=== PATIENT | male | born 1940 | race Caucasian/White ===

== ENCOUNTER 2016-11-08 11:42 | Emergency (ER) | payer BC ==
[~2016-11-08] VITALS: Ht 157.5 cm; Wt 64.5 kg
[~2016-11-08 11:42] MED LIST: CLOP1TAB15 PO; MRLP17X PEG; ONDA4TAB46 SL; PANT40TA PO; SIMV40TA2 PO
[2016-11-08 11:47] VITALS: TEMP 36.3; Ht 157.5 cm; Wt 64.5 kg
[2016-11-08] MEDS ORDERED: CRD200 PEG (12:10)
[2016-11-08] MEDS ORDERED: METO25TA56 PEG (12:10)
[2016-11-08] MEDS ORDERED: WARF2TAB8 PEG (12:10)
[2016-11-08] MEDS ORDERED: WARF1TAB6 PEG (12:10)
[2016-11-08] MEDS ORDERED: FRS/40 PEG (12:10)
[2016-11-08] MEDS ORDERED: ATOR-26 PEG (12:10)
[2016-11-08] MEDS ORDERED: LNX125 PEG (12:10)
--- NOTE | 2016-11-08 12:21 | EMERGENCY ROOM VISIT NOTE ---
ED Visit Note First contact with patient: 11:57 CHIEF COMPLAINT: Neck pain/spasms HISTORY OF PRESENT ILLNESS: This 75-year-old male patient presents to the emergency department, with his , complaining of pain in the neck bilaterally. The patient states the pain began on Monday morning, when he awoke. The patient sates he believes he slept in an awkward position, and began experiencing muscle spasms and pain in his neck. The patient did not fall and denies injury. The patient has a feeding tube, which was placed last year, and because of this, he has to sleep at 30 to 45 angle. The patient frequently experiences neck pain, however it has not been to this extent. Today , the patient states the pain worsened to the point where he felt that he needed to come to the emergency department for treatment. The patient has not taken any OTC medication, because his was uncertain what she could get him through the feeding tube. The patient rates the pain as sharp and 6/10. The patient's only significant history of neck problems as osteoarthritis noted on x -ray last year due to a fall. The patient does not have pain of the arms and shoulders. The patient denies numbness and tingling. The patient denies chest pain or shortness of breath. There was no head injury and no loss of consciousness. The patient denies headache, blurred vision, abdominal pain, nausea, or vomiting. The patient denies change in personality. REVIEW OF SYSTEMS: A 6 system review of systems was completed with positives and pertinent negatives listed in the HPI. ALLERGIES: Penicillins, Mack needles MEDICATIONS: Atorvastatin, amiodarone, digoxin, metoprolol, MiraLAX, warfarin PMH: Stroke, [place], hyperlipidemia, heart failure SOCIAL HISTORY: The patient lives locally with family. He denies drug, alcohol , tobacco use. PHYSICAL EXAM: VITALS: Vitals are noted on the nurse's note and reviewed by myself. Vital signs stable. GENERAL: This is a 75-year-old male, in no acute distress, nondiaphoretic, well-developed well-nourished. SKIN: Capillary reflex less than 2 seconds. HEENT: Normocephalic. PERRLA. EOMI. Nares patent. Mucous membranes moist. Neck is supple without nuchal rigidity. Cervical spine is not tender to palpation. The patient does have spasms and tenderness of the paraspinal muscles bilaterally in the neck. There is no lymphadenopathy. MUSCULOSKELETAL: The patient has full range of motion of the bilateral arms. Strength 5/5 of the bilateral upper extremities. The patient has tenderness with all movement of the neck. NEURO: Patient was alert and oriented to person place and time. Normal sensation to light and sharp touch. No focal neurologic deficits. EMERGENCY DEPARTMENT COURSE: I examined the patient. The patient was given 5mg Valium IM and did note improvement in his symptoms. I discussed the case with Dr. Layne and Peyman, biomedical technician, who recommended Valium at home through the feeding tube. The patient was seen and evaluated by Dr. Layne, who agrees with the assessment and plan. I discussed discharge instructions with the patient and his at bedside, who were in agreement with the plan of care at this time. The patient was discharged home in good condition. I did consult with PDMP and did not note any suspicious findings. DIFFERENTIAL DIAGNOSIS: Muscle spasms, fracture, strained muscle, contusion, malignancy, and others. DIAGNOSIS: Muscle spasms of the neck DISCHARGE INSTRUCTIONS & TREATMENT: You have been treated in the Emergency Department for Neck Pain. You have received pain medicine in the emergency department which impairs your ability to operate a vehicle. It is illegal for you to drive after receiving these medicines. You have been prescribed Valium 1-2 tab orally, every 4-6 hours. Do NOT exceed 30 mg (6 tabs) per day. You did receive a dose of this medication in the ED, so do not take your next dose until 3:00 at the earliest if needed. Start with 1 tablet, and increase to 2 if needed. Take your first dose at bedtime as it can make you drowsy. Always take all medications as prescribed. Crush the Valium tablets and mix with water, then you may insert them through the feeding tube. For pain control, you can use OTC medications as recommended to you by your PCP. Use a heating pad can be used over the area for continued soothing relief. You should schedule a follow-up appointment in 2-3 days with your Primary Care Provider for further evaluation and treatment of your neck pain. Return to the Emergency Department if your current symptoms worsen despite treatment course outlined above, or if you develop any of the following symptoms : intractable pain despite aforementioned treatment course, facial droop, slurred speech, unilateral weakness, or worsening of her current symptoms. 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 Current/Historical Medications Scheduled Amiodarone HCl (Amiodarone HCl), 200 MG PO DAILY Atorvastatin (Lipitor), 80 MG PO DAILY Digoxin (Digoxin), 0.125 MG PO 3XWK Furosemide (Lasix), 40 MG PO DAILY Metoprolol Tartrate (Lopressor) (Lopressor), 12.5 MG PO BID Warfarin Sod (Jantoven), 2 MG PO 5XWK Warfarin Sod (Jantoven), 1 MG PO 2XWK Scheduled PRN Diazepam (Valium), 1-2 TAB GT QID PRN for Muscle Spasms Polyethylene (Miralax), 1 EA PO DAILY PRN for Constipation Allergies Coded Allergies: [place] (Unverified Allergy, Unknown, hives, 11/08/16) Penicillins (Verified Allergy, Unknown, 11/08/16) Uncoded Allergies: MACK NEEDLES (Allergy, Intermediate, swelling, 01/06/15) Vital Signs Date Time Temp Pulse Resp B/P (MAP) Pulse Ox O2 Delivery O2 Flow Rate FiO2 11/08/16 13:41 64 18 135/66 97 Room Air 11/08/16 11:47 36.3 66 18 135/75 98 Room Air Medications Administered Medications (Trade) Dose Ordered Sig/Kelle Route Start Time Stop Time Status Last Admin Dose Admin Diazepam (Valium Inj) 5 mg NOW STAT IM 11/08/16 12:23 11/08/16 12:27 DC 11/08/16 12:40 5 MG Departure Information Impression Primary Impression: Muscle spasms of neck Dispostion Home / Self-Care Condition GOOD Prescriptions Diazepam (Valium) 5 Mg Tab 1-2 TAB GT QID Y for Muscle Spasms, #15 TAB Prov: Zoraida Yang, KADEEM 11/08/16 Referrals Gorge Brown D.O. (PCP) Patient Instructions ED Spasm Muscle, My [facility] Additional Instructions You have been treated in the Emergency Department for Neck Pain. You have received pain medicine in the emergency department which impairs your ability to operate a vehicle. It is illegal for you to drive after receiving these medicines. You have been prescribed Valium 1-2 tab orally, every 4-6 hours. Do NOT exceed 30 mg (6 tabs) per day. You did receive a dose of this medication in the ED, so do not take your next dose until 3:00 at the earliest if needed. Start with 1 tablet, and increase to 2 if needed. Take your first dose at bedtime as it can make you drowsy. Always take all medications as prescribed. Crush the Valium tablets and mix with water, then you may insert them through the feeding tube. For pain control, you can use OTC medications as recommended to you by your PCP. Use a heating pad can be used over the area for continued soothing relief. You should schedule a follow-up appointment in 2-3 days with your Primary Care Provider for further evaluation and treatment of your neck pain. Return to the Emergency Department if your current symptoms worsen despite treatment course outlined above, or if you develop any of the following symptoms : intractable pain despite aforementioned treatment course, facial droop, slurred speech, unilateral weakness, or worsening of her current symptoms.
[2016-11-08] MEDS ORDERED: DIAZEPAM INJ 5 MG/ML 2 ML CARP IM STA (12:23)
[2016-11-08] MEDS ORDERED: DIAZ-165 GT (13:16)
--- NOTE | 2016-11-08 13:25 | EMERGENCY ROOM VISIT NOTE ---
ED Visit Note First contact with patient: 11:57 This Patient was discussed with the physician assistant merchandiser, Zoraida Yang PA-C. The pertinent historical and physical exam findings were confirmed. I agree with the studies ordered and with the interpretations of these studies. I agree with the disposition and care plan.
[2016-11-08 13:41] VITALS: BP 135/66; PULSE 64; O2SAT 97
[2016-12-13] MEDS ORDERED: MRLP17X PEG (11:29)
[2016-12-26] MEDS ORDERED: LCTX PO (20:03)
[2016-12-26] MEDS ORDERED: NYSS5 MT (20:03)
[2016-12-26] MEDS ORDERED: LSXS PEG (20:03)
[2016-12-26] MEDS ORDERED: ASPCH81 PEG (20:03)
[2016-12-26] MEDS ORDERED: LEVO-459 PEG (20:05)
== END 2016-11-08 13:46 | disposition home or self-care (01) ==
LOC: C.EDB 11:43 → C.EDC 13:46
DX: M62.838 Other muscle spasm (principal); Z86.73 Personal history of transient ischemic attack (TIA), and cerebral infarction without residual deficits; I25.2 Old myocardial infarction; E78.5 Hyperlipidemia, unspecified; I11.0 Hypertensive heart disease with heart failure; I25.10 Atherosclerotic heart disease of native coronary artery without angina pectoris; Z93.1 Gastrostomy status; Z79.01 Long term (current) use of anticoagulants; Z79.899 Other long term (current) drug therapy

== ENCOUNTER 2016-11-30 11:53 | Inpatient (IN) | payer BC, OTHER ==
[~2016-11-30] VITALS: Ht 157.5 cm; Wt 65.3 kg
[~2016-11-30 11:53] MED LIST changes: +ATOR-26 PEG; -CLOP1TAB15 PO; +CRD200 PEG; +DIAZ-165 GT; +FRS/40 PEG; +LNX125 PEG; +METO25TA56 PEG; -ONDA4TAB46 SL; -PANT40TA PO; -SIMV40TA2 PO; +WARF1TAB6 PEG; +WARF2TAB8 PEG
[2016-11-30] MEDS ORDERED: SODIUM CHLORIDE 0.9% 1000ML 1,000 ML IV STA (12:14)
[2016-11-30] MEDS ORDERED: OPTIRAY 320 IV PRN (12:45)
[2016-11-30 12:47] LABS: ISTAT CREATININE 1.1 mg/dl (0.6-1.3); ISTAT HEMOGLOBIN 14.3 g/dl (14.0-18.0); ISTAT IONIZED CALCIUM 1.15 mmol/l (1.12-1.32)
--- NOTE | 2016-11-30 12:50 | DIAGNOSTIC IMAGING REPORT ---
CHEST ONE VIEW PORTABLE HISTORY: 76 years-old Male EVALUATE RESPIRATORY DISTRESS.DYSPNEA acute respiratory distress with dyspnea. COMPARISON: Chest radiograph 12/04/2015 TECHNIQUE: Portable upright AP view of the chest FINDINGS: Cardiac silhouette is within normal limits. There is atherosclerosis of the aorta. There is no pneumothorax. There are small bilateral pleural effusions with multifocal alveolar opacities throughout the lung bases and perihilar regions, left greater than right. Prior median sternotomy. The bones are grossly intact. IMPRESSION: Multifocal alveolar opacities throughout the lung bases and perihilar regions, left greater than right with small pleural effusions is suspicious for multifocal pneumonia. Asymmetric pulmonary edema could have a similar appearance. Correlate with CTA of the chest scheduled for later today. The above report was generated using voice recognition software. It may contain grammatical, syntax or spelling errors. Electronically signed by: Bishop Horvath M.D. 11/30/2016 12:49 PM Dictated Date/Time: 11/30/2016 12:47 PM
[2016-11-30] MEDS ORDERED: CEFEPIME IV 1,000 MG in DEXTROSE 5% 100ML 100 ML IV STA (12:56)
[2016-11-30] MEDS ORDERED: LEVAQUIN 750MG / 150ML D5W IV STA (12:56)
[2016-11-30 12:57] LABS: BASO % 0.1 %; BASO ABS # 0.02 K/uL (0-0.2); COMPLETE YES; EOS % 0.1 %; HEMATOCRIT 38.9 % (42-52); IG% 0.3 %; LYMPH % 4.1 %; LYMPH ABS # 0.74 K/uL (1.2-3.4); MEAN CORPUSCULAR HEMOGLOBIN 30.1 pg (25-34); MEAN CORPUSCULAR HGB CONC 33.4 g/dl (32-36); MONO % 2.5 %; NEUT % 92.9 %; PLATELET COUNT 271 K/uL (130-400); RED BLOOD COUNT 4.32 M/uL (4.7-6.1); WHITE BLOOD COUNT 17.88 K/uL (4.8-10.8)
[2016-11-30 13:12] LABS: ALT/SGPT 50 U/L (12-78); BLOOD UREA NITROGEN 22 mg/dl (7-18); BUN/CREATININE RATIO 19.9 (10-20); CALCIUM 9.1 mg/dl (8.5-10.1); CARBON DIOXIDE 29 mmol/L (21-32); CHLORIDE 100 mmol/L (98-107); GLUCOSE 137 mg/dl (70-99); SODIUM 136 mmol/L (136-145)
[2016-11-30 13:20] LABS: ALB/GLOB RATIO 0.6 (0.9-2); ALKALINE PHOSPHATASE 157 U/L (45-117)
[2016-11-30] MEDS ORDERED: ACETAMINOPHEN 650 MG SUPP PR PRN (13:30)
[2016-11-30 13:32] LABS: VEN BLD GAS O2 SATURATION 79.1 %; VEN BLOOD GAS BASE EXCESS 3.2 mEq/L
[2016-11-30 13:43] LABS: POTASSIUM 3.5 mmol/L (3.5-5.1)
[2016-11-30 13:44] LABS: INR 2.8 (0.9-1.1); PARTIAL THROMBOPLASTIN RATIO 1.4; PROTHROMBIN TIME (PATIENT) 31.6 SECONDS (9.0-12.0)
[2016-11-30 13:48] LABS: ALLEN TEST POS (POS); ARTERIAL BLD GAS O2 SATURATION 96.6 % (90-95); ARTERIAL BLOOD GAS BASE EXCESS 2.2 mEq/L (-9-1.8); ARTERIAL BLOOD GAS HCO3 26 mmol/L (19-24); ARTERIAL BLOOD GAS PO2 87 mm/Hg (80-95); ARTERIAL BLOOD GAS pH 7.46 (7.35-7.45); O2 ADMINISTRATION 15L
[2016-11-30] MEDS ORDERED: CONSULT PHARMACY STA ×2 (13:52→13:54)
[2016-11-30] MEDS ORDERED: PATIENT'S HEIGHT AND/OR WEIGHT NEEDED SCH (14:30)
[2016-11-30] MEDS ORDERED: LEVOFLOXACIN CONSULT ACTIVE PRN (14:30)
[2016-11-30] MEDS: SODIUM CHLORIDE 0.9% 1000ML 1,000 ML IV SCH ×4 (14:30→23:39)
[2016-11-30] MEDS ORDERED: CEFEPIME CONSULT ACTIVE PRN ×2 (14:30)
[2016-11-30 14:40] LABS: URINE APPEARANCE CLEAR (CLEAR); URINE BILIRUBIN NEG (NEG); URINE COLOR DK YELLOW; URINE EPITHELIAL CELL AUTO >30 /lpf (0-5); URINE NITRITE NEG (NEG); URINE PH 5.5 (4.5-7.5); URINE SPECIFIC GRAVITY 1.025 (1.000-1.030); UROBILINOGEN NEG (NEG)
[2016-11-30 14:43] LABS: MANUAL MICROSCOPIC REQUIRED? NO; REVIEW REQ? NO
[2016-11-30 14:45] VITALS: BP 111/62; PULSE 94; TEMP 37.1; O2SAT 97; Ht 157.5 cm; Wt 65.3 kg
[2016-11-30] MEDS ORDERED: ASPIRIN 81 MG ECTAB PO STA (15:18)
[2016-11-30] MEDS ORDERED: FERR300S PEG (15:21)
--- NOTE | 2016-11-30 15:29 | History and Physical ---
History & Physical Date & Time of Service: Nov 30, 2016 ~ 13:15 Chief Complaint: Cough Primary Care Physician: Gorge Brown D.O. History of Present Illness 76 year old male who presents to the ER with a cough. Patient is non verbal at baseline, is at the bedside who provides the history. She reports that last week the patient developed a cough and rhinorrhea. Cough has been productive for clear sputum. This morning patient got acutely worse with worsening cough and rigors. Temperature was not taken. Patient also has had diarrhea for the past few days. reports stools are chronically dark. No BRBPR. No reports of abdominal pain, nausea, or vomiting. Patient is to be strict NPO however reports the patient has approval from speech therapy to sip on coca-cola throughout the day. No reports of chest pain. Patient did not appear to be short of breath. No urinary symptoms. In the ED, patient has a low grade temp at 37.8, WBC 17K, tachycardia, and was hypoxic at 88% on 4L, currently requiring 15L NRB. CXR is showing multifocal pneumonia. Patient was treated with IV Cefepime, IV Levaquin, and IVF. Past Medical/Surgical History Medical Problems: (1) Coronary artery disease Permanent Comment: [place] - 2011 STEMI 11/2015 s/p CABG x 4 Status: Chronic (2) Dyslipidemia Status: Chronic (3) Hypertension Status: Chronic (4) Ischemic cardiomyopathy Permanent Comment: hx of EF 20% echo 07/2016 - EF 47%, grade I diastolic dysfunction, mitral regurgitation Status: Chronic (5) Myocardial infarct Status: Resolved (6) Stroke Permanent Comment: ischemic stroke left lentiform nucleus + post internal capsule 11/07/15 Status: Chronic (7) Uses feeding tube Status: Chronic Surgical Problems: (1) H/O hernia repair Status: Resolved (2) History of partial gastrectomy Status: Chronic (3) Stomach cancer Permanent Comment: s/p surgery Status: Resolved Family History Cancer Diabetes mellitus Heart disease Kidney disease Social History Smoking Status: Former Smoker Alcohol Use: none Marital Status: Housing status: lives with family Immunizations History of Influenza Vaccine: Yes Influenza Vaccine Date: Dec 21, 2015 Multi-Drug Resistant Organisms History of MDRO: No Allergies Coded Allergies: [place] (Unverified Allergy, Unknown, hives, 11/30/16) Penicillins (Verified Allergy, Unknown, 11/30/16) Uncoded Allergies: [place] NEEDLES (Allergy, Intermediate, swelling, 01/06/15) Home Medications Scheduled Amiodarone HCl (Amiodarone HCl), 200 MG PEG HS Atorvastatin (Lipitor), 80 MG PEG HS Digoxin (Digoxin), 0.125 MG PEG 3XWK Ferrous Sulfate (Ferrous Sulfate), 5 ML PEG DAILY Furosemide (Lasix), 40 MG PEG QAM Metoprolol Tartrate (Lopressor) (Lopressor), 12.5 MG PEG BID Polyethylene (Miralax), 1 EA PEG HS Warfarin Sod (Jantoven), 2 MG PEG 5XWK Warfarin Sod (Jantoven), 1 MG PEG 2XWK Review of Systems ROS per HPI, all other systems reviewed and negative Physical Exam Vital Signs Date Time Temp Pulse Resp B/P (MAP) Pulse Ox O2 Delivery O2 Flow Rate FiO2 11/30/16 14:06 100 32 91/55 97 Non-Rebreather 11/30/16 13:59 99 28 88/48 96 Non-Rebreather 11/30/16 12:14 117 11/30/16 12:10 Non-Rebreather 15.0 11/30/16 12:02 88 Nasal Cannula 4.0 11/30/16 12:02 37.8 119 36 118/64 92 Oxymask 15.0 General Appearance: no apparent distress Head: normocephalic, atraumatic Eyes: normal inspection, sclerae normal ENT: hearing grossly normal Neck: supple, no JVD Respiratory/Chest: no respiratory distress, + decreased breath sounds ( posterior lung cueto), + rhonchi (anterior upper lung cueto ), + pertinent finding (on 15L NRB) Cardiovascular: normal peripheral pulses, + tachycardia (rhythm regular), + pertinent finding (trace edema BLLE) Abdomen/GI: normal bowel sounds, non tender, soft, + pertinent finding (PEG tube in place) Extremities/Musculoskelatal: normal inspection, no calf tenderness Neurologic/Psych: alert (non verbal from prior CVA - no acute focal deficits noted ), + pertinent finding Skin: normal color, warm/dry Diagnostics Laboratory Results Results Past 24 Hours Test 11/30/16 12:27 11/30/16 12:34 11/30/16 12:35 11/30/16 13:18 Range/Units White Blood Count 17.88 4.8-10.8 K/uL Red Blood Count 4.32 4.7-6.1 M/uL Hemoglobin 13.0 14.0-18.0 g/dL Hematocrit 38.9 42-52 % Mean Corpuscular Volume 90.0 80-100 fL Mean Corpuscular Hemoglobin 30.1 25-34 pg Mean Corpuscular Hemoglobin Concent 33.4 32-36 g/dl Platelet Count 271 130-400 K/uL Mean Platelet Volume 11.0 7.4-10.4 fL Neutrophils (%) (Auto) 92.9 % Lymphocytes (%) (Auto) 4.1 % Monocytes (%) (Auto) 2.5 % Eosinophils (%) (Auto) 0.1 % Basophils (%) (Auto) 0.1 % Neutrophils # (Auto) 16.61 1.4-6.5 K/uL Lymphocytes # (Auto) 0.74 1.2-3.4 K/uL Monocytes # (Auto) 0.45 0.11-0.59 K/uL Eosinophils # (Auto) 0.01 0-0.5 K/uL Basophils # (Auto) 0.02 0-0.2 K/uL RDW Standard Deviation 54.9 36.4-46.3 fL RDW Coefficient of Variation 16.6 11.5-14.5 % Immature Granulocyte % (Auto) 0.3 % Immature Granulocyte # (Auto) 0.05 0.00-0.02 K/uL Sodium Level 136 136-145 mmol/L Potassium Level 3.5 3.5-5.1 mmol/L Chloride Level 100 98-107 mmol/L Carbon Dioxide Level 29 21-32 mmol/L Anion Gap 7.0 13.0 16-25 mmol/L Blood Urea Nitrogen 22 7-18 mg/dl Creatinine 1.10 0.60-1.40 mg/dl Estimated GFR () 74.7 Estimated GFR (Non- 64.4 BUN/Creatinine Ratio 19.9 10-20 Random Glucose 137 70-99 mg/dl Calcium Level 9.1 8.5-10.1 mg/dl Total Bilirubin 0.6 0.2-1 mg/dl Aspartate Amino Transf (AST/SGOT) 37 15-37 U/L Alanine Aminotransferase (ALT/SGPT) 50 12-78 U/L Alkaline Phosphatase 157 45-117 U/L Troponin I 0.253 0-0.045 ng/ml Pro-B-Type Natriuretic Peptide 522 0-1800 pg/ml Total Protein 7.5 6.4-8.2 gm/dl Albumin 2.8 3.4-5.0 gm/dl Globulin 4.7 2.5-4.0 gm/dl Albumin/Globulin Ratio 0.6 0.9-2 Bedside Hemoglobin 14.3 14.0-18.0 g/dl Bedside Hematocrit 42 42-52 % Bedside Sodium 136 135-144 mEq/L Bedside Potassium 4.0 3.3-5.0 mEq/L Bedside Chloride 98 101-112 mEq/L Bedside Total CO2 30 24-31 mEq/l Bedside Blood Urea Nitrogen 26 7-18 mg/dl Bedside Creatinine 1.1 0.6-1.3 mg/dl Bedside Glucose (other) 147 70-99 mg/dl Bedside Ionized Calcium (Kartik) 1.15 1.12-1.32 mmol/l Bedside Lactic Acid Venous 2.21 0.90-1.70 mmol/L Prothrombin Time 31.6 9.0-12.0 SECONDS Prothromb Time International Ratio 2.8 0.9-1.1 Activated Partial Thromboplast Time 36.2 21.0-31.0 SECONDS Partial Thromboplastin Ratio 1.4 Venous Blood pH 7.41 7.36-7.41 Venous Blood Partial Pressure CO2 46 38.0-50.0 mmHg Venous Blood Partial Pressure O2 46 mmHg Venous Blood HCO3 29 mmol/L Venous Blood Oxygen Saturation 79.1 % Venous Blood Base Excess 3.2 mEq/L Test 11/30/16 13:35 Range/Units Arterial Blood pH 7.46 7.35-7.45 Arterial Blood Partial Pressure CO2 37 35-46 mmHg Arterial Blood Partial Pressure O2 87 80-95 mm/Hg Arterial Blood HCO3 26 19-24 mmol/L Arterial Blood Oxygen Saturation 96.6 90-95 % Arterial Blood Base Excess 2.2 -9-1.8 mEq/L Arterial Blood Gas Delivery 15L Silverio Test POS POS Lactic Acid Level 1.8 0.4-2.0 mmol/L Microbiology Results 11/30/16 Blood Culture, Received Pending 11/30/16 Blood Culture, Received Pending Diagnostic Radiology CXR IMPRESSION: Multifocal alveolar opacities throughout the lung bases and perihilar regions, left greater than right with small pleural effusions is suspicious for multifocal pneumonia. Asymmetric pulmonary edema could have a similar appearance. Impression Assessment and Plan SEPSIS DUE TO PNEUMONIA ACUTE HYPOXIC RESPIRATORY FAILURE - admit to tele - patient presenting with cough and rigors; CXR in the ED showing multifocal pneumonia - on presentation: low grade fever, WBC 17K, tachycardic, POC lactic acid 2.2; serum 1.8, BP on arrival 118/64 -> 91/55 - s/p 1L IVF bolus, will give an additional 1L to total 30ml/kg due to borderline BP - per discussion by Dr. Damon with patient and his - he does not want vasopressor support; ok for IVF and antibiotics - s/p Levaquin and Cefepime in the ED - will continue with and add on Vanco if MRSA nasal swab positive - continue oxygen to maintain O2 sats > 92% - patient does not want invasive ventilator support - blood and sputum cultures DIARRHEA - check stool studies HX CAD, TROPONIN ELEVATION - no reports of chest pain, EKG without acute ST changes - holding beta beatrice due to borderline hypotension - continue statin - noted patient does not take ASA - will start 81mg daily PAROXYSMAL ATRIAL FIBRILLATION - rhythm controlled on amiodarone - rate controlled on digoxin and metoprolol - holding metoprolol due to borderline hypotension - anticoagulated on Coumadin, INR 2.8 ISCHEMIC CARDIOMYOPATHY - EF 47% - holding furosemide while giving IVF for sepsis HX CVA - patient non verbal with feeding tube - continue statin - starting ASA as above DVT PROPHYLAXIS - on Coumadin with therapeutic INR CODE STATUS - Patient is a DNR as per discussion with Dr. Damon and the patient and his . DISPO - In my clinical judgment this beneficiary meets acute admission criteria, established by [facility], that includes being hospitalized through two midnights. Attending addendum: Agree with the above H&P, please refer to above for more details. Patient is a 76 yo male who was brought to the hospital from home for complaints of coughing, SOB, and decline in mental status that occurred all of a sudden this AM. The information was obtained from the patient's as the patient is non-verbal at baseline. The patient nods yes to feeling SOB. He also nods to coughing. The patient is normally NPO and gets meds and feeds via PEG tube, however he does sip a coke beverage throughout the day per the patients . Patient has also been weaker and more tired than usual. Cardiac: tachycardic, S1 and S2 auscultated Lungs: significantly diminished breath sounds in bases bilaterally, no wheezes GI: soft, NT, ND, + BS, + PEG tube SEPSIS: -secondary to Pneumonia, CAP -check MRSA swab -start cefepime + levaquin -check lactic acid -aggressive fluid resuscitation, has received 1 L thus far, will continue with IV fluids as BP is responding, patient does not want pressors as discussed with the patient and his -obtain blood, urine, and sputum cultures -NPO, but can start tube feeds VTE Prophylaxis VTE Risk Assessment Done? Y/N: Yes Risk Level: Moderate Given or contraindicated: Warfarin (Coumadin)
[2016-11-30] MEDS ORDERED: NURSING VERBAL MED ORDER ONE (15:30)
[2016-11-30 15:33] VITALS: BP 97/58; PULSE 90; TEMP 36.3; O2SAT 100
[2016-11-30 16:00] VITALS: O2SAT 100
--- NOTE | 2016-11-30 17:25 | EMERGENCY ROOM VISIT NOTE ---
History Report prepared by Dong: Vivian Whitt Under the Supervision of: Dr. Nicko Young D.O. First contact with patient: 12:06 Chief Complaint: RESPIRATORY PROBLEMS Stated Complaint: RESPIRATORY Nursing Triage Summary: pt to the ED with c/o episode of coughing and sudden SOB per petrol tanker driver this am and concern for possible aspiration and was 72% on RA. 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 The patient has a history of quadruple bypass, an PR, and a CVA with left-sided deficits. He is non-verbal. His petrol tanker driver was there this morning and the patient had a sudden onset of coughing and shortness of breath. The patient was 72% on room air. Security Nurse became concerned for a possible aspiration. The patient was brought to the ED for further evaluation. He received several neb treatments en route which seemed to have helped. The HPI is limited due to the patient's non-verbal status. The patient is on Coumadin. Source of History: patient History Limited By: other (non-verbal) Onset: earlier today Position: chest (respiratory) Modifying Factors (Relieving): other (neb treatments) Associated Symptoms: + cough, + SOB Review of Systems The ROS is limited secondary to the patient's non-verbal status. Past Medical & Surgical Medical Problems: (1) Coronary artery disease (2) Dyslipidemia (3) Hypertension (4) Ischemic cardiomyopathy (5) Myocardial infarct (6) Stroke (7) Uses feeding tube Surgical Problems: (1) H/O hernia repair (2) History of partial gastrectomy (3) Stomach cancer Family History Cancer Diabetes mellitus Heart disease Kidney disease Social History Smoking Status: Former Smoker Alcohol Use: none Marital Status: Housing Status: lives with significant other Occupation Status: retired Current/Historical Medications Scheduled Amiodarone HCl (Amiodarone HCl), 200 MG PEG HS Atorvastatin (Lipitor), 80 MG PEG HS Digoxin (Digoxin), 0.125 MG PEG 3XWK Ferrous Sulfate (Ferrous Sulfate), 5 ML PEG DAILY Furosemide (Lasix), 40 MG PEG QAM Metoprolol Tartrate (Lopressor) (Lopressor), 12.5 MG PEG BID Polyethylene (Miralax), 1 EA PEG HS Warfarin Sod (Jantoven), 2 MG PEG 5XWK Warfarin Sod (Jantoven), 1 MG PEG 2XWK Allergies Coded Allergies: [place] (Unverified Allergy, Unknown, hives, 11/30/16) Penicillins (Verified Allergy, Unknown, 11/30/16) Uncoded Allergies: ALBAN NEEDLES (Allergy, Intermediate, swelling, 01/06/15) Physical Exam Vital Signs Date Time Temp Pulse Resp B/P (MAP) Pulse Ox O2 Delivery O2 Flow Rate FiO2 11/30/16 12:14 117 11/30/16 12:10 Non-Rebreather 15.0 11/30/16 12:02 88 Nasal Cannula 4.0 11/30/16 12:02 37.8 119 36 118/64 92 Oxymask 15.0 Physical Exam GENERAL: alert, sitting up in bed, ill appearing, moderate distress, on non- rebreather EYE EXAM: normal conjunctiva OROPHARYNX: no exudate, no erythema, lips, buccal mucosa, and tongue normal and mucous membranes are moist NECK: supple, no nuchal rigidity, no adenopathy, non-tender LUNGS: Hypoxic. Clear to auscultation. Normal chest wall mechanics HEART: Tachycardic, no murmurs, S1 normal and S2 normal CHEST: Old midline sternal incision. ABDOMEN: abdomen soft, G-tube in place, non-tender, normo-active bowel sounds, no masses, no rebound or guarding. BACK: Back is symmetrical on inspection and there is no deformity, no midline tenderness, no CVA tenderness. SKIN: no rashes and no bruising UPPER EXTREMITIES: upper extremities are grossly normal. LOWER EXTREMITIES: Right calf larger than left. NEURO EXAM: Intermittently tracking, non-verbal, not answering questions. Medical Decision & Procedures ER Provider Diagnostic Interpretation: Radiology results as stated below per my review and the radiologist's interpretation: CHEST ONE VIEW PORTABLE HISTORY: 76 years-old Male EVALUATE RESPIRATORY DISTRESS.DYSPNEA acute respiratory distress with dyspnea. COMPARISON: Chest radiograph 12/04/2015 TECHNIQUE: Portable upright AP view of the chest FINDINGS: Cardiac silhouette is within normal limits. There is atherosclerosis of the aorta. There is no pneumothorax. There are small bilateral pleural effusions with multifocal alveolar opacities throughout the lung bases and perihilar regions, left greater than right. Prior median sternotomy. The bones are grossly intact. IMPRESSION: Multifocal alveolar opacities throughout the lung bases and perihilar regions, left greater than right with small pleural effusions is suspicious for multifocal pneumonia. Asymmetric pulmonary edema could have a similar appearance. Correlate with CTA of the chest scheduled for later today. The above report was generated using voice recognition software. It may contain grammatical, syntax or spelling errors. Electronically signed by: Bishop Horvath M.D. 11/30/2016 12:49 PM Dictated Date/Time: 11/30/2016 12:47 PM Laboratory Results 11/30/16 12:27 Red Blood Count 4.32, Mean Corpuscular Volume 90.0, Mean Corpuscular Hemoglobin 30.1, Mean Corpuscular Hemoglobin Concent 33.4, Mean Platelet Volume 11.0, Neutrophils (%) (Auto) 92.9, Lymphocytes (%) (Auto) 4.1, Monocytes (%) (Auto) 2.5, Eosinophils (%) (Auto) 0.1, Basophils (%) (Auto) 0.1, Neutrophils # (Auto) 16.61, Lymphocytes # (Auto) 0.74, Monocytes # (Auto) 0.45, Eosinophils # (Auto) 0.01, Basophils # (Auto) 0.02 11/30/16 12:27 11/30/16 13:18 Test 11/30/16 12:27 11/30/16 12:34 11/30/16 12:35 11/30/16 13:18 White Blood Count 17.88 K/uL (4.8-10.8) Red Blood Count 4.32 M/uL (4.7-6.1) Hemoglobin 13.0 g/dL (14.0-18.0) Hematocrit 38.9 % (42-52) Mean Corpuscular Volume 90.0 fL (80-100) Mean Corpuscular Hemoglobin 30.1 pg (25-34) Mean Corpuscular Hemoglobin Concent 33.4 g/dl (32-36) Platelet Count 271 K/uL (130-400) Mean Platelet Volume 11.0 fL (7.4-10.4) Neutrophils (%) (Auto) 92.9 % Lymphocytes (%) (Auto) 4.1 % Monocytes (%) (Auto) 2.5 % Eosinophils (%) (Auto) 0.1 % Basophils (%) (Auto) 0.1 % Neutrophils # (Auto) 16.61 K/uL (1.4-6.5) Lymphocytes # (Auto) 0.74 K/uL (1.2-3.4) Monocytes # (Auto) 0.45 K/uL (0.11-0.59) Eosinophils # (Auto) 0.01 K/uL (0-0.5) Basophils # (Auto) 0.02 K/uL (0-0.2) RDW Standard Deviation 54.9 fL (36.4-46.3) RDW Coefficient of Variation 16.6 % (11.5-14.5) Immature Granulocyte % (Auto) 0.3 % Immature Granulocyte # (Auto) 0.05 K/uL (0.00-0.02) Estimated GFR () 74.7 Estimated GFR (Non- 64.4 BUN/Creatinine Ratio 19.9 (10-20) Calcium Level 9.1 mg/dl (8.5-10.1) Total Bilirubin 0.6 mg/dl (0.2-1) Alanine Aminotransferase (ALT/SGPT) 50 U/L (12-78) Alkaline Phosphatase 157 U/L (45-117) Troponin I 0.253 ng/ml (0-0.045) Pro-B-Type Natriuretic Peptide 522 pg/ml (0-1800) Total Protein 7.5 gm/dl (6.4-8.2) Albumin 2.8 gm/dl (3.4-5.0) Globulin 4.7 gm/dl (2.5-4.0) Albumin/Globulin Ratio 0.6 (0.9-2) Bedside Hemoglobin 14.3 g/dl (14.0-18.0) Bedside Hematocrit 42 % (42-52) Bedside Sodium 136 mEq/L (135-144) Bedside Potassium 4.0 mEq/L (3.3-5.0) Bedside Chloride 98 mEq/L (101-112) Bedside Total CO2 30 mEq/l (24-31) Anion Gap 13.0 mmol/L (16-25) Bedside Blood Urea Nitrogen 26 mg/dl (7-18) Bedside Creatinine 1.1 mg/dl (0.6-1.3) Bedside Glucose (other) 147 mg/dl (70-99) Bedside Ionized Calcium (Kartik) 1.15 mmol/l (1.12-1.32) Bedside Lactic Acid Venous 2.21 mmol/L (0.90-1.70) Prothrombin Time 31.6 SECONDS (9.0-12.0) Prothromb Time International Ratio 2.8 (0.9-1.1) Activated Partial Thromboplast Time 36.2 SECONDS (21.0-31.0) Partial Thromboplastin Ratio 1.4 Venous Blood pH 7.41 (7.36-7.41) Venous Blood Partial Pressure CO2 46 mmHg (38.0-50.0) Venous Blood Partial Pressure O2 46 mmHg Venous Blood HCO3 29 mmol/L Venous Blood Oxygen Saturation 79.1 % Venous Blood Base Excess 3.2 mEq/L Aspartate Amino Transf (AST/SGOT) 37 U/L (15-37) Laboratory results per my review. Medications Administered Medications (Trade) Dose Ordered Sig/Kelle Route Start Time Stop Time Status Last Admin Dose Admin Sodium Chloride 1,000 ml @ 999 mls/hr Q1H1M STAT IV 11/30/16 12:14 11/30/16 13:14 DC 11/30/16 12:46 999 MLS/HR Cefepime HCl 1000 mg/Dextrose 111.3 ml @ 200 mls/hr NOW STAT IV 11/30/16 12:56 11/30/16 13:29 DC 11/30/16 12:56 200 MLS/HR Levofloxacin (Levaquin / D5W) 750 mg NOW STAT IV 11/30/16 12:56 11/30/16 12:57 DC 11/30/16 13:52 750 MG Sodium Chloride 1,000 ml @ 100 mls/hr Q10H IV 11/30/16 13:30 12/30/16 13:29 11/30/16 15:43 100 MLS/HR ECG Indication: SOB/dyspnea Rate (beats per minute): 120 Rhythm: sinus tachycardia Findings: Q waves (Inferior), other (poor baseline) ED Course ED COURSE: Vital signs were reviewed and showed hypoxic and tachycardic. The patients medical record was reviewed The above diagnostic studies were performed and reviewed. ED treatments and interventions as stated above. 1207: The patient was evaluated in room C4. A complete history and physical examination was performed. 1214: NSS 1000 ml @ 999 mls/hr IV 1256: Levofloxacin 750 mg IV, Cefepime HCl 1000 mg/Dextrose 111.3 ml @ 200 mls/ hr IV 1259: Upon reevaluation, the patient is resting comfortably. I discussed my findings with the patient's and she understands and agrees with the treatment plan. Based on the patients age, coexisting illnesses, exam and lab findings the decision to treat as an inpatient was made. The patient remained stable while under my care. The patient will be evaluated for further management. 1304: I spoke with Dr. Damon. We discussed the patient's case. [facility] Medical Decision Differential diagnoses includes but is not limited to pneumonia, bronchitis, COPD/Asthma exacerbation, pneumothorax, pulmonary embolism, congestive heart failure, acute coronary syndrome. Patient is a 76-year-old male that presents the ER for shortness of breath. He is hypoxic on exam. Chest x-ray shows bilateral pneumonia. He was continued on a nonrebreather while in the ER. Pulse ox was low 90s on nonrebreather. Patient was given broad-spectrum antibiotics. Lactate slightly elevated. White count 17,000. INR was therapeutic at 2.[address] PE Was Not Performed. Troponin Was Elevated As Expected with Sepsis. Patient Was Admitted to Internal Medicine with Sepsis Secondary to Pneumonia. Medication Reconcilliation Current Medication List: was personally reviewed by me Blood Pressure Screening Patient's blood pressure: Normal blood pressure Consults Time Called: 1301 Consulting Physician: Dr. Damon Returned Call: [address] Damon. We discussed the patient's case. [facility] Impression Primary Impression: Sepsis Additional Impressions: Leukocytosis Hypoxia Bilateral pneumonia Scribe Attestation The scribe's documentation has been prepared under my direction and personally reviewed by me in its entirety. I confirm that the note above accurately reflects all work, treatment, procedures, and medical decision making performed by me. Departure Information Dispostion Being Evaluated By Hospitalist Referrals Gorge Brown D.O. (PCP) Patient Instructions My [facility] Problem Qualifiers Primary Impression: Sepsis Sepsis type: sepsis due to unspecified organism Qualified Codes: A41.9 - Sepsis, unspecified organism Additional Impressions: Leukocytosis Leukocytosis type: unspecified Qualified Codes: D72.829 - Elevated white blood cell count, unspecified Bilateral pneumonia Pneumonia type: due to unspecified organism Lung location: unspecified part of lung Qualified Codes: J18.9 - Pneumonia, unspecified organism
[2016-11-30] MEDS: DIGOXIN 0.125 MG TAB PEG SCH (17:31)
[2016-11-30] MEDS: WARFARIN SOD 1 MG TAB PEG SCH (17:58)
[2016-11-30] MEDS: PEPTAMEN 1.5 CAL 1000ML BAG PEG SCH (18:17)
[2016-11-30 20:07] VITALS: BP 96/51; PULSE 81; TEMP 36.8; O2SAT 95
[2016-11-30] MEDS: AMIODARONE 200 MG TAB PEG SCH (21:00)
[2016-11-30] MEDS ORDERED: METOPROLOL TARTRATE 25 MG TAB PEG SCH (21:00)
[2016-11-30] MEDS: ATORVASTATIN 40 MG TAB PEG SCH (21:04)
[2016-11-30 23:48] VITALS: BP 105/56; PULSE 79; TEMP 37; O2SAT 91
[2016-12-01] VITALS (13 sets, daily range): BP systolic 108–129; BP diastolic 54–66; PULSE 72–89; TEMP 36.4–36.8; O2SAT 89–100
[2016-12-01 06:25] LABS: INR 3.1 (0.9-1.1); PROTHROMBIN TIME (PATIENT) 34.7 SECONDS (9.0-12.0)
[2016-12-01 06:30] LABS: HEMATOCRIT 30.4 % (42-52); MEAN CELL VOLUME 91.3 fL (80-100); MEAN CORPUSCULAR HEMOGLOBIN 29.7 pg (25-34); MEAN CORPUSCULAR HGB CONC 32.6 g/dl (32-36); PLATELET COUNT 228 K/uL (130-400); RED BLOOD COUNT 3.33 M/uL (4.7-6.1); WHITE BLOOD COUNT 19.44 K/uL (4.8-10.8)
[2016-12-01 06:43] LABS: BUN/CREATININE RATIO 22.6 (10-20); CALCIUM 8.2 mg/dl (8.5-10.1); CREATININE 0.92 mg/dl (0.60-1.40); POTASSIUM 3.9 mmol/L (3.5-5.1)
[2016-12-01] MEDS: FERROUS SULFATE ELIX 220MG/5ML PEG SCH (07:38)
[2016-12-01] MEDS ORDERED: ASPIRIN 81 MG ECTAB PO SCH (09:00)
[2016-12-01] MEDS: SODIUM CHLORIDE 0.9% 1000ML 1,000 ML IV SCH (09:32)
--- NOTE | 2016-12-01 09:40 | Clinical Documentation Query ---
CLINICAL DOCUMENTATION QUERY 76 year old male with hx of CVA who presents to the Emergency Room with complaints of sob, ?aspiration, and hypoxia. Query #1/2 In your clinical opinion is this patient being managed for: ( x ) Possible aspiration pneumonia in setting of dysphagia, non-adherence to NPO status and tube feedings treated with aspiration precautions and IV antibiotics. ( ) Not Agree ( ) Other explanation of clinical findings (Please Explain) ( ) Unable to determine (Please Define) ( ) Need to Discuss The medical record reflects the following clinical findings, treatment, and risk factors. Clinical Indicators: acute hypoxic respiratory failure, acute on set of sob, hypoxia 78%, non-adherence to npo status, & multifocal alveolar opacities throughout the lung bases and perihilar regions by CXR Treatment: Aspiration precautions, IV Levofloxacin, IV Cefepime, NPO Risk Factors: Age, CVA, dysphagia, drinking sips of Coke PRN, Query #2/2 In your clinical opinion is this patient being managed for: (x ) Demand ischemia evidenced by +Troponin's in setting of acute hypoxic respiratory failure treated with respiratory support ( ) Not Agree ( ) Other explanation of clinical findings (Please Explain) ( ) Unable to determine (Please Define) ( ) Need to Discuss The medical record reflects the following clinical findings, treatment, and risk factors. Clinical Indicators: hypoxia of 78%, tachycardia 119, fever 37.9, Troponin's 0.253, 0.281, 0.162. Treatment: O2, telemetry Risk Factors: Age, CAD, hypoxia, tachycardia, cardiomyopathy Please clarify and document your clinical opinion in the progress notes and discharge summary. Terms such as "probable", "suspected", "likely", "questionable", "possible", or "still to be ruled out" are acceptable. IF IN AGREEMENT, YOU MUST DOCUMENT ABOVE DIAGNOSTIC STATEMENT IN DAILY PROGRESS NOTES AND DISCHARGE SUMMARY. This document is not part of the patient's record. Thank You, Castillo Rojas, PABLO [phone]
--- NOTE | 2016-12-01 11:13 | Progress Note ---
Medicine Progress Note Date & Time of Visit: Dec 01, 2016 at 10:53. Subjective tolerating PEG tube feeding at 40 cc/hr currently IVF running overnight, stopping those now. reports feeling clinically improved overall but is still short of breath no chest pain, no fevers, chills, abdominal pain, nausea, vomiting or diarrhea. at bedside and provided history. Objective Last 8 Hrs Date Time Temp Pulse Resp B/P (MAP) Pulse Ox O2 Delivery O2 Flow Rate FiO2 12/01/16 08:00 100 Nasal Cannula 5.0 12/01/16 07:45 36.7 72 18 113/63 (80) 94 Nasal Cannula 5.0 12/01/16 07:04 36.8 72 20 110/61 (77) 93 Nasal Cannula 5.0 12/01/16 04:00 96 Nasal Cannula 5.0 12/01/16 03:02 36.8 72 20 108/54 (72) 93 Nasal Cannula 5.0 Physical Exam: GEN: WNWD, in no acute distress, alert and appropriate, NC in place, not working to breathe, audible upper airway sounds HEENT: NC/AT, normal sclerae, MMM NECK: trachea midline. CARDIO: reg rate, S1/2 heard without m/g/r LUNGS: coarse rhonchi throughout ABD: soft, non-tender, non-distended, no rebound or guarding, +BS, PEG tube in place, insertion site is clean and not erythematous-no drainage present EXTREMITY: RP and DP palpable 2+ bilat, no LE swelling or edema, extremities are warm and well-perfused NEURO: nonverbal, follows instructions, mentating appropriately MUSC: 5/5 strength throughout, no gross focal deficits SKIN: warm and dry Laboratory Results: 12/01/16 05:27 12/01/16 05:27 Test 11/30/16 12:27 11/30/16 12:34 11/30/16 12:35 11/30/16 13:18 Immature Granulocyte % (Auto) 0.3 % White Blood Count 17.88 K/uL (4.8-10.8) Red Blood Count 4.32 M/uL (4.7-6.1) Hemoglobin 13.0 g/dL (14.0-18.0) Hematocrit 38.9 % (42-52) Mean Corpuscular Volume 90.0 fL (80-100) Mean Corpuscular Hemoglobin 30.1 pg (25-34) Mean Corpuscular Hemoglobin Concent 33.4 g/dl (32-36) Platelet Count 271 K/uL (130-400) Mean Platelet Volume 11.0 fL (7.4-10.4) Neutrophils (%) (Auto) 92.9 % Lymphocytes (%) (Auto) 4.1 % Monocytes (%) (Auto) 2.5 % Eosinophils (%) (Auto) 0.1 % Basophils (%) (Auto) 0.1 % Neutrophils # (Auto) 16.61 K/uL (1.4-6.5) Lymphocytes # (Auto) 0.74 K/uL (1.2-3.4) Monocytes # (Auto) 0.45 K/uL (0.11-0.59) Eosinophils # (Auto) 0.01 K/uL (0-0.5) Basophils # (Auto) 0.02 K/uL (0-0.2) Immature Granulocyte # (Auto) 0.05 K/uL (0.00-0.02) Total Bilirubin 0.6 mg/dl (0.2-1) Alanine Aminotransferase (ALT/SGPT) 50 U/L (12-78) Alkaline Phosphatase 157 U/L (45-117) Pro-B-Type Natriuretic Peptide 522 pg/ml (0-1800) Total Protein 7.5 gm/dl (6.4-8.2) Albumin 2.8 gm/dl (3.4-5.0) Globulin 4.7 gm/dl (2.5-4.0) Albumin/Globulin Ratio 0.6 (0.9-2) Bedside Hemoglobin 14.3 g/dl (14.0-18.0) Bedside Hematocrit 42 % (42-52) Bedside Sodium 136 mEq/L (135-144) Bedside Potassium 4.0 mEq/L (3.3-5.0) Bedside Chloride 98 mEq/L (101-112) Bedside Total CO2 30 mEq/l (24-31) Bedside Blood Urea Nitrogen 26 mg/dl (7-18) Bedside Creatinine 1.1 mg/dl (0.6-1.3) Bedside Glucose (other) 147 mg/dl (70-99) Bedside Ionized Calcium (Kartik) 1.15 mmol/l (1.12-1.32) Bedside Lactic Acid Venous 2.21 mmol/L (0.90-1.70) Activated Partial Thromboplast Time 36.2 SECONDS (21.0-31.0) Partial Thromboplastin Ratio 1.4 Venous Blood pH 7.41 (7.36-7.41) Venous Blood Partial Pressure CO2 46 mmHg (38.0-50.0) Venous Blood Partial Pressure O2 46 mmHg Venous Blood HCO3 29 mmol/L Venous Blood Oxygen Saturation 79.1 % Venous Blood Base Excess 3.2 mEq/L Aspartate Amino Transf (AST/SGOT) 37 U/L (15-37) Test 11/30/16 13:35 11/30/16 14:25 12/01/16 00:00 12/01/16 00:15 Arterial Blood pH 7.46 (7.35-7.45) Arterial Blood Partial Pressure CO2 37 mmHg (35-46) Arterial Blood Partial Pressure O2 87 mm/Hg (80-95) Arterial Blood HCO3 26 mmol/L (19-24) Arterial Blood Oxygen Saturation 96.6 % (90-95) Arterial Blood Base Excess 2.2 mEq/L (-9-1.8) Arterial Blood Gas Delivery 15L Silverio Test POS (POS) Lactic Acid Level 1.8 mmol/L (0.4-2.0) Urine Color DK YELLOW Urine Appearance CLEAR (CLEAR) Urine pH 5.5 (4.5-7.5) Urine Specific [place] 1.025 (1.000-1.030) Urine Protein 1+ (NEG) Urine Glucose (UA) NEG (NEG) Urine Ketones TRACE (NEG) Urine Occult Blood NEG (NEG) Urine Nitrite NEG (NEG) Urine Bilirubin NEG (NEG) Urine Urobilinogen NEG (NEG) Urine Leukocyte Esterase TRACE (NEG) Urine WBC (Auto) 1-5 /hpf (0-5) Urine RBC (Auto) 5-10 /hpf (0-4) Urine Hyaline Casts (Auto) 5-10 /lpf (0-5) Urine Epithelial Cells (Auto) >30 /lpf (0-5) Urine Bacteria (Auto) NEG (NEG) Creatine Kinase MB Ratio (0-3.0) Creatine Kinase MB 1.1 ng/ml (0.5-3.6) Troponin I 0.162 ng/ml (0-0.045) Test 12/01/16 05:27 12/01/16 06:34 Red Blood Count 3.33 M/uL (4.7-6.1) Mean Corpuscular Volume 91.3 fL (80-100) Mean Corpuscular Hemoglobin 29.7 pg (25-34) Mean Corpuscular Hemoglobin Concent 32.6 g/dl (32-36) RDW Standard Deviation 56.2 fL (36.4-46.3) RDW Coefficient of Variation 16.8 % (11.5-14.5) Mean Platelet Volume 11.0 fL (7.4-10.4) Prothrombin Time 34.7 SECONDS (9.0-12.0) Prothromb Time International Ratio 3.1 (0.9-1.1) Anion Gap 4.0 mmol/L (3-11) Est Creatinine Clear Calc Drug Dose 51.9 ml/min Estimated GFR () 92.7 Estimated GFR (Non- 79.9 BUN/Creatinine Ratio 22.6 (10-20) Calcium Level 8.2 mg/dl (8.5-10.1) Bedside Glucose 132 mg/dl (70-99) Date/Time Source Procedure Growth Status 11/30/16 13:18 Blood Blood Culture Pending Received 11/30/16 15:30 Nasal MRSA DNA Surveillance Screen - Final Specimen Negative for MRSA by DNA Probe Complete 12/01/16 07:30 Sputum Expectorated Sputum Gram Stain - Final Resulted 12/01/16 07:30 Sputum Expectorated Sputum Sputum Culture Pending Resulted Last 24 Hours Test 11/30/16 12:27 11/30/16 12:34 11/30/16 12:35 11/30/16 13:18 White Blood Count 17.88 K/uL Red Blood Count 4.32 M/uL Hemoglobin 13.0 g/dL Hematocrit 38.9 % Mean Corpuscular Volume 90.0 fL Mean Corpuscular Hemoglobin 30.1 pg Mean Corpuscular Hemoglobin Concent 33.4 g/dl Platelet Count 271 K/uL Mean Platelet Volume 11.0 fL Neutrophils (%) (Auto) 92.9 % Lymphocytes (%) (Auto) 4.1 % Monocytes (%) (Auto) 2.5 % Eosinophils (%) (Auto) 0.1 % Basophils (%) (Auto) 0.1 % Neutrophils # (Auto) 16.61 K/uL Lymphocytes # (Auto) 0.74 K/uL Monocytes # (Auto) 0.45 K/uL Eosinophils # (Auto) 0.01 K/uL Basophils # (Auto) 0.02 K/uL RDW Standard Deviation 54.9 fL RDW Coefficient of Variation 16.6 % Immature Granulocyte % (Auto) 0.3 % Immature Granulocyte # (Auto) 0.05 K/uL Sodium Level 136 mmol/L Potassium Level mmol/L 3.5 mmol/L Chloride Level 100 mmol/L Carbon Dioxide Level 29 mmol/L Anion Gap 7.0 mmol/L 13.0 mmol/L Blood Urea Nitrogen 22 mg/dl Creatinine 1.10 mg/dl Estimated GFR () 74.7 Estimated GFR (Non- 64.4 BUN/Creatinine Ratio 19.9 Random Glucose 137 mg/dl Calcium Level 9.1 mg/dl Total Bilirubin 0.6 mg/dl Aspartate Amino Transf (AST/SGOT) U/L 37 U/L Alanine Aminotransferase (ALT/SGPT) 50 U/L Alkaline Phosphatase 157 U/L Troponin I 0.253 ng/ml Pro-B-Type Natriuretic Peptide 522 pg/ml Total Protein 7.5 gm/dl Albumin 2.8 gm/dl Globulin 4.7 gm/dl Albumin/Globulin Ratio 0.6 Bedside Hemoglobin 14.3 g/dl Bedside Hematocrit 42 % Bedside Sodium 136 mEq/L Bedside Potassium 4.0 mEq/L Bedside Chloride 98 mEq/L Bedside Total CO2 30 mEq/l Bedside Blood Urea Nitrogen 26 mg/dl Bedside Creatinine 1.1 mg/dl Bedside Glucose (other) 147 mg/dl Bedside Ionized Calcium (Kartik) 1.15 mmol/l Bedside Lactic Acid Venous 2.21 mmol/L Prothrombin Time 31.6 SECONDS Prothromb Time International Ratio 2.8 Activated Partial Thromboplast Time 36.2 SECONDS Partial Thromboplastin Ratio 1.4 Venous Blood pH 7.41 Venous Blood Partial Pressure CO2 46 mmHg Venous Blood Partial Pressure O2 46 mmHg Venous Blood HCO3 29 mmol/L Venous Blood Oxygen Saturation 79.1 % Venous Blood Base Excess 3.2 mEq/L Test 11/30/16 13:35 11/30/16 14:25 11/30/16 18:00 11/30/16 18:13 Arterial Blood pH 7.46 Arterial Blood Partial Pressure CO2 37 mmHg Arterial Blood Partial Pressure O2 87 mm/Hg Arterial Blood HCO3 26 mmol/L Arterial Blood Oxygen Saturation 96.6 % Arterial Blood Base Excess 2.2 mEq/L Arterial Blood Gas Delivery 15L Silverio Test POS Lactic Acid Level 1.8 mmol/L Urine Color DK YELLOW Urine Appearance CLEAR Urine pH 5.5 Urine Specific [place] 1.025 Urine Protein 1+ Urine Glucose (UA) NEG Urine Ketones TRACE Urine Occult Blood NEG Urine Nitrite NEG Urine Bilirubin NEG Urine Urobilinogen NEG Urine Leukocyte Esterase TRACE Urine WBC (Auto) 1-5 /hpf Urine RBC (Auto) 5-10 /hpf Urine Hyaline Casts (Auto) 5-10 /lpf Urine Epithelial Cells (Auto) >30 /lpf Urine Bacteria (Auto) NEG Creatine Kinase MB Ratio Creatine Kinase MB 1.1 ng/ml Troponin I 0.281 ng/ml Test 12/01/16 00:00 12/01/16 00:09 12/01/16 00:15 12/01/16 05:27 Creatine Kinase MB Ratio Bedside Glucose 124 mg/dl Creatine Kinase MB 1.1 ng/ml Troponin I 0.162 ng/ml White Blood Count 19.44 K/uL Red Blood Count 3.33 M/uL Hemoglobin 9.9 g/dL Hematocrit 30.4 % Mean Corpuscular Volume 91.3 fL Mean Corpuscular Hemoglobin 29.7 pg Mean Corpuscular Hemoglobin Concent 32.6 g/dl RDW Standard Deviation 56.2 fL RDW Coefficient of Variation 16.8 % Platelet Count 228 K/uL Mean Platelet Volume 11.0 fL Prothrombin Time 34.7 SECONDS Prothromb Time International Ratio 3.1 Sodium Level 140 mmol/L Potassium Level 3.9 mmol/L Chloride Level 108 mmol/L Carbon Dioxide Level 28 mmol/L Anion Gap 4.0 mmol/L Blood Urea Nitrogen 21 mg/dl Creatinine 0.92 mg/dl Est Creatinine Clear Calc Drug Dose 51.9 ml/min Estimated GFR () 92.7 Estimated GFR (Non- 79.9 BUN/Creatinine Ratio 22.6 Random Glucose 122 mg/dl Calcium Level 8.2 mg/dl Test 12/01/16 06:34 Bedside Glucose 132 mg/dl Date/Time Source Procedure Growth Status 11/30/16 13:18 Blood Blood Culture Pending Received 11/30/16 12:27 Blood Blood Culture Pending Received 11/30/16 15:30 Nasal MRSA DNA Surveillance Screen - Final Specimen Negative for MRSA by DNA Probe Complete 12/01/16 07:30 Sputum Expectorated Sputum Gram Stain - Final Resulted 12/01/16 07:30 Sputum Expectorated Sputum Sputum Culture Pending Resulted Assessment & Plan 76 yo M who is nonverbal with speech and swallowing issues since a stroke last October presents with acute fevers, rigors, increased productive cough and hypoxia found to have multilobar pneumonia. 1. Sepsis 2/2 CAP with acute hypoxic respiratory failure. Possible aspiration pneumonia in setting of dysphagia, non-adherence to NPO status and tube feedings treated with aspiration precautions and IV antibiotics. Still requiring oxygen this morning but states that he is feeling much better today. Cont current antibiotics (Cefepime and Levaquin) until further clinical improvement. Will consider deescalation in 24-48 hours. Coarse rhonchi throughout all lungs. Poss contribution from volume overload--stopping IVF and cont holding Lasix to be started in am unless breathing gets any worse today. Starting Duoneb treatments and flutter valve now. states that he doesn't handle decongestants well so will not give. 2. Diarrhea-chronic 2/2 chronic tube feedings but has noticed and increased frequency of stools. Stool studies ordered, however, infection is less likely in setting of no recent travel and no recent abx or hospitalization. 3. CAD s/p CABG-elevated troponin on arrival, likely related to demand ischemia in setting of sepsis. Pt denies any chest pain and EKG does not reveal evidence of acute ischemia. Cont medical management with ASA, Lipitor. Holding Lopressor with borderline hypotension. Will obtain echocardiogram to ensure no acute wall motion abnormalities. Note, ASA started as a new medication this admission. 4. PAF-rate/rhythm controlled with dig, Lopressor and amio. Cont warfarin for anticoagulation 5. ICM-EF 47%. Resuscitated from a sepsis standpoint and will restart Lasix in am. Does not appear to have acute heart failure at this time. Hypoxia appears to be related to infection mainly. 6. h/o CVA-nonverbal, has PEG tube. Cont statin and started ASA as above. Feedings are supposed to be 50ml/hr x 24 hours. DVT Proph: Coumadin DNR Dispo-cont med tele for now. Lizzeth Vela DO [facility] Hospitalist Current Inpatient Medications: Current Inpatient Medications Medications (Trade) Dose Ordered Sig/Kelle Route Start Time Stop Time Status Last Admin Dose Admin Ondansetron HCl (Zofran Inj) 4 mg Q6H PRN IV 11/30/16 13:30 12/30/16 13:29 Acetaminophen (Tylenol Supp) 650 mg Q4H PRN DC 11/30/16 13:30 12/30/16 13:29 Amiodarone HCl (Cordarone Tab) 200 mg HS PEG 11/30/16 21:00 12/30/16 20:59 Atorvastatin Calcium (Lipitor Tab) 80 mg HS PEG 11/30/16 21:00 12/30/16 20:59 11/30/16 21:04 80 MG Digoxin (Lanoxin Tab) 0.125 mg MoWeFr@1600 PEG 11/30/16 16:00 12/30/16 15:59 11/30/16 17:31 0.125 MG Warfarin Sodium (Coumadin Tab) 1 mg WeSa@1600 PEG 11/30/16 16:00 12/30/16 15:59 11/30/16 17:58 1 MG Warfarin Sodium (Coumadin Tab) 2 mg SuMoTuThFr@1600 PEG 12/01/16 16:00 12/31/16 15:59 Cefepime HCl (Consult) 1 ea UD PRN N/A 11/30/16 14:30 12/30/16 14:29 Levofloxacin (Consult) 1 ea UD PRN N/A 11/30/16 14:30 12/30/16 14:29 Aspirin (Ecotrin Tab) 81 mg QAM PO 12/01/16 09:00 12/31/16 08:59 12/01/16 07:38 81 MG Ferrous Sulfate (Feosol Elix) 220 mg DAILY PEG 12/01/16 09:00 12/31/16 08:59 12/01/16 07:38 220 MG Cefepime HCl 2000 mg/Dextrose 112.5 ml @ 225 mls/hr Q24H IV 12/01/16 13:00 12/08/16 12:59 Enteral Nutritional Formula (Peptamen 1.5) 1,000 ml GOAL RATE 50ML/HR PEG 11/30/16 18:00 12/30/16 17:59 11/30/16 18:17 1,000 ML Levofloxacin 750 mg/Prmx 150 ml @ 100 mls/hr Q24H IV 12/01/16 14:00 12/08/16 13:59
[2016-12-01] MEDS: CEFEPIME IV 2000 MG in DEXTROSE 5% 100ML IV SCH (13:05)
[2016-12-01] MEDS: LEVOFLOXACIN 750MG / D5W IV SCH (13:50)
[2016-12-01] MEDS ORDERED: LEVOFLOXACIN 750MG / D5W IV SCH (14:00)
[2016-12-01] MEDS: ALBUT/IPRATROP 3MG/0.5MG NEB 3 ML VIAL INH SCH ×2 (15:11→20:20)
[2016-12-01] MEDS: WARFARIN SOD 2 MG TAB PEG SCH (15:27)
[2016-12-01] MEDS: AMIODARONE 200 MG TAB PEG SCH (20:41)
[2016-12-01] MEDS: ATORVASTATIN 40 MG TAB PEG SCH (20:41)
[2016-12-02] VITALS (18 sets, daily range): BP systolic 104–136; BP diastolic 56–68; PULSE 63–97; TEMP 36.8–37.7; O2SAT 93–100
[2016-12-02] MEDS: PEPTAMEN 1.5 CAL 1000ML BAG PEG SCH (01:47)
[2016-12-02] MEDS: ONDANSETRON INJ 2 MG/ML 2 ML VIAL IV PRN ×2 (03:30→17:43)
[2016-12-02] MEDS ORDERED: LEVALBUTEROL/IPRATROPIUM NEB INH SCH (03:45)
[2016-12-02] MEDS ORDERED: LEVALBUTEROL/IPRATROPIUM NEB INH ONE (03:45)
[2016-12-02] MEDS ORDERED: IPRATROPIUM BROMIDE NEB SOLN 0.02% 2.5 ML VIAL INH STA (04:05)
[2016-12-02] MEDS ORDERED: LEVALBUTEROL 1.25MG/0.5ML NEB INH STA (04:05)
[2016-12-02] MEDS ORDERED: IPRATROPIUM BROMIDE NEB SOLN 0.02% 2.5 ML VIAL INH PRN (04:15)
[2016-12-02] MEDS ORDERED: LEVALBUTEROL 1.25MG/0.5ML NEB INH PRN (04:15)
--- NOTE | 2016-12-02 07:43 | DIAGNOSTIC IMAGING REPORT ---
CHEST ONE VIEW PORTABLE CLINICAL HISTORY: Possible aspiration. COMPARISON STUDY: Chest radiograph November 30, 2016. FINDINGS: Note is made of median sternotomy wires. There are small bilateral pleural effusions. No pneumothorax is identified. There is dense left lung consolidation. This has progressed since exam of November 30, 2016. Moderate right lung airspace opacity is also present. IMPRESSION: 1. Progression of extensive bilateral airspace opacities, greater within the left lung. The findings favor multifocal pneumonia. Asymmetric pulmonary edema could appear similar. Radiographic follow-up to ensure resolution is recommended. 2. Small bilateral pleural effusions. Electronically signed by: Paco Crook M.D. 12/02/2016 7:42 AM Dictated Date/Time: 12/02/2016 7:40 AM
[2016-12-02] MEDS ORDERED: NURSING VERBAL MED ORDER ONE (08:45)
[2016-12-02 08:47] LABS: BASO % 0.1 %; BASO ABS # 0.01 K/uL (0-0.2); EOS % 0.1 %; HEMATOCRIT 31.3 % (42-52); IG% 0.4 %; LYMPH % 2.9 %; LYMPH ABS # 0.48 K/uL (1.2-3.4); MEAN CORPUSCULAR HEMOGLOBIN 29.7 pg (25-34); MEAN PLATELET VOLUME 10.8 fL (7.4-10.4); MONO % 6.4 %; NEUT % 90.1 %; PLATELET COUNT 217 K/uL (130-400); RED BLOOD COUNT 3.44 M/uL (4.7-6.1); WHITE BLOOD COUNT 16.62 K/uL (4.8-10.8)
[2016-12-02 08:54] LABS: COMPLETE YES; MEAN CORPUSCULAR HGB CONC 32.6 g/dl (32-36)
[2016-12-02] MEDS ORDERED: FUROSEMIDE ORAL SOLN 40 MG/5 ML UDP PEG SCH (09:00)
[2016-12-02 09:11] LABS: BUN/CREATININE RATIO 19.8 (10-20); CREATININE 0.88 mg/dl (0.60-1.40); POTASSIUM 4.3 mmol/L (3.5-5.1)
[2016-12-02] MEDS: FERROUS SULFATE ELIX 220MG/5ML PEG SCH (09:40)
[2016-12-02] MEDS: METRONIDAZOLE / NSS 500 MG in PREMIXED NSS 100 ML IV SCH ×2 (09:40→17:09)
[2016-12-02] MEDS: ASPIRIN 81 MG CHEW PEG SCH (09:40)
[2016-12-02] MEDS ORDERED: SODIUM CHLORIDE 0.9% 1000ML 1,000 ML IV SCH (10:30)
[2016-12-02] MEDS: IPRATROPIUM BROMIDE NEB SOLN 0.02% 2.5 ML VIAL INH SCH ×4 (11:09→23:10)
[2016-12-02] MEDS: LEVALBUTEROL 1.25MG/0.5ML NEB INH SCH ×4 (11:09→23:10)
--- NOTE | 2016-12-02 12:01 | PULMONARY CONSULTATION ---
DATE OF CONSULTATION: 12/02/2016 TIME: 11:05 a.m. REPORT OF CONSULTATION: The patient was seen in room 222. He is a 76-year-old male who came to the Emergency Room on November 30 after having had an acute episode of shortness of breath and hypoxia. Reportedly, the patient had had prior to this episode several days of some runny nose. The cough he had at that time was mild. He was not having any shortness of breath. According to his , who was present when I was with the patient, he awakened in the morning and then went back to sleep for about 3 hours. He awakened about 09:30 or 10:00 a.m. with severe shortness of breath. He was found to have oxygen saturations in the 70s on room air. He had a temperature initially at 37.8 and his white count was elevated. There was no definite history of vomiting at that time, although aspiration was suspected early on. The patient has a history of CVA in October of 2015. This resulted in severe dysphagia. He did have a feeding tube inserted by surgical incision according to his . It probably is in the small intestine area. He previously had a gastrectomy for peptic ulcer disease many years ago. Apparently, he has episodes of nausea a lot. He gets feedings at home. She typically gives him about 50 mL of feeds on a continual basis, but the patient does not like to be hooked up continuously. She estimates that he gets it about 16 hours per day. The patient himself has expressive aphasia and thus is not able to give me much history, although he was able to answer questions appropriately by nodding his head yes or no to questions. Yesterday, he was somewhat improved. Last night, he definitively vomited. This resulted in becoming much more short of breath. It appears that nursing found him covered in tube feed vomitus at 03:41 a.m. today. The patient himself indicates that he is not short of breath, but he appears short of breath and is breathing rapidly. Chest x-ray done today showed significant worsening of the bilateral infiltrates, greater on the left than the right. The feedings are totally on hold at present. PAST SURGICAL HISTORY: 1. Hernia repair. 2. Gastrectomy. 3. Feeding tube insertion. 4. Coronary artery bypass grafting in November 2015. PAST MEDICAL HISTORY: 1. MT many years ago when the patient was done. 2. CVA as noted. 3. Dysphagia. 4. Hyperlipidemia. 5. Hypertension. 6. Ischemic cardiomyopathy. FAMILY HISTORY: Positive for cancer, diabetes, heart disease and kidney problems. ALLERGIES: PENICILLIN AND ALBAN NEEDLES. SOCIAL HISTORY: Tobacco: The patient smoked in the past, but quit in 1980. REVIEW OF SYSTEMS: Essentially unobtainable except for the above-mentioned complaints. The patient is nonverbal. PHYSICAL EXAMINATION: GENERAL: Mr. Vaughn is a 76-year-old male who appears chronically ill. He awakened readily. He is oriented. He was very cooperative. He has expressive aphasia. VITAL SIGNS: Maximal temperature since admission is 37.8. HEENT: Pupils were reactive. He has an OxyMask in place and thus, I was not able to well examine the nasal passage. I did lift the mask for a minute to check the oropharynx and indeed, he had a large glob of dried mucus on the palate. I brought this to the attention of nursing staff , who will clear that out. NECK: No lymphadenopathy was palpable. HEART: Heart rate was 78 per minute. Blood pressure is 118/64. LUNGS: Auscultation of the lung cueto revealed diffuse rhonchi bilaterally, but greater on the left than the right. His respiratory rate was 30 breaths per minute. His oxygen saturation was 93% on 5 liter OxyMask. He is not using accessory muscles at present. CHEST: Inspection of the abdomen reveals multiple scars from prior surgeries. ABDOMEN: There is a feeding tube in place through the abdominal wall. Bowel sounds were present. He did not seem to be distended. There was no definite tenderness to palpation or masses. EXTREMITIES: Showed no cyanosis, clubbing or edema. He had very good pulses peripherally. The patient has movement of all 4 extremities. There did not seem to be a significant difference between the right and the left in terms of strength and his states that his stroke resulted in right-sided weakness, but it has improved significantly. Chest x-ray done on admission showed bilateral alveolar opacities throughout the lung bases and perihilar regions, greater on the left than the right. Cannot exclude small effusions. He was supposed to have a CAT scan of the chest, but that apparently was canceled. A chest x-ray done earlier this morning showed marked progression of the extensive bilateral airspace opacities, greater on the left. I believe this is compatible with aspiration pneumonia. CBC on admission showed a white count of 17.88. Hemoglobin was 13. Platelets were 271,000. Today, the white count was 16.62 with hemoglobin of 10.2. Platelets were 217,000. The patient's INR today is 3.1. Urinalysis on admission showed +1 protein with 5-10 RBCs per high power field. Urine bacteria was negative. Blood gas done on the date of admission showed a pH of 7.46 with a pCO2 of 37 and a pO2 of 87 done on 15 liters of oxygen. I am assuming that was with a nonrebreather. Electrolytes today show sodium 138, potassium 4.3, chloride 107, and bicarbonate 27. The BUN was 17 with a creatinine of 0.88. Calcium was 9. Troponin was elevated at 0.162. Electrocardiogram done yesterday showed an underlying sinus rhythm with nonspecific ST and T-wave changes. IMPRESSIONS: 1. Acute respiratory failure with hypoxia. 2. Aspiration pneumonia with aspiration of GI contents. 3. Status post cerebrovascular accident. COMMENTS AND RECOMMENDATIONS: The patient is currently on Flagyl, levofloxacin, and cefepime. HE IS ALLERGIC TO PENICILLIN. He is getting nebulizer treatments with levalbuterol and ipratropium every 4 hours. Otherwise, he is on his maintenance drugs. I believe the feedings have to be held for now. It is not exactly clear to me why the patient is having vomiting. His said that he is very sensitive to the feeds and if he gets it too much at one time or too fast, it does upset his GI tract and make him nauseated. He does have Zofran ordered on a p.r.n. basis. I have asked the nurses to suction the patient carefully. I directed their attention to some mucus in the oropharynx area as noted. The patient is a DNR. If he persisted with progressive vomiting and if his saturations were not terrible, consideration could be given to bronchoscopy. This would need to be done with caution, if it was done, considering his hypoxia and his multiple medical problems. Thank you for asking me to assist in his care. NAVEED
[2016-12-02] MEDS: CEFEPIME IV 2000 MG in DEXTROSE 5% 100ML IV SCH (12:49)
[2016-12-02] MEDS ORDERED: LEVOFLOXACIN 750MG / D5W IV SCH (14:00)
--- NOTE | 2016-12-02 14:50 | ECHOCARDIOGRAM REPORT ---
*NOTICE TO RECEIVING REPUBLICAN AGENCY This information is strictly Confidential and protected under [place] law. [place] law prohibits you from making any further disclosure of this information unless further disclosure is expressly permitted by the written consent of the person to whom it pertains or is authorized by law. A general authorization for the release of medical or other information is not sufficient for this purpose. Hospital accepts no responsibility if the information is made available to any other person, INCLUDING THE PATIENT. Interpretation Summary * Name: MAXIMILIANO PRADO Study Date: 12/02/2016 06:46 AM BP: 109/60 mmHg * Patient Location: C.2T\S\E222\S\1 HR: 85 * : 1940 (M/d/yyyy) Gender: Male Height: 62 in * Age: 76 yrs Ethnicity: [place] Weight: 131 lb * Ordering Physician: Lizzeth Vela * Referring Physician: Self, Referred * Performed By: Osvaldo Nguyen RCS * * Reason For Study: Elevated Trop, Sepsis, R/O WMA * BSA: 1.6 m2 * -- Conclusions -- * No significant change compared to previous study of 16. * Normal LV chamber size with mild concentric LVH. * Low normal LV systolic function, EF 50-55%. * Moderate to severe hypokinesis of the inferior/posterior dumas, associated wall thinning to suggest chronicity, otherwise, hyperdynamic wall motion. * Grade I diastolic dysfunction. * Aortic valve sclerosis moderate, without significant aortic valvular stenosis. Procedure Details * The study was technically difficult. * A contrast injection of Definity was performed to improve assessment of LV function. * Contrast was injected into an intravenous site in the right arm. * One vial of Definity ultrasound contrast was diluted in normal saline to a total volume of 10 ml. A total of '4' ml of solution was administered during imaging. * Lot # [id number] of Definity utilized for procedure. * Expiration date . * The attending nurse who injected the contrast agent was PABLO ROMERO. Left Ventricle * The left ventricle is normal in size. * There is mild concentric left ventricular hypertrophy. * Ejection Fraction = 50-55%. * Left ventricular systolic function is low normal. * Moderate to severe hypokinesis of the inferior/posterior dumas, associated wall thinning to suggest chronicity. Right Ventricle * The right ventricular cavity size is normal (basal dimension <4.2 cm in right ventricular apical 4-chamber view). * The right ventricular systolic function is normal as assessed by tricuspid annular plane systolic excursion (TAPSE) (normal >1.5 cm). Atria * The left atrial size is normal. * Right atrial size is normal. * No ASD detected; PFO is not assessed. Mitral Valve * The mitral valve is normal in structure and function. Tricuspid Valve * The tricuspid valve is normal in structure and function. Aortic Valve * The aortic valve is trileaflet. * Aortic valve sclerosis moderate, without significant aortic valvular stenosis. * There is no significant aortic regurgitation. Pulmonic Valve * The pulmonary valve is not well seen, but the Doppler examination is normal without significant regurgitation or stenosis. Great Vessels * The aortic root is normal size. Pericardium/Pleural * There is no pericardial effusion. Left Ventricular Diastolic Function * Grade I diastolic dysfunction, (abnormal relaxation pattern). MMode 2D Measurements and Calculations IVSd 0.99 cm LVIDd 4.4 cm LVIDs 2.5 cm LVPWd 1.1 cm IVS/LVPW 0.93 FS 43.4 % EDV(Teich) 87.2 ml ESV(Teich) 22.0 ml EF(Teich) 74.8 % EDV(cubed) 84.5 ml ESV(cubed) 15.3 ml EF(cubed) 81.8 % LV mass(C)d 154.2 grams LV mass(C)dI 96.5 grams/m\S\2 SV(Teich) 65.2 ml SI(Teich) 40.8 ml/m\S\2 SV(cubed) 69.2 ml SI(cubed) 43.3 ml/m\S\2 Ao root diam 3.4 cm Ao root area 9.3 cm\S\2 LVOT diam 2.0 cm LVOT area 3.1 cm\S\2 Doppler Measurements and Calculations MV E max vivek 59.2 cm/sec MV dec time 0.19 sec Ao V2 max 149.3 cm/sec Ao max PG 8.9 mmHg Ao max PG (full) 5.3 mmHg CAIN(V,A) 2.0 cm\S\2 CAIN(V,D) 2.0 cm\S\2 LV V1 max PG 3.7 mmHg LV V1 max 95.6 cm/sec
[2016-12-02] MEDS: LEVOFLOXACIN 750MG / D5W IV SCH (15:05)
--- NOTE | 2016-12-02 16:18 | DIAGNOSTIC IMAGING REPORT ---
CHEST ONE VIEW PORTABLE CLINICAL HISTORY: increased tachypnea from this morning. Dyspnea COMPARISON STUDY: 12/02/2016 4:02 AM FINDINGS: Unchanging bilateral parenchymal infiltrates versus pulmonary edema. Possible trace pleural fluid and lateral calcific angles. Prior median sternotomy. IMPRESSION: Stable to slightly progressive diffuse bilateral parenchymal infiltrates versus pulmonary edema. The above report was generated using voice recognition software. It may contain grammatical, syntax or spelling errors. Electronically signed by: Surya Pham M.D. 12/02/2016 4:17 PM Dictated Date/Time: 12/02/2016 4:16 PM
[2016-12-02 16:52] LABS: VEN BLD GAS O2 SATURATION < 60.0 %; VEN BLOOD GAS BASE EXCESS 2.3 mEq/L; VENOUS BLOOD GAS PCO2 52 mmHg (38.0-50.0); VENOUS BLOOD GAS PO2 23 mmHg
[2016-12-02] MEDS: WARFARIN SOD 2 MG TAB PEG SCH (17:09)
[2016-12-02] MEDS: DIGOXIN 0.125 MG TAB PEG SCH (17:37)
[2016-12-02 17:46] LABS: ARTERIAL BLOOD GAS BASE EXCESS 1.8 mEq/L (-9-1.8); ARTERIAL BLOOD GAS HCO3 26 mmol/L (19-24); ARTERIAL BLOOD GAS PO2 95 mm/Hg (80-95); ARTERIAL BLOOD GAS pH 7.42 (7.35-7.45)
[2016-12-02 17:48] LABS: ALLEN TEST POS (POS); O2 ADMINISTRATION 5L
--- NOTE | 2016-12-02 21:31 | Progress Note ---
Medicine Progress Note Date & Time of Visit: Dec 02, 2016 at 10:30. Subjective aspiration from vomit overnight pt nonverbal and didn't call for help; can't recall if he was nautious; limited communication afebrile tachypnea present strict NPO reinforced today he is still following commands and appropriately nodding his head yes and no, so confusion is not apparent. Objective Last 8 Hrs Date Time Temp Pulse Resp B/P (MAP) Pulse Ox O2 Delivery O2 Flow Rate FiO2 12/02/16 08:00 37.0 78 24 118/64 (82) 98 Oxymask 7.0 12/02/16 05:48 83 93 Oxymask 7.0 12/02/16 05:09 96 Oxymask 7.0 12/02/16 04:05 85 24 97 Mask 7.0 12/02/16 04:00 Oxymask 7.0 12/02/16 04:00 37.1 88 24 136/67 (90) 97 Oxymask 7.0 Physical Exam: GEN: WNWD, in no acute distress, alert and appropriate, oxymask in place, tachypnea present HEENT: NC/AT, normal sclerae, MMM NECK: trachea midline. CARDIO: reg rate, S1/2 heard without m/g/r LUNGS: coarse rhonchi throughout ABD: soft, non-tender, non-distended, no rebound or guarding, +BS, PEG tube in place, insertion site is clean and not erythematous-no drainage present EXTREMITY: RP and DP palpable 2+ bilat, no LE swelling or edema, extremities are warm and well-perfused NEURO: nonverbal, follows instructions MUSC: 5/5 strength throughout, no gross focal deficits SKIN: warm and dry Laboratory Results: 12/02/16 08:29 Red Blood Count 3.44, Mean Corpuscular Volume 91.0, Mean Corpuscular Hemoglobin 29.7, Mean Corpuscular Hemoglobin Concent 32.6, Mean Platelet Volume 10.8, Neutrophils (%) (Auto) 90.1, Lymphocytes (%) (Auto) 2.9, Monocytes (%) (Auto) 6.4, Eosinophils (%) (Auto) 0.1, Basophils (%) (Auto) 0.1, Neutrophils # (Auto) 14.99, Lymphocytes # (Auto) 0.48, Monocytes # (Auto) 1.07, Eosinophils # (Auto) 0.01, Basophils # (Auto) 0.01 12/02/16 08:29 Test 11/30/16 12:27 11/30/16 12:34 11/30/16 12:35 11/30/16 13:18 Total Bilirubin 0.6 mg/dl (0.2-1) Alanine Aminotransferase (ALT/SGPT) 50 U/L (12-78) Alkaline Phosphatase 157 U/L (45-117) Total Protein 7.5 gm/dl (6.4-8.2) Albumin 2.8 gm/dl (3.4-5.0) Globulin 4.7 gm/dl (2.5-4.0) Albumin/Globulin Ratio 0.6 (0.9-2) Bedside Hemoglobin 14.3 g/dl (14.0-18.0) Bedside Hematocrit 42 % (42-52) Bedside Sodium 136 mEq/L (135-144) Bedside Potassium 4.0 mEq/L (3.3-5.0) Bedside Chloride 98 mEq/L (101-112) Bedside Total CO2 30 mEq/l (24-31) Bedside Blood Urea Nitrogen 26 mg/dl (7-18) Bedside Creatinine 1.1 mg/dl (0.6-1.3) Bedside Glucose (other) 147 mg/dl (70-99) Bedside Ionized Calcium (Kartik) 1.15 mmol/l (1.12-1.32) Bedside Lactic Acid Venous 2.21 mmol/L (0.90-1.70) Activated Partial Thromboplast Time 36.2 SECONDS (21.0-31.0) Partial Thromboplastin Ratio 1.4 Aspartate Amino Transf (AST/SGOT) 37 U/L (15-37) Test 11/30/16 13:35 11/30/16 14:25 12/01/16 00:00 12/01/16 00:15 Lactic Acid Level 1.8 mmol/L (0.4-2.0) Urine Color DK YELLOW Urine Appearance CLEAR (CLEAR) Urine pH 5.5 (4.5-7.5) Urine Specific [place] 1.025 (1.000-1.030) Urine Protein 1+ (NEG) Urine Glucose (UA) NEG (NEG) Urine Ketones TRACE (NEG) Urine Occult Blood NEG (NEG) Urine Nitrite NEG (NEG) Urine Bilirubin NEG (NEG) Urine Urobilinogen NEG (NEG) Urine Leukocyte Esterase TRACE (NEG) Urine WBC (Auto) 1-5 /hpf (0-5) Urine RBC (Auto) 5-10 /hpf (0-4) Urine Hyaline Casts (Auto) 5-10 /lpf (0-5) Urine Epithelial Cells (Auto) >30 /lpf (0-5) Urine Bacteria (Auto) NEG (NEG) Creatine Kinase MB Ratio (0-3.0) Creatine Kinase MB 1.1 ng/ml (0.5-3.6) Troponin I 0.162 ng/ml (0-0.045) Test 12/01/16 05:27 12/01/16 06:34 12/02/16 08:29 12/02/16 16:17 Prothrombin Time 34.7 SECONDS (9.0-12.0) Prothromb Time International Ratio 3.1 (0.9-1.1) Bedside Glucose 132 mg/dl (70-99) White Blood Count 16.62 K/uL (4.8-10.8) Red Blood Count 3.44 M/uL (4.7-6.1) Hemoglobin 10.2 g/dL (14.0-18.0) Hematocrit 31.3 % (42-52) Mean Corpuscular Volume 91.0 fL (80-100) Mean Corpuscular Hemoglobin 29.7 pg (25-34) Mean Corpuscular Hemoglobin Concent 32.6 g/dl (32-36) Platelet Count 217 K/uL (130-400) Mean Platelet Volume 10.8 fL (7.4-10.4) Neutrophils (%) (Auto) 90.1 % Lymphocytes (%) (Auto) 2.9 % Monocytes (%) (Auto) 6.4 % Eosinophils (%) (Auto) 0.1 % Basophils (%) (Auto) 0.1 % Neutrophils # (Auto) 14.99 K/uL (1.4-6.5) Lymphocytes # (Auto) 0.48 K/uL (1.2-3.4) Monocytes # (Auto) 1.07 K/uL (0.11-0.59) Eosinophils # (Auto) 0.01 K/uL (0-0.5) Basophils # (Auto) 0.01 K/uL (0-0.2) RDW Standard Deviation 56.6 fL (36.4-46.3) RDW Coefficient of Variation 16.9 % (11.5-14.5) Immature Granulocyte % (Auto) 0.4 % Immature Granulocyte # (Auto) 0.06 K/uL (0.00-0.02) Anion Gap 4.0 mmol/L (3-11) Est Creatinine Clear Calc Drug Dose 54.3 ml/min Estimated GFR () 96.0 Estimated GFR (Non- 82.9 BUN/Creatinine Ratio 19.8 (10-20) Calcium Level 9.0 mg/dl (8.5-10.1) Pro-B-Type Natriuretic Peptide 3249 pg/ml (0-1800) Venous Blood pH 7.36 (7.36-7.41) Venous Blood Partial Pressure CO2 52 mmHg (38.0-50.0) Venous Blood Partial Pressure O2 23 mmHg Venous Blood HCO3 29 mmol/L Venous Blood Oxygen Saturation < 60.0 % Venous Blood Base Excess 2.3 mEq/L Test 12/02/16 17:32 Arterial Blood pH 7.42 (7.35-7.45) Arterial Blood Partial Pressure CO2 41 mmHg (35-46) Arterial Blood Partial Pressure O2 95 mm/Hg (80-95) Arterial Blood HCO3 26 mmol/L (19-24) Arterial Blood Oxygen Saturation 97.0 % (90-95) Arterial Blood Base Excess 1.8 mEq/L (-9-1.8) Arterial Blood Gas Delivery 5L Silverio Test POS (POS) Date/Time Source Procedure Growth Status 11/30/16 13:18 Blood Blood Culture - Preliminary NO GROWTH TO DATE. Resulted 11/30/16 15:30 Nasal MRSA DNA Surveillance Screen - Final Specimen Negative for MRSA by DNA Probe Complete 12/01/16 07:30 Sputum Expectorated Sputum Gram Stain - Final Resulted 12/01/16 07:30 Sputum Expectorated Sputum Sputum Culture - Preliminary SCANT NORMAL THERESA Present, Final Rep... Resulted Last 24 Hours Test 12/02/16 08:29 White Blood Count 16.62 K/uL Red Blood Count 3.44 M/uL Hemoglobin 10.2 g/dL Hematocrit 31.3 % Mean Corpuscular Volume 91.0 fL Mean Corpuscular Hemoglobin 29.7 pg Mean Corpuscular Hemoglobin Concent 32.6 g/dl Platelet Count 217 K/uL Mean Platelet Volume 10.8 fL Neutrophils (%) (Auto) 90.1 % Lymphocytes (%) (Auto) 2.9 % Monocytes (%) (Auto) 6.4 % Eosinophils (%) (Auto) 0.1 % Basophils (%) (Auto) 0.1 % Neutrophils # (Auto) 14.99 K/uL Lymphocytes # (Auto) 0.48 K/uL Monocytes # (Auto) 1.07 K/uL Eosinophils # (Auto) 0.01 K/uL Basophils # (Auto) 0.01 K/uL RDW Standard Deviation 56.6 fL RDW Coefficient of Variation 16.9 % Immature Granulocyte % (Auto) 0.4 % Immature Granulocyte # (Auto) 0.06 K/uL Sodium Level 138 mmol/L Potassium Level 4.3 mmol/L Chloride Level 107 mmol/L Carbon Dioxide Level 27 mmol/L Anion Gap 4.0 mmol/L Blood Urea Nitrogen 17 mg/dl Creatinine 0.88 mg/dl Est Creatinine Clear Calc Drug Dose 54.3 ml/min Estimated GFR () 96.0 Estimated GFR (Non- 82.9 BUN/Creatinine Ratio 19.8 Random Glucose 132 mg/dl Calcium Level 9.0 mg/dl Other Studies: TTE: No significant change compared to previous study of 11/07.16. * Normal LV chamber size with mild concentric LVH. * Low normal LV systolic function, EF 50-55%. * Moderate to severe hypokinesis of the inferior/posterior dumas, associated wall thinning to suggest chronicity, otherwise, hyperdynamic wall motion. * Grade I diastolic dysfunction. * Aortic valve sclerosis moderate, without significant aortic valvular stenosis. Assessment & Plan 76 yo M who is nonverbal with speech and swallowing issues since a stroke last October presents with acute fevers, rigors, increased productive cough and hypoxia found to have multilobar pneumonia. He was found with vomit overnight and likely aspirated with a worsening of hypoxia and dyspnea along with worsening xray findings. 1. Sepsis 2/2 CAP with acute hypoxic respiratory failure-now with aspiration pneumonia superimposed. Coarse rhonchi throughout all lungs. Cont current antibiotics (Cefepime and Levaquin) and added Flagyl for better anaerobe coverage. Cont Duoneb treatments and flutter valve now. states that he doesn't handle decongestants well so will not give. UPDATE: This afternoon I reassessed him and found he was breathing 35-40 breaths/min, although was oxygenating well with some improvement on CXR. I discussed the case with the ICU attending and he and I examined the patient together. He suggested deep suction, which was performed at bedside, and also some BIPAP for support. Notably the patient also had a normal ABG. He was also moved to a bed closer to the nurses station and BMP was ordered to assess for any contribution from volume overload. 2. Diarrhea-chronic 2/2 chronic tube feedings but has noticed and increased frequency of stools. Stool studies ordered, however, infection is less likely in setting of no recent travel and no recent abx or hospitalization. 3. CAD s/p CABG-elevated troponin on arrival, likely related to demand ischemia in setting of sepsis. Pt denies any chest pain and EKG does not reveal evidence of acute ischemia. Cont medical management with ASA, Lipitor. Holding Lopressor with borderline hypotension. TTE reveals no significant change compared to previous study of 11/07.16 as above. Note, ASA started as a new medication this admission. 4. PAF-rate/rhythm controlled with dig, Lopressor and amio. Cont warfarin for anticoagulation 5. ICM-EF 47%. Resuscitated from a sepsis standpoint and his home Lasix was started this am. Does not appear to have acute heart failure at this time. Hypoxia appears to be related to infection mainly. However, with CXR findings consistent with possible pulmonary edema, a repeat BNP was ordered and extra Lasix will be considered overnight if needed. 6. h/o CVA-nonverbal, has PEG tube. Cont statin and started ASA as above. Tube feeds were held last night and thoughout the day today. Initially IVF were given for maintenance, but with worsening tachypnea and CXR findings, these were held. 7. Leukocytosis 2/2 infection 8. Anemia-likely 2/2 chronic disease. DVT Proph: Coumadin DNR Dispo-cont med tele for now. Lizzeth Vela DO [facility] Hospitalist Current Inpatient Medications: Current Inpatient Medications Medications (Trade) Dose Ordered Sig/Kelle Route Start Time Stop Time Status Last Admin Dose Admin Ondansetron HCl (Zofran Inj) 4 mg Q6H PRN IV 11/30/16 13:30 12/30/16 13:29 12/02/16 03:30 4 MG Acetaminophen (Tylenol Supp) 650 mg Q4H PRN ME 11/30/16 13:30 12/30/16 13:29 Amiodarone HCl (Cordarone Tab) 200 mg HS PEG 11/30/16 21:00 12/30/16 20:59 12/01/16 20:41 200 MG Atorvastatin Calcium (Lipitor Tab) 80 mg HS PEG 11/30/16 21:00 12/30/16 20:59 12/01/16 20:41 80 MG Digoxin (Lanoxin Tab) 0.125 mg MoWeFr@1600 PEG 11/30/16 16:00 12/30/16 15:59 11/30/16 17:31 0.125 MG Warfarin Sodium (Coumadin Tab) 1 mg WeSa@1600 PEG 11/30/16 16:00 12/30/16 15:59 11/30/16 17:58 1 MG Warfarin Sodium (Coumadin Tab) 2 mg SuMoTuThFr@1600 PEG 12/01/16 16:00 12/31/16 15:59 12/01/16 15:27 2 MG Cefepime HCl (Consult) 1 ea UD PRN N/A 11/30/16 14:30 12/30/16 14:29 Levofloxacin (Consult) 1 ea UD PRN N/A 11/30/16 14:30 12/30/16 14:29 Ferrous Sulfate (Feosol Elix) 220 mg DAILY PEG 12/01/16 09:00 12/31/16 08:59 12/02/16 09:40 220 MG Cefepime HCl 2000 mg/Dextrose 112.5 ml @ 225 mls/hr Q24H IV 12/01/16 13:00 12/08/16 12:59 12/01/16 13:05 225 MLS/HR Enteral Nutritional Formula (Peptamen 1.5) 1,000 ml GOAL RATE 50ML/HR PEG 11/30/16 18:00 12/30/16 17:59 12/02/16 01:47 1,000 ML Levofloxacin 750 mg/Prmx 150 ml @ 100 mls/hr Q24H IV 12/01/16 14:00 12/08/16 13:59 12/01/16 13:50 100 MLS/HR Furosemide (Lasix Oral Soln) 40 mg QAM PEG 12/02/16 09:00 01/01/17 08:59 12/02/16 09:39 40 MG Ipratropium [place] (Atrovent 0.02% 0.5MG/2.5ML Neb) 0.5 mg Q4R INH 12/02/16 08:00 01/01/17 07:59 Levalbuterol (Xopenex 1.25MG/ 0.5ML Neb) 1.25 mg Q4R INH 12/02/16 08:00 01/01/17 07:59 Metronidazole 500 mg/Prmx 100 ml @ 100 mls/hr Q8H IV 12/02/16 10:00 12/09/16 08:29 12/02/16 09:40 100 MLS/HR Aspirin (Aspirin Chew) 81 mg QAM PEG 12/02/16 09:00 01/01/17 08:59 12/02/16 09:40 81 MG
[2016-12-02] MEDS ORDERED: FUROSEMIDE INJ 20 MG in SYRINGE 0 ML IV STA (22:05)
[2016-12-02] MEDS: AMIODARONE 200 MG TAB PEG SCH (22:37)
[2016-12-02] MEDS: ONDANSETRON INJ 2 MG/ML 2 ML VIAL IV SCH (22:37)
[2016-12-02] MEDS: ATORVASTATIN 40 MG TAB PEG SCH (22:37)
[2016-12-03] VITALS (12 sets, daily range): BP systolic 95–110; BP diastolic 44–64; PULSE 82–133; TEMP 36.7–37.4; O2SAT 95–100
[2016-12-03] MEDS: METRONIDAZOLE / NSS 500 MG in PREMIXED NSS 100 ML IV SCH ×3 (02:24→18:19)
[2016-12-03] MEDS: IPRATROPIUM BROMIDE NEB SOLN 0.02% 2.5 ML VIAL INH SCH ×6 (03:22→23:04)
[2016-12-03] MEDS: LEVALBUTEROL 1.25MG/0.5ML NEB INH SCH ×6 (03:22→23:04)
[2016-12-03] MEDS: ONDANSETRON INJ 2 MG/ML 2 ML VIAL IV SCH ×3 (05:45→21:00)
[2016-12-03 06:21] LABS: BASO % 0.2 %; BASO ABS # 0.02 K/uL (0-0.2); COMPLETE YES; EOS % 0.4 %; HEMATOCRIT 33.6 % (42-52); IG% 0.3 %; LYMPH % 3.8 %; LYMPH ABS # 0.45 K/uL (1.2-3.4); MEAN CELL VOLUME 91.8 fL (80-100); MEAN CORPUSCULAR HEMOGLOBIN 30.3 pg (25-34); MEAN PLATELET VOLUME 10.9 fL (7.4-10.4); MONO % 8.4 %; NEUT % 86.9 %; PLATELET COUNT 235 K/uL (130-400); RED BLOOD COUNT 3.66 M/uL (4.7-6.1); WHITE BLOOD COUNT 11.99 K/uL (4.8-10.8)
[2016-12-03] MEDS ORDERED: FUROSEMIDE INJ 40 MG in SYRINGE 0 ML IV ONE (06:30)
[2016-12-03 06:53] LABS: BUN/CREATININE RATIO 14.4 (10-20); CALCIUM 8.7 mg/dl (8.5-10.1); POTASSIUM 4.1 mmol/L (3.5-5.1)
[2016-12-03 06:59] LABS: PROTHROMBIN TIME (PATIENT) 54.4 SECONDS (9.0-12.0)
[2016-12-03 07:02] LABS: INR 4.8 (0.9-1.1)
[2016-12-03] MEDS: ASPIRIN 81 MG CHEW PEG SCH (07:48)
[2016-12-03] MEDS: FERROUS SULFATE ELIX 220MG/5ML PEG SCH (07:49)
[2016-12-03] MEDS: CEFEPIME IV 2000 MG in DEXTROSE 5% 100ML IV SCH (12:53)
[2016-12-03] MEDS: LEVOFLOXACIN 750MG / D5W IV SCH (13:39)
--- NOTE | 2016-12-03 17:41 | Progress Note ---
Medicine Progress Note Date & Time of Visit: Dec 03, 2016 at 17:07. Subjective nonverbal patient who is able to follow instruction and answer yes/no denies pain reports improvement in breathing denies feeling hungry agrees that he feels less congested today spoke with by phone and explained the plan that we are continuing to hold tube feeds at this time she verbalized understanding. Objective Last 8 Hrs Date Time Temp Pulse Resp B/P (MAP) Pulse Ox O2 Delivery O2 Flow Rate FiO2 12/03/16 16:45 36.7 97 20 99/64 (76) 100 Nasal Cannula 3.0 12/03/16 15:13 105 20 99 Mask 3.0 12/03/16 12:00 Oxymask 3.0 12/03/16 11:39 36.9 95 18 95/59 (71) 95 Oxymask 3.0 12/03/16 11:16 101 20 96 Mask 3.0 Physical Exam: GEN: WNWD, in no acute distress, alert and appropriate, oxymask in place HEENT: NC/AT, normal sclerae, MMM NECK: trachea midline. CARDIO: reg rate, S1/2 heard without m/g/r LUNGS: coarse rhonchi throughout ABD: soft, non-tender, non-distended, no rebound or guarding, +BS, PEG tube in place, insertion site is clean and not erythematous-no drainage present EXTREMITY: RP and DP palpable 2+ bilat, no LE swelling or edema, extremities are warm and well-perfused NEURO: nonverbal, follows instructions MUSC: 5/5 strength throughout, no gross focal deficits SKIN: warm and dry Laboratory Results: 12/03/16 05:28 Red Blood Count 3.66, Mean Corpuscular Volume 91.8, Mean Corpuscular Hemoglobin 30.3, Mean Corpuscular Hemoglobin Concent 33.0, Mean Platelet Volume 10.9, Neutrophils (%) (Auto) 86.9, Lymphocytes (%) (Auto) 3.8, Monocytes (%) (Auto) 8.4, Eosinophils (%) (Auto) 0.4, Basophils (%) (Auto) 0.2, Neutrophils # (Auto) 10.42, Lymphocytes # (Auto) 0.45, Monocytes # (Auto) 1.01, Eosinophils # (Auto) 0.05, Basophils # (Auto) 0.02 12/03/16 05:28 Test 11/30/16 12:27 11/30/16 12:34 11/30/16 12:35 11/30/16 13:18 Total Bilirubin 0.6 mg/dl (0.2-1) Alanine Aminotransferase (ALT/SGPT) 50 U/L (12-78) Alkaline Phosphatase 157 U/L (45-117) Total Protein 7.5 gm/dl (6.4-8.2) Albumin 2.8 gm/dl (3.4-5.0) Globulin 4.7 gm/dl (2.5-4.0) Albumin/Globulin Ratio 0.6 (0.9-2) Bedside Hemoglobin 14.3 g/dl (14.0-18.0) Bedside Hematocrit 42 % (42-52) Bedside Sodium 136 mEq/L (135-144) Bedside Potassium 4.0 mEq/L (3.3-5.0) Bedside Chloride 98 mEq/L (101-112) Bedside Total CO2 30 mEq/l (24-31) Bedside Blood Urea Nitrogen 26 mg/dl (7-18) Bedside Creatinine 1.1 mg/dl (0.6-1.3) Bedside Glucose (other) 147 mg/dl (70-99) Bedside Ionized Calcium (Kartik) 1.15 mmol/l (1.12-1.32) Bedside Lactic Acid Venous 2.21 mmol/L (0.90-1.70) Activated Partial Thromboplast Time 36.2 SECONDS (21.0-31.0) Partial Thromboplastin Ratio 1.4 Aspartate Amino Transf (AST/SGOT) 37 U/L (15-37) Test 11/30/16 13:35 11/30/16 14:25 12/01/16 00:00 12/01/16 00:15 Lactic Acid Level 1.8 mmol/L (0.4-2.0) Urine Color DK YELLOW Urine Appearance CLEAR (CLEAR) Urine pH 5.5 (4.5-7.5) Urine Specific [place] 1.025 (1.000-1.030) Urine Protein 1+ (NEG) Urine Glucose (UA) NEG (NEG) Urine Ketones TRACE (NEG) Urine Occult Blood NEG (NEG) Urine Nitrite NEG (NEG) Urine Bilirubin NEG (NEG) Urine Urobilinogen NEG (NEG) Urine Leukocyte Esterase TRACE (NEG) Urine WBC (Auto) 1-5 /hpf (0-5) Urine RBC (Auto) 5-10 /hpf (0-4) Urine Hyaline Casts (Auto) 5-10 /lpf (0-5) Urine Epithelial Cells (Auto) >30 /lpf (0-5) Urine Bacteria (Auto) NEG (NEG) Creatine Kinase MB Ratio (0-3.0) Creatine Kinase MB 1.1 ng/ml (0.5-3.6) Troponin I 0.162 ng/ml (0-0.045) Test 12/02/16 08:29 12/02/16 16:17 12/02/16 17:32 12/03/16 05:28 Pro-B-Type Natriuretic Peptide 3249 pg/ml (0-1800) Venous Blood pH 7.36 (7.36-7.41) Venous Blood Partial Pressure CO2 52 mmHg (38.0-50.0) Venous Blood Partial Pressure O2 23 mmHg Venous Blood HCO3 29 mmol/L Venous Blood Oxygen Saturation < 60.0 % Venous Blood Base Excess 2.3 mEq/L Arterial Blood pH 7.42 (7.35-7.45) Arterial Blood Partial Pressure CO2 41 mmHg (35-46) Arterial Blood Partial Pressure O2 95 mm/Hg (80-95) Arterial Blood HCO3 26 mmol/L (19-24) Arterial Blood Oxygen Saturation 97.0 % (90-95) Arterial Blood Base Excess 1.8 mEq/L (-9-1.8) Arterial Blood Gas Delivery 5L Silverio Test POS (POS) White Blood Count 11.99 K/uL (4.8-10.8) Red Blood Count 3.66 M/uL (4.7-6.1) Hemoglobin 11.1 g/dL (14.0-18.0) Hematocrit 33.6 % (42-52) Mean Corpuscular Volume 91.8 fL (80-100) Mean Corpuscular Hemoglobin 30.3 pg (25-34) Mean Corpuscular Hemoglobin Concent 33.0 g/dl (32-36) Platelet Count 235 K/uL (130-400) Mean Platelet Volume 10.9 fL (7.4-10.4) Neutrophils (%) (Auto) 86.9 % Lymphocytes (%) (Auto) 3.8 % Monocytes (%) (Auto) 8.4 % Eosinophils (%) (Auto) 0.4 % Basophils (%) (Auto) 0.2 % Neutrophils # (Auto) 10.42 K/uL (1.4-6.5) Lymphocytes # (Auto) 0.45 K/uL (1.2-3.4) Monocytes # (Auto) 1.01 K/uL (0.11-0.59) Eosinophils # (Auto) 0.05 K/uL (0-0.5) Basophils # (Auto) 0.02 K/uL (0-0.2) RDW Standard Deviation 56.6 fL (36.4-46.3) RDW Coefficient of Variation 16.9 % (11.5-14.5) Immature Granulocyte % (Auto) 0.3 % Immature Granulocyte # (Auto) 0.04 K/uL (0.00-0.02) Prothrombin Time 54.4 SECONDS (9.0-12.0) Prothromb Time International Ratio 4.8 (0.9-1.1) Anion Gap 7.0 mmol/L (3-11) Est Creatinine Clear Calc Drug Dose 47.8 ml/min Estimated GFR () 83.8 Estimated GFR (Non- 72.3 BUN/Creatinine Ratio 14.4 (10-20) Calcium Level 8.7 mg/dl (8.5-10.1) Test 12/03/16 16:29 Bedside Glucose 105 mg/dl (70-99) Date/Time Source Procedure Growth Status 11/30/16 13:18 Blood Blood Culture - Preliminary NO GROWTH TO DATE. Resulted 11/30/16 15:30 Nasal MRSA DNA Surveillance Screen - Final Specimen Negative for MRSA by DNA Probe Complete 12/01/16 07:30 Sputum Expectorated Sputum Gram Stain - Final Complete 12/01/16 07:30 Sputum Expectorated Sputum Sputum Culture - Final SCANT NORMAL THERESA. Complete Last 24 Hours Test 12/02/16 17:32 12/03/16 05:28 12/03/16 11:25 12/03/16 16:29 Arterial Blood pH 7.42 Arterial Blood Partial Pressure CO2 41 mmHg Arterial Blood Partial Pressure O2 95 mm/Hg Arterial Blood HCO3 26 mmol/L Arterial Blood Oxygen Saturation 97.0 % Arterial Blood Base Excess 1.8 mEq/L Arterial Blood Gas Delivery 5L Silverio Test POS White Blood Count 11.99 K/uL Red Blood Count 3.66 M/uL Hemoglobin 11.1 g/dL Hematocrit 33.6 % Mean Corpuscular Volume 91.8 fL Mean Corpuscular Hemoglobin 30.3 pg Mean Corpuscular Hemoglobin Concent 33.0 g/dl Platelet Count 235 K/uL Mean Platelet Volume 10.9 fL Neutrophils (%) (Auto) 86.9 % Lymphocytes (%) (Auto) 3.8 % Monocytes (%) (Auto) 8.4 % Eosinophils (%) (Auto) 0.4 % Basophils (%) (Auto) 0.2 % Neutrophils # (Auto) 10.42 K/uL Lymphocytes # (Auto) 0.45 K/uL Monocytes # (Auto) 1.01 K/uL Eosinophils # (Auto) 0.05 K/uL Basophils # (Auto) 0.02 K/uL RDW Standard Deviation 56.6 fL RDW Coefficient of Variation 16.9 % Immature Granulocyte % (Auto) 0.3 % Immature Granulocyte # (Auto) 0.04 K/uL Prothrombin Time 54.4 SECONDS Prothromb Time International Ratio 4.8 Sodium Level 137 mmol/L Potassium Level 4.1 mmol/L Chloride Level 102 mmol/L Carbon Dioxide Level 28 mmol/L Anion Gap 7.0 mmol/L Blood Urea Nitrogen 14 mg/dl Creatinine 1.00 mg/dl Est Creatinine Clear Calc Drug Dose 47.8 ml/min Estimated GFR () 83.8 Estimated GFR (Non- 72.3 BUN/Creatinine Ratio 14.4 Random Glucose 103 mg/dl Calcium Level 8.7 mg/dl Bedside Glucose 108 mg/dl 105 mg/dl Assessment & Plan 76 yo M who is nonverbal with speech and swallowing issues since a stroke last October presents with acute fevers, rigors, increased productive cough and hypoxia found to have multilobar pneumonia. He was found with vomit overnight and likely aspirated with a worsening of hypoxia and dyspnea along with worsening xray findings. He was subsequently demonstrating tachypnea the next day with a RR in the high 30s. ICU doc examined patient, performed deep suction at bedside and put him on BIPAP with improvement overnight. Lasix IV was also started with some improvement. 1. Acute on chronic diastolic heart failure-cont IV Lasix daily. Improved after BIPAP and IV Lasix overnight. 2. Sepsis 2/2 CAP with acute hypoxic respiratory failure-now with aspiration pneumonia superimposed. Coarse rhonchi throughout all lungs. Improvement in oxygen needs overnight. Cont cefepime, levaquin and flagyl. Cont Duoneb treatments and flutter valve now. states that he doesn't handle decongestants well so will not give. 3. PAF-rate/rhythm controlled with dig, Lopressor and amio. Cont warfarin for anticoagulation. Went into afib overnight likely 2/2 pulmonary compromise. 4. h/o CVA-nonverbal, has PEG tube. Cont statin and started ASA as above. Tube feeds held since respiratory status is still not optimal, although improving. Will start some free water flushes in the PEG to avoid dehydration. 5. Diarrhea-resolved. Pt has had no BMs documented this admission barring two today. No diarrhea appears present. Stool studies have not been done to date, but without acute worsening of this will cancel any stool studies. Tube feeds are being held at this time. 6. CAD s/p CABG-elevated troponin on arrival, likely related to demand ischemia in setting of sepsis. Pt denies any chest pain and EKG does not reveal evidence of acute ischemia. Cont medical management with ASA, Lipitor. Holding Lopressor with borderline hypotension. TTE reveals no significant change compared to previous study of 11/07.16 as above. Note, ASA started as a new medication this admission, however, per records he has a h/o PUD s/p partial gastrectomy. Also Cardiology did not have him on ASA and is following him closely as outpatient. Therefore, will only cont with warfarin at this time. 7. Leukocytosis 2/2 infection 8. Anemia-likely 2/2 chronic disease. DVT Proph: Coumadin DNR Dispo-cont med tele for now. DO [facility] Current Inpatient Medications: Current Inpatient Medications Medications (Trade) Dose Ordered Sig/Kelle Route Start Time Stop Time Status Last Admin Dose Admin Ondansetron HCl (Zofran Inj) 4 mg Q6H PRN IV 11/30/16 13:30 12/30/16 13:29 12/02/16 17:43 4 MG Acetaminophen (Tylenol Supp) 650 mg Q4H PRN [place] 11/30/16 13:30 12/30/16 13:29 Amiodarone HCl (Cordarone Tab) 200 mg HS PEG 11/30/16 21:00 12/30/16 20:59 12/02/16 22:37 200 MG Atorvastatin Calcium (Lipitor Tab) 80 mg HS PEG 11/30/16 21:00 12/30/16 20:59 12/02/16 22:37 80 MG Digoxin (Lanoxin Tab) 0.125 mg MoWeFr@1600 PEG 11/30/16 16:00 12/30/16 15:59 12/02/16 17:37 0.125 MG Warfarin Sodium (Coumadin Tab) 1 mg WeSa@1600 PEG 11/30/16 16:00 12/30/16 15:59 Future Hold 11/30/16 17:58 1 MG Warfarin Sodium (Coumadin Tab) 2 mg SuMoTuThFr@1600 PEG 12/01/16 16:00 12/31/16 15:59 Future Hold 12/02/16 17:09 2 MG Cefepime HCl (Consult) 1 ea UD PRN N/A 11/30/16 14:30 12/30/16 14:29 Levofloxacin (Consult) 1 ea UD PRN N/A 11/30/16 14:30 12/30/16 14:29 Ferrous Sulfate (Feosol Elix) 220 mg DAILY PEG 12/01/16 09:00 12/31/16 08:59 12/03/16 07:49 220 MG Cefepime HCl 2000 mg/Dextrose 112.5 ml @ 225 mls/hr Q24H IV 12/01/16 13:00 12/08/16 12:59 12/03/16 12:53 225 MLS/HR Enteral Nutritional Formula (Peptamen 1.5) 1,000 ml GOAL RATE 50ML/HR PEG 11/30/16 18:00 12/30/16 17:59 12/02/16 01:47 1,000 ML Levofloxacin 750 mg/Prmx 150 ml @ 100 mls/hr Q24H IV 12/01/16 14:00 12/08/16 13:59 12/03/16 13:39 100 MLS/HR Ipratropium [place] (Atrovent 0.02% 0.5MG/2.5ML Neb) 0.5 mg Q4R INH 12/02/16 08:00 01/01/17 07:59 12/03/16 15:12 0.5 MG Levalbuterol (Xopenex 1.25MG/ 0.5ML Neb) 1.25 mg Q4R INH 12/02/16 08:00 01/01/17 07:59 12/03/16 15:12 1.25 MG Metronidazole 500 mg/Prmx 100 ml @ 100 mls/hr Q8H IV 12/02/16 10:00 12/09/16 08:29 12/03/16 09:40 100 MLS/HR Aspirin (Aspirin Chew) 81 mg QAM PEG 12/02/16 09:00 01/01/17 08:59 12/03/16 07:48 81 MG Ondansetron HCl (Zofran Inj) 4 mg Q8 IV 12/02/16 22:00 12/04/16 21:59 12/03/16 13:39 4 MG Furosemide 40 mg/ Syringe 4 ml @ 4 mls/min DAILY IV 12/04/16 09:00 01/03/17 08:59
--- NOTE | 2016-12-03 19:40 | Pulmonology Progress Note ---
Pulmonary Progress Note Date of Service Dec 03, 2016. Attending Dr. Nichole Subjective Patient currently denies any respiratory insufficiency as well as chest pain Objective Patient is on a full face mask at this time saturating well does answer yes or no and during our conversation did not show signs of tachypnea or accessory muscle use VS: I/O: +923cc RR: 18-24 SaO2: 95-100% FiO2: 3-5 L RESP: Clear to auscultation at the apices but decreased breath sounds at the bases right greater than left CARD: S1-S2 regular rate and rhythm ABD: Positive bowel sounds with PEG tube in place no signs of tissue breakdown EXT: No clubbing cyanosis or edema noted Labs: WBC: [id number]--28U INR: 4.8 Radiology: CXR 12/02/2016 compared to 11/30/2016: Increased Hilar fullness with peribronchial cuffing and diffuse bilateral infiltrates appears greatest in the left upper lobe Medications: 1. Metronidazole 500 mg q.8 hours started 12/02/2016 2. Xopenex/Atrovent nebulizer q.4 3. Levofloxacin 750 mg IV Q 24 started 12/01/2016 3. Cefepime 2 g IV Q 24 started 12/01/2016 Echocardiogram 12/02/2016 LV: EF= 50-55%, mild LVH RV: TAPSE: >1.5cm Atria: Left and right atria within normal limits Valves: Normal in structure and function Grade 1 diastolic dysfunction Assessment & Plan 76-year-old gentleman admitted with cough with most likely an aspiration event on the evening of 12/01/2016 with increasing oxygen demands/hypoxia: 1. Hypoxia: The patient is currently doing well on full facemask at this time oxygen support ranging from 3-5 L over the last 24 hours. He does appear to be defervescing via his white blood cell count responding to current treatment. 2. Aspiration: Patient does have a history of aspiration per video swallow noting aspiration to thin liquids and nectar is. He will continue have to be on aspiration precautions. There are diffuse infiltrates in the patient' s chest x-ray but no signs of complete lobar collapse and as he is slowly responding to current treatment will continue to monitor. If this patient does take a tearing for the worse bronchoscopic intervention might be warranted. 3. Pneumonia: Current antibiotic course with Levaquin, cefepime and metronidazole covering for hospital associated pneumonia/aspiration along with atypical coverage. Sign off: At this time I do not believe the Pulmonary Services can add any benefit to this patient's care. Please contact us if any acute changes are noted or signs of lobar collapse suggest bronchoscopic intervention is necessary. Data Medications: Current Inpatient Medications Medications (Trade) Dose Ordered Sig/Kelle Route Start Time Stop Time Status Last Admin Dose Admin Ondansetron HCl (Zofran Inj) 4 mg Q6H PRN IV 11/30/16 13:30 12/30/16 13:29 12/02/16 17:43 4 MG Acetaminophen (Tylenol Supp) 650 mg Q4H PRN [place] 11/30/16 13:30 12/30/16 13:29 Amiodarone HCl (Cordarone Tab) 200 mg HS PEG 11/30/16 21:00 12/30/16 20:59 12/02/16 22:37 200 MG Atorvastatin Calcium (Lipitor Tab) 80 mg HS PEG 11/30/16 21:00 12/30/16 20:59 12/02/16 22:37 80 MG Digoxin (Lanoxin Tab) 0.125 mg MoWeFr@1600 PEG 11/30/16 16:00 12/30/16 15:59 12/02/16 17:37 0.125 MG Warfarin Sodium (Coumadin Tab) 1 mg WeSa@1600 PEG 11/30/16 16:00 12/30/16 15:59 Future Hold 11/30/16 17:58 1 MG Warfarin Sodium (Coumadin Tab) 2 mg SuMoTuThFr@1600 PEG 12/01/16 16:00 12/31/16 15:59 Future Hold 12/02/16 17:09 2 MG Cefepime HCl (Consult) 1 ea UD PRN N/A 11/30/16 14:30 12/30/16 14:29 Levofloxacin (Consult) 1 ea UD PRN N/A 11/30/16 14:30 12/30/16 14:29 Ferrous Sulfate (Feosol Elix) 220 mg DAILY PEG 12/01/16 09:00 12/31/16 08:59 12/03/16 07:49 220 MG Cefepime HCl 2000 mg/Dextrose 112.5 ml @ 225 mls/hr Q24H IV 12/01/16 13:00 12/08/16 12:59 12/03/16 12:53 225 MLS/HR Enteral Nutritional Formula (Peptamen 1.5) 1,000 ml GOAL RATE 50ML/HR PEG 11/30/16 18:00 12/30/16 17:59 12/02/16 01:47 1,000 ML Levofloxacin 750 mg/Prmx 150 ml @ 100 mls/hr Q24H IV 12/01/16 14:00 12/08/16 13:59 12/03/16 13:39 100 MLS/HR Ipratropium [place] (Atrovent 0.02% 0.5MG/2.5ML Neb) 0.5 mg Q4R INH 12/02/16 08:00 01/01/17 07:59 12/03/16 19:24 0.5 MG Levalbuterol (Xopenex 1.25MG/ 0.5ML Neb) 1.25 mg Q4R INH 12/02/16 08:00 01/01/17 07:59 12/03/16 19:24 1.25 MG Metronidazole 500 mg/Prmx 100 ml @ 100 mls/hr Q8H IV 12/02/16 10:00 12/09/16 08:29 12/03/16 18:19 100 MLS/HR Ondansetron HCl (Zofran Inj) 4 mg Q8 IV 12/02/16 22:00 12/04/16 21:59 12/03/16 13:39 4 MG Furosemide 40 mg/ Syringe 4 ml @ 4 mls/min DAILY IV 12/04/16 09:00 01/03/17 08:59 I & O: 24-Hour Column 12/04/16 07:59 Intake Total 369 ml Output Total 1000 ml Balance -631 ml Vital Signs: Date Time Temp Pulse Resp B/P (MAP) Pulse Ox O2 Delivery O2 Flow Rate FiO2 12/03/16 19:24 82 20 98 Mask 3.0 12/03/16 16:45 36.7 97 20 99/64 (76) 100 Nasal Cannula 3.0 12/03/16 16:00 Oxymask 3.0 12/03/16 15:13 105 20 99 Mask 3.0 12/03/16 12:00 Oxymask 3.0 12/03/16 11:39 36.9 95 18 95/59 (71) 95 Oxymask 3.0 12/03/16 11:16 101 20 96 Mask 3.0 12/03/16 08:00 Oxymask 3.0 12/03/16 07:44 37.1 105 20 109/57 (74) 97 3.0 12/03/16 07:14 93 20 97 Mask 3.0 12/03/16 04:00 Oxymask 5.0 12/03/16 03:38 37.4 100 24 110/44 (66) 97 Oxymask 3.0 12/03/16 03:22 87 20 96 Mask 3.0 12/03/16 00:00 Mask 5.0 12/02/16 23:24 37.7 97 32 118/56 (76) 97 Oxymask 3.0 12/02/16 23:10 87 20 96 Mask 3.0 12/02/16 20:30 84 95 5.0 12/02/16 20:00 97 Mask 5.0 12/02/16 19:59 77 20 100 Mask 5.0 12/02/16 19:45 37.0 78 20 113/58 (76) 97 Mask 5.0 Laboratory Results: Last 24 Hours Test 12/03/16 05:28 12/03/16 11:25 12/03/16 16:29 White Blood Count 11.99 K/uL Red Blood Count 3.66 M/uL Hemoglobin 11.1 g/dL Hematocrit 33.6 % Mean Corpuscular Volume 91.8 fL Mean Corpuscular Hemoglobin 30.3 pg Mean Corpuscular Hemoglobin Concent 33.0 g/dl Platelet Count 235 K/uL Mean Platelet Volume 10.9 fL Neutrophils (%) (Auto) 86.9 % Lymphocytes (%) (Auto) 3.8 % Monocytes (%) (Auto) 8.4 % Eosinophils (%) (Auto) 0.4 % Basophils (%) (Auto) 0.2 % Neutrophils # (Auto) 10.42 K/uL Lymphocytes # (Auto) 0.45 K/uL Monocytes # (Auto) 1.01 K/uL Eosinophils # (Auto) 0.05 K/uL Basophils # (Auto) 0.02 K/uL RDW Standard Deviation 56.6 fL RDW Coefficient of Variation 16.9 % Immature Granulocyte % (Auto) 0.3 % Immature Granulocyte # (Auto) 0.04 K/uL Prothrombin Time 54.4 SECONDS Prothromb Time International Ratio 4.8 Sodium Level 137 mmol/L Potassium Level 4.1 mmol/L Chloride Level 102 mmol/L Carbon Dioxide Level 28 mmol/L Anion Gap 7.0 mmol/L Blood Urea Nitrogen 14 mg/dl Creatinine 1.00 mg/dl Est Creatinine Clear Calc Drug Dose 47.8 ml/min Estimated GFR () 83.8 Estimated GFR (Non- 72.3 BUN/Creatinine Ratio 14.4 Random Glucose 103 mg/dl Calcium Level 8.7 mg/dl Bedside Glucose 108 mg/dl 105 mg/dl
[2016-12-03] MEDS: AMIODARONE 200 MG TAB PEG SCH (20:59)
[2016-12-03] MEDS: ATORVASTATIN 40 MG TAB PEG SCH (21:00)
[2016-12-04] VITALS (14 sets, daily range): BP systolic 95–118; BP diastolic 59–67; PULSE 58–92; TEMP 36.5–36.9; O2SAT 90–99
[2016-12-04] MEDS ORDERED: METOPROLOL TARTRATE 25 MG TAB PEG STA (00:24)
[2016-12-04] MEDS: METRONIDAZOLE / NSS 500 MG in PREMIXED NSS 100 ML IV SCH ×3 (02:23→18:02)
[2016-12-04] MEDS: LEVALBUTEROL 1.25MG/0.5ML NEB INH SCH ×6 (03:21→22:50)
[2016-12-04] MEDS: IPRATROPIUM BROMIDE NEB SOLN 0.02% 2.5 ML VIAL INH SCH ×6 (03:21→22:50)
[2016-12-04] MEDS: ONDANSETRON INJ 2 MG/ML 2 ML VIAL IV SCH ×2 (05:48→13:00)
[2016-12-04 06:08] LABS: BASO % 0.1 %; BASO ABS # 0.01 K/uL (0-0.2); COMPLETE YES; EOS % 0.1 %; HEMATOCRIT 35.7 % (42-52); IG% 0.4 %; LYMPH % 3.3 %; LYMPH ABS # 0.46 K/uL (1.2-3.4); MEAN CELL VOLUME 91.3 fL (80-100); MEAN CORPUSCULAR HEMOGLOBIN 29.9 pg (25-34); MEAN CORPUSCULAR HGB CONC 32.8 g/dl (32-36); MEAN PLATELET VOLUME 10.5 fL (7.4-10.4); MONO % 7.9 %; NEUT % 88.2 %; PLATELET COUNT 261 K/uL (130-400); RED BLOOD COUNT 3.91 M/uL (4.7-6.1); WHITE BLOOD COUNT 13.83 K/uL (4.8-10.8)
[2016-12-04 06:28] LABS: PROTHROMBIN TIME (PATIENT) 96.8 SECONDS (9.0-12.0)
[2016-12-04 06:30] LABS: INR > 8.0 (0.9-1.1)
[2016-12-04 06:41] LABS: BUN/CREATININE RATIO 22.3 (10-20); CREATININE 0.95 mg/dl (0.60-1.40); POTASSIUM 4.1 mmol/L (3.5-5.1)
[2016-12-04] MEDS ORDERED: PHYTONADIONE 5 MG TAB PO STA (08:14)
[2016-12-04] MEDS: FERROUS SULFATE ELIX 220MG/5ML PEG SCH (08:27)
[2016-12-04] MEDS: FUROSEMIDE INJ 40 MG in SYRINGE 0 ML IV SCH (08:27)
[2016-12-04] MEDS: METOPROLOL TARTRATE 25 MG TAB PO SCH ×2 (08:28→20:52)
[2016-12-04] MEDS: ACETAMINOPHEN IV 650 MG in EMPTY BAG 0 ML IV PRN (11:09)
[2016-12-04] MEDS: CEFEPIME IV 2000 MG in DEXTROSE 5% 100ML IV SCH (11:53)
[2016-12-04] MEDS: LEVOFLOXACIN 750MG / D5W IV SCH (12:37)
[2016-12-04] MEDS: POLYETHYLENE (MIRALAX) 17 GM PACK PEG SCH (13:00)
[2016-12-04 15:50] LABS: PROTHROMBIN TIME (PATIENT) 81.6 SECONDS (9.0-12.0)
[2016-12-04] MEDS ORDERED: PHYTONADIONE 5 MG TAB PO ONE (19:00)
[2016-12-04] MEDS: ATORVASTATIN 40 MG TAB PEG SCH (20:52)
[2016-12-04] MEDS: AMIODARONE 200 MG TAB PEG SCH (20:52)
[2016-12-05] VITALS (11 sets, daily range): BP systolic 96–114; BP diastolic 57–70; PULSE 78–96; TEMP 36.5–37.1; O2SAT 91–97
--- NOTE | 2016-12-05 00:09 | Progress Note ---
Medicine Progress Note Date & Time of Visit: Dec 04, 2016 at 10:15. Subjective Following ocmmands this morning Denies pain Denies coughing, chest pain.Afebrile Objective Last 8 Hrs Date Time Temp Pulse Resp B/P (MAP) Pulse Ox O2 Delivery O2 Flow Rate FiO2 12/04/16 08:00 Oxymask 3.0 12/04/16 07:44 36.8 83 20 112/66 (81) 90 CPAP 12/04/16 07:29 83 20 96 Mask 3.0 12/04/16 04:00 BiPAP 3.0 12/04/16 03:29 36.7 90 24 97/59 (72) 95 BiPAP 3.0 12/04/16 03:26 92 28 92 BiPAP/CPAP 3.0 12/04/16 03:21 92 92 3.0 Physical Exam: GEN: WNWD, in no acute distress, alert and appropriate, oxymask in place HEENT: NC/AT, normal sclerae, MMM NECK: trachea midline. CARDIO: reg rate, S1/2 heard without m/g/r LUNGS: coarse rhonchi throughout ABD: soft, non-tender, non-distended, no rebound or guarding, +BS, PEG tube in place, insertion site is clean and not erythematous-no drainage present EXTREMITY: RP and DP palpable 2+ bilat, no LE swelling or edema, extremities are warm and well-perfused NEURO: nonverbal, follows instructions MUSC: 5/5 strength throughout, no gross focal deficits SKIN: warm and dry Laboratory Results: 12/04/16 05:44 Red Blood Count 3.91, Mean Corpuscular Volume 91.3, Mean Corpuscular Hemoglobin 29.9, Mean Corpuscular Hemoglobin Concent 32.8, Mean Platelet Volume 10.5, Neutrophils (%) (Auto) 88.2, Lymphocytes (%) (Auto) 3.3, Monocytes (%) (Auto) 7.9, Eosinophils (%) (Auto) 0.1, Basophils (%) (Auto) 0.1, Neutrophils # (Auto) 12.21, Lymphocytes # (Auto) 0.46, Monocytes # (Auto) 1.09, Eosinophils # (Auto) 0.01, Basophils # (Auto) 0.01 12/04/16 05:44 Test 11/30/16 12:27 11/30/16 12:34 11/30/16 12:35 11/30/16 13:18 Total Bilirubin 0.6 mg/dl (0.2-1) Alanine Aminotransferase (ALT/SGPT) 50 U/L (12-78) Alkaline Phosphatase 157 U/L (45-117) Total Protein 7.5 gm/dl (6.4-8.2) Albumin 2.8 gm/dl (3.4-5.0) Globulin 4.7 gm/dl (2.5-4.0) Albumin/Globulin Ratio 0.6 (0.9-2) Bedside Hemoglobin 14.3 g/dl (14.0-18.0) Bedside Hematocrit 42 % (42-52) Bedside Sodium 136 mEq/L (135-144) Bedside Potassium 4.0 mEq/L (3.3-5.0) Bedside Chloride 98 mEq/L (101-112) Bedside Total CO2 30 mEq/l (24-31) Bedside Blood Urea Nitrogen 26 mg/dl (7-18) Bedside Creatinine 1.1 mg/dl (0.6-1.3) Bedside Glucose (other) 147 mg/dl (70-99) Bedside Ionized Calcium (Kartik) 1.15 mmol/l (1.12-1.32) Bedside Lactic Acid Venous 2.21 mmol/L (0.90-1.70) Activated Partial Thromboplast Time 36.2 SECONDS (21.0-31.0) Partial Thromboplastin Ratio 1.4 Aspartate Amino Transf (AST/SGOT) 37 U/L (15-37) Test 11/30/16 13:35 11/30/16 14:25 12/01/16 00:00 12/01/16 00:15 Lactic Acid Level 1.8 mmol/L (0.4-2.0) Urine Color DK YELLOW Urine Appearance CLEAR (CLEAR) Urine pH 5.5 (4.5-7.5) Urine Specific Addison 1.025 (1.000-1.030) Urine Protein 1+ (NEG) Urine Glucose (UA) NEG (NEG) Urine Ketones TRACE (NEG) Urine Occult Blood NEG (NEG) Urine Nitrite NEG (NEG) Urine Bilirubin NEG (NEG) Urine Urobilinogen NEG (NEG) Urine Leukocyte Esterase TRACE (NEG) Urine WBC (Auto) 1-5 /hpf (0-5) Urine RBC (Auto) 5-10 /hpf (0-4) Urine Hyaline Casts (Auto) 5-10 /lpf (0-5) Urine Epithelial Cells (Auto) >30 /lpf (0-5) Urine Bacteria (Auto) NEG (NEG) Creatine Kinase MB Ratio (0-3.0) Creatine Kinase MB 1.1 ng/ml (0.5-3.6) Troponin I 0.162 ng/ml (0-0.045) Test 12/02/16 08:29 12/02/16 16:17 12/02/16 17:32 12/04/16 05:44 Pro-B-Type Natriuretic Peptide 3249 pg/ml (0-1800) Venous Blood pH 7.36 (7.36-7.41) Venous Blood Partial Pressure CO2 52 mmHg (38.0-50.0) Venous Blood Partial Pressure O2 23 mmHg Venous Blood HCO3 29 mmol/L Venous Blood Oxygen Saturation < 60.0 % Venous Blood Base Excess 2.3 mEq/L Arterial Blood pH 7.42 (7.35-7.45) Arterial Blood Partial Pressure CO2 41 mmHg (35-46) Arterial Blood Partial Pressure O2 95 mm/Hg (80-95) Arterial Blood HCO3 26 mmol/L (19-24) Arterial Blood Oxygen Saturation 97.0 % (90-95) Arterial Blood Base Excess 1.8 mEq/L (-9-1.8) Arterial Blood Gas Delivery 5L Silverio Test POS (POS) White Blood Count 13.83 K/uL (4.8-10.8) Red Blood Count 3.91 M/uL (4.7-6.1) Hemoglobin 11.7 g/dL (14.0-18.0) Hematocrit 35.7 % (42-52) Mean Corpuscular Volume 91.3 fL (80-100) Mean Corpuscular Hemoglobin 29.9 pg (25-34) Mean Corpuscular Hemoglobin Concent 32.8 g/dl (32-36) Platelet Count 261 K/uL (130-400) Mean Platelet Volume 10.5 fL (7.4-10.4) Neutrophils (%) (Auto) 88.2 % Lymphocytes (%) (Auto) 3.3 % Monocytes (%) (Auto) 7.9 % Eosinophils (%) (Auto) 0.1 % Basophils (%) (Auto) 0.1 % Neutrophils # (Auto) 12.21 K/uL (1.4-6.5) Lymphocytes # (Auto) 0.46 K/uL (1.2-3.4) Monocytes # (Auto) 1.09 K/uL (0.11-0.59) Eosinophils # (Auto) 0.01 K/uL (0-0.5) Basophils # (Auto) 0.01 K/uL (0-0.2) RDW Standard Deviation 55.3 fL (36.4-46.3) RDW Coefficient of Variation 16.6 % (11.5-14.5) Immature Granulocyte % (Auto) 0.4 % Immature Granulocyte # (Auto) 0.05 K/uL (0.00-0.02) Anion Gap 8.0 mmol/L (3-11) Est Creatinine Clear Calc Drug Dose 50.3 ml/min Estimated GFR () 89.1 Estimated GFR (Non- 76.9 BUN/Creatinine Ratio 22.3 (10-20) Calcium Level 9.0 mg/dl (8.5-10.1) Test 12/04/16 11:13 12/04/16 15:13 Bedside Glucose 93 mg/dl (70-99) Prothrombin Time 81.6 SECONDS (9.0-12.0) Prothromb Time International Ratio 7.0 (0.9-1.1) Date/Time Source Procedure Growth Status 11/30/16 13:18 Blood Blood Culture - Preliminary NO GROWTH TO DATE. Resulted 11/30/16 15:30 Nasal MRSA DNA Surveillance Screen - Final Specimen Negative for MRSA by DNA Probe Complete 12/01/16 07:30 Sputum Expectorated Sputum Gram Stain - Final Complete 12/01/16 07:30 Sputum Expectorated Sputum Sputum Culture - Final SCANT NORMAL THERESA. Complete Last 24 Hours Test 12/03/16 11:25 12/03/16 16:29 12/03/16 19:49 12/04/16 05:44 Bedside Glucose 108 mg/dl 105 mg/dl 83 mg/dl White Blood Count 13.83 K/uL Red Blood Count 3.91 M/uL Hemoglobin 11.7 g/dL Hematocrit 35.7 % Mean Corpuscular Volume 91.3 fL Mean Corpuscular Hemoglobin 29.9 pg Mean Corpuscular Hemoglobin Concent 32.8 g/dl Platelet Count 261 K/uL Mean Platelet Volume 10.5 fL Neutrophils (%) (Auto) 88.2 % Lymphocytes (%) (Auto) 3.3 % Monocytes (%) (Auto) 7.9 % Eosinophils (%) (Auto) 0.1 % Basophils (%) (Auto) 0.1 % Neutrophils # (Auto) 12.21 K/uL Lymphocytes # (Auto) 0.46 K/uL Monocytes # (Auto) 1.09 K/uL Eosinophils # (Auto) 0.01 K/uL Basophils # (Auto) 0.01 K/uL RDW Standard Deviation 55.3 fL RDW Coefficient of Variation 16.6 % Immature Granulocyte % (Auto) 0.4 % Immature Granulocyte # (Auto) 0.05 K/uL Prothrombin Time 96.8 SECONDS Prothromb Time International Ratio > 8.0 Sodium Level 137 mmol/L Potassium Level 4.1 mmol/L Chloride Level 101 mmol/L Carbon Dioxide Level 28 mmol/L Anion Gap 8.0 mmol/L Blood Urea Nitrogen 21 mg/dl Creatinine 0.95 mg/dl Est Creatinine Clear Calc Drug Dose 50.3 ml/min Estimated GFR () 89.1 Estimated GFR (Non- 76.9 BUN/Creatinine Ratio 22.3 Random Glucose 100 mg/dl Calcium Level 9.0 mg/dl Assessment & Plan 76 yo M who is nonverbal with speech and swallowing issues since a stroke last October presents with acute fevers, rigors, increased productive cough and hypoxia found to have multilobar pneumonia. He was found with vomit overnight and likely aspirated with a worsening of hypoxia and dyspnea along with worsening xray findings. He was subsequently demonstrating tachypnea the next day with a RR in the high 30s. ICU doc examined patient, performed deep suction at bedside and put him on BIPAP with improvement overnight. Lasix IV was also started with some improvement. 1. Acute on chronic diastolic heart failure-cont IV Lasix daily. Improved after BIPAP and IV Lasix overnight. 2. Sepsis 2/2 CAP with acute hypoxic respiratory failure-now with aspiration pneumonia superimposed. Coarse rhonchi throughout all lungs. Improvement in oxygen needs overnight. Cont cefepime, levaquin and flagyl. Cont Duoneb treatments and flutter valve now. states that he doesn't handle decongestants well so will not give. 3. PAF-rate/rhythm controlled with dig, Lopressor and amio. Cont warfarin for anticoagulation. Went into afib overnight likely 2/2 pulmonary compromise. 4. h/o CVA-nonverbal, has PEG tube. Cont statin and started ASA as above. Tube feeds held since respiratory status is still not optimal, although improving. Will start some free water flushes in the PEG to avoid dehydration. 5. Diarrhea-resolved. Pt has had no BMs documented this admission barring two today. No diarrhea appears present. Stool studies have not been done to date, but without acute worsening of this will cancel any stool studies. Tube feeds are being held at this time. 6. CAD s/p CABG-elevated troponin on arrival, likely related to demand ischemia in setting of sepsis. Pt denies any chest pain and EKG does not reveal evidence of acute ischemia. Cont medical management with ASA, Lipitor. Holding Lopressor with borderline hypotension. TTE reveals no significant change compared to previous study of 11/07.16 as above. Note, ASA started as a new medication this admission, however, per records he has a h/o PUD s/p partial gastrectomy. Also Cardiology did not have him on ASA and is following him closely as outpatient. Therefore, will only cont with warfarin at this time. 7. Leukocytosis 2/2 infection 8. Anemia-likely 2/2 chronic disease. DVT Proph: Coumadin DNR Dispo-cont med tele for now. Lizzeth Vela DO [facility] Hospitalist Current Inpatient Medications: Current Inpatient Medications Medications (Trade) Dose Ordered Sig/Kelle Route Start Time Stop Time Status Last Admin Dose Admin Ondansetron HCl (Zofran Inj) 4 mg Q6H PRN IV 11/30/16 13:30 12/30/16 13:29 12/02/16 17:43 4 MG Acetaminophen (Tylenol Supp) 650 mg Q4H PRN CO 11/30/16 13:30 12/30/16 13:29 Amiodarone HCl (Cordarone Tab) 200 mg HS PEG 11/30/16 21:00 12/30/16 20:59 12/03/16 20:59 200 MG Atorvastatin Calcium (Lipitor Tab) 80 mg HS PEG 11/30/16 21:00 12/30/16 20:59 12/03/16 21:00 80 MG Digoxin (Lanoxin Tab) 0.125 mg MoWeFr@1600 PEG 11/30/16 16:00 12/30/16 15:59 12/02/16 17:37 0.125 MG Warfarin Sodium (Coumadin Tab) 1 mg WeSa@1600 PEG 11/30/16 16:00 12/30/16 15:59 Future Hold 11/30/16 17:58 1 MG Warfarin Sodium (Coumadin Tab) 2 mg SuMoTuThFr@1600 PEG 12/01/16 16:00 12/31/16 15:59 Future Hold 12/02/16 17:09 2 MG Cefepime HCl (Consult) 1 ea UD PRN N/A 11/30/16 14:30 12/30/16 14:29 Levofloxacin (Consult) 1 ea UD PRN N/A 11/30/16 14:30 12/30/16 14:29 Ferrous Sulfate (Feosol Elix) 220 mg DAILY PEG 12/01/16 09:00 12/31/16 08:59 12/04/16 08:27 220 MG Cefepime HCl 2000 mg/Dextrose 112.5 ml @ 225 mls/hr Q24H IV 12/01/16 13:00 12/08/16 12:59 12/03/16 12:53 225 MLS/HR Enteral Nutritional Formula (Peptamen 1.5) 1,000 ml GOAL RATE 50ML/HR PEG 11/30/16 18:00 12/30/16 17:59 Future Hold 12/02/16 01:47 1,000 ML Levofloxacin 750 mg/Prmx 150 ml @ 100 mls/hr Q24H IV 12/01/16 14:00 12/08/16 13:59 12/03/16 13:39 100 MLS/HR Ipratropium Accord (Atrovent 0.02% 0.5MG/2.5ML Neb) 0.5 mg Q4R INH 12/02/16 08:00 01/01/17 07:59 12/04/16 07:29 0.5 MG Levalbuterol (Xopenex 1.25MG/ 0.5ML Neb) 1.25 mg Q4R INH 12/02/16 08:00 01/01/17 07:59 12/04/16 07:29 1.25 MG Metronidazole 500 mg/Prmx 100 ml @ 100 mls/hr Q8H IV 12/02/16 10:00 12/09/16 08:29 12/04/16 08:40 100 MLS/HR Ondansetron HCl (Zofran Inj) 4 mg Q8 IV 12/02/16 22:00 12/04/16 21:59 12/04/16 05:48 4 MG Furosemide 40 mg/ Syringe 4 ml @ 4 mls/min DAILY IV 12/04/16 09:00 01/03/17 08:59 12/04/16 08:27 4 MLS/MIN Metoprolol Tartrate (Lopressor Tab) 12.5 mg BID PO 12/04/16 09:00 01/03/17 08:59 12/04/16 08:28 12.5 MG
[2016-12-05] MEDS: METRONIDAZOLE / NSS 500 MG in PREMIXED NSS 100 ML IV SCH ×2 (02:20→10:08)
[2016-12-05] MEDS: LEVALBUTEROL 1.25MG/0.5ML NEB INH SCH ×3 (03:17→11:10)
[2016-12-05] MEDS: IPRATROPIUM BROMIDE NEB SOLN 0.02% 2.5 ML VIAL INH SCH ×3 (03:17→11:10)
[2016-12-05 06:24] LABS: BASO % 0.1 %; BASO ABS # 0.01 K/uL (0-0.2); COMPLETE YES; EOS % 0.2 %; HEMATOCRIT 36.6 % (42-52); IG% 0.2 %; LYMPH % 3.5 %; MEAN CORPUSCULAR HEMOGLOBIN 29.4 pg (25-34); MEAN PLATELET VOLUME 10.4 fL (7.4-10.4); MONO % 8.5 %; NEUT % 87.5 %; PLATELET COUNT 286 K/uL (130-400); RED BLOOD COUNT 3.98 M/uL (4.7-6.1); WHITE BLOOD COUNT 14.39 K/uL (4.8-10.8)
[2016-12-05 06:31] LABS: INR 2.8 (0.9-1.1); PROTHROMBIN TIME (PATIENT) 31.1 SECONDS (9.0-12.0)
[2016-12-05 06:57] LABS: BUN/CREATININE RATIO 26.1 (10-20); CALCIUM 9.1 mg/dl (8.5-10.1); CREATININE 1.1 mg/dl (0.60-1.40); POTASSIUM 4.2 mmol/L (3.5-5.1)
[2016-12-05] MEDS: POLYETHYLENE (MIRALAX) 17 GM PACK PEG SCH (08:49)
[2016-12-05] MEDS: METOPROLOL TARTRATE 25 MG TAB PO SCH ×2 (08:49→20:57)
[2016-12-05] MEDS: FERROUS SULFATE ELIX 220MG/5ML PEG SCH (08:49)
[2016-12-05] MEDS: FUROSEMIDE INJ 40 MG in SYRINGE 0 ML IV SCH (08:50)
[2016-12-05] MEDS: ACETAMINOPHEN IV 650 MG in EMPTY BAG 0 ML IV PRN (09:51)
--- NOTE | 2016-12-05 11:17 | DIAGNOSTIC IMAGING REPORT ---
KUB CLINICAL HISTORY: Persistent abdominal pain for 2 days, constipated, PEG-held TF. COMPARISON STUDY: None. FINDINGS: A gastrostomy tube projects of the stomach. Surgical staple lines are noted. The bowel gas pattern is normal. Interval note is made of bibasilar opacities, left greater than right and suspected small bilateral pleural effusions. IMPRESSION: 1. No evidence for a bowel obstruction. 2. Gastrostomy tube projects over the stomach although positioning within the stomach cannot be confirmed without contrast. Electronically signed by: Paco Crook M.D. 12/05/2016 11:16 AM Dictated Date/Time: 12/05/2016 11:14 AM
[2016-12-05] MEDS: CEFEPIME IV 2000 MG in DEXTROSE 5% 100ML IV SCH (12:58)
[2016-12-05] MEDS: LEVOFLOXACIN 750MG / D5W IV SCH (13:37)
[2016-12-05] MEDS ORDERED: BISACODYL 10 MG SUPP PR PRN (14:30)
[2016-12-05] MEDS ORDERED: MILK AND MOLASSES ENEMA PR PRN (14:30)
[2016-12-05] MEDS ORDERED: ACETAMINOPHEN 325 MG TAB PO PRN (14:30)
[2016-12-05] MEDS ORDERED: LEVALBUTEROL/IPRATROPIUM NEB INH PRN (14:30)
--- NOTE | 2016-12-05 14:39 | Progress Note ---
Medicine Progress Note Date & Time of Visit: Dec 05, 2016 at 14:04. Subjective PEG feedings being held nonverbal patient but complains of abdominal pain no BM for several days denies nausea states that breathing is about the same is at bedside. Objective Last 8 Hrs Date Time Temp Pulse Resp B/P (MAP) Pulse Ox O2 Delivery O2 Flow Rate FiO2 12/05/16 12:00 Oxymask 4.0 12/05/16 11:10 78 18 97 Mask 4.0 12/05/16 11:01 36.6 79 20 96/58 (71) 94 Nasal Cannula 4.0 12/05/16 08:00 Oxymask 4.0 12/05/16 07:04 85 18 93 Mask 3.0 12/05/16 07:01 36.8 82 20 107/65 (79) 94 Oxymask 3.0 Physical Exam: GEN: WNWD, in no acute distress, alert and appropriate, oxymask in place HEENT: NC/AT, normal sclerae, MMM NECK: trachea midline. CARDIO: reg rate, S1/2 heard without m/g/r LUNGS: clear to auscultation throughout all lung cueto. ABD: soft, non-tender, non-distended, no rebound or guarding, +BS, PEG tube in place, insertion site is clean and not erythematous-no drainage present EXTREMITY: RP and DP palpable 2+ bilat, no LE swelling or edema, extremities are warm and well-perfused NEURO: nonverbal, follows instructions MUSC: 5/5 strength throughout, no gross focal deficits SKIN: warm and dry Laboratory Results: 12/05/16 05:57 Red Blood Count 3.98, Mean Corpuscular Volume 92.0, Mean Corpuscular Hemoglobin 29.4, Mean Corpuscular Hemoglobin Concent 32.0, Mean Platelet Volume 10.4, Neutrophils (%) (Auto) 87.5, Lymphocytes (%) (Auto) 3.5, Monocytes (%) (Auto) 8.5, Eosinophils (%) (Auto) 0.2, Basophils (%) (Auto) 0.1, Neutrophils # (Auto) 12.59, Lymphocytes # (Auto) 0.50, Monocytes # (Auto) 1.23, Eosinophils # (Auto) 0.03, Basophils # (Auto) 0.01 12/05/16 05:57 Test 11/30/16 12:27 11/30/16 12:34 11/30/16 12:35 11/30/16 13:18 Total Bilirubin 0.6 mg/dl (0.2-1) Alanine Aminotransferase (ALT/SGPT) 50 U/L (12-78) Alkaline Phosphatase 157 U/L (45-117) Total Protein 7.5 gm/dl (6.4-8.2) Albumin 2.8 gm/dl (3.4-5.0) Globulin 4.7 gm/dl (2.5-4.0) Albumin/Globulin Ratio 0.6 (0.9-2) Bedside Hemoglobin 14.3 g/dl (14.0-18.0) Bedside Hematocrit 42 % (42-52) Bedside Sodium 136 mEq/L (135-144) Bedside Potassium 4.0 mEq/L (3.3-5.0) Bedside Chloride 98 mEq/L (101-112) Bedside Total CO2 30 mEq/l (24-31) Bedside Blood Urea Nitrogen 26 mg/dl (7-18) Bedside Creatinine 1.1 mg/dl (0.6-1.3) Bedside Glucose (other) 147 mg/dl (70-99) Bedside Ionized Calcium (Kartik) 1.15 mmol/l (1.12-1.32) Bedside Lactic Acid Venous 2.21 mmol/L (0.90-1.70) Activated Partial Thromboplast Time 36.2 SECONDS (21.0-31.0) Partial Thromboplastin Ratio 1.4 Aspartate Amino Transf (AST/SGOT) 37 U/L (15-37) Test 11/30/16 13:35 11/30/16 14:25 12/01/16 00:00 12/01/16 00:15 Lactic Acid Level 1.8 mmol/L (0.4-2.0) Urine Color DK YELLOW Urine Appearance CLEAR (CLEAR) Urine pH 5.5 (4.5-7.5) Urine Specific [place] 1.025 (1.000-1.030) Urine Protein 1+ (NEG) Urine Glucose (UA) NEG (NEG) Urine Ketones TRACE (NEG) Urine Occult Blood NEG (NEG) Urine Nitrite NEG (NEG) Urine Bilirubin NEG (NEG) Urine Urobilinogen NEG (NEG) Urine Leukocyte Esterase TRACE (NEG) Urine WBC (Auto) 1-5 /hpf (0-5) Urine RBC (Auto) 5-10 /hpf (0-4) Urine Hyaline Casts (Auto) 5-10 /lpf (0-5) Urine Epithelial Cells (Auto) >30 /lpf (0-5) Urine Bacteria (Auto) NEG (NEG) Creatine Kinase MB Ratio (0-3.0) Creatine Kinase MB 1.1 ng/ml (0.5-3.6) Troponin I 0.162 ng/ml (0-0.045) Test 12/02/16 08:29 12/02/16 16:17 12/02/16 17:32 12/05/16 05:57 Pro-B-Type Natriuretic Peptide 3249 pg/ml (0-1800) Venous Blood pH 7.36 (7.36-7.41) Venous Blood Partial Pressure CO2 52 mmHg (38.0-50.0) Venous Blood Partial Pressure O2 23 mmHg Venous Blood HCO3 29 mmol/L Venous Blood Oxygen Saturation < 60.0 % Venous Blood Base Excess 2.3 mEq/L Arterial Blood pH 7.42 (7.35-7.45) Arterial Blood Partial Pressure CO2 41 mmHg (35-46) Arterial Blood Partial Pressure O2 95 mm/Hg (80-95) Arterial Blood HCO3 26 mmol/L (19-24) Arterial Blood Oxygen Saturation 97.0 % (90-95) Arterial Blood Base Excess 1.8 mEq/L (-9-1.8) Arterial Blood Gas Delivery 5L Silverio Test POS (POS) White Blood Count 14.39 K/uL (4.8-10.8) Red Blood Count 3.98 M/uL (4.7-6.1) Hemoglobin 11.7 g/dL (14.0-18.0) Hematocrit 36.6 % (42-52) Mean Corpuscular Volume 92.0 fL (80-100) Mean Corpuscular Hemoglobin 29.4 pg (25-34) Mean Corpuscular Hemoglobin Concent 32.0 g/dl (32-36) Platelet Count 286 K/uL (130-400) Mean Platelet Volume 10.4 fL (7.4-10.4) Neutrophils (%) (Auto) 87.5 % Lymphocytes (%) (Auto) 3.5 % Monocytes (%) (Auto) 8.5 % Eosinophils (%) (Auto) 0.2 % Basophils (%) (Auto) 0.1 % Neutrophils # (Auto) 12.59 K/uL (1.4-6.5) Lymphocytes # (Auto) 0.50 K/uL (1.2-3.4) Monocytes # (Auto) 1.23 K/uL (0.11-0.59) Eosinophils # (Auto) 0.03 K/uL (0-0.5) Basophils # (Auto) 0.01 K/uL (0-0.2) RDW Standard Deviation 56.1 fL (36.4-46.3) RDW Coefficient of Variation 16.6 % (11.5-14.5) Immature Granulocyte % (Auto) 0.2 % Immature Granulocyte # (Auto) 0.03 K/uL (0.00-0.02) Prothrombin Time 31.1 SECONDS (9.0-12.0) Prothromb Time International Ratio 2.8 (0.9-1.1) Anion Gap 7.0 mmol/L (3-11) Est Creatinine Clear Calc Drug Dose 43.4 ml/min Estimated GFR () 74.7 Estimated GFR (Non- 64.4 BUN/Creatinine Ratio 26.1 (10-20) Calcium Level 9.1 mg/dl (8.5-10.1) Test 12/05/16 06:04 Bedside Glucose 96 mg/dl (70-99) Date/Time Source Procedure Growth Status 11/30/16 13:18 Blood Blood Culture - Preliminary NO GROWTH TO DATE. Resulted 11/30/16 15:30 Nasal MRSA DNA Surveillance Screen - Final Specimen Negative for MRSA by DNA Probe Complete 12/01/16 07:30 Sputum Expectorated Sputum Gram Stain - Final Complete 12/01/16 07:30 Sputum Expectorated Sputum Sputum Culture - Final SCANT NORMAL THERESA. Complete Last 24 Hours Test 12/04/16 15:13 12/05/16 05:57 12/05/16 06:04 Prothrombin Time 81.6 SECONDS 31.1 SECONDS Prothromb Time International Ratio 7.0 2.8 White Blood Count 14.39 K/uL Red Blood Count 3.98 M/uL Hemoglobin 11.7 g/dL Hematocrit 36.6 % Mean Corpuscular Volume 92.0 fL Mean Corpuscular Hemoglobin 29.4 pg Mean Corpuscular Hemoglobin Concent 32.0 g/dl Platelet Count 286 K/uL Mean Platelet Volume 10.4 fL Neutrophils (%) (Auto) 87.5 % Lymphocytes (%) (Auto) 3.5 % Monocytes (%) (Auto) 8.5 % Eosinophils (%) (Auto) 0.2 % Basophils (%) (Auto) 0.1 % Neutrophils # (Auto) 12.59 K/uL Lymphocytes # (Auto) 0.50 K/uL Monocytes # (Auto) 1.23 K/uL Eosinophils # (Auto) 0.03 K/uL Basophils # (Auto) 0.01 K/uL RDW Standard Deviation 56.1 fL RDW Coefficient of Variation 16.6 % Immature Granulocyte % (Auto) 0.2 % Immature Granulocyte # (Auto) 0.03 K/uL Sodium Level 139 mmol/L Potassium Level 4.2 mmol/L Chloride Level 102 mmol/L Carbon Dioxide Level 30 mmol/L Anion Gap 7.0 mmol/L Blood Urea Nitrogen 29 mg/dl Creatinine 1.10 mg/dl Est Creatinine Clear Calc Drug Dose 43.4 ml/min Estimated GFR () 74.7 Estimated GFR (Non- 64.4 BUN/Creatinine Ratio 26.1 Random Glucose 102 mg/dl Calcium Level 9.1 mg/dl Bedside Glucose 96 mg/dl Assessment & Plan 76 yo M who is nonverbal with speech and swallowing issues since a stroke last October presents with acute fevers, rigors, increased productive cough and hypoxia found to have multilobar pneumonia. He was found with vomit overnight and likely aspirated with a worsening of hypoxia and dyspnea along with worsening xray findings. He was subsequently demonstrating tachypnea the next day with a RR in the high 30s. ICU doc examined patient, performed deep suction at bedside and put him on BIPAP with improvement overnight. Lasix IV was also started with some improvement. Has been doing well on Lasix 40 IV daily since then with persistent clinical improvement. 1. Acute on chronic diastolic heart failure-cont IV Lasix daily. Improved after BIPAP and IV Lasix overnight. Continues on Lasix daily with breath sounds and breathing improved. Will switch to PEG Lasix. 2. Abdominal pain-vague but present for two days now. Pt cannot qualify because he is nonverbal and he cannot write. KUB this morning reveals no evidence of obstruction. My suspicion is that he just hasn't had a BM in a few days. Miralax has been given through his PEG. PRN enema and suppositories are also ordered. Cont to monitor. Will hold off on restarting TFs again today while having the pain and also with respiratory status nt quite back to baseline. Holding iron to lessen the contribution to constipation. 3. Sepsis 2/2 CAP with acute hypoxic respiratory failure-now with aspiration pneumonia superimposed. Lungs have cleared up today with stable to improved oxygen needs. Will deescalate antibiotics today. With PCN-allergy will start ceftriaxone PEG (Omnicef) and flagyl PEG. Clindamycin was considered and is an option, however, there is a concern for c-diff, poss resistance, and the patient has already been responding to a cephalosporin plus flagyl. Duonebs changed to PRN. Cont flutter valve. states that he doesn't handle decongestants well so will not give. 4. PAF-rate/rhythm controlled with dig, Lopressor and amio. Warfarin was held for supratherapeutic INR likely 2/2 abx. Vit K was given 7.5mg PO total on . INR to 2.8 this morning. Will restart the warfarin today as expect the INR to continue to decline with vit K. INR daily. 5. h/o CVA-nonverbal, has PEG tube. Cont statin and warfarin. Tube feeds held as above. Cont free water flushes in the PEG to avoid dehydration. 6. CAD s/p CABG-elevated troponin on arrival, likely related to demand ischemia in setting of sepsis. Pt denies any chest pain and EKG does not reveal evidence of acute ischemia. Cont medical management with ASA, Lipitor. TTE this admission reveals no significant change compared to previous study of .16 as above. Note, ASA started as a new medication this admission, however , per records he has a h/o PUD s/p partial gastrectomy. Also Cardiology did not have him on ASA and is following him closely as outpatient. Therefore, will only cont with warfarin at this time. 7. Leukocytosis 2/2 infection 8. Anemia-likely 2/2 chronic disease. DVT Proph: Coumadin DNR Dispo-cont med tele for now. Lizzeth Vela DO [facility] Hospitalist Current Inpatient Medications: Current Inpatient Medications Medications (Trade) Dose Ordered Sig/Kelle Route Start Time Stop Time Status Last Admin Dose Admin Ondansetron HCl (Zofran Inj) 4 mg Q6H PRN IV 11/30/16 13:30 12/30/16 13:29 12/02/16 17:43 4 MG Amiodarone HCl (Cordarone Tab) 200 mg HS PEG 11/30/16 21:00 12/30/16 20:59 12/04/16 20:52 200 MG Atorvastatin Calcium (Lipitor Tab) 80 mg HS PEG 11/30/16 21:00 12/30/16 20:59 12/04/16 20:52 80 MG Digoxin (Lanoxin Tab) 0.125 mg MoWeFr@1600 PEG 11/30/16 16:00 12/30/16 15:59 12/02/16 17:37 0.125 MG Warfarin Sodium (Coumadin Tab) 1 mg WeSa@1600 PEG 11/30/16 16:00 12/30/16 15:59 Future Hold 11/30/16 17:58 1 MG Warfarin Sodium (Coumadin Tab) 2 mg SuMoTuThFr@1600 PEG 12/01/16 16:00 12/31/16 15:59 Future Hold 12/02/16 17:09 2 MG Cefepime HCl (Consult) 1 ea UD PRN N/A 11/30/16 14:30 12/30/16 14:29 Levofloxacin (Consult) 1 ea UD PRN N/A 11/30/16 14:30 12/30/16 14:29 Ferrous Sulfate (Feosol Elix) 220 mg DAILY PEG 12/01/16 09:00 12/31/16 08:59 12/05/16 08:49 220 MG Cefepime HCl 2000 mg/Dextrose 112.5 ml @ 225 mls/hr Q24H IV 12/01/16 13:00 12/08/16 12:59 12/05/16 12:58 225 MLS/HR Enteral Nutritional Formula (Peptamen 1.5) 1,000 ml GOAL RATE 50ML/HR PEG 11/30/16 18:00 12/30/16 17:59 Future Hold 12/02/16 01:47 1,000 ML Levofloxacin 750 mg/Prmx 150 ml @ 100 mls/hr Q24H IV 12/01/16 14:00 12/08/16 13:59 12/05/16 13:37 100 MLS/HR Ipratropium [place] (Atrovent 0.02% 0.5MG/2.5ML Neb) 0.5 mg Q4R INH 12/02/16 08:00 01/01/17 07:59 12/05/16 11:10 0.5 MG Levalbuterol (Xopenex 1.25MG/ 0.5ML Neb) 1.25 mg Q4R INH 12/02/16 08:00 01/01/17 07:59 12/05/16 11:10 1.25 MG Metronidazole 500 mg/Prmx 100 ml @ 100 mls/hr Q8H IV 12/02/16 10:00 12/09/16 08:29 12/05/16 10:08 100 MLS/HR Furosemide 40 mg/ Syringe 4 ml @ 4 mls/min DAILY IV 12/04/16 09:00 01/03/17 08:59 12/05/16 08:50 4 MLS/MIN Metoprolol Tartrate (Lopressor Tab) 12.5 mg BID PO 12/04/16 09:00 01/03/17 08:59 12/05/16 08:49 12.5 MG Polyethylene (Miralax Powder Packet) 17 gm DAILY PEG 12/04/16 11:30 01/03/17 11:29 12/05/16 08:49 17 GM Acetaminophen 650 mg/Empty Bag 65 ml @ 260 mls/hr Q6H PRN IV 12/04/16 10:30 01/03/17 10:29 12/05/16 09:51 260 MLS/HR
[2016-12-05] MEDS: DIGOXIN 0.125 MG TAB PEG SCH (15:56)
[2016-12-05] MEDS ORDERED: LEVALBUTEROL 1.25MG/0.5ML NEB INH PRN (16:00)
[2016-12-05] MEDS ORDERED: IPRATROPIUM BROMIDE NEB SOLN 0.02% 2.5 ML VIAL INH PRN (16:00)
[2016-12-05] MEDS: METRONIDAZOLE 500 MG TAB PEG SCH ×2 (16:43→23:42)
[2016-12-05] MEDS: CEFDINIR 125 MG/5 ML 60 ML BTL PO SCH (16:43)
[2016-12-05] MEDS: WARFARIN SOD 2 MG TAB PEG SCH (17:37)
[2016-12-05] MEDS: ATORVASTATIN 40 MG TAB PEG SCH (20:56)
[2016-12-05] MEDS: AMIODARONE 200 MG TAB PEG SCH (20:57)
[2016-12-05] MEDS: ONDANSETRON INJ 2 MG/ML 2 ML VIAL IV PRN (21:30)
[2016-12-06] VITALS (8 sets, daily range): BP systolic 100–132; BP diastolic 58–71; PULSE 71–92; TEMP 36.3–37.3; O2SAT 20–97
[2016-12-06] MEDS: CEFDINIR 125 MG/5 ML 60 ML BTL PO SCH ×2 (05:59→17:33)
[2016-12-06 06:56] LABS: BASO % 0.1 %; BASO ABS # 0.01 K/uL (0-0.2); COMPLETE YES; HEMATOCRIT 36.2 % (42-52); IG% 0.5 %; LYMPH ABS # 0.49 K/uL (1.2-3.4); MEAN CELL VOLUME 91.4 fL (80-100); MEAN CORPUSCULAR HGB CONC 31.8 g/dl (32-36); MEAN PLATELET VOLUME 10.1 fL (7.4-10.4); MONO % 7.6 %; NEUT % 88.8 %; PLATELET COUNT 309 K/uL (130-400); RED BLOOD COUNT 3.96 M/uL (4.7-6.1); WHITE BLOOD COUNT 16.23 K/uL (4.8-10.8)
[2016-12-06 07:02] LABS: INR 1.9 (0.9-1.1); PROTHROMBIN TIME (PATIENT) 21.2 SECONDS (9.0-12.0)
[2016-12-06 07:29] LABS: BUN/CREATININE RATIO 30.5 (10-20); CALCIUM 8.9 mg/dl (8.5-10.1); POTASSIUM 3.8 mmol/L (3.5-5.1)
[2016-12-06] MEDS: METOPROLOL TARTRATE 25 MG TAB PO SCH ×2 (08:00→20:57)
[2016-12-06] MEDS: METRONIDAZOLE 500 MG TAB PEG SCH ×3 (08:00→20:56)
[2016-12-06] MEDS: FUROSEMIDE 40 MG TAB NG SCH (08:00)
[2016-12-06] MEDS: POLYETHYLENE (MIRALAX) 17 GM PACK PEG SCH (08:01)
[2016-12-06] MEDS ORDERED: DIGOXIN IV 125 MCG in SYRINGE 9.5 ML IV ONE (09:18)
[2016-12-06] MEDS ORDERED: DIGOXIN IV 125 MCG in SYRINGE 9.5 ML IV SCH (09:45)
[2016-12-06] MEDS: CEFEPIME IV 2000 MG in DEXTROSE 5% 100ML IV SCH (12:52)
--- NOTE | 2016-12-06 16:52 | Progress Note ---
Internal Med Progress Note Date of Service: Dec 06, 2016. Provider Documentation: SUBJECTIVE: The patient was seen and examined Non verbal Not in any distress Denies any symptoms OBJECTIVE: Vital Signs-as noted below Exam: General-No distress at rest Eyes-normal ENT-normal Neck-supple Lungs-clear to auscultate bilaterally Heart-Regular Abdomen-[place],No masses Extremities-No edema Neuro-AA Nonverbal Has flexor deformities in lower extremities Lab data as noted below. ASSESSMENT & PLAN: 76 yo M who is nonverbal with speech and swallowing issues since a stroke last October presents with acute fevers, rigors, increased productive cough and hypoxia found to have multilobar pneumonia. He was found with vomit overnight and likely aspirated with a worsening of hypoxia and dyspnea along with worsening Chest X-ray findings. He was subsequently demonstrating tachypnea the next day with a RR in the high 30s.Clinical Rehabilitation Aide examined patient, performed deep suction at bedside and put him on BIPAP with improvement overnight. Lasix IV was also started with some improvement. Has been doing well on Lasix 40 IV daily since then with persistent clinical improvement. SEPSIS DUE TO PNEUMONIA ACUTE HYPOXIC RESPIRATORY FAILURE Patient presenting with cough and rigors; CXR in the ED showing multifocal pneumonia On presentation: low grade fever, WBC 17K, tachycardic, POC lactic acid 2.2; serum 1.8, BP on arrival 118/64 -> 91/55 s/p 1L IVF bolus, will give an additional 1L to total 30ml/kg due to borderline BP Started on Omnicef and Flagyl through PEG. Duonebs changed to PRN. Cont flutter valve. Appreciate Pulmonary input ,no additional recommendation.Signed off Acute on chronic diastolic heart failure-cont IV Lasix daily. Improved after BIPAP and IV Lasix overnight. Continues on Lasix daily with breath sounds and breathing improved. Will switch to PEG Lasix. Abdominal pain-vague but present for two days now. KUB this morning reveals no evidence of obstruction. Miralax has been given through his PEG. PRN enema and suppositories are also ordered. PAF-rate/rhythm controlled with dig, Lopressor and amiodarone. Warfarin was held for supratherapeutic INR likely 2/2 abx. Vit K was given 7.5mg PO total on 12/04. INR 1.9 on 12/06/16 Rate was very high this morning Additional Dose of Digoxin given H/o CVA-nonverbal, has PEG tube. Cont statin and warfarin. Tube feeds held as above. Cont free water flushes in the PEG to avoid dehydration. CAD s/p CABG-elevated troponin on arrival, likely related to demand ischemia in setting of sepsis. Pt denies any chest pain and EKG does not reveal evidence of acute ischemia. Cont medical management with ASA, Lipitor. Anemia-likely 2/2 chronic disease. DVT Proph: Coumadin DNR Dispo-cont med tele for now. Vital Signs: Date Time Temp Pulse Resp B/P (MAP) Pulse Ox O2 Delivery O2 Flow Rate FiO2 12/06/16 16:02 37.3 71 16 100/61 (74) 97 Nasal Cannula 3.0 12/06/16 16:00 Oxymask 3.0 12/06/16 12:11 74 22 108/58 (75) 20 Oxymask 3.0 12/06/16 12:00 93 Oxymask 3.0 12/06/16 10:03 93 12/06/16 08:15 37.0 92 20 132/71 (91) 87 Room Air 3.0 Humidified Air BiPAP 12/06/16 08:00 93 Oxymask 3.0 12/06/16 04:00 93 Oxymask 3.0 BiPAP Mask 12/06/16 03:42 36.8 86 18 102/62 (75) 90 Oxymask 3.0 12/05/16 23:59 93 Oxymask 3.0 BiPAP Mask 12/05/16 23:45 36.5 79 22 114/70 (85) 92 Oxymask 3.0 12/05/16 20:00 93 Mask 3.0 12/05/16 19:10 37.1 96 18 113/66 (82) 93 Mask 3.0 Lab Results: Results Past 24 Hours Test 12/06/16 06:07 Range/Units White Blood Count 16.23 4.8-10.8 K/uL Red Blood Count 3.96 4.7-6.1 M/uL Hemoglobin 11.5 14.0-18.0 g/dL Hematocrit 36.2 42-52 % Mean Corpuscular Volume 91.4 80-100 fL Mean Corpuscular Hemoglobin 29.0 25-34 pg Mean Corpuscular Hemoglobin Concent 31.8 32-36 g/dl Platelet Count 309 130-400 K/uL Mean Platelet Volume 10.1 7.4-10.4 fL Neutrophils (%) (Auto) 88.8 % Lymphocytes (%) (Auto) 3.0 % Monocytes (%) (Auto) 7.6 % Eosinophils (%) (Auto) 0.0 % Basophils (%) (Auto) 0.1 % Neutrophils # (Auto) 14.42 1.4-6.5 K/uL Lymphocytes # (Auto) 0.49 1.2-3.4 K/uL Monocytes # (Auto) 1.23 0.11-0.59 K/uL Eosinophils # (Auto) 0.00 0-0.5 K/uL Basophils # (Auto) 0.01 0-0.2 K/uL RDW Standard Deviation 55.9 36.4-46.3 fL RDW Coefficient of Variation 16.7 11.5-14.5 % Immature Granulocyte % (Auto) 0.5 % Immature Granulocyte # (Auto) 0.08 0.00-0.02 K/uL Prothrombin Time 21.2 9.0-12.0 SECONDS Prothromb Time International Ratio 1.9 0.9-1.1 Sodium Level 138 136-145 mmol/L Potassium Level 3.8 3.5-5.1 mmol/L Chloride Level 101 98-107 mmol/L Carbon Dioxide Level 29 21-32 mmol/L Anion Gap 8.0 3-11 mmol/L Blood Urea Nitrogen 30 7-18 mg/dl Creatinine 1.00 0.60-1.40 mg/dl Est Creatinine Clear Calc Drug Dose 47.8 ml/min Estimated GFR () 83.8 Estimated GFR (Non- 72.3 BUN/Creatinine Ratio 30.5 10-20 Random Glucose 116 70-99 mg/dl Calcium Level 8.9 8.5-10.1 mg/dl
[2016-12-06] MEDS: WARFARIN SOD 2 MG TAB PEG SCH (17:32)
[2016-12-06] MEDS: ATORVASTATIN 40 MG TAB PEG SCH (20:57)
[2016-12-06] MEDS: AMIODARONE 200 MG TAB PEG SCH (20:57)
[2016-12-07] VITALS (12 sets, daily range): BP systolic 102–125; BP diastolic 61–71; PULSE 74–83; TEMP 36.6–37.2; O2SAT 91–98
[2016-12-07] MEDS: CEFDINIR 125 MG/5 ML 60 ML BTL PO SCH ×2 (06:00→17:28)
[2016-12-07 07:25] LABS: PROTHROMBIN TIME (PATIENT) 33.5 SECONDS (9.0-12.0)
[2016-12-07] MEDS: METRONIDAZOLE 500 MG TAB PEG SCH ×3 (08:12→20:30)
[2016-12-07] MEDS: POLYETHYLENE (MIRALAX) 17 GM PACK PEG SCH (08:13)
[2016-12-07] MEDS: FUROSEMIDE 40 MG TAB NG SCH (08:13)
[2016-12-07] MEDS: METOPROLOL TARTRATE 25 MG TAB PO SCH ×2 (08:14→20:30)
--- NOTE | 2016-12-07 14:23 | DIAGNOSTIC IMAGING REPORT ---
CHEST ONE VIEW PORTABLE CLINICAL HISTORY: pneumonia COMPARISON STUDY: 12/02/2016 FINDINGS: The heart is borderline enlarged. There are postsurgical changes of a midline sternotomy. There is slight improvement in the bilateral pulmonary airspace opacities. Small bilateral pleural effusions are suspected.[ IMPRESSION: Slight improvement in the bilateral pulmonary airspace opacities. Small bilateral pleural effusions. Electronically signed by: Shadi Wetzel M.D. 12/07/2016 2:22 PM Dictated Date/Time: 12/07/2016 2:21 PM
[2016-12-07] MEDS: DIGOXIN 0.125 MG TAB PEG SCH (15:39)
[2016-12-07] MEDS: WARFARIN SOD 1 MG TAB PEG SCH (15:39)
--- NOTE | 2016-12-07 16:34 | Progress Note ---
Internal Med Progress Note Date of Service: Dec 07, 2016. Provider Documentation: SUBJECTIVE: The patient was seen and examined Non verbal Much brighter today OBJECTIVE: Vital Signs-as noted below Exam: General-No distress at rest Eyes-normal ENT-normal Neck-supple Lungs-clear to auscultate bilaterally Heart-Regular Abdomen-[place],No masses Extremities-No edema Neuro-AA Nonverbal Has flexor deformities in lower extremities Lab data as noted below. ASSESSMENT & PLAN: 76 yo M who is nonverbal with speech and swallowing issues since a stroke last October presents with acute fevers, rigors, increased productive cough and hypoxia found to have multilobar pneumonia. He was found with vomit overnight and likely aspirated with a worsening of hypoxia and dyspnea along with worsening Chest X-ray findings. He was subsequently demonstrating tachypnea the next day with a RR in the high 30s.Resin Mixer examined patient, performed deep suction at bedside and put him on BIPAP with improvement overnight. Lasix IV was also started with some improvement. Has been doing well on Lasix 40 IV daily since then with persistent clinical improvement. SEPSIS DUE TO PNEUMONIA ACUTE HYPOXIC RESPIRATORY FAILURE Patient presenting with cough and rigors; CXR in the ED showing multifocal pneumonia On presentation: low grade fever, WBC 17K, tachycardic, POC lactic acid 2.2; serum 1.8, BP on arrival 118/64 -> 91/55 s/p 1L IVF bolus, will give an additional 1L to total 30ml/kg due to borderline BP Started on Omnicef and Flagyl through PEG. Duonebs changed to PRN. Cont flutter valve. Appreciate Pulmonary input ,no additional recommendation.Signed off Repeat CXR-slight Improvement of Bilateral infiltration Acute on chronic diastolic heart failure-cont IV Lasix daily. Improved after BIPAP and IV Lasix overnight. Continues on Lasix daily with breath sounds and breathing improved. Will switch to PEG Lasix. Clinically stable Abdominal pain-vague but present for two days now. KUB this morning reveals no evidence of obstruction. Miralax has been given through his PEG. PRN enema and suppositories are also ordered. PAF-rate/rhythm controlled with dig, Lopressor and amiodarone. Warfarin was held for supratherapeutic INR likely 2/2 abx. Vit K was given 7.5mg PO total on 12/04. INR 1.9 on 12/06/16 Rate was very high this morning Additional Dose of Digoxin given Rate in controlled and INR is 3.0 on 12/07/16 H/o CVA-nonverbal, has PEG tube. Cont statin and warfarin. Tube feeds held as above. Cont free water flushes in the PEG to avoid dehydration. CAD s/p CABG-elevated troponin on arrival, likely related to demand ischemia in setting of sepsis. Pt denies any chest pain and EKG does not reveal evidence of acute ischemia. Cont medical management with ASA, Lipitor. Anemia-likely 2/2 chronic disease. DVT Proph: Coumadin DNR Dispo-cont med tele for now. Discussed with the in detailed Vital Signs: Date Time Temp Pulse Resp B/P (MAP) Pulse Ox O2 Delivery O2 Flow Rate FiO2 12/07/16 16:23 93 Oxymask 3.0 12/07/16 15:39 77 12/07/16 15:23 36.9 77 20 102/62 (75) 95 Mask 3.0 12/07/16 12:00 93 Oxymask 3.0 12/07/16 11:37 36.7 74 18 111/68 (82) 95 Oxymask 3.0 12/07/16 08:00 93 Oxymask 3.0 12/07/16 07:45 37.2 74 18 113/61 (78) 98 Oxymask 3.0 12/07/16 04:05 37.2 83 20 105/61 (76) 97 Nasal Cannula 3.0 12/07/16 04:00 Oxymask 3.0 12/07/16 00:12 37.1 77 20 123/68 (86) 91 Oxymask 3.0 12/07/16 00:10 Oxymask 3.0 12/06/16 20:00 Oxymask 3.0 12/06/16 19:49 36.3 83 16 111/63 (79) 97 Oxymask 2.0 Lab Results: Results Past 24 Hours Test 12/07/16 05:50 Range/Units Prothrombin Time 33.5 9.0-12.0 SECONDS Prothromb Time International Ratio 3.0 0.9-1.1
[2016-12-07] MEDS: ATORVASTATIN 40 MG TAB PEG SCH (20:31)
[2016-12-07] MEDS: AMIODARONE 200 MG TAB PEG SCH (20:51)
[2016-12-07] MEDS: ACETAMINOPHEN SOLN 325 MG/10.15 ML UDC PEG PRN (20:51)
[2016-12-08] MEDS: CEFDINIR 125 MG/5 ML 60 ML BTL PO SCH ×2 (05:21→17:44)
[2016-12-08 06:26] LABS: PROTHROMBIN TIME (PATIENT) 72.6 SECONDS (9.0-12.0)
[2016-12-08 07:01] LABS: INR 6.3 (0.9-1.1)
[2016-12-08 07:29] VITALS: BP 126/73; PULSE 76; TEMP 36.4; O2SAT 94
[2016-12-08] MEDS: WARFARIN SOD 2 MG TAB PEG SCH (08:28)
[2016-12-08] MEDS: POLYETHYLENE (MIRALAX) 17 GM PACK PEG SCH (08:30)
[2016-12-08] MEDS: METOPROLOL TARTRATE 25 MG TAB PO SCH ×2 (08:30→21:01)
[2016-12-08] MEDS: FUROSEMIDE 40 MG TAB NG SCH (08:30)
[2016-12-08] MEDS: METRONIDAZOLE 500 MG TAB PEG SCH ×3 (08:30→21:01)
[2016-12-08 10:07] LABS: HEMATOCRIT 39.9 % (42-52); MEAN CELL VOLUME 91.5 fL (80-100); MEAN CORPUSCULAR HEMOGLOBIN 30.5 pg (25-34); MEAN CORPUSCULAR HGB CONC 33.3 g/dl (32-36); MEAN PLATELET VOLUME 10.4 fL (7.4-10.4); PLATELET COUNT 341 K/uL (130-400); RED BLOOD COUNT 4.36 M/uL (4.7-6.1); WHITE BLOOD COUNT 12.81 K/uL (4.8-10.8)
[2016-12-08 10:25] LABS: BUN/CREATININE RATIO 34.7 (10-20); CALCIUM 9.9 mg/dl (8.5-10.1); CREATININE 0.92 mg/dl (0.60-1.40); MAGNESIUM 2.6 mg/dl (1.8-2.4); PHOSPHORUS 1.9 mg/dl (2.5-4.9); POTASSIUM 3.9 mmol/L (3.5-5.1)
[2016-12-08] MEDS ORDERED: SODIUM PHOSPHATE 3 MMOL/1 ML INFUSION IV STA (11:39)
[2016-12-08] MEDS: PEPTAMEN 1.5 CAL 1000ML BAG PEG SCH (11:55)
[2016-12-08] MEDS ORDERED: SODIUM PHOSPHATE INJ 21 MMOL in SODIUM CHLORIDE 0.9% 500ML 500 ML IV SCH (12:30)
[2016-12-08 15:16] VITALS: BP 109/66; PULSE 57; TEMP 37; O2SAT 97
[2016-12-08 16:00] VITALS: O2SAT 97
--- NOTE | 2016-12-08 17:44 | Progress Note ---
Internal Med Progress Note Date of Service: Dec 08, 2016. Provider Documentation: SUBJECTIVE: The patient was seen and examined Non verbal Much brighter today Started on PEG feeding Remains stable OBJECTIVE: Vital Signs-as noted below Exam: General-No distress at rest Eyes-normal ENT-normal Neck-supple Lungs-clear to auscultate bilaterally Heart-Regular Abdomen-[place],No masses Extremities-No edema Neuro-AA Nonverbal Has flexor deformities in lower extremities Lab data as noted below. ASSESSMENT & PLAN: 76 yo M who is nonverbal with speech and swallowing issues since a stroke last October presents with acute fevers, rigors, increased productive cough and hypoxia found to have multilobar pneumonia. He was found with vomit overnight and likely aspirated with a worsening of hypoxia and dyspnea along with worsening Chest X-ray findings. He was subsequently demonstrating tachypnea the next day with a RR in the high 30s.Sales Order Clerk examined patient, performed deep suction at bedside and put him on BIPAP with improvement overnight. Lasix IV was also started with some improvement. Has been doing well on Lasix 40 IV daily since then with persistent clinical improvement. SEPSIS DUE TO PNEUMONIA ACUTE HYPOXIC RESPIRATORY FAILURE Patient presenting with cough and rigors; CXR in the ED showing multifocal pneumonia On presentation: low grade fever, WBC 17K, tachycardic, POC lactic acid 2.2; serum 1.8, BP on arrival 118/64 -> 91/55 s/p 1L IVF bolus, will give an additional 1L to total 30ml/kg due to borderline BP Started on Omnicef and Flagyl through PEG. Duonebs changed to PRN. Cont flutter valve. Appreciate Pulmonary input ,no additional recommendation.Signed off Repeat CXR-slight Improvement of Bilateral infiltration Continue current medications Acute on chronic diastolic heart failure-cont IV Lasix daily. Improved after BIPAP and IV Lasix overnight. Continues on Lasix daily with breath sounds and breathing improved. Will switch to Lasix through the PEG Clinically stable Abdominal pain-vague but present for two days now. KUB this morning reveals no evidence of obstruction. Miralax has been given through his PEG. PRN enema and suppositories are also ordered. PAF-rate/rhythm controlled with dig, Lopressor and amiodarone. Warfarin was held for supratherapeutic INR likely 2/2 abx. Vit K was given 7.5mg PO total on 12/04. INR 1.9 on 12/06/16 Rate was very high this morning Additional Dose of Digoxin given Rate in controlled and INR is 3.0 on 12/07/16 H/o CVA-nonverbal, has PEG tube. Cont statin and warfarin. Tube feeds held as above. Cont free water flushes in the PEG to avoid dehydration. CAD s/p CABG-elevated troponin on arrival, likely related to demand ischemia in setting of sepsis. Pt denies any chest pain and EKG does not reveal evidence of acute ischemia. Cont medical management with ASA, Lipitor. Anemia-likely 2/2 chronic disease. DVT Proph: Coumadin DNR Dispo-cont med tele for now. Discussed with the in detailed Vital Signs: Date Time Temp Pulse Resp B/P (MAP) Pulse Ox O2 Delivery O2 Flow Rate FiO2 12/08/16 15:16 37.0 57 18 109/66 (80) 97 Oxymask 2.0 12/08/16 10:05 Mask 3.0 12/08/16 07:29 36.4 76 20 126/73 (90) 94 12/08/16 00:05 Oxymask 3.0 12/07/16 23:23 36.6 76 18 102/62 (75) 92 Oxymask 2.5 12/07/16 20:28 78 109/64 (79) 12/07/16 20:05 Oxymask 3.0 12/07/16 18:28 36.6 78 18 125/71 (89) 92 Room Air 12/07/16 17:43 36.9 77 20 93 3.0 Lab Results: Results Past 24 Hours Test 12/08/16 05:31 12/08/16 07:44 12/08/16 11:31 Range/Units White Blood Count 12.81 4.8-10.8 K/uL Red Blood Count 4.36 4.7-6.1 M/uL Hemoglobin 13.3 14.0-18.0 g/dL Hematocrit 39.9 42-52 % Mean Corpuscular Volume 91.5 80-100 fL Mean Corpuscular Hemoglobin 30.5 25-34 pg Mean Corpuscular Hemoglobin Concent 33.3 32-36 g/dl RDW Standard Deviation 57.0 36.4-46.3 fL RDW Coefficient of Variation 17.0 11.5-14.5 % Platelet Count 341 130-400 K/uL Mean Platelet Volume 10.4 7.4-10.4 fL Prothrombin Time 72.6 9.0-12.0 SECONDS Prothromb Time International Ratio 6.3 0.9-1.1 Sodium Level 141 136-145 mmol/L Potassium Level 3.9 3.5-5.1 mmol/L Chloride Level 103 98-107 mmol/L Carbon Dioxide Level 32 21-32 mmol/L Anion Gap 6.0 3-11 mmol/L Blood Urea Nitrogen 32 7-18 mg/dl Creatinine 0.92 0.60-1.40 mg/dl Est Creatinine Clear Calc Drug Dose 51.9 ml/min Estimated GFR () 92.7 Estimated GFR (Non- 79.9 BUN/Creatinine Ratio 34.7 10-20 Random Glucose 127 70-99 mg/dl Calcium Level 9.9 8.5-10.1 mg/dl Phosphorus Level 1.9 2.5-4.9 mg/dl Magnesium Level 2.6 1.8-2.4 mg/dl Bedside Glucose 120 120 70-99 mg/dl
[2016-12-08] MEDS: AMIODARONE 200 MG TAB PEG SCH (20:58)
[2016-12-08] MEDS: ATORVASTATIN 40 MG TAB PEG SCH (20:58)
[2016-12-08 21:02] VITALS: BP 125/70; PULSE 73; O2SAT 93
[2016-12-08 23:36] VITALS: BP 121/73; PULSE 70; TEMP 36.4; O2SAT 93
[2016-12-09] MEDS: CEFDINIR 125 MG/5 ML 60 ML BTL PO SCH ×2 (05:33→17:33)
[2016-12-09 08:00] VITALS: O2SAT 97
[2016-12-09 08:15] VITALS: O2SAT 91
[2016-12-09] MEDS: METRONIDAZOLE 500 MG TAB PEG SCH ×3 (08:30→21:12)
[2016-12-09] MEDS: POLYETHYLENE (MIRALAX) 17 GM PACK PEG SCH (08:30)
[2016-12-09] MEDS: WARFARIN SOD 2 MG TAB PEG SCH (08:31)
[2016-12-09] MEDS: ACETAMINOPHEN SOLN 325 MG/10.15 ML UDC PEG PRN (08:34)
[2016-12-09] MEDS: FUROSEMIDE 40 MG TAB NG SCH (08:55)
[2016-12-09] MEDS: METOPROLOL TARTRATE 25 MG TAB PO SCH ×2 (09:00→21:13)
[2016-12-09 09:59] VITALS: BP_SYST 136; BP_SYST 138; BP_SYST 142; BP_DIAS 58; BP_DIAS 60; BP_DIAS 64; PULSE 74; PULSE 77; TEMP 36.3; O2SAT 91
[2016-12-09] MEDS ORDERED: PHYTONADIONE 1MG/5ML SUSP PO SCH (10:30)
[2016-12-09] MEDS ORDERED: PHYTONADIONE PED INJ 1 MG, ORA-SWEET SYRUP 2.25 ML, ORA-PLUS SUSP. VEHICLE 2.25 ML, BAR... PO ONE ×3 (11:15)
[2016-12-09] MEDS: ONDANSETRON INJ 2 MG/ML 2 ML VIAL IV PRN ×2 (13:23→21:32)
[2016-12-09 15:33] VITALS: BP 97/57; PULSE 71; TEMP 37; O2SAT 94
[2016-12-09 16:33] VITALS: BP 99/61
[2016-12-09] MEDS: DIGOXIN 0.125 MG TAB PEG SCH (17:30)
--- NOTE | 2016-12-09 18:48 | Progress Note ---
Internal Med Progress Note Date of Service: Dec 09, 2016. Provider Documentation: SUBJECTIVE: The patient was seen and examined Non verbal Much brighter today Started on PEG feeding Not been participating in PT/OT Ordered again OBJECTIVE: Vital Signs-as noted below Exam: General-No distress at rest Eyes-normal ENT-normal Neck-supple Lungs-clear to auscultate bilaterally Heart-Regular Abdomen-[place],No masses Extremities-No edema Neuro-AA Nonverbal Has flexor deformities in lower extremities Lab data as noted below. ASSESSMENT & PLAN: 76 yo M who is nonverbal with speech and swallowing issues since a stroke last October presents with acute fevers, rigors, increased productive cough and hypoxia found to have multilobar pneumonia. He was found with vomit overnight and likely aspirated with a worsening of hypoxia and dyspnea along with worsening Chest X-ray findings. He was subsequently demonstrating tachypnea the next day with a RR in the high 30s.Hoop Flaring Machine Operator Helper examined patient, performed deep suction at bedside and put him on BIPAP with improvement overnight. Lasix IV was also started with some improvement. Has been doing well on Lasix 40 IV daily since then with persistent clinical improvement. SEPSIS DUE TO PNEUMONIA ACUTE HYPOXIC RESPIRATORY FAILURE Patient presenting with cough and rigors; CXR in the ED showing multifocal pneumonia On presentation: low grade fever, WBC 17K, tachycardic, POC lactic acid 2.2; serum 1.8, BP on arrival 118/64 -> 91/55 s/p 1L IVF bolus, will give an additional 1L to total 30ml/kg due to borderline BP Started on Omnicef and Flagyl through PEG. Duonebs changed to PRN. Cont flutter valve. Appreciate Pulmonary input ,no additional recommendation.Signed off Repeat CXR-slight Improvement of Bilateral infiltration Continue current medications Clinically better -but a little drowsy today Acute on chronic diastolic heart failure-cont IV Lasix daily. Improved after BIPAP and IV Lasix overnight. Continues on Lasix daily with breath sounds and breathing improved. Will switch to Lasix through the PEG No signs of Fluid overload Abdominal pain-vague but present for two days now. KUB this morning reveals no evidence of obstruction. Miralax has been given through his PEG. PRN enema and suppositories are also ordered. PAF-rate/rhythm controlled with dig, Lopressor and amiodarone. Warfarin was held for supratherapeutic INR likely 2/2 abx. Vit K was given 7.5mg PO total on 12/04. INR 1.9 on 12/06/16 Rate was very high this morning Additional Dose of Digoxin given Rate in controlled and INR is 3.0 on 12/07/16 INR >7 without any evidence of bleeding Will give 1 mg Vit K orally H/o CVA-nonverbal, has PEG tube. Cont statin and warfarin. Tube feeds held as above. Cont free water flushes in the PEG to avoid dehydration. CAD s/p CABG-elevated troponin on arrival, likely related to demand ischemia in setting of sepsis. Pt denies any chest pain and EKG does not reveal evidence of acute ischemia. Cont medical management with ASA, Lipitor. Anemia-likely 2/2 chronic disease. DVT Proph: Coumadin DNR Dispo-cont med tele for now. Discussed with the in detailed Discussed with the again today Vital Signs: Date Time Temp Pulse Resp B/P (MAP) Pulse Ox O2 Delivery O2 Flow Rate FiO2 12/09/16 17:30 68 12/09/16 16:33 99/61 (74) 12/09/16 16:00 Oxymask 3.0 12/09/16 15:33 37.0 71 16 97/57 (70) 94 3.0 12/09/16 09:59 36.3 74 20 138/58 (84) 91 Mask 3.0 77 12/09/16 08:15 91 Oxymask 3.0 12/09/16 08:00 97 Oxymask 3.0 12/09/16 00:00 Oxymask 3.0 12/08/16 23:36 36.4 70 18 121/73 (89) 93 Oxyhood 3.0 12/08/16 21:02 73 20 125/70 (88) 93 Oxymask 3.0 Lab Results: Results Past 24 Hours Test 12/09/16 00:02 12/09/16 06:37 12/09/16 07:15 12/09/16 11:53 Range/Units Bedside Glucose 152 151 144 70-99 mg/dl Prothrombin Time 81.0 9.0-12.0 SECONDS Prothromb Time International Ratio 7.0 0.9-1.1 Test 12/09/16 18:22 Range/Units Bedside Glucose 217 70-99 mg/dl
[2016-12-09] MEDS: AMIODARONE 200 MG TAB PEG SCH (21:12)
[2016-12-09] MEDS: ATORVASTATIN 40 MG TAB PEG SCH (21:13)
[2016-12-09 21:15] VITALS: BP 102/61; PULSE 81; O2SAT 96
[2016-12-10] VITALS (7 sets, daily range): BP systolic 96–138; BP diastolic 52–78; PULSE 62–82; TEMP 36.4–36.6; O2SAT 91–97
[2016-12-10] MEDS: CEFDINIR 125 MG/5 ML 60 ML BTL PO SCH ×2 (05:48→17:24)
[2016-12-10 07:30] LABS: HEMATOCRIT 37.7 % (42-52); MEAN CELL VOLUME 91.3 fL (80-100); MEAN CORPUSCULAR HEMOGLOBIN 30.8 pg (25-34); MEAN CORPUSCULAR HGB CONC 33.7 g/dl (32-36); PLATELET COUNT 375 K/uL (130-400); RED BLOOD COUNT 4.13 M/uL (4.7-6.1); WHITE BLOOD COUNT 10.85 K/uL (4.8-10.8)
[2016-12-10 08:01] LABS: BUN/CREATININE RATIO 27.3 (10-20); CALCIUM 8.9 mg/dl (8.5-10.1); CREATININE 0.93 mg/dl (0.60-1.40); MAGNESIUM 2.3 mg/dl (1.8-2.4); POTASSIUM 3.2 mmol/L (3.5-5.1)
[2016-12-10 08:32] LABS: PHOSPHORUS 1.3 mg/dl (2.5-4.9)
[2016-12-10] MEDS ORDERED: POTASSIUM PHOS 3 MMOL/1 ML INFUSION IV ONE (08:45)
[2016-12-10] MEDS: POLYETHYLENE (MIRALAX) 17 GM PACK PEG SCH (09:00)
[2016-12-10] MEDS ORDERED: POTASSIUM PHOSPHATE INJ 24 MMOL in SODIUM CHLORIDE 0.9% 500ML 500 ML IV ONE (09:00)
[2016-12-10] MEDS: PEPTAMEN 1.5 CAL 1000ML BAG PEG SCH (09:07)
[2016-12-10] MEDS: METOPROLOL TARTRATE 25 MG TAB PO SCH ×2 (09:08→21:19)
[2016-12-10] MEDS: FUROSEMIDE 40 MG TAB NG SCH (09:10)
[2016-12-10] MEDS: METRONIDAZOLE 500 MG TAB PEG SCH ×3 (09:10→21:15)
[2016-12-10 09:32] LABS: INR 2.8 (0.9-1.1); PROTHROMBIN TIME (PATIENT) 30.7 SECONDS (9.0-12.0)
--- NOTE | 2016-12-10 17:48 | Progress Note ---
Medicine Progress Note Date & Time of Visit: Dec 10, 2016 at 17:33. Subjective Pt was seen and examined sitting in bed with no distress pt is nonverbal looks very comfortable in bed watching TV Objective Last 8 Hrs Date Time Temp Pulse Resp B/P (MAP) Pulse Ox O2 Delivery O2 Flow Rate FiO2 12/10/16 14:17 80 16 110/68 (82) 91 Oxymask 3.0 Physical Exam: General- no acute distress Head- atraumatic Eyes- PERRL, EOMI ENT- oropharynx clear Neck- supple, no JVD Lungs- Decrease breath sound Heart- regular rhythm Abdomen- normal bowel sounds, soft Extremities- no calf tenderness Neuro- alert, oriented x 3; PERRL, EOMI Skin- warm & dry Laboratory Results: Last 24 Hours Test 12/09/16 18:22 12/10/16 02:36 12/10/16 06:36 12/10/16 06:58 Bedside Glucose 217 mg/dl 156 mg/dl 159 mg/dl White Blood Count 10.85 K/uL Red Blood Count 4.13 M/uL Hemoglobin 12.7 g/dL Hematocrit 37.7 % Mean Corpuscular Volume 91.3 fL Mean Corpuscular Hemoglobin 30.8 pg Mean Corpuscular Hemoglobin Concent 33.7 g/dl RDW Standard Deviation 57.2 fL RDW Coefficient of Variation 17.0 % Platelet Count 375 K/uL Mean Platelet Volume 10.0 fL Sodium Level 142 mmol/L Potassium Level 3.2 mmol/L Chloride Level 103 mmol/L Carbon Dioxide Level 35 mmol/L Anion Gap 4.0 mmol/L Blood Urea Nitrogen 25 mg/dl Creatinine 0.93 mg/dl Est Creatinine Clear Calc Drug Dose 51.4 ml/min Estimated GFR () 91.5 Estimated GFR (Non- 78.9 BUN/Creatinine Ratio 27.3 Random Glucose 173 mg/dl Calcium Level 8.9 mg/dl Phosphorus Level 1.3 mg/dl Magnesium Level 2.3 mg/dl Test 12/10/16 09:03 12/10/16 12:25 Prothrombin Time 30.7 SECONDS Prothromb Time International Ratio 2.8 Bedside Glucose 119 mg/dl Assessment & Plan SEPSIS DUE TO PNEUMONIA ACUTE HYPOXIC RESPIRATORY FAILURE Presenting with cough and rigors, low grade fever, WBC 17K, tachycardic, POC lactic acid 2.2 CXR on admission showed multifocal pneumonia Received INF Started on Omnicef and Flagyl through PEG. Duonebs changed to PRN. Cont flutter valve. Pulmonary on board ,no additional recommendation. Repeat CXR on 12/07 showed slight Improvement of Bilateral infiltration Continue current medications Clinically improved Acute on chronic diastolic heart failure Improved after BIPAP and IV Lasix overnight. Continue Lasix through the PEG No signs of Fluid overload Stable Abdominal pain Vague symptoms KUB showed no evidence of obstruction. Continue Miralax through his PEG. Stable P. AFIB Rate controlled on NSR Continue digoxin, Lopressor and amiodarone. INR was 7 and received vit K INR 2.8 today Will resume coumadin Continue monitor INR H/o CVA nonverbal, has PEG tube. Cont free water flushes in the PEG to avoid dehydration. CAD s/p CABG Elevated troponin on admission likely related to demand ischemia in setting of sepsis. Denies any chest pain EKG does not reveal evidence of acute ischemia. Cont medical management with ASA and statin. Anemia Due chronic disease. Stable DVT Proph: Coumadin on hold INR 2.8 today CODE STATUS DNR Disposition Waiting for placement Consultants: Pulmonary Current Inpatient Medications: Current Inpatient Medications Medications (Trade) Dose Ordered Sig/Kelle Route Start Time Stop Time Status Last Admin Dose Admin Ondansetron HCl (Zofran Inj) 4 mg Q6H PRN IV 11/30/16 13:30 12/30/16 13:29 12/09/16 21:32 4 MG Amiodarone HCl (Cordarone Tab) 200 mg HS PEG 11/30/16 21:00 12/30/16 20:59 12/09/16 21:12 200 MG Atorvastatin Calcium (Lipitor Tab) 80 mg HS PEG 11/30/16 21:00 12/30/16 20:59 12/09/16 21:13 80 MG Digoxin (Lanoxin Tab) 0.125 mg MoWeFr@1600 PEG 11/30/16 16:00 12/30/16 15:59 12/09/16 17:30 0.125 MG Warfarin Sodium (Coumadin Tab) 1 mg WeSa@1600 PEG 11/30/16 16:00 12/30/16 15:59 Future Hold 12/07/16 15:39 1 MG Warfarin Sodium (Coumadin Tab) 2 mg SuMoTuThFr@1600 PEG 12/01/16 16:00 12/31/16 15:59 Future Hold 12/06/16 17:32 2 MG Metoprolol Tartrate (Lopressor Tab) 12.5 mg BID PO 12/04/16 09:00 01/03/17 08:59 12/10/16 09:08 12.5 MG Polyethylene (Miralax Powder Packet) 17 gm DAILY PEG 12/04/16 11:30 01/03/17 11:29 12/08/16 08:30 17 GM Furosemide (Lasix Tab) 40 mg QAM NG 12/06/16 09:00 01/05/17 08:59 12/10/16 09:10 40 MG Miscellaneous Medication (Milk And Molasses Enema) 1 ea DAILY PRN [place] 12/05/16 14:30 01/04/17 14:29 Bisacodyl (Dulcolax Supp) 10 mg DAILY PRN [place] 12/05/16 14:30 01/04/17 14:29 12/05/16 15:55 10 MG Cefdinir (Omnicef Susp) 300 mg Q12@0600,1800 PO 12/05/16 18:00 12/12/16 17:59 12/10/16 17:24 300 MG Metronidazole (Flagyl Tab) 500 mg TID PEG 12/05/16 18:00 12/12/16 17:59 12/10/16 14:[address] (Atrovent 0.02% 0.5MG/2.5ML Neb) 0.5 mg Q6R PRN INH 12/05/16 16:00 01/04/17 15:59 Levalbuterol (Xopenex 1.25MG/ 0.5ML Neb) 1.25 mg Q6R PRN INH 12/05/16 16:00 01/04/17 15:59 Acetaminophen (Tylenol Soln) 650 mg Q6H PRN PEG 12/05/16 16:15 01/04/17 16:14 12/09/16 08:34 650 MG Enteral Nutritional Formula (Peptamen 1.5) 1,000 ml GOAL RATE 25mL/hr PEG 12/08/16 12:00 01/07/17 11:59 12/10/16 09:07 1,000 ML
[2016-12-10] MEDS ORDERED: WARFARIN SOD 1 MG TAB PEG ONE (18:00)
[2016-12-10] MEDS: ATORVASTATIN 40 MG TAB PEG SCH (21:15)
[2016-12-10] MEDS: AMIODARONE 200 MG TAB PEG SCH (21:15)
[2016-12-11] VITALS: BP 106/57; PULSE 64; TEMP 36.5; O2SAT 96
[2016-12-11] MEDS ORDERED: NURSING DECISION MEDICATION ORDER SCH (03:00)
[2016-12-11] MEDS ORDERED: MICONAZOLE NITRATE POWDER 43 GM EXT PRN (04:30)
[2016-12-11] MEDS: CEFDINIR 125 MG/5 ML 60 ML BTL PO SCH ×2 (06:34→18:29)
[2016-12-11 08:19] VITALS: BP 113/68; PULSE 77; TEMP 36.5; O2SAT 93
[2016-12-11 08:25] LABS: INR 2.3 (0.9-1.1); PROTHROMBIN TIME (PATIENT) 25.4 SECONDS (9.0-12.0)
[2016-12-11 08:51] LABS: BUN/CREATININE RATIO 29.4 (10-20); CREATININE 0.81 mg/dl (0.60-1.40); PHOSPHORUS 1.8 mg/dl (2.5-4.9); POTASSIUM 3.3 mmol/L (3.5-5.1)
[2016-12-11] MEDS: POLYETHYLENE (MIRALAX) 17 GM PACK PEG SCH (09:00)
[2016-12-11] MEDS ORDERED: POTASSIUM PHOS 3 MMOL/1 ML INFUSION IV ONE (09:00)
[2016-12-11] MEDS: METRONIDAZOLE 500 MG TAB PEG SCH ×3 (09:04→21:24)
[2016-12-11] MEDS: METOPROLOL TARTRATE 25 MG TAB PO SCH ×2 (09:06→21:25)
[2016-12-11] MEDS: FUROSEMIDE 40 MG TAB NG SCH (09:06)
[2016-12-11] MEDS ORDERED: POTASSIUM PHOSPHATE INJ 21 MMOL in SODIUM CHLORIDE 0.9% 500ML 500 ML IV ONE (10:15)
--- NOTE | 2016-12-11 14:01 | Progress Note ---
Medicine Progress Note Date & Time of Visit: Dec 11, 2016 at 13:55. Subjective Pt was seen and examined Lying in bed with at bedside with no distress Pt said that he feels ok denies any chest pain, palpitation, dizziness Objective Last 8 Hrs Date Time Temp Pulse Resp B/P (MAP) Pulse Ox O2 Delivery O2 Flow Rate FiO2 12/11/16 08:19 36.5 77 20 113/68 (83) 93 Oxymask 3.0 12/11/16 08:00 Oxymask 3.0 Physical Exam: General- no acute distress Head- atraumatic Eyes- PERRL, EOMI ENT- oropharynx clear Neck- supple, no JVD Lungs- mild coarse breath sound Heart- regular rhythm Abdomen- normal bowel sounds, soft Extremities- no calf tenderness Neuro- alert, oriented x 3; PERRL, EOMI Skin- warm & dry Laboratory Results: Last 24 Hours Test 12/10/16 18:28 12/11/16 01:59 12/11/16 06:35 12/11/16 07:19 Bedside Glucose 157 mg/dl 136 mg/dl 133 mg/dl Prothrombin Time 25.4 SECONDS Prothromb Time International Ratio 2.3 Sodium Level 141 mmol/L Potassium Level 3.3 mmol/L Chloride Level 102 mmol/L Carbon Dioxide Level 34 mmol/L Anion Gap 5.0 mmol/L Blood Urea Nitrogen 24 mg/dl Creatinine 0.81 mg/dl Est Creatinine Clear Calc Drug Dose 59.0 ml/min Estimated GFR () 99.4 Estimated GFR (Non- 85.7 BUN/Creatinine Ratio 29.4 Random Glucose 172 mg/dl Calcium Level 9.0 mg/dl Phosphorus Level 1.8 mg/dl Test 12/11/16 07:59 12/11/16 12:00 Bedside Glucose 165 mg/dl 136 mg/dl Assessment & Plan SEPSIS DUE TO PNEUMONIA ACUTE HYPOXIC RESPIRATORY FAILURE Presenting with cough and rigors, low grade fever, WBC 17K, tachycardic, POC lactic acid 2.2 CXR on admission showed multifocal pneumonia Received INF Started on Omnicef and Flagyl through PEG. Duonebs changed to PRN. Cont flutter valve. Pulmonary on board ,no additional recommendation. Repeat CXR on 12/07 showed slight Improvement of Bilateral infiltration Continue current medications will complete course of abx tomorrow Clinically improved Acute on chronic diastolic heart failure Improved after BIPAP and IV Lasix overnight. Continue Lasix through the PEG No signs of Fluid overload Stable Abdominal pain Vague symptoms KUB showed no evidence of obstruction. Continue Miralax through his PEG. Stable P. AFIB Rate controlled on NSR Continue digoxin, Lopressor and amiodarone. INR was 7 and received vit K INR 2.3 today Continue coumadin Continue monitor INR Electrolytes imbalance Phosphorus and K replaced Monitor electrolytes H/o CVA nonverbal, has PEG tube. Cont free water flushes in the PEG to avoid dehydration. CAD s/p CABG Elevated troponin on admission likely related to demand ischemia in setting of sepsis. Denies any chest pain EKG does not reveal evidence of acute ischemia. Cont medical management with ASA and statin. Anemia Due chronic disease. Stable DVT Proph: Coumadin resume INR 2.3 today CODE STATUS DNR Disposition Waiting for placement Consultants: Pulmonary Current Inpatient Medications: Current Inpatient Medications Medications (Trade) Dose Ordered Sig/Kelle Route Start Time Stop Time Status Last Admin Dose Admin Ondansetron HCl (Zofran Inj) 4 mg Q6H PRN IV 11/30/16 13:30 12/30/16 13:29 12/09/16 21:32 4 MG Amiodarone HCl (Cordarone Tab) 200 mg HS PEG 11/30/16 21:00 12/30/16 20:59 12/10/16 21:15 200 MG Atorvastatin Calcium (Lipitor Tab) 80 mg HS PEG 11/30/16 21:00 12/30/16 20:59 12/10/16 21:15 80 MG Digoxin (Lanoxin Tab) 0.125 mg MoWeFr@1600 PEG 11/30/16 16:00 12/30/16 15:59 12/09/16 17:30 0.125 MG Warfarin Sodium (Coumadin Tab) 1 mg WeSa@1600 PEG 11/30/16 16:00 12/30/16 15:59 Future Hold 12/07/16 15:39 1 MG Warfarin Sodium (Coumadin Tab) 2 mg SuMoTuThFr@1600 PEG 12/01/16 16:00 12/31/16 15:59 Future Hold 12/06/16 17:32 2 MG Metoprolol Tartrate (Lopressor Tab) 12.5 mg BID PO 12/04/16 09:00 01/03/17 08:59 12/11/16 09:06 12.5 MG Polyethylene (Miralax Powder Packet) 17 gm DAILY PEG 12/04/16 11:30 01/03/17 11:29 12/08/16 08:30 17 GM Furosemide (Lasix Tab) 40 mg QAM NG 12/06/16 09:00 01/05/17 08:59 12/11/16 09:06 40 MG Miscellaneous Medication (Milk And Molasses Enema) 1 ea DAILY PRN [place] 12/05/16 14:30 01/04/17 14:29 Bisacodyl (Dulcolax Supp) 10 mg DAILY PRN [place] 12/05/16 14:30 01/04/17 14:29 12/05/16 15:55 10 MG Cefdinir (Omnicef Susp) 300 mg Q12@0600,1800 PO 12/05/16 18:00 12/12/16 17:59 12/11/16 06:34 300 MG Metronidazole (Flagyl Tab) 500 mg TID PEG 12/05/16 18:00 12/12/16 17:59 12/11/16 13:30 500 MG Ipratropium [place] (Atrovent 0.02% 0.5MG/2.5ML Neb) 0.5 mg Q6R PRN INH 12/05/16 16:00 01/04/17 15:59 Levalbuterol (Xopenex 1.25MG/ 0.5ML Neb) 1.25 mg Q6R PRN INH 12/05/16 16:00 01/04/17 15:59 Acetaminophen (Tylenol Soln) 650 mg Q6H PRN PEG 12/05/16 16:15 01/04/17 16:14 12/09/16 08:34 650 MG Enteral Nutritional Formula (Peptamen 1.5) 1,000 ml GOAL RATE 25mL/hr PEG 12/08/16 12:00 01/07/17 11:59 12/10/16 09:07 1,000 ML Miconazole Nitrate (Desenex Powder) 1 appln PRN PRN EXT 12/11/16 04:30 01/10/17 04:29 Potassium Phosphate 21 mmol/ Sodium Chloride 507 ml @ 125 mls/hr TODAY@1015 ONCE IV 12/11/16 10:15 12/11/16 14:18 12/11/16 10:09 125 MLS/HR
[2016-12-11 15:20] VITALS: BP 137/75; PULSE 70; TEMP 36.5; O2SAT 93
[2016-12-11 16:00] VITALS: O2SAT 93
[2016-12-11] MEDS: ATORVASTATIN 40 MG TAB PEG SCH (21:24)
[2016-12-11] MEDS: AMIODARONE 200 MG TAB PEG SCH (21:24)
[2016-12-12] VITALS: BP_SYST 107; BP_SYST 138; BP_DIAS 64; BP_DIAS 84; PULSE 71; PULSE 93; TEMP 36.4; TEMP 37.1; O2SAT 100; O2SAT 97
[2016-12-12] MEDS: PEPTAMEN 1.5 CAL 1000ML BAG PEG SCH (05:19)
[2016-12-12] MEDS: CEFDINIR 125 MG/5 ML 60 ML BTL PO SCH (05:38)
[2016-12-12 07:05] VITALS: BP 119/67; PULSE 64; TEMP 36.4; O2SAT 97
[2016-12-12 08:03] LABS: INR 2.2 (0.9-1.1); PROTHROMBIN TIME (PATIENT) 23.8 SECONDS (9.0-12.0)
[2016-12-12] MEDS: ACETAMINOPHEN SOLN 325 MG/10.15 ML UDC PEG PRN (08:37)
[2016-12-12] MEDS: POLYETHYLENE (MIRALAX) 17 GM PACK PEG SCH (08:37)
[2016-12-12 08:38] LABS: BLOOD UREA NITROGEN 20 mg/dl (7-18); BUN/CREATININE RATIO 27.8 (10-20); CALCIUM 9.1 mg/dl (8.5-10.1); CARBON DIOXIDE 35 mmol/L (21-32); CHLORIDE 99 mmol/L (98-107); CREATININE 0.72 mg/dl (0.60-1.40); GLUCOSE 146 mg/dl (70-99); SODIUM 137 mmol/L (136-145)
[2016-12-12] MEDS: FUROSEMIDE 40 MG TAB NG SCH (08:38)
[2016-12-12] MEDS: METRONIDAZOLE 500 MG TAB PEG SCH ×2 (08:41→13:51)
[2016-12-12] MEDS: METOPROLOL TARTRATE 25 MG TAB PO SCH ×2 (08:41→22:31)
[2016-12-12 09:50] LABS: MAGNESIUM 2.4 mg/dl (1.8-2.4)
[2016-12-12 09:56] LABS: POTASSIUM 4.2 mmol/L (3.5-5.1)
[2016-12-12] MEDS ORDERED: SODIUM PHOSPHATE 3 MMOL/1 ML INFUSION IV ONE (11:45)
[2016-12-12] MEDS ORDERED: SODIUM PHOSPHATE INJ 15 MMOL in SODIUM CHLORIDE 0.9% 250ML 250 ML IV SCH (12:15)
[2016-12-12] MEDS ORDERED: NURSING VERBAL MED ORDER ONE (12:15)
[2016-12-12] MEDS ORDERED: ACETAMINOPHEN SOLN 500 MG/15.62 ML UDP PEG PRN (12:30)
[2016-12-12 15:36] VITALS: BP 99/61; PULSE 62; TEMP 36.4; O2SAT 99
[2016-12-12] MEDS: DIGOXIN 0.125 MG TAB PEG SCH (15:58)
[2016-12-12] MEDS ORDERED: TRAMADOL HCL 50 MG TAB PEG PRN (16:15)
--- NOTE | 2016-12-12 16:16 | Progress Note ---
Medicine Progress Note Date & Time of Visit: Dec 12, 2016 at 16:12. Subjective Pt was seen and examined Lying in bed with no distress Denies any chest pain, palpitation, dizziness and SOB Objective Last 8 Hrs Date Time Temp Pulse Resp B/P (MAP) Pulse Ox O2 Delivery O2 Flow Rate FiO2 12/12/16 15:58 60 12/12/16 15:36 36.4 62 19 99/61 (74) 99 Diffusion Mask 3.0 Physical Exam: General- no acute distress Head- atraumatic Eyes- PERRL, EOMI ENT- oropharynx clear Neck- supple, no JVD Lungs- mild coarse breath sound Heart- regular rhythm Abdomen- normal bowel sounds, soft, +peg tube Extremities- no calf tenderness Neuro- alert, oriented x 3; PERRL, EOMI Skin- warm & dry Laboratory Results: Last 24 Hours Test 12/11/16 18:48 12/12/16 00:13 12/12/16 06:23 12/12/16 07:43 Bedside Glucose 132 mg/dl 120 mg/dl 140 mg/dl Prothrombin Time 23.8 SECONDS Prothromb Time International Ratio 2.2 Sodium Level 137 mmol/L Potassium Level mmol/L Chloride Level 99 mmol/L Carbon Dioxide Level 35 mmol/L Anion Gap 3.0 mmol/L Blood Urea Nitrogen 20 mg/dl Creatinine 0.72 mg/dl Est Creatinine Clear Calc Drug Dose 66.4 ml/min Estimated GFR () 104.3 Estimated GFR (Non- 90.0 BUN/Creatinine Ratio 27.8 Random Glucose 146 mg/dl Calcium Level 9.1 mg/dl Phosphorus Level 2.0 mg/dl Magnesium Level mg/dl Test 12/12/16 09:12 12/12/16 11:21 Potassium Level 4.2 mmol/L Magnesium Level 2.4 mg/dl Bedside Glucose 125 mg/dl Assessment & Plan SEPSIS DUE TO PNEUMONIA ACUTE HYPOXIC RESPIRATORY FAILURE Presenting with cough and rigors, low grade fever, WBC 17K, tachycardic, POC lactic acid 2.2 CXR on admission showed multifocal pneumonia Received INF Started on Omnicef and Flagyl through PEG. Duonebs changed to PRN. Cont flutter valve. Pulmonary on board ,no additional recommendation. Repeat CXR on 12/07 showed slight Improvement of Bilateral infiltration Continue current medications Completed course of abx Clinically improved Acute on chronic diastolic heart failure Improved after BIPAP and IV Lasix overnight. Continue Lasix through the PEG No signs of Fluid overload Stable Abdominal pain Vague symptoms KUB showed no evidence of obstruction. Continue Miralax through his PEG. Stable P. AFIB Rate controlled on NSR Continue digoxin, Lopressor and amiodarone. INR was 7 and received vit K INR 2.2 today Continue coumadin Continue monitor INR Electrolytes imbalance Phosphorus replaced Monitor electrolytes H/o CVA nonverbal, has PEG tube. Cont free water flushes in the PEG to avoid dehydration. CAD s/p CABG Elevated troponin on admission likely related to demand ischemia in setting of sepsis. Denies any chest pain EKG does not reveal evidence of acute ischemia. Cont medical management with ASA and statin. Anemia Due chronic disease. Stable DVT Proph On Coumadin INR 2.2 today CODE STATUS DNR Disposition Waiting for placement Consultants: Pulmonary Current Inpatient Medications: Current Inpatient Medications Medications (Trade) Dose Ordered Sig/Kelle Route Start Time Stop Time Status Last Admin Dose Admin Ondansetron HCl (Zofran Inj) 4 mg Q6H PRN IV 11/30/16 13:30 12/30/16 13:29 12/09/16 21:32 4 MG Amiodarone HCl (Cordarone Tab) 200 mg HS PEG 11/30/16 21:00 12/30/16 20:59 12/11/16 21:24 200 MG Atorvastatin Calcium (Lipitor Tab) 80 mg HS PEG 11/30/16 21:00 12/30/16 20:59 12/11/16 21:24 80 MG Digoxin (Lanoxin Tab) 0.125 mg MoWeFr@1600 PEG 11/30/16 16:00 12/30/16 15:59 12/12/16 15:58 0.125 MG Metoprolol Tartrate (Lopressor Tab) 12.5 mg BID PO 12/04/16 09:00 01/03/17 08:59 12/12/16 08:41 12.5 MG Polyethylene (Miralax Powder Packet) 17 gm DAILY PEG 12/04/16 11:30 01/03/17 11:29 12/12/16 08:37 17 GM Furosemide (Lasix Tab) 40 mg QAM NG 12/06/16 09:00 01/05/17 08:59 12/12/16 08:38 40 MG Miscellaneous Medication (Milk And Molasses Enema) 1 ea DAILY PRN [place] 12/05/16 14:30 01/04/17 14:29 Bisacodyl (Dulcolax Supp) 10 mg DAILY PRN PA 12/05/16 14:30 01/04/17 14:29 12/05/16 15:55 10 MG Cefdinir (Omnicef Susp) 300 mg Q12@0600,1800 PO 12/05/16 18:00 12/12/16 17:59 12/12/16 05:38 300 MG Metronidazole (Flagyl Tab) 500 mg TID PEG 12/05/16 18:00 12/12/16 17:59 12/12/16 13:51 500 MG Ipratropium [place] (Atrovent 0.02% 0.5MG/2.5ML Neb) 0.5 mg Q6R PRN INH 12/05/16 16:00 01/04/17 15:59 Levalbuterol (Xopenex 1.25MG/ 0.5ML Neb) 1.25 mg Q6R PRN INH 12/05/16 16:00 01/04/17 15:59 Enteral Nutritional Formula (Peptamen 1.5) 1,000 ml GOAL RATE 25mL/hr PEG 12/08/16 12:00 01/07/17 11:59 12/12/16 05:19 1,000 ML Miconazole Nitrate (Desenex Powder) 1 appln PRN PRN EXT 12/11/16 04:30 01/10/17 04:29 Warfarin Sodium (Coumadin Tab) 1 mg SuMoTuThFr@1600 PEG 12/12/16 16:45 01/11/17 16:44 Acetaminophen (Tylenol Soln) 650 mg Q6H PRN PEG 12/12/16 18:30 01/11/17 12:29 UNV Tramadol HCl (Ultram Tab) peg tube Q12 PRN PO 12/12/16 16:15 01/11/17 16:14 UNV
[2016-12-12] MEDS ORDERED: WARFARIN SOD 1 MG TAB PEG SCH (16:45)
[2016-12-12] MEDS ORDERED: ACETAMINOPHEN SOLN 325 MG/10.15 ML UDC PEG PRN (18:30)
[2016-12-12] MEDS: ATORVASTATIN 40 MG TAB PEG SCH (22:27)
[2016-12-12] MEDS: AMIODARONE 200 MG TAB PEG SCH (22:28)
[2016-12-13 00:33] VITALS: BP 113/66; PULSE 57; TEMP 36.1; O2SAT 99
[2016-12-13 07:20] VITALS: BP 104/63; PULSE 66; TEMP 36.4; O2SAT 97
[2016-12-13 07:28] LABS: HEMATOCRIT 36.7 % (42-52); MEAN CELL VOLUME 91.1 fL (80-100); MEAN CORPUSCULAR HEMOGLOBIN 29.5 pg (25-34); MEAN CORPUSCULAR HGB CONC 32.4 g/dl (32-36); MEAN PLATELET VOLUME 10.2 fL (7.4-10.4); PLATELET COUNT 388 K/uL (130-400); RED BLOOD COUNT 4.03 M/uL (4.7-6.1); WHITE BLOOD COUNT 11.22 K/uL (4.8-10.8)
[2016-12-13 08:01] LABS: BUN/CREATININE RATIO 30.3 (10-20); CALCIUM 8.9 mg/dl (8.5-10.1); CREATININE 0.58 mg/dl (0.60-1.40); MAGNESIUM 2.2 mg/dl (1.8-2.4); PHOSPHORUS 1.9 mg/dl (2.5-4.9); POTASSIUM 3.7 mmol/L (3.5-5.1)
[2016-12-13] MEDS: POLYETHYLENE (MIRALAX) 17 GM PACK PEG SCH (08:30)
[2016-12-13] MEDS: FUROSEMIDE 40 MG TAB NG SCH (08:30)
[2016-12-13] MEDS: METOPROLOL TARTRATE 25 MG TAB PO SCH (08:31)
[2016-12-13 08:46] LABS: INR 2.2 (0.9-1.1); PROTHROMBIN TIME (PATIENT) 24.2 SECONDS (9.0-12.0)
[2016-12-13] MEDS ORDERED: SODIUM PHOSPHATE 3 MMOL/1 ML INFUSION IV STA (11:03)
--- NOTE | 2016-12-13 11:19 | Progress Note ---
Medicine Progress Note Date & Time of Visit: Dec 13, 2016 at 11:16. Subjective Pt was seen and examined Lying in bed with no distress Denies any new complaint Objective Last 8 Hrs Date Time Temp Pulse Resp B/P (MAP) Pulse Ox O2 Delivery O2 Flow Rate FiO2 12/13/16 08:30 Oxymask 3.0 12/13/16 07:20 36.4 66 20 104/63 (77) 97 Oxymask 3.0 Physical Exam: General- no acute distress Head- atraumatic Eyes- PERRL, EOMI ENT- oropharynx clear Neck- supple, no JVD Lungs- No wheezing Heart- regular rhythm Abdomen- normal bowel sounds, soft, +peg tube Extremities- no calf tenderness Neuro- alert, oriented x 3; PERRL, EOMI Skin- warm & dry Laboratory Results: Last 24 Hours Test 12/12/16 11:21 12/12/16 18:35 12/13/16 06:40 12/13/16 07:13 Bedside Glucose 125 mg/dl 92 mg/dl 135 mg/dl White Blood Count 11.22 K/uL Red Blood Count 4.03 M/uL Hemoglobin 11.9 g/dL Hematocrit 36.7 % Mean Corpuscular Volume 91.1 fL Mean Corpuscular Hemoglobin 29.5 pg Mean Corpuscular Hemoglobin Concent 32.4 g/dl RDW Standard Deviation 55.3 fL RDW Coefficient of Variation 16.5 % Platelet Count 388 K/uL Mean Platelet Volume 10.2 fL Sodium Level 137 mmol/L Potassium Level 3.7 mmol/L Chloride Level 99 mmol/L Carbon Dioxide Level 35 mmol/L Anion Gap 3.0 mmol/L Blood Urea Nitrogen 18 mg/dl Creatinine 0.58 mg/dl Est Creatinine Clear Calc Drug Dose 82.4 ml/min Estimated GFR () 114.0 Estimated GFR (Non- 98.3 BUN/Creatinine Ratio 30.3 Random Glucose 133 mg/dl Calcium Level 8.9 mg/dl Phosphorus Level 1.9 mg/dl Magnesium Level 2.2 mg/dl Test 12/13/16 08:13 Prothrombin Time 24.2 SECONDS Prothromb Time International Ratio 2.2 Assessment & Plan SEPSIS DUE TO PNEUMONIA ACUTE HYPOXIC RESPIRATORY FAILURE Presenting with cough and rigors, low grade fever, WBC 17K, tachycardic, POC lactic acid 2.2 CXR on admission showed multifocal pneumonia Received INF Started on Omnicef and Flagyl through PEG. Duonebs changed to PRN. Cont flutter valve. Pulmonary on board ,no additional recommendation. Repeat CXR on 12/07 showed slight Improvement of Bilateral infiltration Continue current medications Completed course of abx Clinically improved Acute on chronic diastolic heart failure Improved after BIPAP and IV Lasix overnight. Continue Lasix through the PEG No signs of Fluid overload Stable Abdominal pain Vague symptoms KUB showed no evidence of obstruction. Continue Miralax through his PEG. Stable P. AFIB Rate controlled on NSR Continue digoxin, Lopressor and amiodarone. INR was 7 and received vit K INR 2.2 today Continue coumadin Continue monitor INR Electrolytes imbalance Phosphorus replaced Continue Monitor electrolytes H/o CVA nonverbal, has PEG tube. Cont free water flushes in the PEG to avoid dehydration. CAD s/p CABG Elevated troponin on admission likely related to demand ischemia in setting of sepsis. Denies any chest pain EKG does not reveal evidence of acute ischemia. Cont medical management with ASA and statin. Anemia Due chronic disease. Stable DVT Proph On Coumadin INR 2.2 today CODE STATUS DNR Disposition Will transfer to rehab today Consultants: Pulmonary Current Inpatient Medications: Current Inpatient Medications Medications (Trade) Dose Ordered Sig/Kelle Route Start Time Stop Time Status Last Admin Dose Admin Ondansetron HCl (Zofran Inj) 4 mg Q6H PRN IV 11/30/16 13:30 12/30/16 13:29 12/09/16 21:32 4 MG Amiodarone HCl (Cordarone Tab) 200 mg HS PEG 11/30/16 21:00 12/30/16 20:59 12/12/16 22:28 200 MG Atorvastatin Calcium (Lipitor Tab) 80 mg HS PEG 11/30/16 21:00 12/30/16 20:59 12/12/16 22:27 80 MG Digoxin (Lanoxin Tab) 0.125 mg MoWeFr@1600 PEG 11/30/16 16:00 12/30/16 15:59 12/12/16 15:58 0.125 MG Metoprolol Tartrate (Lopressor Tab) 12.5 mg BID PO 12/04/16 09:00 01/03/17 08:59 12/13/16 08:31 12.5 MG Polyethylene (Miralax Powder Packet) 17 gm DAILY PEG 12/04/16 11:30 01/03/17 11:29 12/13/16 08:30 17 GM Furosemide (Lasix Tab) 40 mg QAM NG 12/06/16 09:00 01/05/17 08:59 12/13/16 08:30 40 MG Miscellaneous Medication (Milk And Molasses Enema) 1 ea DAILY PRN SD 12/05/16 14:30 01/04/17 14:29 Bisacodyl (Dulcolax Supp) 10 mg DAILY PRN SD 12/05/16 14:30 01/04/17 14:29 12/05/16 15:55 10 MG Ipratropium [place] (Atrovent 0.02% 0.5MG/2.5ML Neb) 0.5 mg Q6R PRN INH 12/05/16 16:00 01/04/17 15:59 Levalbuterol (Xopenex 1.25MG/ 0.5ML Neb) 1.25 mg Q6R PRN INH 12/05/16 16:00 01/04/17 15:59 Enteral Nutritional Formula (Peptamen 1.5) 1,000 ml GOAL RATE 25mL/hr PEG 12/08/16 12:00 01/07/17 11:59 12/12/16 05:19 1,000 ML Miconazole Nitrate (Desenex Powder) 1 appln PRN PRN EXT 12/11/16 04:30 01/10/17 04:29 Warfarin Sodium (Coumadin Tab) 1 mg SuMoTuThFr@1600 PEG 12/12/16 16:45 01/11/17 16:44 12/12/16 17:43 1 MG Acetaminophen (Tylenol Soln) 650 mg Q6H PRN PEG 12/12/16 18:30 01/11/17 12:29 Tramadol HCl (Ultram Tab) `0.5- 1 tab for pain ... Q12H PRN PEG 12/12/16 16:15 01/11/17 16:14 12/12/16 17:42 50 MG Sodium Phosphate 21 mmol/Sodium Chloride 507 ml @ 88 mls/hr TODAY@1130 IV 12/13/16 11:30 12/13/16 17:16
[2016-12-13] MEDS ORDERED: MRLP17X PEG (11:29)
[2016-12-13] MEDS ORDERED: SODIUM PHOSPHATE INJ 21 MMOL in SODIUM CHLORIDE 0.9% 500ML 500 ML IV SCH (11:30)
--- NOTE | 2016-12-13 11:41 | Discharge Instructions ---
Discharge Instructions Date of Service Dec 13, 2016. Admission Reason for Admission: Sepsis Discharge Discharge Diagnosis / Problem: SEPSIS DUE TO PNEUMONIA,ACUTE HYPOXIC RESPIRATORY FAILURE, Electrolytes imb Discharge Goals Goal(s): Decrease discomfort, Improve function, Improve disease control Activity Recommendations Activity Limitations: resume your previous activity (as tolerated) . Instructions / Follow-Up Instructions / Follow-Up Discharge to [facility] today Follow up with your primary care provider once discharge from rehab Continue Peg tube feeding with Peptamen 1.5 infusing at 25ml/hr Continue oxygen supplement and titrate to keep oxygen sat at 93% Fall precaution PT/OT Continue monitor electrolytes such as Magnesium and phosphorus and BMP Continue Coumadin INR 2.2 today Current Hospital Diet Patient's current hospital diet: Discharge Diet Recommended Diet: N/A (Peg tube feeding ) Pending Studies Studies pending at discharge: no Medical Emergencies . Who to Call and When: Medical Emergencies: If at any time you feel your situation is an emergency, please call 911 immediately. . Non-Emergent Contact Non-Emergency issues call your: Primary Care Provider Call Non-Emergent contact if: you have any medication questions . . "Provider Documentation" section prepared by Aron Burgess. . VTE Core Measure Inpt VTE Proph given/why not?: Warfarin (Coumadin)
[2016-12-13] MEDS ORDERED: POT PHOSPHATE MONOBASIC W/ SOD TAB PO ONE (12:45)
[2016-12-13 12:46] VITALS: BP 104/63; PULSE 66; TEMP 36.4; O2SAT 97
--- NOTE | 2016-12-16 00:16 | Discharge Summary ---
Discharge Summary Date of Service Dec 15, 2016. Discharge Summary Admission Date: Nov 30, 2016 at 13:32 Discharge Date: Dec 13, 2016 Discharge Disposition: Rehab Principal Diagnosis: SEPSIS Secondary Diagnoses/Problems: PNEUMONIA ACUTE HYPOXIC RESPIRATORY FAILURE Electrolytes imbalance Acute on chronic diastolic heart failure P. AFIB Abdominal pain Anemia Procedures: CHEST ONE VIEW PORTABLE CLINICAL HISTORY: pneumonia COMPARISON STUDY: 12/02/2016 FINDINGS: The heart is borderline enlarged. There are postsurgical changes of a midline sternotomy. There is slight improvement in the bilateral pulmonary airspace opacities. Small bilateral pleural effusions are suspected.[ IMPRESSION: Slight improvement in the bilateral pulmonary airspace opacities. Small bilateral pleural effusions. Electronically signed by: Shadi Wetzel M.D. 12/07/2016 2:22 PM Dictated Date/Time: 12/07/2016 2:21 PM Consultations: Pulmonary Medication Reconciliation Changed Medications: Polyethylene (Miralax) 17 Gm Pow 1 EA PEG HS PRN for Constipation for 30 Days (Medication details modified) Continued Medications: Amiodarone HCl (Amiodarone HCl) 200 Mg Tab 200 MG PEG HS liquid suspension Atorvastatin (Lipitor) 80 Mg Tab 80 MG PEG HS Digoxin (Digoxin) 0.125 Mg Tab 0.125 MG PEG 3XWK monday and monday Ferrous Sulfate (Ferrous Sulfate) 300 Mg/5 Ml Syp 5 ML PEG DAILY Furosemide (Lasix) 40 Mg Tab 40 MG PEG QAM Metoprolol Tartrate (Lopressor) (Lopressor) 25 Mg Tab 12.5 MG PEG BID Warfarin Sod (Jantoven) 1 Mg Tab 1 MG PEG DAILY, TAB and monday Discontinued Medications: Warfarin Sod (Jantoven) 2 Mg Tab 2 MG PEG 5XWK, TAB monday, monday, , monday, and monday Admission Information HPI (per Admitting provider): 76 year old male who presents to the ER with a cough. Patient is non verbal at baseline, is at the bedside who provides the history. She reports that last week the patient developed a cough and rhinorrhea. Cough has been productive for clear sputum. This morning patient got acutely worse with worsening cough and rigors. Temperature was not taken. Patient also has had diarrhea for the past few days. reports stools are chronically dark. No BRBPR. No reports of abdominal pain, nausea, or vomiting. Patient is to be strict NPO however reports the patient has approval from speech therapy to sip on coca-cola throughout the day. No reports of chest pain. Patient did not appear to be short of breath. No urinary symptoms. In the ED, patient has a low grade temp at 37.8, WBC 17K, tachycardia, and was hypoxic at 88% on 4L, currently requiring 15L NRB. CXR is showing multifocal pneumonia. Patient was treated with IV Cefepime, IV Levaquin, and IVF. Physical Exam (per Admitting): General Appearance: no apparent distress Head: normocephalic, atraumatic Eyes: normal inspection, sclerae normal ENT: hearing grossly normal Neck: supple, no JVD Respiratory/Chest: no respiratory distress, + decreased breath sounds ( posterior lung cueto), + rhonchi (anterior upper lung cueto ), + pertinent finding (on 15L NRB) Cardiovascular: normal peripheral pulses, + tachycardia (rhythm regular), + pertinent finding (trace edema BLLE) Abdomen/GI: normal bowel sounds, non tender, soft, + pertinent finding (PEG tube in place) Extremities/Musculoskelatal: normal inspection, no calf tenderness Neurologic/Psych: alert (non verbal from prior CVA - no acute focal deficits noted ), + pertinent finding Skin: normal color, warm/dry Hospital Course SEPSIS DUE TO PNEUMONIA ACUTE HYPOXIC RESPIRATORY FAILURE Presenting with cough and rigors, low grade fever, WBC 17K, tachycardic, POC lactic acid 2.2 CXR on admission showed multifocal pneumonia Received INF Started on Omnicef and Flagyl through PEG. Duonebs changed to PRN. Cont flutter valve. Pulmonary on board ,no additional recommendation. Repeat CXR on 12/07 showed slight Improvement of Bilateral infiltration Continue current medications Completed course of abx Clinically improved Acute on chronic diastolic heart failure Improved after BIPAP and IV Lasix overnight. Continue Lasix through the PEG No signs of Fluid overload Stable Abdominal pain Vague symptoms KUB showed no evidence of obstruction. Continue Miralax through his PEG. Stable P. AFIB Rate controlled on NSR Continue digoxin, Lopressor and amiodarone. INR was 7 and received vit K INR 2.2 today Continue coumadin Continue monitor INR Electrolytes imbalance Phosphorus replaced Continue Monitor electrolytes H/o CVA nonverbal, has PEG tube. Cont free water flushes in the PEG to avoid dehydration. CAD s/p CABG Elevated troponin on admission likely related to demand ischemia in setting of sepsis. Denies any chest pain EKG does not reveal evidence of acute ischemia. Cont medical management with ASA and statin. Anemia Due chronic disease. Stable DVT Proph On Coumadin INR 2.2 today CODE STATUS DNR Disposition Will transfer to rehab today Total time spent on discharge = 35 minutes This includes examination of the patient, discharge planning, medication reconciliation, and communication with other providers. Discharge Instructions Discharge Instructions Date of Service Dec 13, 2016. Admission Reason for Admission: Sepsis Discharge Discharge Diagnosis / Problem: SEPSIS DUE TO PNEUMONIA,ACUTE HYPOXIC RESPIRATORY FAILURE, Electrolytes imb Discharge Goals Goal(s): Decrease discomfort, Improve function, Improve disease control Activity Recommendations Activity Limitations: resume your previous activity (as tolerated) . Instructions / Follow-Up Instructions / Follow-Up Discharge to [facility] Follow up with your primary care provider once discharge from rehab Continue Peg tube feeding with Peptamen 1.5 infusing at 25ml/hr Continue oxygen supplement and titrate to keep oxygen sat at 93% Fall precaution PT/OT Continue monitor electrolytes such as Magnesium and phosphorus and BMP Continue Coumadin INR 2.2 today Current Hospital Diet Patient's current hospital diet: Discharge Diet Recommended Diet: N/A (Peg tube feeding ) Pending Studies Studies pending at discharge: no Medical Emergencies . Who to Call and When: Medical Emergencies: If at any time you feel your situation is an emergency, please call 911 immediately. . Non-Emergent Contact Non-Emergency issues call your: Primary Care Provider Call Non-Emergent contact if: you have any medication questions . . "Provider Documentation" section prepared by Aron Burgess. . VTE Core Measure Inpt VTE Proph given/why not?: Warfarin (Coumadin) Additional Copies To [facility]
[2016-12-26] MEDS ORDERED: NYSS5 MT (20:03)
[2016-12-26] MEDS ORDERED: LSXS PEG (20:03)
[2016-12-26] MEDS ORDERED: ASPCH81 PEG (20:03)
[2016-12-26] MEDS ORDERED: LCTX PO (20:03)
[2016-12-26] MEDS ORDERED: LEVO-459 PEG (20:05)
== END 2016-12-13 13:47 | DRG 871 ==
LOC: EDBD 11:53 → C.EDC 11:54 → C.2T 13:32 → ENRESERV 13:55 → C.2T 12-02 19:06 → ENRESERV 12-07 16:48 → C.MS2W 12-07 17:54
PROVIDERS: ADMIT Internal Medicine; ATTEND Internal Medicine
DX: A41.9 Sepsis, unspecified organism (principal); J18.9 Pneumonia, unspecified organism; J69.0 Pneumonitis due to inhalation of food and vomit; J96.01 Acute respiratory failure with hypoxia; I50.33 Acute on chronic diastolic (congestive) heart failure; I24.8 Other forms of acute ischemic heart disease; I69.354 Hemiplegia and hemiparesis following cerebral infarction affecting left non-dominant side; R79.1 Abnormal coagulation profile; R10.9 Unspecified abdominal pain; K59.00 Constipation, unspecified; R19.7 Diarrhea, unspecified; E83.39 Other disorders of phosphorus metabolism; E87.8 Other disorders of electrolyte and fluid balance, not elsewhere classified; D63.8 Anemia in other chronic diseases classified elsewhere; I48.0 Paroxysmal atrial fibrillation; I25.5 Ischemic cardiomyopathy; I25.10 Atherosclerotic heart disease of native coronary artery without angina pectoris; I69.391 Dysphagia following cerebral infarction; R13.10 Dysphagia, unspecified; I69.320 Aphasia following cerebral infarction; I25.2 Old myocardial infarction; Z95.1 Presence of aortocoronary bypass graft; Z66 Do not resuscitate; Z87.891 Personal history of nicotine dependence; Z93.1 Gastrostomy status; Z79.01 Long term (current) use of anticoagulants; Z79.899 Other long term (current) drug therapy; Z88.0 Allergy status to penicillin

== ENCOUNTER 2016-12-20 14:27 | Inpatient (IN) | payer BC, OTHER ==
[~2016-12-20] VITALS: Ht 157.5 cm; Wt 58.9 kg
[~2016-12-20 14:27] MED LIST changes: -DIAZ-165 GT; +FERR300S PEG; -WARF2TAB8 PEG
[2016-12-20] MEDS ORDERED: WARF2TAB8 NG (14:47)
[2016-12-20] MEDS ORDERED: NYST1POW7 TOP (14:48)
--- NOTE | 2016-12-20 14:49 | EMERGENCY ROOM VISIT NOTE ---
History Report prepared by Dong: Melvin Ace Under the Supervision of: Dr. Christopher Lennon M.D. First contact with patient: 14:41 Chief Complaint: CHEST PAIN Stated Complaint: CHEST PAIN History of Present Illness The patient is a 76 year old male who presents to the Emergency Room with complaints of episodes of chest pain that started 2 days ago. The patient is nonverbal due to a stroke. The patient's says that the patient was hospitalized for pneumonia recently and was discharged to [facility] 6 days ago. He has been noted to be really disabled ever since the bout of pneumonia, and physical therapy at [facility] started to get the patient up on his feet 2 days ago. The patient's says that the patient started complaining of chest pain after getting up the first time 2 days ago, and as soon as he rested the chest pain resolved. This has happened every day, including today, but the patient while here in the room is continuing to complain of chest pain that he rates as a 7 out of 10 in severity. The patient is noted to not have a stomach. He had a quadruple bypass a year ago. The patient only started wearing oxygen when he was here in the hospital for pneumonia. Source of History: spouse/significant other Onset: 2 days ago Position: chest Symptom Intensity: currently a 7/10 Timing: other (episodes) Modifying Factors (Worsening): other (getting up) Modifying Factors (Relieving): rest Note: No other associated symptoms noted. Review of Systems See HPI for pertinent positives and negatives. A total of ten systems were reviewed and were otherwise negative. Past Medical & Surgical Medical Problems: (1) Coronary artery disease (2) Dyslipidemia (3) Hypertension (4) Ischemic cardiomyopathy (5) Myocardial infarct (6) Stroke (7) Uses feeding tube Surgical Problems: (1) H/O hernia repair (2) History of partial gastrectomy (3) Stomach cancer Family History Cancer Diabetes mellitus Heart disease Kidney disease Social History Smoking Status: Former Smoker Alcohol Use: none Marital Status: Housing Status: lives with significant other Occupation Status: retired Current/Historical Medications Scheduled Acetaminophen (Acetaminophen), 1 TAB PEG Q4H Amiodarone HCl (Amiodarone HCl), 200 MG PEG HS Atorvastatin (Lipitor), 80 MG PEG HS Digoxin (Digoxin), 0.125 MG PEG 3XWK Ferrous Sulfate (Ferrous Sulfate), 300 MG PEG DAILY Furosemide (Lasix), 40 MG PEG QAM Guaifenesin La (Guaifenesin Er), 600 MG PEG Q12H Metoprolol Tartrate (Lopressor) (Lopressor), 12.5 MG PEG BID Nutritional Supplements (Vital 1.5 Duncan), 40 ML PEG hourly Nystatin (Topical) (Nystatin), 1 APPL TOP BID Warfarin Sod (Coumadin), 1 MG PEG DAILY Scheduled PRN Ipratropium-Albuterol (Duoneb), 1 TREATMENT INH Q4H PRN for SOB/Wheezing Senna (Senokot), 1 TAB PEG DAILY PRN for Constipation Allergies Coded Allergies: [place] (Verified Allergy, Intermediate, hives, 12/20/16) Unclassified Drugs (Verified Allergy, Intermediate, Mack needles- immediate swelling, 12/20/16) Penicillins (Verified Allergy, Unknown, hives, 12/20/16) Physical Exam Vital Signs Date Time Temp Pulse Resp B/P (MAP) Pulse Ox O2 Delivery O2 Flow Rate FiO2 12/20/16 18:31 112/59 12/20/16 18:27 66 15 98 12/20/16 18:01 109/55 12/20/16 17:31 109/56 12/20/16 17:27 68 17 92 12/20/16 17:01 104/59 12/20/16 16:38 69 18 101/58 96 12/20/16 16:37 101/58 12/20/16 16:27 70 23 95 12/20/16 15:27 75 21 94 12/20/16 15:14 95 Nasal Cannula 12/20/16 15:06 76 12/20/16 14:43 94 Nasal Cannula 3.0 12/20/16 14:37 36.7 76 14 94/54 95 Nasal Cannula 3.0 12/20/16 14:36 94/54 Physical Exam GENERAL: Awake, alert, chronically ill-appearing, in no distress HENT: Normocephalic, atraumatic. Dry mucous membranes. EYES: Normal conjunctiva. Sclera non-icteric. NECK: Supple. No nuchal rigidity. FROM. No JVD. RESPIRATORY: Diminished at bases bilaterally. CARDIAC: Regular rate, normal rhythm. Extremities warm and well perfused. Pulses equal. ABDOMEN: Soft, non-distended. Suprapubic tenderness to palpation, no peritoneal signs. G-tube in mid left abdomen with surrounding area clean, dry and intact. No rebound or guarding. No masses. RECTAL: Deferred. MUSCULOSKELETAL: Chest examination reveals no tenderness. The back is symmetrical on inspection without obvious abnormality. There is no CVA tenderness to palpation. No joint edema. LOWER EXTREMITIES: Calves are equal size bilaterally and non-tender. Scant lower extremity edema. No discoloration. NEURO: Normal sensorium. No sensory or motor deficits noted. SKIN: No rash or jaundice noted. Medical Decision & Procedures ER Provider Diagnostic Interpretation: X-ray: Per my interpretation, radiologist review. CHEST ONE VIEW PORTABLE CLINICAL HISTORY: Atypical chest pain COMPARISON STUDY: 12/07/2016 FINDINGS: There are postsurgical changes of a midline sternotomy. The heart is the upper limits of normal in size. There is continued slight improvement in the bilateral pulmonary airspace opacities. There is no definite pleural fluid.[ IMPRESSION: Slight improvement in the bilateral pulmonary airspace opacities. Electronically signed by: Shadi Wetzel M.D. 12/20/2016 4:11 PM Dictated Date/Time: 12/20/2016 4:09 PM Laboratory Results Test 12/20/16 15:23 12/20/16 16:37 RDW Standard Deviation 54.5 fL (36.4-46.3) RDW Coefficient of Variation 16.7 % (11.5-14.5) White Blood Count 16.49 K/uL (4.8-10.8) Red Blood Count 4.03 M/uL (4.7-6.1) Hemoglobin 12.2 g/dL (14.0-18.0) Hematocrit 37.0 % (42-52) Mean Corpuscular Volume 91.8 fL (80-100) Mean Corpuscular Hemoglobin 30.3 pg (25-34) Mean Corpuscular Hemoglobin Concent 33.0 g/dl (32-36) Platelet Count 385 K/uL (130-400) Mean Platelet Volume 10.4 fL (7.4-10.4) Neutrophils (%) (Auto) 87.9 % Lymphocytes (%) (Auto) 4.3 % Monocytes (%) (Auto) 7.2 % Eosinophils (%) (Auto) 0.1 % Basophils (%) (Auto) 0.1 % Neutrophils # (Auto) 14.51 K/uL (1.4-6.5) Lymphocytes # (Auto) 0.71 K/uL (1.2-3.4) Monocytes # (Auto) 1.18 K/uL (0.11-0.59) Eosinophils # (Auto) 0.01 K/uL (0-0.5) Basophils # (Auto) 0.02 K/uL (0-0.2) Immature Granulocyte % (Auto) 0.4 % Immature Granulocyte # (Auto) 0.06 K/uL (0.00-0.02) Est Creatinine Clear Calc Drug Dose 58.3 ml/min Total Bilirubin 0.4 mg/dl (0.2-1) Direct Bilirubin 0.2 mg/dl (0-0.2) Aspartate Amino Transf (AST/SGOT) 44 U/L (15-37) Alanine Aminotransferase (ALT/SGPT) 42 U/L (12-78) Alkaline Phosphatase 124 U/L (45-117) Pro-B-Type Natriuretic Peptide 357 pg/ml (0-1800) Total Protein 7.2 gm/dl (6.4-8.2) Albumin 2.3 gm/dl (3.4-5.0) Lipase 149 U/L (73-393) Digoxin Level 0.7 ng/ml (0.8-2.0) Urine Color DK YELLOW Urine Appearance CLEAR (CLEAR) Urine pH 7.0 (4.5-7.5) Urine Specific [place] 1.019 (1.000-1.030) Urine Protein TRACE (NEG) Urine Glucose (UA) NEG (NEG) Urine Ketones NEG (NEG) Urine Occult Blood NEG (NEG) Urine Nitrite NEG (NEG) Urine Bilirubin NEG (NEG) Urine Urobilinogen NEG (NEG) Urine Leukocyte Esterase NEG (NEG) Urine WBC (Auto) 1-5 /hpf (0-5) Urine RBC (Auto) 0-4 /hpf (0-4) Urine Hyaline Casts (Auto) 1-5 /lpf (0-5) Urine Epithelial Cells (Auto) 10-20 /lpf (0-5) Urine Bacteria (Auto) NEG (NEG) Laboratory results reviewed by me Medications Administered Medications (Trade) Dose Ordered Sig/Kelle Route Start Time Stop Time Status Last Admin Dose Admin Aspirin (Aspirin Chew) 324 mg NOW STAT GT 12/20/16 15:10 12/20/16 15:51 DC 12/20/16 15:10 324 MG Famotidine (Pepcid 20mg/100 ml) 20 mg ONE STAT IV 12/20/16 15:10 12/20/16 15:51 DC 12/20/16 15:10 20 MG ECG Indication: chest pain Rate (beats per minute): 73 Rhythm: normal sinus Findings: no acute ischemic change, other (normal intervals) Comparison ECG Date: compared to 12/03/16, normal sinus has replaced afib ED Course 1441: The patient was evaluated in room A12A. A complete history and physical exam was performed. 1510: Ordered Pepcid 20 mg/100ml 20 mg IV, Aspirin Chew 324 mg GT. 173: Upon reexamination, the patient was resting. I discussed the test results and treatment plan with him. He expressed understanding and agreement with the treatment plan. The patient will be evaluated for further management. 1741: I discussed the patient with KADEEM Cabello gambling box person - she will evaluate the patient for further treatment. Medical Decision I reviewed the patient's past medical history, medications, and the nursing notes as described above. Differential diagnosis includes but is not limited to: ACS, CHF, pneumonia, bronchitis, PE, dissection, aneurysm, UTI. Patient is a 76 y/o man with pmhx of CAD s/p quadruple bypass, CVA, afib on coumadin, recent admission for PNA d/c'd to rehab presents to ED with persistent exertional CP when undergoing his physical therapy per HPI. Arrives to ED in NAD c/o of CP, AF VSS. BP soft on arrival with SBP 90s. Thus not candidate for NTG but given asa and pepcid with good effect. EKG unremarkable. Troponin negative. BNP wnl. WBC slightly elevated from previous but CXR unchanged to improved. Given the patient's signfiicant cardiac hx and new exertional CP patient admitted for ACS r/o. Considering patient's persistent O2 requirement since his prior admission despite improved CXR and now subtherapeutic INR CT-PE ordered and pending. Case d/w [facility] who will admit the patient for further management. Medication Reconcilliation Current Medication List: was personally reviewed by me Blood Pressure Screening Patient's blood pressure: Normal blood pressure Consults Time Called: 1734 Consulting Physician: Mariza Cohen gambling box person Returned Call: [phone] I discussed the patient with KADEEM Cabello gambling box person - she will evaluate the patient for further treatment. Impression Primary Impression: Substernal chest pain Scribe Attestation The scribe's documentation has been prepared under my direction and personally reviewed by me in its entirety. I confirm that the note above accurately reflects all work, treatment, procedures, and medical decision making performed by me. Departure Information Dispostion Being Evaluated By Hospitalist Referrals Gorge Brown D.O. (PCP) Patient Instructions My [facility]
[2016-12-20] MEDS ORDERED: FAMOTIDINE 20MG/102 ML D5W IV STA (15:10)
[2016-12-20] MEDS ORDERED: ASPIRIN 81 MG CHEW GT STA (15:10)
[2016-12-20 16:08] LABS: BASO % 0.1 %; BASO ABS # 0.02 K/uL (0-0.2); COMPLETE YES; EOS % 0.1 %; IG% 0.4 %; LYMPH % 4.3 %; LYMPH ABS # 0.71 K/uL (1.2-3.4); MEAN CELL VOLUME 91.8 fL (80-100); MEAN CORPUSCULAR HEMOGLOBIN 30.3 pg (25-34); MEAN PLATELET VOLUME 10.4 fL (7.4-10.4); MONO % 7.2 %; NEUT % 87.9 %; PLATELET COUNT 385 K/uL (130-400); RED BLOOD COUNT 4.03 M/uL (4.7-6.1); WHITE BLOOD COUNT 16.49 K/uL (4.8-10.8)
--- NOTE | 2016-12-20 16:12 | DIAGNOSTIC IMAGING REPORT ---
CHEST ONE VIEW PORTABLE CLINICAL HISTORY: Atypical chest pain COMPARISON STUDY: 12/07/2016 FINDINGS: There are postsurgical changes of a midline sternotomy. The heart is the upper limits of normal in size. There is continued slight improvement in the bilateral pulmonary airspace opacities. There is no definite pleural fluid.[ IMPRESSION: Slight improvement in the bilateral pulmonary airspace opacities. Electronically signed by: Shadi Wetzel M.D. 12/20/2016 4:11 PM Dictated Date/Time: 12/20/2016 4:09 PM
[2016-12-20 16:19] LABS: INR 1.6 (0.9-1.1); PROTHROMBIN TIME (PATIENT) 17.7 SECONDS (9.0-12.0)
[2016-12-20 17:04] LABS: URINE APPEARANCE CLEAR (CLEAR); URINE BILIRUBIN NEG (NEG); URINE COLOR DK YELLOW; URINE NITRITE NEG (NEG); URINE SPECIFIC GRAVITY 1.019 (1.000-1.030); UROBILINOGEN NEG (NEG); ZZUR CULT IF INDIC CLEAN CATCH NO
[2016-12-20 17:11] LABS: MANUAL MICROSCOPIC REQUIRED? NO; REVIEW REQ? NO
[2016-12-20 17:23] LABS: ALKALINE PHOSPHATASE 124 U/L (45-117); ALT/SGPT 42 U/L (12-78); AST/SGOT 44 U/L (15-37); BLOOD UREA NITROGEN 18 mg/dl (7-18); BUN/CREATININE RATIO 22.3 (10-20); CALCIUM 9.1 mg/dl (8.5-10.1); CARBON DIOXIDE 30 mmol/L (21-32); CHLORIDE 97 mmol/L (98-107); CREATININE 0.82 mg/dl (0.60-1.40); GLUCOSE 104 mg/dl (70-99); POTASSIUM 4.2 mmol/L (3.5-5.1); SODIUM 135 mmol/L (136-145)
[2016-12-20] MEDS ORDERED: OPTIRAY 320 IV PRN (18:00)
[2016-12-20] MEDS ORDERED: ONDANSETRON INJ 2 MG/ML 2 ML VIAL IV PRN (18:45)
[2016-12-20] MEDS ORDERED: NITROGLYCERIN 0.4 MG SL PER TAB CHARGE SL PRN (18:45)
[2016-12-20] MEDS ORDERED: IV FLUIDS COMPLETED PRN (19:00)
--- NOTE | 2016-12-20 19:02 | DIAGNOSTIC IMAGING REPORT ---
CT ANGIOGRAM OF THE CHEST CLINICAL HISTORY: Atypical chest pain COMPARISON STUDY: Chest x-ray dated 12/20/2016 TECHNIQUE: Following the IV administration of 103 mL of Optiray-320, CT angiogram of the thorax was performed from the thoracic inlet to the lung bases utilizing the pulmonary embolus protocol. Images are reviewed in the axial, sagittal, and coronal planes. IV contrast was administered without complication. MIP imaging was performed. A dose lowering technique was utilized adhering to the principles of ALARA. CT DOSE: 462.88 mGycm FINDINGS: There is a 12 mm exophytic mass arising from the right kidney. This exceeds water attenuation. A solid renal lesion can therefore not be excluded. There are multiple small mediastinal lymph nodes. These are not pathologically enlarged by size criteria. The ascending thoracic aorta measures 34 mm. There were no pulmonary artery filling defects to indicate acute pulmonary embolism. There are small bilateral pleural effusions. There are dependent lower lobe airspace opacities left greater than right, likely representing compressive atelectasis. There are bilateral upper lobe nodular airspace opacities left greater than right, likely inflammatory. There is debris within both mainstem bronchi, likely representing secretions. IMPRESSION: 1. No CT evidence of acute pulmonary embolism 2. Small bilateral pleural effusions and dependent airspace opacities likely atelectatic 3. Bilateral upper lobe nodular airspace opacities left greater than right, likely inflammatory 4. 12 mm indeterminate right renal lesion, hyperdense cyst versus solid mass. Electronically signed by: Shadi Wetzel M.D. 12/20/2016 7:01 PM Dictated Date/Time: 12/20/2016 6:56 PM
[2016-12-20] MEDS ORDERED: [UNRECOGNIZED DRUG - CODE] PEG (19:24)
[2016-12-20] MEDS ORDERED: GUAI1TAB75 PEG (19:24)
[2016-12-20] MEDS ORDERED: IPRASOL4 INH (19:24)
[2016-12-20] MEDS ORDERED: TCMD1 PEG (19:24)
[2016-12-20] MEDS ORDERED: SENN-61 PEG (19:24)
[2016-12-20] MEDS ORDERED: FERR300S PEG (19:24)
[2016-12-20] MEDS ORDERED: ACET500T57 PEG (19:24)
[2016-12-20] MEDS ORDERED: GUAIFENESIN 600 MG TABCR PO SCH (19:30)
[2016-12-20] MEDS ORDERED: IMPACT LIQ 1000 ML BAG PEG SCH (19:30)
[2016-12-20] MEDS ORDERED: ALBUT/IPRATROP 3MG/0.5MG NEB 3 ML VIAL INH PRN (19:30)
--- NOTE | 2016-12-20 20:11 | History and Physical ---
History & Physical Date & Time of Service: Dec 20, 2016 ~ 18:15 Chief Complaint: Chest Pain Primary Care Physician: Gorge Brown D.O. History of Present Illness 76 year old male who presents to the ED from [facility] for chest pain. Patient was recently admitted to [facility] 11/30 - 12/13 for sepsis and acute hypoxic respiratory failure due to pneumonia. He also had acute on chronic diastolic CHF. Patient completed the antibiotic course while hospitalized and was discharged to [facility] for rehab. History is difficult to obtain from patient since he is nonverbal from prior CVA. He reports he has had chronic intermittent chest pain since his MS / CABG in 11/2015. He reports acute worsening of the pain over the past 4 days. Pain has been occurring with therapy and improving with rest. Pain is located midsternally / epigastric with radiation over the left chest. He is unable to rate his pain or describe the quality. He reports associated nausea, shortness of breath, lightheadedness, and diaphoresis. No syncopal events. Patient reports his cough is unchanged from recent hospitalization. It continues to be productive. No fever or chills. He denies abdominal pain, vomiting, or diarrhea. No urinary symptoms. In the ED , initial troponin is negative and EKG does not show any acute ST changes. Patient was given full dose ASA and Pepcid. Past Medical/Surgical History Medical Problems: (1) Coronary artery disease Permanent Comment: MS - 1980, 2011 STEMI 11/2015 s/p CABG x 4 Status: Chronic (2) Dyslipidemia Status: Chronic (3) Hypertension Status: Chronic (4) Ischemic cardiomyopathy Permanent Comment: hx of EF 20% echo 07/2016 - EF 47%, grade I diastolic dysfunction, mitral regurgitation Status: Chronic (5) Myocardial infarct Status: Resolved (6) Stroke Permanent Comment: ischemic stroke left lentiform nucleus + post internal capsule 11/07/15 Status: Chronic (7) Uses feeding tube Status: Chronic Surgical Problems: (1) H/O hernia repair Status: Resolved (2) History of partial gastrectomy Status: Chronic (3) Stomach cancer Permanent Comment: s/p surgery Status: Resolved Family History Cancer Diabetes mellitus Heart disease Kidney disease Social History Smoking Status: Former Smoker Alcohol Use: none Marital Status: Multi-Drug Resistant Organisms History of MDRO: No Allergies Coded Allergies: [place] (Verified Allergy, Intermediate, hives, 12/20/16) Unclassified Drugs (Verified Allergy, Intermediate, Mack needles- immediate swelling, 12/20/16) Penicillins (Verified Allergy, Unknown, hives, 12/20/16) Home Medications Scheduled Acetaminophen (Acetaminophen), 1 TAB PEG Q4H Amiodarone HCl (Amiodarone HCl), 200 MG PEG HS Atorvastatin (Lipitor), 80 MG PEG HS Digoxin (Digoxin), 0.125 MG PEG 3XWK Ferrous Sulfate (Ferrous Sulfate), 300 MG PEG DAILY Furosemide (Lasix), 40 MG PEG QAM Guaifenesin La (Guaifenesin Er), 600 MG PEG Q12H Metoprolol Tartrate (Lopressor) (Lopressor), 12.5 MG PEG BID Nutritional Supplements (Vital 1.5 Duncan), 40 ML PEG hourly Nystatin (Topical) (Nystatin), 1 APPL TOP BID Warfarin Sod (Coumadin), 1 MG PEG DAILY Scheduled PRN Ipratropium-Albuterol (Duoneb), 1 TREATMENT INH Q4H PRN for SOB/Wheezing Senna (Senokot), 1 TAB PEG DAILY PRN for Constipation Review of Systems ROS per HPI, all other systems reviewed and negative Physical Exam Vital Signs Date Time Temp Pulse Resp B/P (MAP) Pulse Ox O2 Delivery O2 Flow Rate FiO2 12/20/16 18:31 112/59 12/20/16 18:27 66 15 98 12/20/16 18:01 109/55 12/20/16 17:31 109/56 12/20/16 17:27 68 17 92 12/20/16 17:01 104/59 12/20/16 16:38 69 18 101/58 96 12/20/16 16:37 101/58 12/20/16 16:27 70 23 95 12/20/16 15:27 75 21 94 12/20/16 15:14 95 Nasal Cannula 12/20/16 15:06 76 12/20/16 14:43 94 Nasal Cannula 3.0 12/20/16 14:37 36.7 76 14 94/54 95 Nasal Cannula 3.0 12/20/16 14:36 94/54 General Appearance: no apparent distress Head: normocephalic, atraumatic Eyes: normal inspection, sclerae normal ENT: hearing grossly normal Neck: supple, no JVD Respiratory/Chest: no respiratory distress, + decreased breath sounds, + crackles (faint, BL bases) Cardiovascular: regular rate, rhythm, no edema, normal peripheral pulses Abdomen/GI: normal bowel sounds, non tender, soft, + pertinent finding (PEG tube in place) Extremities/Musculoskelatal: normal inspection, no calf tenderness Neurologic/Psych: alert, + aphasia (chronic from prior CVA), + pertinent finding (no acute gross focal deficits noted) Skin: normal color, warm/dry Diagnostics Laboratory Results Results Past 24 Hours Test 12/20/16 15:23 12/20/16 16:37 Range/Units White Blood Count 16.49 4.8-10.8 K/uL Red Blood Count 4.03 4.7-6.1 M/uL Hemoglobin 12.2 14.0-18.0 g/dL Hematocrit 37.0 42-52 % Mean Corpuscular Volume 91.8 80-100 fL Mean Corpuscular Hemoglobin 30.3 25-34 pg Mean Corpuscular Hemoglobin Concent 33.0 32-36 g/dl Platelet Count 385 130-400 K/uL Mean Platelet Volume 10.4 7.4-10.4 fL Neutrophils (%) (Auto) 87.9 % Lymphocytes (%) (Auto) 4.3 % Monocytes (%) (Auto) 7.2 % Eosinophils (%) (Auto) 0.1 % Basophils (%) (Auto) 0.1 % Neutrophils # (Auto) 14.51 1.4-6.5 K/uL Lymphocytes # (Auto) 0.71 1.2-3.4 K/uL Monocytes # (Auto) 1.18 0.11-0.59 K/uL Eosinophils # (Auto) 0.01 0-0.5 K/uL Basophils # (Auto) 0.02 0-0.2 K/uL RDW Standard Deviation 54.5 36.4-46.3 fL RDW Coefficient of Variation 16.7 11.5-14.5 % Immature Granulocyte % (Auto) 0.4 % Immature Granulocyte # (Auto) 0.06 0.00-0.02 K/uL Prothrombin Time 17.7 9.0-12.0 SECONDS Prothromb Time International Ratio 1.6 0.9-1.1 Sodium Level 135 136-145 mmol/L Potassium Level 4.2 3.5-5.1 mmol/L Chloride Level 97 98-107 mmol/L Carbon Dioxide Level 30 21-32 mmol/L Anion Gap 8.0 3-11 mmol/L Blood Urea Nitrogen 18 7-18 mg/dl Creatinine 0.82 0.60-1.40 mg/dl Est Creatinine Clear Calc Drug Dose 58.3 ml/min Estimated GFR () 98.9 Estimated GFR (Non- 85.3 BUN/Creatinine Ratio 22.3 10-20 Random Glucose 104 70-99 mg/dl Calcium Level 9.1 8.5-10.1 mg/dl Total Bilirubin 0.4 0.2-1 mg/dl Direct Bilirubin 0.2 0-0.2 mg/dl Aspartate Amino Transf (AST/SGOT) 44 15-37 U/L Alanine Aminotransferase (ALT/SGPT) 42 12-78 U/L Alkaline Phosphatase 124 45-117 U/L Troponin I < 0.015 0-0.045 ng/ml Pro-B-Type Natriuretic Peptide 357 0-1800 pg/ml Total Protein 7.2 6.4-8.2 gm/dl Albumin 2.3 3.4-5.0 gm/dl Lipase 149 73-393 U/L Digoxin Level 0.7 0.8-2.0 ng/ml Urine Color DK YELLOW Urine Appearance CLEAR CLEAR Urine pH 7.0 4.5-7.5 Urine Specific [place] 1.019 1.000-1.030 Urine Protein TRACE NEG Urine Glucose (UA) NEG NEG Urine Ketones NEG NEG Urine Occult Blood NEG NEG Urine Nitrite NEG NEG Urine Bilirubin NEG NEG Urine Urobilinogen NEG NEG Urine Leukocyte Esterase NEG NEG Urine WBC (Auto) 1-5 0-5 /hpf Urine RBC (Auto) 0-4 0-4 /hpf Urine Hyaline Casts (Auto) 1-5 0-5 /lpf Urine Epithelial Cells (Auto) 10-20 0-5 /lpf Urine Bacteria (Auto) NEG NEG Diagnostic Radiology CXR IMPRESSION: Slight improvement in the bilateral pulmonary airspace opacities. CTA CHEST IMPRESSION: 1. No CT evidence of acute pulmonary embolism 2. Small bilateral pleural effusions and dependent airspace opacities likely atelectatic 3. Bilateral upper lobe nodular airspace opacities left greater than right, likely inflammatory 4. 12 mm indeterminate right renal lesion, hyperdense cyst versus solid mass. Impression Assessment and Plan CHEST PAIN, HX CAD - admit to tele - patient presenting from [facility] for chest pain that occurred with therapy , relieved with rest; history difficult to obtain from patient since he is non- verbal - hx of CAD with STEMI 11/2015 with subsequent CABG x 4 - initial troponin negative, EKG without acute ST changes; continue to cycle cardiac enzymes - CTA chest negative for PE - s/p full dose ASA in the ED, will continue with 81mg daily (noted that cardiology did not have patient on ASA likely due to PUD) - continue beta beatrice, statin - resting echo - cardio consult, input appreciated RECENT PNEUMONIA - recently admitted to [facility] for sepsis due to pneumonia - CXR is improved and patient is afebrile, however cough persists and WBC 16K - ? aspiration from tube feedings - will place empirically on Zosyn for now RIGHT RENAL LESION - noted on CTA chest - will obtain renal US CHRONIC HYPOXIA - patient has been requiring 3L 02 since recent admission - saturating well on 3L HX CVA - non verbal, PEG tube in place PAROXYSMAL A. FIB - currently in NSR - rate controlled on dig and metoprolol - continue both - on Coumadin, INR 1.6 - will increase Coumadin tonight DIASTOLIC DYSFUNCTION - appears euvolemic - continue furosemide DVT PROPHYLAXIS - SCDs when INR < 2.0 CODE STATUS - Patient is a DNR as per my discussion with him and his who is at the bedside. DISPO - In my clinical judgment this beneficiary meets acute admission criteria, established by [facility], that includes being hospitalized through two midnights. Attending Addendum Pt was seen and examined. Agreed with Sulma CORRALES physical exam, assessment and plan. 76 year old male with PMH of chronic diastolic CHF, CVA, P. Afib, peg tube feeding, was sent to the ED from [facility] for chest pain. Patient was recently admitted to [facility] 11/30 - 12/13 for sepsis and acute hypoxic respiratory failure due to pneumonia. As per [facility] staff, pt was doing good in rehab and participate in therapy. Started to develop chest pain when during therapy. Also pt has been having a productive cough. He has been on continuous tube feeding. He has been doing a lot deep suctioning at [facility]. CXR on admission showed Slight improvement in the bilateral pulmonary airspace opacities. CTA chest done showed no CT evidence of acute pulmonary embolism and Small bilateral pleural effusions and dependent airspace opacities likely atelectatic. We will treat him for aspiration pneumonia. hold tube feeding for now. We will follow cardia maker, echo and cardiology consult. we will monitor in telemetry. Please refer To Sulma CORRALES documentation for other problems. ROBBIN WOODS MD VTE Prophylaxis VTE Risk Assessment Done? Y/N: Yes Risk Level: Moderate Given or contraindicated: Warfarin (Coumadin)
[2016-12-20 20:20] VITALS: BP 136/67; PULSE 65; TEMP 36.9; O2SAT 98
[2016-12-20] MEDS ORDERED: PIPERACILL/TAZOBAC CONSULT ACTIVE PRN (20:30)
[2016-12-20] MEDS ORDERED: PIPERACILLIN/TAZOBACTAM 4.5 GM/100ML D5W IV ONE (20:30)
[2016-12-20] MEDS ORDERED: WARFARIN SOD 2 MG TAB PO ONE (21:00)
[2016-12-20] MEDS: ATORVASTATIN 40 MG TAB PEG SCH (22:05)
[2016-12-20] MEDS: METOPROLOL TARTRATE 25 MG TAB PEG SCH (22:05)
[2016-12-20] MEDS: AMIODARONE 200 MG TAB PEG SCH (22:06)
--- NOTE | 2016-12-20 22:16 | DIAGNOSTIC IMAGING REPORT ---
(RENAL)RETROPERITON COMP CLINICAL HISTORY: 76 years-old Male presenting with f/i right renal lesion noted on CTA chest. TECHNIQUE: Real-time grayscale and limited color Doppler ultrasound imaging of the kidneys and bladder was performed. COMPARISON: CTA of the chest from 12/20/2016. FINDINGS: Evaluation limited due to patient body habitus. Right kidney: Mildly increased echogenicity. Right kidney measures 7.8 cm. No hydronephrosis. No convincing evidence of calculus or mass. Normal perfusion. Left kidney: Mildly increased echogenicity. Left kidney measures 9.4 cm. No hydronephrosis. No convincing evidence of calculus or mass. Normal perfusion. Bladder: No bladder wall thickening. Bilateral ureteral jets present. Other: Enlarged prostate measuring over 5 cm in transverse dimension. The prostate may demonstrate a TURP defect as well as parenchymal calcifications. IMPRESSION: 1. Mildly increased echogenicity of the kidneys, which could suggest medical renal disease. 2. The previously noted lesion on CTA of the chest from 12/20/2016 is not sonographically visible. This may in part be due to image quality related to patient body habitus. 3. Enlarged prostate. Electronically signed by: Giancarlo Gan M.D. 12/20/2016 10:14 PM Dictated Date/Time: 12/20/2016 10:12 PM
--- NOTE | 2016-12-20 22:28 | Progress Note ---
Internal Med Progress Note Date of Service: Dec 20, 2016. Provider Documentation: Requested by pharmacist to review Zosyn order by AM provider with history of Penicillin allergy. Clindamycin for now in place of Zosyn with note of concerns for aspiration pneumonia on admission note. Vital Signs: Date Time Temp Pulse Resp B/P (MAP) Pulse Ox O2 Delivery O2 Flow Rate FiO2 12/21/16 11:25 36.4 63 18 113/66 (82) 97 Nasal Cannula 3.0 12/21/16 10:48 36.6 63 18 103/61 (75) 98 Nasal Cannula 3.0 12/21/16 07:30 98 Nasal Cannula 3.0 12/21/16 07:25 36.5 65 18 131/68 (89) 98 Nasal Cannula 3.0 12/21/16 04:00 Nasal Cannula 3.0 12/21/16 03:34 36.4 60 20 108/65 (79) 98 Nasal Cannula 3.0 12/21/16 00:00 99 Nasal Cannula 3.0 12/20/16 23:44 36.5 60 18 107/68 (81) 97 Nasal Cannula 3.0 12/20/16 22:38 36.9 65 18 136/67 Nasal Cannula 3.0 12/20/16 20:20 36.9 65 18 136/67 (90) 98 Nasal Cannula 3.0 12/20/16 20:02 36.7 69 20 112/59 99 12/20/16 18:36 69 20 99 12/20/16 18:31 112/59 12/20/16 18:27 66 15 98 12/20/16 18:01 109/55 12/20/16 17:31 109/56 12/20/16 17:27 68 17 92 12/20/16 17:01 104/59 12/20/16 16:38 69 18 101/58 96 12/20/16 16:37 101/58 12/20/16 16:27 70 23 95 12/20/16 15:27 75 21 94 12/20/16 15:14 95 Nasal Cannula 12/20/16 15:06 76 12/20/16 14:43 94 Nasal Cannula 3.0 12/20/16 14:37 36.7 76 14 94/54 95 Nasal Cannula 3.0 12/20/16 14:36 94/54 Lab Results: Results Past 24 Hours Test 12/20/16 15:23 12/20/16 16:37 12/20/16 20:47 12/21/16 02:55 Range/Units White Blood Count 16.49 9.10 4.8-10.8 K/uL Red Blood Count 4.03 3.77 4.7-6.1 M/uL Hemoglobin 12.2 11.2 14.0-18.0 g/dL Hematocrit 37.0 34.9 42-52 % Mean Corpuscular Volume 91.8 92.6 80-100 fL Mean Corpuscular Hemoglobin 30.3 29.7 25-34 pg Mean Corpuscular Hemoglobin Concent 33.0 32.1 32-36 g/dl Platelet Count 385 332 130-400 K/uL Mean Platelet Volume 10.4 10.2 7.4-10.4 fL Neutrophils (%) (Auto) 87.9 % Lymphocytes (%) (Auto) 4.3 % Monocytes (%) (Auto) 7.2 % Eosinophils (%) (Auto) 0.1 % Basophils (%) (Auto) 0.1 % Neutrophils # (Auto) 14.51 1.4-6.5 K/uL Lymphocytes # (Auto) 0.71 1.2-3.4 K/uL Monocytes # (Auto) 1.18 0.11-0.59 K/uL Eosinophils # (Auto) 0.01 0-0.5 K/uL Basophils # (Auto) 0.02 0-0.2 K/uL RDW Standard Deviation 54.5 56.4 36.4-46.3 fL RDW Coefficient of Variation 16.7 16.8 11.5-14.5 % Immature Granulocyte % (Auto) 0.4 % Immature Granulocyte # (Auto) 0.06 0.00-0.02 K/uL Prothrombin Time 17.7 18.3 9.0-12.0 SECONDS Prothromb Time International Ratio 1.6 1.7 0.9-1.1 Sodium Level 135 133 136-145 mmol/L Potassium Level 4.2 3.9 3.5-5.1 mmol/L Chloride Level 97 97 98-107 mmol/L Carbon Dioxide Level 30 33 21-32 mmol/L Anion Gap 8.0 3.0 3-11 mmol/L Blood Urea Nitrogen 18 20 7-18 mg/dl Creatinine 0.82 0.70 0.60-1.40 mg/dl Est Creatinine Clear Calc Drug Dose 58.3 68.3 ml/min Estimated GFR () 98.9 105.5 Estimated GFR (Non- 85.3 91.0 BUN/Creatinine Ratio 22.3 28.7 10-20 Random Glucose 104 110 70-99 mg/dl Calcium Level 9.1 8.6 8.5-10.1 mg/dl Total Bilirubin 0.4 0.2-1 mg/dl Direct Bilirubin 0.2 0-0.2 mg/dl Aspartate Amino Transf (AST/SGOT) 44 15-37 U/L Alanine Aminotransferase (ALT/SGPT) 42 12-78 U/L Alkaline Phosphatase 124 45-117 U/L Troponin I < 0.015 < 0.015 0.017 0-0.045 ng/ml Pro-B-Type Natriuretic Peptide 357 0-1800 pg/ml Total Protein 7.2 6.4-8.2 gm/dl Albumin 2.3 3.4-5.0 gm/dl Lipase 149 73-393 U/L Digoxin Level 0.7 0.8-2.0 ng/ml Urine Color DK YELLOW Urine Appearance CLEAR CLEAR Urine pH 7.0 4.5-7.5 Urine Specific [place] 1.019 1.000-1.030 Urine Protein TRACE NEG Urine Glucose (UA) NEG NEG Urine Ketones NEG NEG Urine Occult Blood NEG NEG Urine Nitrite NEG NEG Urine Bilirubin NEG NEG Urine Urobilinogen NEG NEG Urine Leukocyte Esterase NEG NEG Urine WBC (Auto) 1-5 0-5 /hpf Urine RBC (Auto) 0-4 0-4 /hpf Urine Hyaline Casts (Auto) 1-5 0-5 /lpf Urine Epithelial Cells (Auto) 10-20 0-5 /lpf Urine Bacteria (Auto) NEG NEG Creatine Kinase MB 0.7 1.2 0.5-3.6 ng/ml Creatine Kinase MB Ratio 0-3.0 Test 12/21/16 07:44 12/21/16 12:00 Range/Units Bedside Glucose 149 112 70-99 mg/dl
[2016-12-20] MEDS ORDERED: CLINDAMYCIN IV 600 MG in DEXTROSE 5% 50ML 50 ML IV ONE (22:30)
[2016-12-20 22:38] VITALS: BP 136/67; PULSE 65; TEMP 36.9; Ht 157.5 cm; Wt 58.9 kg
[2016-12-20] MEDS ORDERED: CLINDAMYCIN CONSULT ACTIVE PRN ×2 (22:45)
[2016-12-20] MEDS: GUAIFENESIN SUGAR FREE 200 MG/10 ML UDC PEG SCH (23:13)
[2016-12-20 23:44] VITALS: BP 107/68; PULSE 60; TEMP 36.5; O2SAT 97
[2016-12-21] VITALS (12 sets, daily range): BP systolic 97–131; BP diastolic 54–68; PULSE 60–66; TEMP 36.3–36.6; O2SAT 96–99
[2016-12-21 03:12] LABS: HEMATOCRIT 34.9 % (42-52); MEAN CELL VOLUME 92.6 fL (80-100); MEAN CORPUSCULAR HEMOGLOBIN 29.7 pg (25-34); MEAN CORPUSCULAR HGB CONC 32.1 g/dl (32-36); MEAN PLATELET VOLUME 10.2 fL (7.4-10.4); PLATELET COUNT 332 K/uL (130-400); RED BLOOD COUNT 3.77 M/uL (4.7-6.1)
[2016-12-21 03:24] LABS: INR 1.7 (0.9-1.1); PROTHROMBIN TIME (PATIENT) 18.3 SECONDS (9.0-12.0)
[2016-12-21 03:32] LABS: BLOOD UREA NITROGEN 20 mg/dl (7-18); BUN/CREATININE RATIO 28.7 (10-20); CALCIUM 8.6 mg/dl (8.5-10.1); CARBON DIOXIDE 33 mmol/L (21-32); CHLORIDE 97 mmol/L (98-107); GLUCOSE 110 mg/dl (70-99); POTASSIUM 3.9 mmol/L (3.5-5.1); SODIUM 133 mmol/L (136-145)
[2016-12-21] MEDS: CLINDAMYCIN IV 600 MG in DEXTROSE 5% 50ML 50 ML IV SCH ×3 (06:10→21:45)
[2016-12-21] MEDS: GUAIFENESIN SUGAR FREE 200 MG/10 ML UDC PEG SCH ×3 (06:10→18:15)
[2016-12-21] MEDS: FUROSEMIDE ORAL SOLN 40 MG/5 ML UDP PEG SCH (08:08)
[2016-12-21] MEDS: FERROUS SULFATE 325 MG/7.4 ML UDP PEG SCH (08:09)
[2016-12-21] MEDS: LACTOBACILLUS ACIDOPHILUS (FLORANEX) TAB PO SCH ×3 (08:09→16:18)
[2016-12-21] MEDS: NYSTATIN POWDER 15GM BTL EXT SCH ×2 (08:09→21:45)
[2016-12-21] MEDS: METOPROLOL TARTRATE 25 MG TAB PEG SCH ×2 (08:10→20:34)
[2016-12-21] MEDS ORDERED: ASPIRIN 81 MG ECTAB PO SCH (09:00)
[2016-12-21] MEDS ORDERED: PERFLUTREN LIPID MICROSPHERE (DEFINITY) IV ONE (09:18)
[2016-12-21] MEDS: ASPIRIN 81 MG CHEW PEG SCH (09:28)
[2016-12-21] MEDS ORDERED: NITROGLYCERIN 0.4 MG/HR PATCH TD ONE (10:11)
--- NOTE | 2016-12-21 10:37 | ECHOCARDIOGRAM REPORT ---
*NOTICE TO RECEIVING DEMOCRAT AGENCY This information is strictly Confidential and protected under [place] law. [place] law prohibits you from making any further disclosure of this information unless further disclosure is expressly permitted by the written consent of the person to whom it pertains or is authorized by law. A general authorization for the release of medical or other information is not sufficient for this purpose. Hospital accepts no responsibility if the information is made available to any other person, INCLUDING THE PATIENT. Interpretation Summary * Name: MAXIMILIANO PRADO Study Date: 12/21/2016 08:40 AM BP: 108/65 mmHg * Patient Location: .MED\S\N275\S\2 HR: 65 * : 1940 (M/d/yyyy) Gender: Male Height: 62 in * Age: 76 yrs Ethnicity: CA Weight: 140 lb * Ordering Physician: Sulma Patton * Referring Physician: Kody Holley * Performed By: Rosa Brambila RCS * * Reason For Study: CHEST PAIN * BSA: 1.6 m2 * -- Conclusions -- * The left ventricle is normal in size. * There is mild concentric left ventricular hypertrophy. * There is moderate to severe hypokinesis of the inferior/posterior dumas, associated wall thinning at the base * There is borderline global hypokinesis of the left ventricle. * Ejection Fraction = 40-45%. * The aortic valve leaflets are moderately calcified. * No hemodynamically significant valvular aortic stenosis. * There is mild to moderate mitral regurgitation. * In comparison to prior study, overall LV function is less dynamic without new wall motion changes Procedure Details * A complete two-dimensional transthoracic echocardiogram was performed (2D, M-mode, Doppler and color flow Doppler). * A contrast injection of Definity was performed to improve assessment of LV function. * Contrast was injected into an intravenous site in the right arm. * One vial of Definity ultrasound contrast was diluted in normal saline to a total volume of 10 ml. A total of '2' ml of solution was administered during imaging. * Lot # [id number] of Definity utilized for procedure. * Expiration date JAN 11. * The attending nurse who injected the contrast agent was QING ROGEL, RN. Left Ventricle * The left ventricle is normal in size. * There is mild concentric left ventricular hypertrophy. * Ejection Fraction = 40-45%. * There is moderate to severe hypokinesis of the inferior/posterior dumas, associated wall thinning at the base * There is borderline global hypokinesis of the left ventricle. Right Ventricle * The right ventricle is normal in size and function. Atria * The left atrial size is normal. * Right atrial size is normal. * No ASD detected; PFO is not assessed. Mitral Valve * The mitral valve leaflets appear thickened, but open well. * There is no mitral valve stenosis. * There is mild to moderate mitral regurgitation. Tricuspid Valve * The tricuspid valve is normal. * There is no tricuspid stenosis. * There is trace tricuspid regurgitation. Aortic Valve * The aortic valve is trileaflet. * The aortic valve leaflets are moderately calcified. * No hemodynamically significant valvular aortic stenosis. * No aortic regurgitation is present. Pulmonic Valve * The pulmonic valve is not well visualized. Great Vessels * The aortic root is normal size. Pericardium/Pleural * There is no pericardial effusion. Great Vessels * Normal inferior vena cava diameter and respiratory variation suggests normal central venous pressure. MMode 2D Measurements and Calculations IVSd 1.3 cm IVSs 1.6 cm LVIDd 5.5 cm LVIDs 4.2 cm LVPWd 1.4 cm LVPWs 1.5 cm IVS/LVPW 0.94 FS 24.1 % EDV(Teich) 148.4 ml ESV(Teich) 78.0 ml EF(Teich) 47.5 % EDV(cubed) 167.9 ml ESV(cubed) 73.3 ml EF(cubed) 56.3 % % IVS thick 27.7 % % LVPW thick 9.8 % LV mass(C)d 311.6 grams LV mass(C)dI 189.7 grams/m\S\2 LV mass(C)s 264.2 grams LV mass(C)sI 160.9 grams/m\S\2 SV(Teich) 70.5 ml SI(Teich) 42.9 ml/m\S\2 SV(cubed) 94.5 ml SI(cubed) 57.5 ml/m\S\2 Ao root diam 3.0 cm Ao root area 6.9 cm\S\2 ACS 1.7 cm LA dimension 2.7 cm LA/Ao 0.92 LVOT diam 2.0 cm LVOT area 3.0 cm\S\2 LVAd ap4 34.1 cm\S\2 LVLd ap4 7.7 cm EDV(MOD-sp4) 123.8 ml EDV(sp4-el) 128.2 ml LVAs ap4 26.6 cm\S\2 LVLs ap4 7.1 cm ESV(MOD-sp4) 80.8 ml ESV(sp4-el) 84.4 ml EF(MOD-sp4) 34.7 % EF(sp4-el) 34.1 % LVAd ap2 37.2 cm\S\2 LVLd ap2 7.7 cm EDV(MOD-sp2) 143.8 ml EDV(sp2-el) 151.7 ml LVAs ap2 24.6 cm\S\2 LVLs ap2 6.4 cm ESV(MOD-sp2) 79.3 ml ESV(sp2-el) 79.9 ml EF(MOD-sp2) 44.8 % EF(sp2-el) 47.3 % LVLd %diff 0.27 % EDV(MOD-bp) 135.7 ml LVLs %diff -11.14 % ESV(MOD-bp) 83.2 ml EF(MOD-bp) 38.7 % SV(MOD-sp4) 43.0 ml SI(MOD-sp4) 26.2 ml/m\S\2 SV(MOD-sp2) 64.5 ml SI(MOD-sp2) 39.3 ml/m\S\2 SV(MOD-bp) 52.5 ml SI(MOD-bp) 32.0 ml/m\S\2 SV(sp4-el) 43.7 ml SI(sp4-el) 26.6 ml/m\S\2 SV(sp2-el) 71.8 ml SI(sp2-el) 43.7 ml/m\S\2 Doppler Measurements and Calculations MV E max vivek 64.7 cm/sec MV A max vivek 81.4 cm/sec MV E/A 0.79 MV P1/2t max vivek 64.7 cm/sec MV P1/2t 127.8 msec MVA(P1/2t) 1.7 cm\S\2 MV dec slope 148.3 cm/sec\S\2 MV dec time 0.25 sec Ao V2 max 125.2 cm/sec Ao max PG 6.3 mmHg Ao max PG (full) 4.5 mmHg CAIN(V,A) 1.6 cm\S\2 CAIN(V,D) 1.6 cm\S\2 LV V1 max PG 1.8 mmHg LV V1 max 67.4 cm/sec MR max vivek 464.8 cm/sec MR max PG 86.4 mmHg TR max vivek 222.4 cm/sec
--- NOTE | 2016-12-21 12:15 | CARDIOLOGY CONSULTATION ---
DATE OF CONSULTATION: 12/21/2016 DATE OF CONSULTATION: 12/21/2016 REFERRING: SAVANNA Vela. PRIMARY CARE PHYSICIAN: Dr. Brown. INDICATIONS: Chest pain while at rehab hospital. HISTORY OF PRESENT ILLNESS: The patient is a complex 76-year-old male whose history is notable for prior stroke, possibly in association with paroxysmal atrial fibrillation in October 2015, residual significant expressive aphasia, carries history of past gastric carcinoma status post resection and receives feedings through tube feeds. During hospitalization in November 2015 he presented with symptoms of chest pain and not an acute coronary syndrome and ultimately underwent diagnostic cardiac catheterization and was referred for coronary artery bypass grafting with severe multivessel disease discerned. 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 He has been followed by Dr. Patel as an outpatient since hospital discharge. His underlying medical problems in addition to above include a history of dyslipidemia, hypertension and most recently hospitalization at [facility] on 11/30/2016 with respiratory failure and pneumonia. The patient received antibiotic therapies with clinical improvement per report was discharged to [facility] where yesterday while exercising was felt to have chest discomfort and he was referred to the Emergency Room for further evaluation. The patient is a difficult historian given significant expressive aphasia. He denies episodes of worsening diaphoresis. Does note some mild shortness of breath by nodding his head. Notes no sense of tachypalpitations. Has been compliant with medications per staff. Initial enzymes and EKGs have been negative. He does admit to persistent dyspnea as well as moderate sleep productive cough, symptoms of chest discomfort have been going on for approximately 2-3 days in association with activities while at [facility] per ER and admission of records. The patient is currently without complaint or discomfort. ALLERGIES: CITRUS, PENICILLIN. MEDICATIONS: Prior to hospitalization were aspirin 81 mg, amiodarone 200 mg daily, atorvastatin 80 mg daily, digoxin 0.125 three days per week, ferrous sulfate 325 mg every day, furosemide 40 mg daily, guaifenesin, DuoNebs, metoprolol 12.5 mg b.i.d., warfarin 1 mg daily with all medications administered through PEG tube. PAST SURGICAL HISTORY: Notable for as described, prior gastric resection with chronic feeding through G-tube with G-tube permanently placed in November 2015, history of coronary bypass grafting as per HPI, past herniorrhaphy resection. FAMILY HISTORY: Per chart records is notable for coronary disease and kidney disease. SOCIAL HISTORY: The patient is a remote smoker, uses no alcoholic products, currently is a resident of [facility]. PHYSICAL EXAMINATION: GENERAL: The patient is an age appropriate male with noted expressive aphasia, does respond to questioning, nods his head. VITAL SIGNS: Heart rate 65, blood pressure is 131/68, O2 saturations 98% on 3 liters nasal cannula. HEAD, EYES, EARS, NOSE, AND THROAT: Normocephalic, atraumatic. NECK: Thin. There is no jugular venous distention, no audible carotid bruit. LUNGS: Reveal diminished breath sounds bibasilar with scattered crackles on the right with cough. CARDIOVASCULAR: Regular. There is no S3 gallop. ABDOMEN: Soft, nontender, feeding tube is in place. G-tube insertion site without erythema. EXTREMITIES: Without cyanosis or clubbing. There is no palpable cord or Homans sign. There is no edema. DIAGNOSTIC DATA: EKG on presentation revealed sinus rhythm with nonspecific ST segment changes. Of note, during last hospitalization with acute respiratory issues he had transient atrial fibrillation as incidentally observed on retrospect EKG. Second EKG this morning demonstrates minimal change with once again nonspecific ST segment changes, sinus rhythm. Echocardiogram is pending. LABORATORY STUDIES: On presentation, white cell count was 16.4, hemoglobin 12.2. White cell count this morning is 9.1. Cardiac enzymes x3 are negative at less than 0.015. Albumin level is 2.3. CT scan of the chest to exclude pulmonary embolus revealed no pulmonary embolus. There are airspace opacities present on CT scan and chest x-ray bibasilar. IMPRESSION: Complex 76-year-old male with history of prior stroke in October 2015 with course complicated by acute coronary syndrome requiring urgent coronary bypass grafting in November 2015 for severe multivessel disease. The patient underwent apical resection of aneurysm at that time as well. He was recently hospitalized with sepsis and acute respiratory failure, has been recovering in [facility] where he has noted increasing symptoms of exertional shortness of breath and chest discomfort per report. Enzymes and EKGs do not reflect acute coronary syndrome or ischemia. PLAN: We will titrate medications to treat the potential underlying angina. Would recommend treating underlying pulmonary issues appear to be driving course. Will review echocardiogram ordered for today and follow patient in hospital.
[2016-12-21] MEDS ORDERED: IMPACT LIQ 1000 ML BAG PEG PRN (13:00)
[2016-12-21] MEDS ORDERED: AZTREONAM CONSULT ACTIVE PRN ×2 (14:45)
[2016-12-21] MEDS: AZTREONAM 2000 MG in DEXTROSE 5% 100 ML IV SCH ×2 (15:11→22:24)
[2016-12-21] MEDS: DIGOXIN 0.125 MG TAB PEG SCH (16:18)
--- NOTE | 2016-12-21 18:01 | Progress Note ---
Medicine Progress Note Date & Time of Visit: Dec 21, 2016 at 17:45. Subjective Pt was seen and examined Sitting in bed with no distress Pt said that cough seems to improve Denies any chest pain, palpitation, dizziness and SOB Objective Last 8 Hrs Date Time Temp Pulse Resp B/P (MAP) Pulse Ox O2 Delivery O2 Flow Rate FiO2 12/21/16 16:18 64 12/21/16 16:17 65 107/63 (78) 12/21/16 16:00 Nasal Cannula 3.0 12/21/16 15:22 36.6 65 18 97/58 (71) 96 Nasal Cannula 2.0 12/21/16 11:30 97 Nasal Cannula 3.0 12/21/16 11:25 36.4 63 18 113/66 (82) 97 Nasal Cannula 3.0 12/21/16 10:48 36.6 63 18 103/61 (75) 98 Nasal Cannula 3.0 Physical Exam: General- No acute distress Head- atraumatic Eyes- PERRL, EOMI ENT- oropharynx clear Neck- supple, no JVD Lungs- decrease breath sound Heart- regular rhythm Abdomen- normal bowel sounds,+peg tube Extremities- no calf tenderness Neuro- alert, oriented x 3; PERRL, EOMI Skin- warm & dry Laboratory Results: Last 24 Hours Test 12/20/16 20:47 12/21/16 02:55 12/21/16 07:44 12/21/16 12:00 Creatine Kinase MB 0.7 ng/ml 1.2 ng/ml Creatine Kinase MB Ratio Troponin I < 0.015 ng/ml 0.017 ng/ml White Blood Count 9.10 K/uL Red Blood Count 3.77 M/uL Hemoglobin 11.2 g/dL Hematocrit 34.9 % Mean Corpuscular Volume 92.6 fL Mean Corpuscular Hemoglobin 29.7 pg Mean Corpuscular Hemoglobin Concent 32.1 g/dl RDW Standard Deviation 56.4 fL RDW Coefficient of Variation 16.8 % Platelet Count 332 K/uL Mean Platelet Volume 10.2 fL Prothrombin Time 18.3 SECONDS Prothromb Time International Ratio 1.7 Sodium Level 133 mmol/L Potassium Level 3.9 mmol/L Chloride Level 97 mmol/L Carbon Dioxide Level 33 mmol/L Anion Gap 3.0 mmol/L Blood Urea Nitrogen 20 mg/dl Creatinine 0.70 mg/dl Est Creatinine Clear Calc Drug Dose 68.3 ml/min Estimated GFR () 105.5 Estimated GFR (Non- 91.0 BUN/Creatinine Ratio 28.7 Random Glucose 110 mg/dl Calcium Level 8.6 mg/dl Bedside Glucose 149 mg/dl 112 mg/dl Test 12/21/16 16:12 Bedside Glucose 156 mg/dl Assessment & Plan CHEST PAIN, - R/O ACS - hx of CAD with STEMI 11/2015 with subsequent CABG x 4 - Troponinx3 sets negative - EKG showed no ischemic changes - CTA chest negative for PE - Continue asa, statin and BB - Cardiology on board - Echo done showed * The left ventricle is normal in size. * There is mild concentric left ventricular hypertrophy. * There is moderate to severe hypokinesis of the inferior/posterior dumas, associated wall thinning at the base * There is borderline global hypokinesis of the left ventricle. * Ejection Fraction = 40-45%. * The aortic valve leaflets are moderately calcified. * No hemodynamically significant valvular aortic stenosis. * There is mild to moderate mitral regurgitation. * In comparison to prior study, overall LV function is less dynamic without new wall motion changes POSSIBLE ASPIRATION PNEUMONIA - recently admitted to [facility] for sepsis due to pneumonia - CXR is improved and patient is afebrile, however cough persists and WBC 16K - WBC trending down - Zosyn was d/c because pt has penicillin allergies - Was starting on clinda, will add azactam - Continue nebulizer treatment - Continue suction RIGHT RENAL LESION - noted on CTA chest - Renal US showed Mildly increased echogenicity of the kidneys, which could suggest medical renal disease. CHRONIC HYPOXIA - patient has been requiring 3L 02 since recent admission - saturating well on 3L HX CVA - PEG tube in place - On asa, statin and coumadin PAROXYSMAL A. FIB - currently in NSR - rate control - Continue dig and metoprolol - on Coumadin, INR 1.7 DIASTOLIC DYSFUNCTION - appears euvolemic - continue furosemide DVT PROPHYLAXIS - SCDs when INR < 2.0 CODE STATUS DNR Consultants: Cardiology Current Inpatient Medications: Current Inpatient Medications Medications (Trade) Dose Ordered Sig/Kelle Route Start Time Stop Time Status Last Admin Dose Admin Ioversol (Optiray 320) 100 ml UD PRN IV 12/20/16 18:00 12/24/16 17:59 Acetaminophen (Tylenol Tab) 650 mg Q4H PRN PO 12/20/16 18:45 01/19/17 18:44 Ondansetron HCl (Zofran Inj) 4 mg Q6H PRN IV 12/20/16 18:45 01/19/17 18:44 Nitroglycerin (Nitrostat Tab) 0.4 mg UD PRN SL 12/20/16 18:45 01/19/17 18:44 Miscellaneous (Iv Fluids Completed) 1 ea PRN PRN N/A 12/20/16 19:00 12/20/17 18:59 Amiodarone HCl (Cordarone Tab) 200 mg HS PEG 12/20/16 21:00 01/19/17 20:59 12/20/16 22:06 200 MG Atorvastatin Calcium (Lipitor Tab) 80 mg HS PEG 12/20/16 21:00 01/19/17 20:59 12/20/16 22:05 80 MG Digoxin (Lanoxin Tab) 0.125 mg MoWeFr@1600 PEG 12/21/16 16:00 01/20/17 15:59 12/21/16 16:18 0.125 MG Furosemide (Lasix Oral Soln) 40 mg QAM PEG 12/21/16 09:00 01/20/17 08:59 12/21/16 08:08 40 MG Albuterol/ Ipratropium (Duoneb) 1 ml Q4R PRN INH 12/20/16 19:30 01/19/17 19:29 Metoprolol Tartrate (Lopressor Tab) 12.5 mg BID PEG 12/20/16 21:00 01/19/17 20:59 12/21/16 08:10 12.5 MG Senna (Senokot Syrup) 8.8 mg DAILY PRN PO 12/20/16 21:00 01/19/17 20:59 Ferrous Sulfate (Feosol Elix) 325 mg DAILY PEG 12/21/16 09:00 01/20/17 08:59 12/21/16 08:09 325 MG Nystatin (Mycostatin Powder) 1 appln BID EXT 12/20/16 21:00 01/19/17 20:59 Guaifenesin (Robitussin Sugar Free Syrup) 200 mg Q6 PEG 12/21/16 00:00 01/20/17 00:00 12/21/16 12:14 200 MG Clindamycin Phosphate 600 mg/ Dextrose 54 ml @ 100 mls/hr Q8H IV 12/21/16 06:00 12/27/16 21:59 12/21/16 14:26 100 MLS/HR Lactobacillus Acidophilus (Floranex Tab) 4 tab TIDM PO 12/21/16 08:00 01/20/17 07:59 12/21/16 16:18 4 TAB Clindamycin Phosphate (Consult) 1 ea UD PRN N/A 12/20/16 22:45 01/19/17 22:44 Aspirin (Aspirin Chew) 81 mg QAM PEG 12/21/16 09:00 01/20/17 08:59 12/21/16 09:28 81 MG Nitroglycerin (Nitro-Dur 0.4 Mg/Hr Patch) 1 patch QAM TD 12/22/16 09:00 01/21/17 08:59 Miscellaneous (Remove Nitro-Dur Patch) 1 ea DAILY@21 N/A 12/21/16 21:00 01/20/17 20:59 Enteral Nutritional Formula (Impact 1.0 Duncan) 1,000 ml UD PRN PEG 12/21/16 13:00 01/20/17 12:59 Aztreonam (Consult) 1 ea UD PRN N/A 12/21/16 14:45 01/20/17 14:44 Aztreonam 2000 mg/ Dextrose 110 ml @ 110 mls/hr Q8H IV 12/21/16 14:00 12/28/16 13:59 12/21/16 15:11 110 MLS/HR
[2016-12-21] MEDS: ATORVASTATIN 40 MG TAB PEG SCH (20:33)
[2016-12-21] MEDS: AMIODARONE 200 MG TAB PEG SCH (20:36)
[2016-12-22] VITALS (12 sets, daily range): BP systolic 103–125; BP diastolic 55–72; PULSE 61–70; TEMP 36.4–36.8; O2SAT 3–99
[2016-12-22] MEDS: GUAIFENESIN SUGAR FREE 200 MG/10 ML UDC PEG SCH ×5 (00:10→23:41)
[2016-12-22] MEDS: AZTREONAM 2000 MG in DEXTROSE 5% 100 ML IV SCH ×3 (05:34→22:24)
[2016-12-22] MEDS: CLINDAMYCIN IV 600 MG in DEXTROSE 5% 50ML 50 ML IV SCH ×3 (05:34→22:24)
[2016-12-22 07:40] LABS: HEMATOCRIT 34.4 % (42-52); MEAN CELL VOLUME 92.7 fL (80-100); MEAN CORPUSCULAR HEMOGLOBIN 29.6 pg (25-34); MEAN PLATELET VOLUME 10.3 fL (7.4-10.4); PLATELET COUNT 308 K/uL (130-400); RED BLOOD COUNT 3.71 M/uL (4.7-6.1); WHITE BLOOD COUNT 7.22 K/uL (4.8-10.8)
[2016-12-22 07:44] LABS: PROTHROMBIN TIME (PATIENT) 22.2 SECONDS (9.0-12.0)
[2016-12-22] MEDS: LACTOBACILLUS ACIDOPHILUS (FLORANEX) TAB PO SCH ×3 (07:59→17:33)
[2016-12-22] MEDS: ASPIRIN 81 MG CHEW PEG SCH (07:59)
[2016-12-22] MEDS: NYSTATIN POWDER 15GM BTL EXT SCH ×2 (07:59→21:45)
[2016-12-22] MEDS: FERROUS SULFATE 325 MG/7.4 ML UDP PEG SCH (08:00)
[2016-12-22] MEDS: METOPROLOL TARTRATE 25 MG TAB PEG SCH ×2 (08:00→21:47)
[2016-12-22] MEDS: FUROSEMIDE ORAL SOLN 40 MG/5 ML UDP PEG SCH (08:00)
[2016-12-22] MEDS: SENNA 8.8 MG/5 ML UDP PO PRN ×2 (08:00→21:45)
[2016-12-22] MEDS: NITROGLYCERIN 0.4 MG/HR PATCH TD SCH (08:01)
[2016-12-22] MEDS ORDERED: NURSING VERBAL MED ORDER ONE ×2 (11:00→18:45)
[2016-12-22] MEDS ORDERED: FUROSEMIDE INJ 40 MG in SYRINGE 0 ML IV ONE (11:15)
--- NOTE | 2016-12-22 11:57 | PROGRESS NOTE ---
DATE: 12/22/2016 CONSULTATION FOLLOWUP NOTE The patient seen and examined. Chart, medications, telemetry reviewed. SUBJECTIVE: The patient is a poor historian due to expressive aphasia, but denies any chest pain. Does note increasing shortness of breath, has had a cough by description. No overt fevers noted. No tachypalpitations. Blood pressures have been well controlled overnight. OBJECTIVE: VITAL SIGNS: Heart rate is 65, blood pressure is 111/60. NECK: Thin. There is no distinct jugular venous distention. LUNGS: Notable for coarse airway sounds anteriorly. CARDIOVASCULAR: Regular. There is no S3 gallop. ABDOMEN: Soft, nontender. EXTREMITIES: Without cyanosis or clubbing. There is trace pedal edema. LABORATORY DATA: White cell count 7.2, hemoglobin is 11.0. EKG this morning reveals sinus rhythm at a rate of 64, nonspecific ST segment changes and mild QT prolongation. IMPRESSION: A 76-year-old male admitted with chest pain and worsening shortness of breath while undergoing physical therapy at rehab hospital after recent hospitalization with pneumonia sepsis. No signs of acute myocardial ischemia noted by enzymes and serial EKGs. Medications have been adjusted to optimize therapies. We will give a single dose of furosemide today though overall exam does not suggest profound volume overload. Repeat chest x-ray will be ordered. Recommend again aggressive management for underlying pulmonary issues, raising concerns with possible ongoing aspiration.
--- NOTE | 2016-12-22 12:40 | DIAGNOSTIC IMAGING REPORT ---
CHEST ONE VIEW PORTABLE CLINICAL HISTORY: 76 years-old Male presenting with dyspnea. TECHNIQUE: Portable upright AP view of the chest was obtained. COMPARISON: 12/20/2016. FINDINGS: Median sternotomy wires, mediastinal surgical clips, and bypass graft rings noted. Cardiac silhouette remains normal in size. Atherosclerosis of aortic arch. Persistent extensive opacities in the left mid and lung base with interval decreased aeration of the left lung base. Minimal right basilar opacities, unchanged. Interval development of small bilateral pleural effusions. No pneumothorax. Osseous structures normal. Upper abdomen normal. IMPRESSION: 1. Persistent extensive left mid and basilar opacities with decreased aeration of the left lung base. 2. Interval development of bilateral small pleural effusions. Electronically signed by: Giancarlo Gan M.D. 12/22/2016 12:39 PM Dictated Date/Time: 12/22/2016 12:37 PM
--- NOTE | 2016-12-22 17:40 | Progress Note ---
Medicine Progress Note Date & Time of Visit: Dec 22, 2016 at 17:32. Subjective Pt was seen and examined Lying in bed with mild respiratory distress Pt is coughing a lot of junking stuff Nurse and respiratory at bedside doing deep suctioning denies any chest pain, palpitation, dizziness and fever Objective Last 8 Hrs Date Time Temp Pulse Resp B/P (MAP) Pulse Ox O2 Delivery O2 Flow Rate FiO2 12/22/16 16:00 98 Oxymask 3.0 12/22/16 14:53 36.4 66 22 104/55 (71) 98 Oxymask 4.0 12/22/16 12:00 96 Nasal Cannula 3.0 12/22/16 11:45 3 Nasal Cannula 12/22/16 11:18 36.7 63 18 116/59 (78) 94 2.0 12/22/16 10:46 36.8 65 18 111/60 (77) 94 Nasal Cannula 2.0 Physical Exam: General- No acute distress Head- atraumatic Eyes- PERRL, EOMI ENT- oropharynx clear Neck- supple, no JVD Lungs- + crackles Heart- regular rhythm Abdomen- normal bowel sounds,+peg tube Extremities- no calf tenderness Neuro- alert, oriented x 3; PERRL, EOMI Skin- warm & dry Laboratory Results: Last 24 Hours Test 12/22/16 07:17 12/22/16 07:24 Bedside Glucose 147 mg/dl White Blood Count 7.22 K/uL Red Blood Count 3.71 M/uL Hemoglobin 11.0 g/dL Hematocrit 34.4 % Mean Corpuscular Volume 92.7 fL Mean Corpuscular Hemoglobin 29.6 pg Mean Corpuscular Hemoglobin Concent 32.0 g/dl RDW Standard Deviation 56.7 fL RDW Coefficient of Variation 16.9 % Platelet Count 308 K/uL Mean Platelet Volume 10.3 fL Prothrombin Time 22.2 SECONDS Prothromb Time International Ratio 2.0 Assessment & Plan CHEST PAIN, - R/O ACS - hx of CAD with STEMI 11/2015 with subsequent CABG x 4 - Troponinx3 sets negative - EKG showed no ischemic changes - CTA chest negative for PE - Continue asa, statin and BB - No arrhythmia on tele - Cardiology on board - Echo done showed * The left ventricle is normal in size. * There is mild concentric left ventricular hypertrophy. * There is moderate to severe hypokinesis of the inferior/posterior dumas, associated wall thinning at the base * There is borderline global hypokinesis of the left ventricle. * Ejection Fraction = 40-45%. * The aortic valve leaflets are moderately calcified. * No hemodynamically significant valvular aortic stenosis. * There is mild to moderate mitral regurgitation. * In comparison to prior study, overall LV function is less dynamic without new wall motion changes ASPIRATION PNEUMONIA - recently admitted to [facility] for sepsis due to pneumonia - CXR is improved and patient is afebrile, however cough persists and WBC 16K - WBC trending down - Zosyn was d/c because pt has penicillin allergies - Was starting on clinda, will add azactam - Continue nebulizer treatment - Continue suction 12/22 - In respiratory distress - Mostly aspirated from tube feeding - CXR showed Persistent extensive left mid and basilar opacities with decreased aeration of the left lung base. - hold tube feeding for now - Continue suctioning - Chest PT - Lasix 40mg x1 given - Continue oxygen supplement - Continue monitor RIGHT RENAL LESION - noted on CTA chest - Renal US showed Mildly increased echogenicity of the kidneys, which could suggest medical renal disease. CHRONIC HYPOXIA - patient has been requiring 3L 02 since recent admission - CXR showed Persistent extensive left mid and basilar opacities with decreased aeration of the left lung base. - Continue suctioning/ chest PT - repeat CXR in am HX CVA - PEG tube in place - On asa, statin and coumadin PAROXYSMAL A. FIB - currently in NSR - rate control - Continue dig and metoprolol - on Coumadin, INR 2 DIASTOLIC DYSFUNCTION - continue furosemide -Will monitor for fluid overload NUTRITION Has been on continue peg tube feeding will hold tube feeding for now will talk to rope cleaner to consider to hold the tube feeding for a few hours daily to prevent risk of fluid overload DVT PROPHYLAXIS continue coumadin INR is 2 today CODE STATUS DNR Consultants: Cardiology Current Inpatient Medications: Current Inpatient Medications Medications (Trade) Dose Ordered Sig/Kelle Route Start Time Stop Time Status Last Admin Dose Admin Ioversol (Optiray 320) 100 ml UD PRN IV 12/20/16 18:00 12/24/16 17:59 Acetaminophen (Tylenol Tab) 650 mg Q4H PRN PO 12/20/16 18:45 01/19/17 18:44 Ondansetron HCl (Zofran Inj) 4 mg Q6H PRN IV 12/20/16 18:45 01/19/17 18:44 Nitroglycerin (Nitrostat Tab) 0.4 mg UD PRN SL 12/20/16 18:45 01/19/17 18:44 Miscellaneous (Iv Fluids Completed) 1 ea PRN PRN N/A 12/20/16 19:00 12/20/17 18:59 Amiodarone HCl (Cordarone Tab) 200 mg HS PEG 12/20/16 21:00 01/19/17 20:59 12/21/16 20:36 200 MG Atorvastatin Calcium (Lipitor Tab) 80 mg HS PEG 12/20/16 21:00 01/19/17 20:59 12/21/16 20:33 80 MG Digoxin (Lanoxin Tab) 0.125 mg MoWeFr@1600 PEG 12/21/16 16:00 01/20/17 15:59 12/21/16 16:18 0.125 MG Furosemide (Lasix Oral Soln) 40 mg QAM PEG 12/21/16 09:00 01/20/17 08:59 12/22/16 08:00 40 MG Albuterol/ Ipratropium (Duoneb) 1 ml Q4R PRN INH 12/20/16 19:30 01/19/17 19:29 Metoprolol Tartrate (Lopressor Tab) 12.5 mg BID PEG 12/20/16 21:00 01/19/17 20:59 12/22/16 08:00 12.5 MG Senna (Senokot Syrup) 8.8 mg DAILY PRN PO 12/20/16 21:00 01/19/17 20:59 12/22/16 08:00 8.8 MG Ferrous Sulfate (Feosol Elix) 325 mg DAILY PEG 12/21/16 09:00 01/20/17 08:59 12/22/16 08:00 325 MG Nystatin (Mycostatin Powder) 1 appln BID EXT 12/20/16 21:00 01/19/17 20:59 12/22/16 07:59 1 APPLN Guaifenesin (Robitussin Sugar Free Syrup) 200 mg Q6 PEG 12/21/16 00:00 01/20/17 00:00 12/22/16 11:31 200 MG Clindamycin Phosphate 600 mg/ Dextrose 54 ml @ 100 mls/hr Q8H IV 12/21/16 06:00 12/27/16 21:59 12/22/16 14:36 100 MLS/HR Lactobacillus Acidophilus (Floranex Tab) 4 tab TIDM PO 12/21/16 08:00 01/20/17 07:59 12/22/16 11:31 4 TAB Clindamycin Phosphate (Consult) 1 ea UD PRN N/A 12/20/16 22:45 01/19/17 22:44 Aspirin (Aspirin Chew) 81 mg QAM PEG 12/21/16 09:00 01/20/17 08:59 12/22/16 07:59 81 MG Nitroglycerin (Nitro-Dur 0.4 Mg/Hr Patch) 1 patch QAM TD 12/22/16 09:00 01/21/17 08:59 12/22/16 08:01 1 PATCH Miscellaneous (Remove Nitro-Dur Patch) 1 ea DAILY@21 N/A 12/21/16 21:00 01/20/17 20:59 12/21/16 22:29 1 EA Enteral Nutritional Formula (Impact 1.0 Duncan) 1,000 ml UD PRN PEG 12/21/16 13:00 01/20/17 12:59 Future Hold 12/21/16 23:15 1,000 ML Aztreonam (Consult) 1 ea UD PRN N/A 12/21/16 14:45 01/20/17 14:44 Aztreonam 2000 mg/ Dextrose 110 ml @ 110 mls/hr Q8H IV 12/21/16 14:00 12/28/16 13:59 12/22/16 14:35 110 MLS/HR
[2016-12-22] MEDS: ACETAMINOPHEN 325 MG TAB PO PRN (21:45)
[2016-12-22] MEDS: NYSTATIN SUSP 500,000 U/5 ML UDC MT SCH (21:45)
[2016-12-22] MEDS: AMIODARONE 200 MG TAB PEG SCH (21:46)
[2016-12-22] MEDS: ATORVASTATIN 40 MG TAB PEG SCH (21:47)
[2016-12-23] VITALS (9 sets, daily range): BP systolic 93–122; BP diastolic 54–67; PULSE 61–68; TEMP 36.2–36.9; O2SAT 92–100
[2016-12-23] MEDS: CLINDAMYCIN IV 600 MG in DEXTROSE 5% 50ML 50 ML IV SCH ×3 (05:26→22:04)
[2016-12-23] MEDS: GUAIFENESIN SUGAR FREE 200 MG/10 ML UDC PEG SCH ×4 (05:26→23:50)
[2016-12-23] MEDS: AZTREONAM 2000 MG in DEXTROSE 5% 100 ML IV SCH ×3 (05:26→21:35)
[2016-12-23 07:18] LABS: HEMATOCRIT 35.7 % (42-52); MEAN CELL VOLUME 92.5 fL (80-100); MEAN CORPUSCULAR HEMOGLOBIN 30.3 pg (25-34); MEAN CORPUSCULAR HGB CONC 32.8 g/dl (32-36); MEAN PLATELET VOLUME 10.6 fL (7.4-10.4); PLATELET COUNT 295 K/uL (130-400); RED BLOOD COUNT 3.86 M/uL (4.7-6.1); WHITE BLOOD COUNT 7.64 K/uL (4.8-10.8)
[2016-12-23 07:26] LABS: INR 1.8 (0.9-1.1); PROTHROMBIN TIME (PATIENT) 20.2 SECONDS (9.0-12.0)
[2016-12-23 07:37] LABS: BUN/CREATININE RATIO 24.8 (10-20); CALCIUM 9.4 mg/dl (8.5-10.1); CREATININE 0.89 mg/dl (0.60-1.40); POTASSIUM 3.9 mmol/L (3.5-5.1)
--- NOTE | 2016-12-23 07:44 | DIAGNOSTIC IMAGING REPORT ---
CHEST ONE VIEW PORTABLE CLINICAL HISTORY: Shortness of breath COMPARISON STUDY: 12/22/2016 FINDINGS: There are postsurgical changes of a midline sternotomy. The cardiac images so contours remain stable. Small pleural effusions are again suspected. There are bilateral interstitial pulmonary opacities left greater than right with slight improvement of the aeration of the left lung base.[ IMPRESSION: Persistent bilateral pulmonary airspace opacities left greater than right with slight interval improvement in the aeration of the left lung base. Electronically signed by: Shadi Wetzel M.D. 12/23/2016 7:43 AM Dictated Date/Time: 12/23/2016 7:41 AM
[2016-12-23] MEDS: METOPROLOL TARTRATE 25 MG TAB PEG SCH ×2 (07:56→21:19)
[2016-12-23] MEDS: NITROGLYCERIN 0.4 MG/HR PATCH TD SCH (07:56)
[2016-12-23] MEDS: LACTOBACILLUS ACIDOPHILUS (FLORANEX) TAB PO SCH ×3 (07:56→16:34)
[2016-12-23] MEDS: FUROSEMIDE ORAL SOLN 40 MG/5 ML UDP PEG SCH (07:57)
[2016-12-23] MEDS: NYSTATIN SUSP 500,000 U/5 ML UDC MT SCH ×4 (07:57→21:18)
[2016-12-23] MEDS: FERROUS SULFATE 325 MG/7.4 ML UDP PEG SCH (07:57)
[2016-12-23] MEDS: NYSTATIN POWDER 15GM BTL EXT SCH ×2 (07:57→21:18)
[2016-12-23] MEDS: ASPIRIN 81 MG CHEW PEG SCH (07:58)
--- NOTE | 2016-12-23 09:33 | Clinical Documentation Query ---
CLINICAL DOCUMENTATION QUERY 76-y/o male who presents with aspiration pneumonia. On 12/22 he was treated with IV Lasix. CXR prior to the medication showed persistent extensive left mid and basilar opacities with decreased aeration of the left lung base and interval development of bilateral small pleural effusions. The following day after IV Lasix therapy showed persistent bilateral pulmonary airspace opacities left greater than right with slight interval improvement in the aeration of the left lung base. In your clinical opinion is this patient being managed for: ( ) Acute on chronic diastolic CHF treated with IV Lasix ( ) Acute systolic CHF treated with IV Lasix ( ) Acute systolic and diastolic CHF treated with IV Lasix ( ) Not Agree ( ) Other explanation of clinical findings (Please Explain) ( ) Unable to determine (Please Define) ( ) Need to Discuss The medical record reflects the following clinical findings, treatment, and risk factors. Clinical Indicators: As above. Echo showed EF of 40-45%, LV hypertrophy, LV global hypokinesis, moderately calcified aortic leaflet w/o stensos, and mild to moderate MR. Treatment: IV Lasix, telemetry, I/O's, daily weights, cardiology consult. Risk Factors: Age, CAD, ischemic cardiomyopathy, chronic diastolic chf, and acute illness. Please clarify and document your clinical opinion in the progress notes and discharge summary. Terms such as "probable", "suspected", "likely", "questionable", "possible", or "still to be ruled out" are acceptable. IF IN AGREEMENT, YOU MUST DOCUMENT ABOVE DIAGNOSTIC STATEMENT IN DAILY PROGRESS NOTES AND DISCHARGE SUMMARY. This document is not part of the patient's record. Thank You, Castillo Rojas, PABLO [phone]
--- NOTE | 2016-12-23 12:07 | CARDIOLOGY PROGRESS NOTE ---
DATE: 12/23/2016 DATE: 12/23/2016 The patient seen and examined. Chart, medications, telemetry reviewed. SUBJECTIVE: The patient looks brighter this morning. Notes no chest pain, feels breathing is easier though was wearing an oxygen mask. Continues to have rhonchorous cough. OBJECTIVE: VITAL SIGNS: Heart rate is 64, blood pressure is 114/67. NECK: Thin. There is no jugular venous distention. LUNGS: Notable for coarse upper airway sounds anteriorly. CARDIOVASCULAR EXAMINATION: Regular. There is no S3 gallop. ABDOMEN: Soft, nontender. EXTREMITIES: Without cyanosis or clubbing. There is no peripheral edema. LABORATORY STUDIES: Sodium is 133, potassium is 3.9, chloride is 95, bicarb is 32, BUN is 22, creatinine 0.89. INR is 1.8, hemoglobin is 11.7. IMPRESSION: A 76-year-old male admitted with chest discomfort, shortness of breath. Symptoms appear to be multifactorial in nature. Topical nitrates have been added for presumed angina. I am concerned regarding ongoing issues with probable aspiration. Will plan on increasing furosemide to 60 mg orally and per NG tube per day to aide in volume management though current exam and history does not suggest significant volume overload.
[2016-12-23] MEDS: DIGOXIN 0.125 MG TAB PEG SCH (16:13)
--- NOTE | 2016-12-23 16:23 | Progress Note ---
Medicine Progress Note Date & Time of Visit: Dec 23, 2016 at 16:06. Subjective Pt was seen and examined Lying in bed with no distress His breathing slightly improved Denies any chest pain, palpitation, dizziness Objective Last 8 Hrs Date Time Temp Pulse Resp B/P (MAP) Pulse Ox O2 Delivery O2 Flow Rate FiO2 12/23/16 15:12 36.3 63 18 93/54 (67) 92 Nasal Cannula 4.0 12/23/16 12:00 Oxymask 3.0 12/23/16 11:17 36.3 66 18 98/56 (70) 97 4.0 Physical Exam: General- No acute distress Head- atraumatic Eyes- PERRL, EOMI ENT- oropharynx clear Neck- supple, no JVD Lungs- + coarse bs Heart- regular rhythm Abdomen- normal bowel sounds,+peg tube Extremities- no calf tenderness Neuro- alert, oriented x 3; PERRL, EOMI Skin- warm & dry Laboratory Results: Last 24 Hours Test 12/22/16 18:41 12/23/16 00:04 12/23/16 05:57 12/23/16 06:49 Bedside Glucose 92 mg/dl 95 mg/dl 72 mg/dl White Blood Count 7.64 K/uL Red Blood Count 3.86 M/uL Hemoglobin 11.7 g/dL Hematocrit 35.7 % Mean Corpuscular Volume 92.5 fL Mean Corpuscular Hemoglobin 30.3 pg Mean Corpuscular Hemoglobin Concent 32.8 g/dl RDW Standard Deviation 56.7 fL RDW Coefficient of Variation 16.9 % Platelet Count 295 K/uL Mean Platelet Volume 10.6 fL Prothrombin Time 20.2 SECONDS Prothromb Time International Ratio 1.8 Sodium Level 133 mmol/L Potassium Level 3.9 mmol/L Chloride Level 95 mmol/L Carbon Dioxide Level 32 mmol/L Anion Gap 6.0 mmol/L Blood Urea Nitrogen 22 mg/dl Creatinine 0.89 mg/dl Est Creatinine Clear Calc Drug Dose 53.7 ml/min Estimated GFR () 95.6 Estimated GFR (Non- 82.5 BUN/Creatinine Ratio 24.8 Random Glucose 78 mg/dl Calcium Level 9.4 mg/dl Test 12/23/16 11:17 Bedside Glucose 90 mg/dl Assessment & Plan CHEST PAIN, - R/O ACS - hx of CAD with STEMI 11/2015 with subsequent CABG x 4 - Troponinx3 sets negative - EKG showed no ischemic changes - CTA chest negative for PE - Continue asa, statin and BB - No arrhythmia on tele - Cardiology on board - Asymptomatic - Echo done showed * The left ventricle is normal in size. * There is mild concentric left ventricular hypertrophy. * There is moderate to severe hypokinesis of the inferior/posterior dumas, associated wall thinning at the base * There is borderline global hypokinesis of the left ventricle. * Ejection Fraction = 40-45%. * The aortic valve leaflets are moderately calcified. * No hemodynamically significant valvular aortic stenosis. * There is mild to moderate mitral regurgitation. * In comparison to prior study, overall LV function is less dynamic without new wall motion changes ASPIRATION PNEUMONIA - recently admitted to [facility] for sepsis due to pneumonia - CXR is improved and patient is afebrile, however cough persists and WBC 16K - WBC trending down - Zosyn was d/c because pt has penicillin allergies - Was starting on clinda, will add azactam - Continue nebulizer treatment - Continue suction 12/22 - In respiratory distress - Mostly aspirated from tube feeding - CXR showed Persistent extensive left mid and basilar opacities with decreased aeration of the left lung base. - hold tube feeding for now - Continue suctioning - Chest PT - Lasix 40mg x1 given - Continue oxygen supplement - Continue monitor 12/23 Respiratory improved Repeat cxr today showed Persistent bilateral pulmonary airspace opacities left greater than right with slight interval improvement in the aeration of the left lung base. Discussed case with human resources psychologist about tube feeding continue chest PT and suctioning and oxygen supplement Continue current abx RIGHT RENAL LESION - noted on CTA chest - Renal US showed Mildly increased echogenicity of the kidneys, which could suggest medical renal disease. CHRONIC HYPOXIA - patient has been requiring 3L 02 since recent admission - CXR showed Persistent extensive left mid and basilar opacities with decreased aeration of the left lung base. - Continue suctioning/ chest PT - Clinically improved slightly HX CVA - PEG tube in place - On asa, statin and coumadin PAROXYSMAL A. FIB - currently in NSR - rate control - Continue dig and metoprolol - on Coumadin, INR 1.8 DIASTOLIC DYSFUNCTION - lasix increased to 60mg -Will monitor for fluid overload NUTRITION Has been on continue peg tube feeding will hold tube feeding for now talked to human resources psychologist to consider to hold the tube feeding for a few hours daily to prevent risk of fluid overload will resume tube feeding DVT PROPHYLAXIS continue coumadin INR is 1.8 today CODE STATUS DNR DISPOSITION Discharge to rehab once medically stable Consultants: Cardiology Current Inpatient Medications: Current Inpatient Medications Medications (Trade) Dose Ordered Sig/Kelle Route Start Time Stop Time Status Last Admin Dose Admin Ioversol (Optiray 320) 100 ml UD PRN IV 12/20/16 18:00 12/24/16 17:59 Acetaminophen (Tylenol Tab) 650 mg Q4H PRN PO 12/20/16 18:45 01/19/17 18:44 12/22/16 21:45 650 MG Ondansetron HCl (Zofran Inj) 4 mg Q6H PRN IV 12/20/16 18:45 01/19/17 18:44 Nitroglycerin (Nitrostat Tab) 0.4 mg UD PRN SL 12/20/16 18:45 01/19/17 18:44 Miscellaneous (Iv Fluids Completed) 1 ea PRN PRN N/A 12/20/16 19:00 12/20/17 18:59 Amiodarone HCl (Cordarone Tab) 200 mg HS PEG 12/20/16 21:00 01/19/17 20:59 12/22/16 21:46 200 MG Atorvastatin Calcium (Lipitor Tab) 80 mg HS PEG 12/20/16 21:00 01/19/17 20:59 12/22/16 21:47 80 MG Digoxin (Lanoxin Tab) 0.125 mg MoWeFr@1600 PEG 12/21/16 16:00 01/20/17 15:59 12/21/16 16:18 0.125 MG Albuterol/ Ipratropium (Duoneb) 1 ml Q4R PRN INH 12/20/16 19:30 01/19/17 19:29 Metoprolol Tartrate (Lopressor Tab) 12.5 mg BID PEG 12/20/16 21:00 01/19/17 20:59 12/23/16 07:56 12.5 MG Senna (Senokot Syrup) 8.8 mg DAILY PRN PO 12/20/16 21:00 01/19/17 20:59 12/22/16 21:45 8.8 MG Ferrous Sulfate (Feosol Elix) 325 mg DAILY PEG 12/21/16 09:00 01/20/17 08:59 12/23/16 07:57 325 MG Nystatin (Mycostatin Powder) 1 appln BID EXT 12/20/16 21:00 01/19/17 20:59 12/23/16 07:57 1 APPLN Guaifenesin (Robitussin Sugar Free Syrup) 200 mg Q6 PEG 12/21/16 00:00 01/20/17 00:00 12/23/16 11:49 200 MG Clindamycin Phosphate 600 mg/ Dextrose 54 ml @ 100 mls/hr Q8H IV 12/21/16 06:00 12/27/16 21:59 12/23/16 12:53 100 MLS/HR Lactobacillus Acidophilus (Floranex Tab) 4 tab TIDM PO 12/21/16 08:00 01/20/17 07:59 12/23/16 11:49 4 TAB Clindamycin Phosphate (Consult) 1 ea UD PRN N/A 12/20/16 22:45 01/19/17 22:44 Aspirin (Aspirin Chew) 81 mg QAM PEG 12/21/16 09:00 01/20/17 08:59 12/23/16 07:58 81 MG Nitroglycerin (Nitro-Dur 0.4 Mg/Hr Patch) 1 patch QAM TD 12/22/16 09:00 01/21/17 08:59 12/23/16 07:56 1 PATCH Miscellaneous (Remove Nitro-Dur Patch) 1 ea DAILY@21 N/A 12/21/16 21:00 01/20/17 20:59 12/21/16 22:29 1 EA Enteral Nutritional Formula (Impact 1.0 Duncan) 1,000 ml UD PRN PEG 12/21/16 13:00 01/20/17 12:59 Future Hold 12/21/16 23:15 1,000 ML Aztreonam (Consult) 1 ea UD PRN N/A 12/21/16 14:45 01/20/17 14:44 Aztreonam 2000 mg/ Dextrose 110 ml @ 110 mls/hr Q8H IV 12/21/16 14:00 12/28/16 13:59 12/23/16 12:53 110 MLS/HR Nystatin (Mycostatin Susp) 5 ml QID MT 12/22/16 21:00 01/01/17 20:59 12/23/16 11:49 5 ML Furosemide (Lasix Oral Soln) 60 mg QAM PEG 12/24/16 09:00 01/23/17 08:59
[2016-12-23] MEDS: ATORVASTATIN 40 MG TAB PEG SCH (21:18)
[2016-12-23] MEDS: AMIODARONE 200 MG TAB PEG SCH (21:18)
[2016-12-24] VITALS (9 sets, daily range): BP systolic 118–120; BP diastolic 62–69; PULSE 62–74; TEMP 36.3–36.8; O2SAT 87–100
[2016-12-24] MEDS: GUAIFENESIN SUGAR FREE 200 MG/10 ML UDC PEG SCH ×4 (05:37→23:53)
[2016-12-24] MEDS: CLINDAMYCIN IV 600 MG in DEXTROSE 5% 50ML 50 ML IV SCH ×3 (05:37→21:52)
[2016-12-24] MEDS: AZTREONAM 2000 MG in DEXTROSE 5% 100 ML IV SCH ×3 (05:37→21:52)
[2016-12-24 08:06] LABS: INR 2.1 (0.9-1.1); PROTHROMBIN TIME (PATIENT) 23.2 SECONDS (9.0-12.0)
[2016-12-24 08:18] LABS: BUN/CREATININE RATIO 25.5 (10-20); CALCIUM 9.6 mg/dl (8.5-10.1); CREATININE 0.89 mg/dl (0.60-1.40); POTASSIUM 3.8 mmol/L (3.5-5.1)
[2016-12-24] MEDS: NYSTATIN SUSP 500,000 U/5 ML UDC MT SCH ×4 (08:33→20:55)
[2016-12-24] MEDS: LACTOBACILLUS ACIDOPHILUS (FLORANEX) TAB PO SCH ×3 (08:33→17:34)
[2016-12-24] MEDS: METOPROLOL TARTRATE 25 MG TAB PEG SCH ×2 (08:34→20:56)
[2016-12-24] MEDS: NYSTATIN POWDER 15GM BTL EXT SCH ×2 (08:34→20:55)
[2016-12-24] MEDS: FERROUS SULFATE 325 MG/7.4 ML UDP PEG SCH (08:34)
[2016-12-24] MEDS: NITROGLYCERIN 0.4 MG/HR PATCH TD SCH (08:35)
[2016-12-24] MEDS: FUROSEMIDE 10 MG/ML 60ML BOTTLE PEG SCH (08:35)
[2016-12-24] MEDS: ASPIRIN 81 MG CHEW PEG SCH (08:38)
[2016-12-24] MEDS: ACETAMINOPHEN 325 MG TAB PO PRN (08:40)
--- NOTE | 2016-12-24 11:46 | CARDIOLOGY PROGRESS NOTE ---
DATE: 12/24/2016 DATE: 12/24/2016 The patient seen and examined. Chart, medications, telemetry reviewed. SUBJECTIVE: The patient denies any chest pain by not of head. Notes breathing has improved though continues to have rhonchorous cough. OBJECTIVE: VITAL SIGNS: Heart rate is 65, blood pressure is 118/64, O2 saturations 100% on 3 liters nasal cannula. NECK: Thin though with patient examined upright there is no jugular venous distention. LUNGS: Reveal coarse anteriorly rhonchus sounds anterior lung cueto. CARDIOVASCULAR: Regular. There is no S3 gallop. ABDOMEN: Soft. EXTREMITIES: Free of edema. LABORATORY STUDIES: Sodium is 130, potassium is 3.8, chloride is 93, bicarb is 30, BUN is 23, creatinine 0.89. IMPRESSION: A 76-year-old male admitted with issues as follows: 1. Chest discomfort with exertion in the setting of a history of known coronary disease. Topical nitrates added, no signs of acute coronary syndrome. 2. Acute respiratory distress in the setting of probable recurrent aspiration pneumonitis, currently being treated. PLAN: We will hold a.m. furosemide until laboratory studies reassessed given declining sodium levels. Tube feeds and pulmonary issues to be addressed through primary service.
--- NOTE | 2016-12-24 18:06 | Progress Note ---
Internal Med Progress Note Date of Service: Dec 24, 2016. Provider Documentation: SUBJECTIVE: has ongoing cough denies of any chest pain or chest discomfort OBJECTIVE: Vital Signs-as noted below Exam: General- No acute distress Head- atraumatic Eyes- PERRL, EOMI ENT- oropharynx clear Neck- supple, no JVD Lungs- + coarse bs Heart- regular rhythm Abdomen- normal bowel sounds,+peg tube Extremities- no calf tenderness Neuro- alert, oriented x 3; PERRL, EOMI Skin- warm & dry Lab data as noted below. ASSESSMENT & PLAN: CHEST PAIN, - hx of CAD with STEMI 11/2015 with subsequent CABG x 4 - Troponinx3 sets negative - EKG showed no ischemic changes - CTA chest negative for PE - Continue asa, statin and BB - No arrhythmia on tele - Cardiology consulted, appreciate input - Echo done showed * The left ventricle is normal in size. * There is mild concentric left ventricular hypertrophy. * There is moderate to severe hypokinesis of the inferior/posterior dumas, associated wall thinning at the base * There is borderline global hypokinesis of the left ventricle. * Ejection Fraction = 40-45%. * The aortic valve leaflets are moderately calcified. * No hemodynamically significant valvular aortic stenosis. * There is mild to moderate mitral regurgitation. * In comparison to prior study, overall LV function is less dynamic without new wall motion changes ASPIRATION PNEUMONIA - recently admitted to [facility] for sepsis due to pneumonia - CXR is improved and patient is afebrile, however cough persists and WBC 16K - WBC trending down - Zosyn was d/c because pt has penicillin allergies - Was starting on clinda, will add azactam - Continue nebulizer treatment - Continue suction RIGHT RENAL LESION - noted on CTA chest - Renal US showed Mildly increased echogenicity of the kidneys, which could suggest medical renal disease. CHRONIC HYPOXIA - patient has been requiring 3L 02 since recent admission - CXR showed Persistent extensive left mid and basilar opacities with decreased aeration of the left lung base. - Continue suctioning/ chest PT - Clinically improved slightly HX CVA - PEG tube in place - On asa, statin and Coumadin PAROXYSMAL A. FIB - currently in NSR - rate control - Continue dig and metoprolol - on Coumadin, INR 1.8 CHF WITH DIASTOLIC DYSFUNCTION - Lasix increased to 60mg -Will monitor for fluid overload NUTRITION Has been on continue peg tube feeding will hold tube feeding for now talked to battery container tester aluminum to consider to hold the tube feeding for a few hours daily to prevent risk of fluid overload DVT PROPHYLAXIS continue Coumadin CODE STATUS DNR DISPOSITION Discharge to rehab once medically stable Consultants: Cardiology Vital Signs: Date Time Temp Pulse Resp B/P (MAP) Pulse Ox O2 Delivery O2 Flow Rate FiO2 12/25/16 14:51 36.4 71 18 95/59 (71) 90 Nasal Cannula 3.0 12/25/16 11:49 90 Nasal Cannula 3.0 12/25/16 11:11 36.7 67 16 110/62 (78) 90 Nasal Cannula 3.0 12/25/16 07:20 36.4 71 16 126/66 (86) 95 Nasal Cannula 3.0 12/25/16 07:15 95 Nasal Cannula 3.0 12/25/16 04:00 36.4 66 20 112/58 (76) 93 Nasal Cannula 3.0 12/25/16 04:00 Nasal Cannula 3.0 12/25/16 00:00 Nasal Cannula 3.0 12/24/16 23:19 36.6 62 20 120/69 (86) 93 Nasal Cannula 3.0 12/24/16 20:00 Nasal Cannula 3.0 12/24/16 19:56 36.8 74 20 118/66 (83) 93 Nasal Cannula 3.0 Lab Results: Results Past 24 Hours Test 12/25/16 06:40 12/25/16 07:18 12/25/16 11:19 12/25/16 16:25 Range/Units Creatinine 0.85 0.60-1.40 mg/dl Est Creatinine Clear Calc Drug Dose 56.2 ml/min Estimated GFR () 97.4 Estimated GFR (Non- 84.0 Bedside Glucose 97 91 92 70-99 mg/dl
[2016-12-24] MEDS: AMIODARONE 200 MG TAB PEG SCH (20:56)
[2016-12-24] MEDS: ATORVASTATIN 40 MG TAB PEG SCH (20:57)
[2016-12-25] VITALS (8 sets, daily range): BP systolic 95–126; BP diastolic 58–71; PULSE 66–76; TEMP 36.4–36.7; O2SAT 90–95
[2016-12-25] MEDS: GUAIFENESIN SUGAR FREE 200 MG/10 ML UDC PEG SCH ×3 (06:04→17:34)
[2016-12-25] MEDS: AZTREONAM 2000 MG in DEXTROSE 5% 100 ML IV SCH ×3 (06:04→21:34)
[2016-12-25] MEDS: CLINDAMYCIN IV 600 MG in DEXTROSE 5% 50ML 50 ML IV SCH ×3 (06:04→21:34)
[2016-12-25 07:15] LABS: CREATININE 0.85 mg/dl (0.60-1.40)
[2016-12-25] MEDS: METOPROLOL TARTRATE 25 MG TAB PEG SCH ×2 (08:07→21:26)
[2016-12-25] MEDS: NITROGLYCERIN 0.4 MG/HR PATCH TD SCH (08:07)
[2016-12-25] MEDS: NYSTATIN POWDER 15GM BTL EXT SCH ×2 (08:07→21:23)
[2016-12-25] MEDS: FERROUS SULFATE 325 MG/7.4 ML UDP PEG SCH (08:08)
[2016-12-25] MEDS: FUROSEMIDE 10 MG/ML 60ML BOTTLE PEG SCH (08:08)
[2016-12-25] MEDS: LACTOBACILLUS ACIDOPHILUS (FLORANEX) TAB PO SCH ×3 (08:11→17:33)
[2016-12-25] MEDS: NYSTATIN SUSP 500,000 U/5 ML UDC MT SCH ×4 (08:11→21:23)
[2016-12-25] MEDS: ASPIRIN 81 MG CHEW PEG SCH (08:11)
--- NOTE | 2016-12-25 14:39 | PROGRESS NOTE ---
DATE: 12/25/2016 The patient seen and examined. SUBJECTIVE: The patient looks brighter today and denies any specific complaint. He is accompanied by his today, still has a rhonchorous cough with forced cough. OBJECTIVE: VITAL SIGNS: Heart rate 67, blood pressure is 110/62. NECK: Thin. There is no jugular venous distention. LUNGS: Reveal coarse anterior rhonchorous sounds with forced cough. CARDIOVASCULAR: Regular. There is no S3 gallop. ABDOMEN: Soft, nontender. EXTREMITIES: Without edema. IMPRESSION: A 76-year-old male admitted with probable aspiration pneumonitis and chest discomfort, no ongoing signs or symptoms of ischemia by exam, history or data. We will continue topical nitrates with nitro patch. Furosemide was increased. We would recommend repeating a BMP in a.m. to assess the renal function as well as electrolytes. Note sodium was trending slightly lower on last testing.
--- NOTE | 2016-12-25 18:07 | Progress Note ---
Internal Med Progress Note Date of Service: Dec 25, 2016. Provider Documentation: SUBJECTIVE: continues to have productive cough with thick mucoid sputum using suction constantly OBJECTIVE: Vital Signs-as noted below Exam: General- No acute distress Head- atraumatic Eyes- PERRL, EOMI ENT- oropharynx clear Neck- supple, no JVD Lungs- + coarse bs Heart- regular rhythm Abdomen- normal bowel sounds,+peg tube Extremities- no calf tenderness Neuro- alert, oriented x 3; PERRL, EOMI Skin- warm & dry Lab data as noted below. ASSESSMENT & PLAN: CHEST PAIN, - hx of CAD with STEMI 11/2015 with subsequent CABG x 4 - Troponinx3 sets negative - EKG showed no ischemic changes - CTA chest negative for PE - Continue asa, statin and BB - No arrhythmia on tele - Cardiology consulted, appreciate input - Echo done showed * The left ventricle is normal in size. * There is mild concentric left ventricular hypertrophy. * There is moderate to severe hypokinesis of the inferior/posterior dumas, associated wall thinning at the base * There is borderline global hypokinesis of the left ventricle. * Ejection Fraction = 40-45%. * The aortic valve leaflets are moderately calcified. * No hemodynamically significant valvular aortic stenosis. * There is mild to moderate mitral regurgitation. * In comparison to prior study, overall LV function is less dynamic without new wall motion changes ASPIRATION PNEUMONIA - recently admitted to [facility] for sepsis due to pneumonia - CXR is improved and patient is afebrile, however cough persists and WBC 16K - WBC trending down - Zosyn was d/c because pt has penicillin allergies - cont on Clindamycin and Azactam - Continue nebulizer treatment - Continue suction RIGHT RENAL LESION - noted on CTA chest - Renal US showed Mildly increased echogenicity of the kidneys, which could suggest medical renal disease. CHRONIC HYPOXIA - patient has been requiring 3L 02 since recent admission - CXR showed Persistent extensive left mid and basilar opacities with decreased aeration of the left lung base. - Continue suctioning/ chest PT - Clinically improved slightly HX CVA - PEG tube in place - On asa, statin and Coumadin PAROXYSMAL A. FIB - currently in NSR - rate control - Continue dig and metoprolol - on Coumadin, INR 1.8 CHF WITH DIASTOLIC DYSFUNCTION - Lasix increased to 60mg -Will monitor for fluid overload NUTRITION Has been on continue peg tube feeding cont to hold tube feeding for now for concern for aspiration DVT PROPHYLAXIS continue Coumadin CODE STATUS DNR DISPOSITION Discharge to rehab once medically stable Consultants: Cardiology Vital Signs: Date Time Temp Pulse Resp B/P (MAP) Pulse Ox O2 Delivery O2 Flow Rate FiO2 12/25/16 21:06 36.6 76 18 121/71 (88) 92 Nasal Cannula 3.0 12/25/16 16:00 Nasal Cannula 3.0 12/25/16 14:51 36.4 71 18 95/59 (71) 90 Nasal Cannula 3.0 12/25/16 11:49 90 Nasal Cannula 3.0 12/25/16 11:11 36.7 67 16 110/62 (78) 90 Nasal Cannula 3.0 12/25/16 07:20 36.4 71 16 126/66 (86) 95 Nasal Cannula 3.0 12/25/16 07:15 95 Nasal Cannula 3.0 12/25/16 04:00 36.4 66 20 112/58 (76) 93 Nasal Cannula 3.0 12/25/16 04:00 Nasal Cannula 3.0 12/25/16 00:00 Nasal Cannula 3.0 12/24/16 23:19 36.6 62 20 120/69 (86) 93 Nasal Cannula 3.0 Lab Results: Results Past 24 Hours Test 12/25/16 06:40 12/25/16 07:18 12/25/16 11:19 12/25/16 16:25 Range/Units Creatinine 0.85 0.60-1.40 mg/dl Est Creatinine Clear Calc Drug Dose 56.2 ml/min Estimated GFR () 97.4 Estimated GFR (Non- 84.0 Bedside Glucose 97 91 92 70-99 mg/dl
[2016-12-25] MEDS: ATORVASTATIN 40 MG TAB PEG SCH (21:25)
[2016-12-25] MEDS: AMIODARONE 200 MG TAB PEG SCH (21:25)
[2016-12-26] VITALS (8 sets, daily range): BP systolic 91–130; BP diastolic 49–70; PULSE 62–77; TEMP 36.4–36.9; O2SAT 91–97
[2016-12-26] MEDS: GUAIFENESIN SUGAR FREE 200 MG/10 ML UDC PEG SCH ×4 (00:04→17:33)
[2016-12-26] MEDS: CLINDAMYCIN IV 600 MG in DEXTROSE 5% 50ML 50 ML IV SCH ×2 (05:11→13:25)
[2016-12-26] MEDS: AZTREONAM 2000 MG in DEXTROSE 5% 100 ML IV SCH ×3 (06:00→22:55)
[2016-12-26 06:35] LABS: BUN/CREATININE RATIO 26.8 (10-20); CALCIUM 8.9 mg/dl (8.5-10.1); CREATININE 0.84 mg/dl (0.60-1.40); POTASSIUM 3.5 mmol/L (3.5-5.1)
[2016-12-26] MEDS: LACTOBACILLUS ACIDOPHILUS (FLORANEX) TAB PO SCH ×3 (08:15→16:41)
[2016-12-26] MEDS: NYSTATIN POWDER 15GM BTL EXT SCH ×2 (08:16→20:53)
[2016-12-26] MEDS: FUROSEMIDE 10 MG/ML 60ML BOTTLE PEG SCH (08:16)
[2016-12-26] MEDS: NYSTATIN SUSP 500,000 U/5 ML UDC MT SCH ×4 (08:16→20:53)
[2016-12-26] MEDS: METOPROLOL TARTRATE 25 MG TAB PEG SCH ×2 (08:17→20:57)
[2016-12-26] MEDS: ASPIRIN 81 MG CHEW PEG SCH (08:21)
[2016-12-26] MEDS: NITROGLYCERIN 0.4 MG/HR PATCH TD SCH (08:22)
[2016-12-26] MEDS: FERROUS SULFATE 325 MG/7.4 ML UDP PEG SCH (08:22)
[2016-12-26] MEDS: IMPACT LIQ 1000 ML BAG PEG PRN (11:19)
[2016-12-26] MEDS: DIGOXIN 0.125 MG TAB PEG SCH (16:41)
--- NOTE | 2016-12-26 19:59 | Progress Note ---
Internal Med Progress Note Date of Service: Dec 26, 2016. Provider Documentation: SUBJECTIVE: continues to have productive cough with thick mucoid sputum using suction constantly OBJECTIVE: Vital Signs-as noted below Exam: General- No acute distress Head- atraumatic Eyes- PERRL, EOMI ENT- oropharynx clear Neck- supple, no JVD Lungs- + coarse bs Heart- regular rhythm Abdomen- normal bowel sounds,+peg tube Extremities- no calf tenderness Neuro- alert, oriented x 3; PERRL, EOMI Skin- warm & dry Lab data as noted below. ASSESSMENT & PLAN: ASPIRATION PNEUMONIA - recently admitted to [facility] for sepsis due to pneumonia - Clinically improved was treated with IV Clindamycin /Zosyn for 7 days will change to Levaquin via PEG for 3 more days Tube feeding restarted cont to follow aspiration precaution CAD - hx of CAD with STEMI 11/2015 with subsequent CABG x 4 - Troponinx3 sets negative - EKG showed no ischemic changes - CTA chest negative for PE - Continue asa, statin and BB - No arrhythmia on tele - Cardiology consulted, appreciate input - Echo done showed * The left ventricle is normal in size. * There is mild concentric left ventricular hypertrophy. * There is moderate to severe hypokinesis of the inferior/posterior dumas, associated wall thinning at the base * There is borderline global hypokinesis of the left ventricle. * Ejection Fraction = 40-45%. * The aortic valve leaflets are moderately calcified. * No hemodynamically significant valvular aortic stenosis. * There is mild to moderate mitral regurgitation. * In comparison to prior study, overall LV function is less dynamic without new wall motion changes RIGHT RENAL LESION - noted on CTA chest - Renal US showed Mildly increased echogenicity of the kidneys, which could suggest medical renal disease. CHRONIC HYPOXIA - patient has been requiring 3L 02 since recent admission - CXR showed Persistent extensive left mid and basilar opacities with decreased aeration of the left lung base. - Continue suctioning/ chest PT - clinically improved HX CVA non verbal with severe dysphagia - PEG tube in place - On asa, statin and Coumadin PAROXYSMAL A. FIB - currently in NSR - rate control - Continue dig and metoprolol - on Coumadin, INR therapeutic CHF WITH DIASTOLIC DYSFUNCTION - Lasix increased to 60mg -Will monitor for fluid overload NUTRITION Tube feeding resumed Impact via PEG tube rate increased to goal of 55 mL/hr. DVT PROPHYLAXIS continue Coumadin CODE STATUS DNR DISPOSITION Plan to discharge to [facility] tomorrow given update over phone Vital Signs: Date Time Temp Pulse Resp B/P (MAP) Pulse Ox O2 Delivery O2 Flow Rate FiO2 12/26/16 19:06 36.9 63 18 130/70 (90) 93 Nasal Cannula 3.0 12/26/16 16:41 64 12/26/16 16:38 64 92 Nasal Cannula 3.0 12/26/16 16:00 92 Nasal Cannula 3.0 12/26/16 14:51 36.7 66 18 91/49 (63) 91 Nasal Cannula 3.0 12/26/16 12:00 Nasal Cannula 4.0 12/26/16 11:31 36.7 67 18 108/57 (74) 94 Nasal Cannula 2.0 12/26/16 07:25 Nasal Cannula 4.0 12/26/16 06:56 36.7 73 18 128/70 (89) 95 4.0 12/26/16 04:00 Nasal Cannula 3.0 12/26/16 03:44 36.8 77 20 125/66 (85) 94 4.0 12/26/16 00:00 Nasal Cannula 3.0 12/25/16 23:38 36.6 74 18 125/67 (86) 92 4.0 12/25/16 21:06 36.6 76 18 121/71 (88) 92 Nasal Cannula 3.0 Lab Results: Results Past 24 Hours Test 12/25/16 23:56 12/26/16 05:49 12/26/16 06:05 12/26/16 11:15 Range/Units Bedside Glucose 93 92 89 70-99 mg/dl Sodium Level 132 136-145 mmol/L Potassium Level 3.5 3.5-5.1 mmol/L Chloride Level 95 98-107 mmol/L Carbon Dioxide Level 28 21-32 mmol/L Anion Gap 9.0 3-11 mmol/L Blood Urea Nitrogen 23 7-18 mg/dl Creatinine 0.84 0.60-1.40 mg/dl Est Creatinine Clear Calc Drug Dose 56.9 ml/min Estimated GFR () 97.9 Estimated GFR (Non- 84.5 BUN/Creatinine Ratio 26.8 10-20 Random Glucose 83 70-99 mg/dl Calcium Level 8.9 8.5-10.1 mg/dl Test 12/26/16 18:22 Range/Units Bedside Glucose 138 70-99 mg/dl
[2016-12-26] MEDS ORDERED: ASPCH81 PEG (20:03)
[2016-12-26] MEDS ORDERED: NYSS5 MT (20:03)
[2016-12-26] MEDS ORDERED: LSXS PEG (20:03)
[2016-12-26] MEDS ORDERED: LCTX PO (20:03)
[2016-12-26] MEDS ORDERED: LEVO-459 PEG (20:05)
--- NOTE | 2016-12-26 20:07 | Discharge Instructions ---
Discharge Instructions Date of Service Dec 26, 2016. Admission Reason for Admission: Chest Pain Discharge Discharge Diagnosis / Problem: ASPIRATION PNEUMONIA /CHF Discharge Goals Goal(s): Decrease discomfort, Improve disease control, Therapeutic intervention Activity Recommendations Activity Level: Assistance Required Therapies: Physical Therapy, Occupational Therapy, Speech Therapy . Additional Information Patient informed of condition: Yes Advance Directives: Yes DNR: Yes Level of Care: Acute Rehab Communicable Disease: No Prognosis: Stable Ji Catheter: No Instructions / Follow-Up Instructions / Follow-Up FOLLOW UP WITH PHYSICIAN AT [facility] ASPIRATION PRECAUTION ; KEEP HOB ELEVATED 30 DEGREES WHILE GETTING TUBE FEEDING REPEAT CXRAY IN 1 WEEK TO ASSES RESOLUTION OF LUNG INFILTRATE AND IMPROVEMENT OF LEFT SIDED PLEURAL EFFUSION Current Hospital Diet Patient's current hospital diet: CONTINUE PEG TUBE FEEDING Discharge Diet Recommended Diet: N/A Pending Studies Studies pending at discharge: no Medical Emergencies . Who to Call and When: Medical Emergencies: If at any time you feel your situation is an emergency, please call 911 immediately. . Non-Emergent Contact Non-Emergency issues call your: Primary Care Provider . . "Provider Documentation" section prepared by Rose Powell. . Core Measure Problem Core Measures: None
[2016-12-26] MEDS: AMIODARONE 200 MG TAB PEG SCH (20:55)
[2016-12-26] MEDS: ATORVASTATIN 40 MG TAB PEG SCH (20:55)
[2016-12-26] MEDS: LEVOFLOXACIN 500 MG TAB PEG SCH (21:09)
[2016-12-27] VITALS: O2SAT 92
[2016-12-27] MEDS: GUAIFENESIN SUGAR FREE 200 MG/10 ML UDC PEG SCH ×5 (00:32→22:03)
[2016-12-27] MEDS: AZTREONAM 2000 MG in DEXTROSE 5% 100 ML IV SCH ×3 (06:03→22:20)
--- NOTE | 2016-12-27 07:25 | DIAGNOSTIC IMAGING REPORT ---
CHEST ONE VIEW PORTABLE HISTORY: 76 years-old Male aspiration pneumonia symptoms are acute in nature. COMPARISON: Chest radiograph 12/23/2016 TECHNIQUE: Portable upright AP view of the chest FINDINGS: Cardiac silhouette is mildly enlarged. There is atherosclerosis of the aorta. Prior median sternotomy. Pulmonary vascular congestion is noted with hazy perihilar opacities. No pneumothorax. There is chronic blunting of the right costophrenic angle. Small left pleural effusion is noted with worsened left midlung and left basilar airspace opacities. Areas of chronic background interstitial coarsening are favored to reflect scarring. Bones are grossly intact. IMPRESSION: 1. Worsened bilateral perihilar and left lung base alveolar opacities suggest pneumonia with small left pleural effusion. 2. Cardiomegaly and pulmonary vascular congestion with possible background mild pulmonary edema. The above report was generated using voice recognition software. It may contain grammatical, syntax or spelling errors. Electronically signed by: Bishop Horvath M.D. 12/27/2016 7:24 AM Dictated Date/Time: 12/27/2016 7:22 AM
[2016-12-27 07:30] VITALS: BP 117/68; PULSE 61; TEMP 36.5; O2SAT 95
[2016-12-27] MEDS: LACTOBACILLUS ACIDOPHILUS (FLORANEX) TAB PO SCH ×3 (08:04→17:34)
[2016-12-27] MEDS: NYSTATIN SUSP 500,000 U/5 ML UDC MT SCH ×4 (09:39→22:03)
[2016-12-27] MEDS: FERROUS SULFATE 325 MG/7.4 ML UDP PEG SCH (09:40)
[2016-12-27] MEDS: ASPIRIN 81 MG CHEW PEG SCH (09:40)
[2016-12-27] MEDS: METOPROLOL TARTRATE 25 MG TAB PEG SCH ×2 (09:43→22:03)
[2016-12-27] MEDS: FUROSEMIDE 10 MG/ML 60ML BOTTLE PEG SCH (09:45)
[2016-12-27 11:18] VITALS: BP 108/65; PULSE 67; O2SAT 95
--- NOTE | 2016-12-27 11:32 | Progress Note ---
Internal Med Progress Note Date of Service: Dec 27, 2016. Provider Documentation: SUBJECTIVE: no cough or respiratory discomfort today tolerating tube feed well no increased secretion noted stable to be transferred to [facility] updated at bedside OBJECTIVE: Vital Signs-as noted below Exam: General- No acute distress, non verbal due to prior stroke, able to answer with nodding head Head- atraumatic Eyes- PERRL, EOMI ENT- oropharynx clear Neck- supple, no JVD Lungs- + coarse bs Heart- regular rhythm Abdomen- normal bowel sounds,+peg tube Extremities- no calf tenderness Neuro- alert, non verbal with expressive aphasia due to prior stroke Skin- warm & dry Lab data as noted below. ASSESSMENT & PLAN: ASPIRATION PNEUMONIA on PEG tube feeding due to severe dysphagia after CVA - recently admitted to [facility] for sepsis due to pneumonia - Clinically improved was treated with IV Clindamycin /Zosyn for 7 days will change to Levaquin via PEG for 3 more days Tube feeding restarted pt has been tolerating well ,no sign aspiration noted, no cough or increased secretion noted cont to follow aspiration precaution CAD - hx of CAD with STEMI 11/2015 with subsequent CABG x 4 - Troponinx3 sets negative - EKG showed no ischemic changes - CTA chest negative for PE - Continue asa, statin and BB - No arrhythmia on tele - Cardiology consulted, appreciate input - Echo done showed * The left ventricle is normal in size. * There is mild concentric left ventricular hypertrophy. * There is moderate to severe hypokinesis of the inferior/posterior dumas, associated wall thinning at the base * There is borderline global hypokinesis of the left ventricle. * Ejection Fraction = 40-45%. * The aortic valve leaflets are moderately calcified. * No hemodynamically significant valvular aortic stenosis. * There is mild to moderate mitral regurgitation. * In comparison to prior study, overall LV function is less dynamic without new wall motion changes RIGHT RENAL LESION - noted on CTA chest - Renal US showed Mildly increased echogenicity of the kidneys, which could suggest medical renal disease. CHRONIC HYPOXIA -due to aspiration respiratory status improved to baseline - CXR showed Persistent extensive left mid and basilar opacities with decreased aeration of the left lung base. - Continue suctioning/ chest PT - clinically improved HX CVA non verbal with severe dysphagia - PEG tube in place - On asa, statin and Coumadin PAROXYSMAL A. FIB - currently in NSR - rate control - Continue dig and metoprolol - on Coumadin, INR therapeutic CHF WITH DIASTOLIC DYSFUNCTION - Lasix increased to 60mg - NUTRITION Tube feeding resumed Impact via PEG tube rate increased to goal of 55 mL/hr. DVT PROPHYLAXIS continue Coumadin CODE STATUS DNR DISPOSITION stable to Transfer to [facility] given update over phone Vital Signs: Date Time Temp Pulse Resp B/P (MAP) Pulse Ox O2 Delivery O2 Flow Rate FiO2 12/27/16 11:18 67 20 108/65 (79) 95 Nasal Cannula 3.0 12/27/16 08:00 Nasal Cannula 3.0 12/27/16 07:30 36.5 61 20 117/68 (84) 95 Nasal Cannula 12/27/16 00:00 92 Nasal Cannula 3.0 12/26/16 23:40 36.4 62 20 113/65 (81) 97 Nasal Cannula 3.0 12/26/16 19:06 36.9 63 18 130/70 (90) 93 Nasal Cannula 3.0 12/26/16 16:41 64 12/26/16 16:38 64 92 Nasal Cannula 3.0 12/26/16 16:00 92 Nasal Cannula 3.0 12/26/16 14:51 36.7 66 18 91/49 (63) 91 Nasal Cannula 3.0 12/26/16 12:00 Nasal Cannula 4.0 12/26/16 11:31 36.7 67 18 108/57 (74) 94 Nasal Cannula 2.0 Lab Results: Results Past 24 Hours Test 12/26/16 18:22 12/27/16 00:16 12/27/16 04:44 12/27/16 07:09 Range/Units Bedside Glucose 138 166 169 70-99 mg/dl
[2016-12-27] MEDS: NYSTATIN POWDER 15GM BTL EXT SCH ×2 (11:36→22:04)
[2016-12-27] MEDS: LEVOFLOXACIN 500 MG TAB PEG SCH (11:37)
--- NOTE | 2016-12-27 11:37 | Progress Note ---
Progress Note Date of Service Dec 27, 2016. Progress Note Reviewed Pt;s Chest Xray -shows worsening /progression of left sided pleural effusion ordered for Lasix 20 mg IV Stat ( pt is getting schedule Lasix 60 mg via peg ) cancel transfer to [facility] today will repeat Cxray tomorrow to assess improvement cont Levaquin Abx will update
[2016-12-27] MEDS ORDERED: FUROSEMIDE INJ 20 MG in SYRINGE 0 ML IV ONE (12:00)
[2016-12-27 14:53] VITALS: BP 120/74; PULSE 74; TEMP 36.6; O2SAT 92
[2016-12-27] MEDS: IMPACT LIQ 1000 ML BAG PEG PRN (16:47)
[2016-12-27] MEDS: ATORVASTATIN 40 MG TAB PEG SCH (22:03)
[2016-12-27] MEDS: AMIODARONE 200 MG TAB PEG SCH (22:03)
[2016-12-27 23:36] VITALS: BP 121/75; PULSE 71; TEMP 36.8; O2SAT 98
[2016-12-28] VITALS (7 sets, daily range): BP systolic 102–118; BP diastolic 54–71; PULSE 58–74; TEMP 36.4; O2SAT 94–98
[2016-12-28] MEDS: GUAIFENESIN SUGAR FREE 200 MG/10 ML UDC PEG SCH ×3 (05:50→18:00)
[2016-12-28] MEDS: AZTREONAM 2000 MG in DEXTROSE 5% 100 ML IV SCH (05:50)
--- NOTE | 2016-12-28 07:46 | DIAGNOSTIC IMAGING REPORT ---
CHEST ONE VIEW PORTABLE HISTORY: left sided pleural effusion COMPARISON: Chest 12/27/2016. FINDINGS: Postoperative changes. The heart is stable in size. No pneumothorax. Slight improvement in the bilateral perihilar airspace opacities and interstitial thickening. Small left pleural effusion has also improved. Trace right pleural effusion persists. IMPRESSION: Improvement in the airspace opacities and small left pleural effusion. Electronically signed by: Leroy Alegre M.D. 12/28/2016 7:44 AM Dictated Date/Time: 12/28/2016 7:43 AM
[2016-12-28] MEDS: LACTOBACILLUS ACIDOPHILUS (FLORANEX) TAB PO SCH ×3 (08:37→15:57)
[2016-12-28] MEDS: NYSTATIN SUSP 500,000 U/5 ML UDC MT SCH ×4 (08:40→20:32)
[2016-12-28] MEDS: NYSTATIN POWDER 15GM BTL EXT SCH ×2 (08:40→20:32)
[2016-12-28] MEDS: FERROUS SULFATE 325 MG/7.4 ML UDP PEG SCH (08:41)
[2016-12-28] MEDS: ASPIRIN 81 MG CHEW PEG SCH (08:41)
[2016-12-28] MEDS: FUROSEMIDE 10 MG/ML 60ML BOTTLE PEG SCH (08:42)
[2016-12-28] MEDS: METOPROLOL TARTRATE 25 MG TAB PEG SCH ×2 (08:42→20:39)
--- NOTE | 2016-12-28 10:31 | Progress Note ---
Progress Note Date of Service Dec 28, 2016. Progress Note ATTENDING NOTE : Cxray today shows : IMPRESSION: Improvement in the airspace opacities and small left pleural effusion. GIVEN IV Lasix yesterday stable to be discharged to [facility] repeat Cxray in 1 week to assess improvement of pleural effusion pt will not need Vibration vest on transfer to [facility] message to
[2016-12-28] MEDS ORDERED: WARFARIN SOD 1 MG TAB PO ONE (11:00)
[2016-12-28] MEDS: LEVOFLOXACIN 500 MG TAB PEG SCH (11:28)
--- NOTE | 2016-12-28 12:01 | Clinical Documentation Query ---
CLINICAL DOCUMENTATION QUERY 76-y/o male who presents with aspiration pneumonia. On 12/22 he was treated with IV Lasix. CXR prior to the medication showed persistent extensive left mid and basilar opacities with decreased aeration of the left lung base and interval development of bilateral small pleural effusions. The following day after IV Lasix therapy showed persistent bilateral pulmonary airspace opacities left greater than right with slight interval improvement in the aeration of the left lung base. Again on 12/27 patient's transfer was cancelled due to worsening left sided pleural effusion. IV Lasix was again ordered. In your clinical opinion is this patient being managed for: ( x ) Acute on chronic diastolic CHF treated with IV Lasix ( ) Acute systolic CHF treated with IV Lasix ( ) Acute systolic and diastolic CHF treated with IV Lasix ( ) Not Agree ( ) Other explanation of clinical findings (Please Explain) ( ) Unable to determine (Please Define) ( ) Need to Discuss The medical record reflects the following clinical findings, treatment, and risk factors. Clinical Indicators: As above. Echo showed EF of 40-45%, LV hypertrophy, LV global hypokinesis, moderately calcified aortic leaflet w/o stenosis, and mild to moderate MR. Treatment: IV Lasix, telemetry, I/O's, daily weights, cardiology consult. Risk Factors: Age, CAD, ischemic cardiomyopathy, chronic diastolic chf, and acute illness. Please clarify and document your clinical opinion in the progress notes and discharge summary. Terms such as "probable", "suspected", "likely", "questionable", "possible", or "still to be ruled out" are acceptable. IF IN AGREEMENT, YOU MUST DOCUMENT ABOVE DIAGNOSTIC STATEMENT IN DAILY PROGRESS NOTES AND DISCHARGE SUMMARY. This document is not part of the patient's record. Thank You, Castillo Rojas, RN [phone]
[2016-12-28] MEDS: DIGOXIN 0.125 MG TAB PEG SCH (15:57)
--- NOTE | 2016-12-28 16:19 | Progress Note ---
Internal Med Progress Note Date of Service: Dec 28, 2016. Provider Documentation: SUBJECTIVE: no sign of distress, minimum cough Cxray shows improved left sided pleural effusion stable to be transferred to [facility] for continued rehab today updated at bedside in agreement OBJECTIVE: Vital Signs-as noted below Exam: General- No acute distress, non verbal due to prior stroke, able to answer with nodding head Head- atraumatic Eyes- PERRL, EOMI ENT- oropharynx clear Neck- supple, no JVD Lungs- + coarse bs Heart- regular rhythm Abdomen- normal bowel sounds,+peg tube Extremities- no calf tenderness Neuro- alert, non verbal with expressive aphasia due to prior stroke Skin- warm & dry Lab data as noted below. ASSESSMENT & PLAN: ACUTE CHF WITH COMBINED SYSTOLIC AND DIASTOLIC DYSFUNCTION : Cxray yesterday shows progression of pulmonary edema /left sided pleural effusion given Lasix 20 mg IV X1 , on Lasix 60 mg via PEG already had adequate diuresis Cxray today shows : IMPRESSION: Improvement in the airspace opacities and small left pleural effusion. ASPIRATION PNEUMONIA on PEG tube feeding due to severe dysphagia after CVA - recently admitted to [facility] for sepsis due to pneumonia - Clinically improved on PO Levaquin complete total 10 days course Tube feeding restarted pt has been tolerating well ,no sign aspiration noted, no cough or increased secretion noted cont to follow aspiration precaution CAD - hx of CAD with STEMI 11/2015 with subsequent CABG x 4 - Troponinx3 sets negative - EKG showed no ischemic changes - CTA chest negative for PE - Continue asa, statin and BB - No arrhythmia on tele - Cardiology consulted, appreciate input - Echo done showed * The left ventricle is normal in size. * There is mild concentric left ventricular hypertrophy. * There is moderate to severe hypokinesis of the inferior/posterior dumas, associated wall thinning at the base * There is borderline global hypokinesis of the left ventricle. * Ejection Fraction = 40-45%. * The aortic valve leaflets are moderately calcified. * No hemodynamically significant valvular aortic stenosis. * There is mild to moderate mitral regurgitation. * In comparison to prior study, overall LV function is less dynamic without new wall motion changes RIGHT RENAL LESION - noted on CTA chest - Renal US showed Mildly increased echogenicity of the kidneys, which could suggest medical renal disease. CHRONIC HYPOXIA -due to aspiration respiratory status improved to baseline - CXR showed Persistent extensive left mid and basilar opacities with decreased aeration of the left lung base. - Continue suctioning/ chest PT - clinically improved HX CVA non verbal with severe dysphagia - PEG tube in place - On asa, statin and Coumadin PAROXYSMAL A. FIB - currently in NSR - rate control - Continue dig and metoprolol - on Coumadin, INR therapeutic CHF WITH DIASTOLIC DYSFUNCTION - Lasix increased to 60mg - NUTRITION Tube feeding resumed Impact via PEG tube rate increased to goal of 55 mL/hr. DVT PROPHYLAXIS continue Coumadin CODE STATUS DNR DISPOSITION stable to Transfer to [facility] today given update Vital Signs: Date Time Temp Pulse Resp B/P (MAP) Pulse Ox O2 Delivery O2 Flow Rate FiO2 12/28/16 15:57 72 12/28/16 15:38 36.4 70 18 94 Nasal Cannula 12/28/16 14:56 36.4 70 18 102/54 (70) 94 Nasal Cannula 3.0 12/28/16 10:00 98 Nasal Cannula 3.0 12/28/16 07:05 36.4 67 18 118/70 (86) 98 Nasal Cannula 3.0 12/28/16 00:00 Nasal Cannula 3.0 12/27/16 23:36 36.8 71 18 121/75 (90) 98 Nasal Cannula 2.0 12/27/16 20:00 Nasal Cannula 3.0 Lab Results: Results Past 24 Hours Test 12/27/16 18:43 12/28/16 11:24 Range/Units Bedside Glucose 126 128 70-99 mg/dl
[2016-12-28] MEDS: ATORVASTATIN 40 MG TAB PEG SCH (20:33)
[2016-12-28] MEDS: AMIODARONE 200 MG TAB PEG SCH (20:34)
[2016-12-29] VITALS: O2SAT 94
[2016-12-29] MEDS: GUAIFENESIN SUGAR FREE 200 MG/10 ML UDC PEG SCH ×3 (00:21→13:30)
[2016-12-29 07:10] VITALS: PULSE 79; O2SAT 95
[2016-12-29 07:27] VITALS: BP 124/69; PULSE 74; TEMP 36.5; O2SAT 99
[2016-12-29] MEDS: LACTOBACILLUS ACIDOPHILUS (FLORANEX) TAB PO SCH ×2 (07:45→13:30)
[2016-12-29 08:00] VITALS: O2SAT 94
[2016-12-29 08:43] VITALS: O2SAT 99
[2016-12-29] MEDS: NYSTATIN POWDER 15GM BTL EXT SCH (10:03)
[2016-12-29] MEDS: NYSTATIN SUSP 500,000 U/5 ML UDC MT SCH ×2 (10:04→13:29)
[2016-12-29] MEDS: ASPIRIN 81 MG CHEW PEG SCH (10:05)
[2016-12-29] MEDS: FERROUS SULFATE 325 MG/7.4 ML UDP PEG SCH (10:06)
[2016-12-29] MEDS: FUROSEMIDE 10 MG/ML 60ML BOTTLE PEG SCH (10:07)
[2016-12-29] MEDS: METOPROLOL TARTRATE 25 MG TAB PEG SCH (10:29)
[2016-12-29 11:19] VITALS: BP 113/77; PULSE 68; TEMP 36.7; O2SAT 93
[2016-12-29] MEDS: LEVOFLOXACIN 500 MG TAB PEG SCH (13:30)
[2016-12-29] MEDS ORDERED: WARFARIN SOD 1 MG TAB PEG SCH (16:00)
--- NOTE | 2016-12-29 18:25 | Discharge Summary ---
Discharge Summary Date of Service Dec 29, 2016. Discharge Summary Admission Date: Dec 22, 2016 at 08:24 Discharge Date: Dec 29, 2016 Discharge Disposition: Rehab ([facility] ) Principal Diagnosis: ASPIRATION PNEUMONIA /CHF Procedures: ECHO The left ventricle is normal in size. There is mild concentric left ventricular hypertrophy. There is moderate to severe hypokinesis of the inferior/posterior dumas, associated wall thinning at the base There is borderline global hypokinesis of the left ventricle. Ejection Fraction = 40-45%. The aortic valve leaflets are moderately calcified. No hemodynamically significant valvular aortic stenosis. CTA Of chest : IMPRESSION: 1. No CT evidence of acute pulmonary embolism 2. Small bilateral pleural effusions and dependent airspace opacities likely atelectatic 3. Bilateral upper lobe nodular airspace opacities left greater than right, likely inflammatory 4. 12 mm indeterminate right renal lesion, hyperdense cyst versus solid mass. Consultations: Cardiology Medication Reconciliation New Medications: Levofloxacin (Levaquin) 500 Mg Tab 1 TAB PEG DAILY for 2 Days, #2 TAB Aspirin (Aspirin Low Strength) 81 Mg Chew 81 MG PEG QAM for 30 Days Furosemide (Furosemide) 10 Mg/Ml Soln 60 MG PEG QAM for 30 Days Lactobacillus Acidophilus (Floranex) 1 Tab Tab 4 TAB PO TIDM for 30 Days, TAB Nystatin (Nystatin) 5 Ml Susp 5 ML MT QID for 10 Days Continued Medications: Acetaminophen (Acetaminophen) 500 Mg Tab 1 TAB PEG Q4H for 15 Days, #60 TAB Amiodarone HCl (Amiodarone HCl) 200 Mg Tab 200 MG PEG HS Atorvastatin (Lipitor) 80 Mg Tab 80 MG PEG HS Digoxin (Digoxin) 0.125 Mg Tab 0.125 MG PEG 3XWK monday and monday Ferrous Sulfate (Ferrous Sulfate) 300 Mg/5 Ml Syp 300 MG PEG DAILY Guaifenesin La (Guaifenesin Er) 600 Mg Tabcr 600 MG PEG Q12H, TAB Ipratropium-Albuterol (Duoneb) 3 Ml Nebu 1 TREATMENT INH Q4H PRN for SOB/Wheezing, INHA Metoprolol Tartrate (Lopressor) (Lopressor) 25 Mg Tab 12.5 MG PEG BID Nutritional Supplements (Vital 1.5 Duncan) 1 Liq Liq 40 ML PEG hourly Nystatin (Topical) (Nystatin) 1 Pow Pow 1 APPL TOP BID Senna (Senokot) 8.6 Mg Tab 1 TAB PEG DAILY PRN for Constipation, TAB Warfarin Sod (Coumadin) 1 Mg Tab 1 MG PEG DAILY Discontinued Medications: Furosemide (Lasix) 40 Mg Tab 40 MG PEG QAM Admission Information HPI (per Admitting provider): 76 year old male who presents to the ED from [facility] for chest pain. Patient was recently admitted to [facility] 11/30 - 12/13 for sepsis and acute hypoxic respiratory failure due to pneumonia. He also had acute on chronic diastolic CHF. Patient completed the antibiotic course while hospitalized and was discharged to [facility] for rehab. History is difficult to obtain from patient since he is nonverbal from prior CVA. He reports he has had chronic intermittent chest pain since his [place] / CABG in 11/2015. He reports acute worsening of the pain over the past 4 days. Pain has been occurring with therapy and improving with rest. Pain is located midsternally / epigastric with radiation over the left chest. He is unable to rate his pain or describe the quality. He reports associated nausea, shortness of breath, lightheadedness, and diaphoresis. No syncopal events. Patient reports his cough is unchanged from recent hospitalization. It continues to be productive. No fever or chills. He denies abdominal pain, vomiting, or diarrhea. No urinary symptoms. In the ED , initial troponin is negative and EKG does not show any acute ST changes. Patient was given full dose ASA and Pepcid. Physical Exam (per Admitting): General Appearance: no apparent distress Head: normocephalic, atraumatic Eyes: normal inspection, sclerae normal ENT: hearing grossly normal Neck: supple, no JVD Respiratory/Chest: no respiratory distress, + decreased breath sounds, + crackles (faint, BL bases) Cardiovascular: regular rate, rhythm, no edema, normal peripheral pulses Abdomen/GI: normal bowel sounds, non tender, soft, + pertinent finding (PEG tube in place) Extremities/Musculoskelatal: normal inspection, no calf tenderness Neurologic/Psych: alert, + aphasia (chronic from prior CVA), + pertinent finding (no acute gross focal deficits noted) Skin: normal color, warm/dry Hospital Course ACUTE CHF WITH COMBINED SYSTOLIC AND DIASTOLIC DYSFUNCTION : Cxray yesterday shows progression of pulmonary edema /left sided pleural effusion given Lasix 20 mg IV X1 , on Lasix 60 mg via PEG already had adequate diuresis Cxray today shows : IMPRESSION: Improvement in the airspace opacities and small left pleural effusion. ASPIRATION PNEUMONIA on PEG tube feeding due to severe dysphagia after CVA - recently admitted to [facility] for sepsis due to pneumonia - Clinically improved on PO Levaquin complete total 10 days course Tube feeding restarted pt has been tolerating well ,no sign aspiration noted, no cough or increased secretion noted cont to follow aspiration precaution CAD - hx of CAD with STEMI 11/2015 with subsequent CABG x 4 - Troponinx3 sets negative - EKG showed no ischemic changes - CTA chest negative for PE - Continue asa, statin and BB - No arrhythmia on tele - Cardiology consulted, appreciate input - Echo done showed * The left ventricle is normal in size. * There is mild concentric left ventricular hypertrophy. * There is moderate to severe hypokinesis of the inferior/posterior dumas, associated wall thinning at the base * There is borderline global hypokinesis of the left ventricle. * Ejection Fraction = 40-45%. * The aortic valve leaflets are moderately calcified. * No hemodynamically significant valvular aortic stenosis. * There is mild to moderate mitral regurgitation. * In comparison to prior study, overall LV function is less dynamic without new wall motion changes RIGHT RENAL LESION - noted on CTA chest - Renal US showed Mildly increased echogenicity of the kidneys, which could suggest medical renal disease. CHRONIC HYPOXIA -due to aspiration respiratory status improved to baseline - CXR showed Persistent extensive left mid and basilar opacities with decreased aeration of the left lung base. - Continue suctioning/ chest PT - clinically improved HX CVA non verbal with severe dysphagia - PEG tube in place - On asa, statin and Coumadin PAROXYSMAL A. FIB - currently in NSR - rate control - Continue dig and metoprolol - on Coumadin, INR therapeutic CHF WITH DIASTOLIC DYSFUNCTION - Lasix increased to 60mg - NUTRITION Tube feeding resumed Impact via PEG tube rate increased to goal of 55 mL/hr. DVT PROPHYLAXIS continue Coumadin CODE STATUS DNR DISPOSITION [facility] given update Total time spent on discharge = 35 MINS This includes examination of the patient, discharge planning, medication reconciliation, and communication with other providers. Discharge Instructions Discharge Instructions Date of Service Dec 26, 2016. Admission Reason for Admission: Chest Pain Discharge Discharge Diagnosis / Problem: ASPIRATION PNEUMONIA /CHF Discharge Goals Goal(s): Decrease discomfort, Improve disease control, Therapeutic intervention Activity Recommendations Activity Level: Assistance Required Therapies: Physical Therapy, Occupational Therapy, Speech Therapy . Additional Information Patient informed of condition: Yes Advance Directives: Yes DNR: Yes Level of Care: Acute Rehab Communicable Disease: No Prognosis: Stable Ji Catheter: No Instructions / Follow-Up Instructions / Follow-Up FOLLOW UP WITH PHYSICIAN AT [facility] ASPIRATION PRECAUTION ; KEEP HOB ELEVATED 30 DEGREES WHILE GETTING TUBE FEEDING REPEAT CXRAY IN 1 WEEK TO ASSES RESOLUTION OF LUNG INFILTRATE AND IMPROVEMENT OF LEFT SIDED PLEURAL EFFUSION Current Hospital Diet Patient's current hospital diet: CONTINUE PEG TUBE FEEDING Discharge Diet Recommended Diet: N/A Pending Studies Studies pending at discharge: no Medical Emergencies . Who to Call and When: Medical Emergencies: If at any time you feel your situation is an emergency, please call 911 immediately. . Non-Emergent Contact Non-Emergency issues call your: Primary Care Provider . . "Provider Documentation" section prepared by Rose Powell. . Core Measure Problem Core Measures: None
== END 2016-12-29 15:13 | DRG 177 ==
LOC: EDBD 14:27 → C.EDA 14:28 → C.MED 18:34 → CANRESERV 18:59 → ENRESERV 18:59 → OBSVTOIN 12-22 08:24
PROVIDERS: ADMIT Internal Medicine; ATTEND Hospitalist
DX: J69.0 Pneumonitis due to inhalation of food and vomit (principal); I50.41 Acute combined systolic (congestive) and diastolic (congestive) heart failure; I69.920 Aphasia following unspecified cerebrovascular disease; I25.10 Atherosclerotic heart disease of native coronary artery without angina pectoris; R06.03 Acute respiratory distress; I11.0 Hypertensive heart disease with heart failure; I48.0 Paroxysmal atrial fibrillation; E78.5 Hyperlipidemia, unspecified; I25.5 Ischemic cardiomyopathy; N28.9 Disorder of kidney and ureter, unspecified; I25.2 Old myocardial infarction; Z93.1 Gastrostomy status; Z87.891 Personal history of nicotine dependence; Z79.01 Long term (current) use of anticoagulants; Z88.0 Allergy status to penicillin; Z95.1 Presence of aortocoronary bypass graft; Z99.81 Dependence on supplemental oxygen

== ENCOUNTER 2017-01-18 14:46 | Inpatient (IN) | payer BC, OTHER ==
[~2017-01-18] VITALS: Ht 157.5 cm; Wt 58.1 kg
[~2017-01-18 14:46] MED LIST changes: +ACET500T57 PEG; +ASPCH81 PEG; -FRS/40 PEG; +GUAI1TAB75 PEG; +IPRASOL4 INH; +LCTX PO; +LEVO-459 PEG; +LSXS PEG; -MRLP17X PEG; +NYSS5 MT; +NYST1POW7 TOP; +SENN-61 PEG; +TCMD1 PEG; -WARF1TAB6 PEG; +[UNRECOGNIZED DRUG - CODE] PEG
--- NOTE | 2017-01-18 15:30 | DIAGNOSTIC IMAGING REPORT ---
CHEST ONE VIEW PORTABLE HISTORY: Sepsis COMPARISON: Chest 12/28/2016. FINDINGS: No pneumothorax. Trace bilateral pleural effusions have improved. Improved aeration within the left mid to lower lung zone. Diffuse interstitial thickening persists. The heart remains borderline enlarged. There are poststernotomy changes present. IMPRESSION: 1. Mild interstitial pulmonary edema and trace bilateral pleural effusions. 2. Improved aeration within the left mid to lower lung zone. Electronically signed by: Leroy Alerge M.D. 01/18/2017 3:29 PM Dictated Date/Time: 01/18/2017 3:28 PM
[2017-01-18] MEDS ORDERED: WARF2TAB PO (15:54)
[2017-01-18] MEDS ORDERED: LACT1TAB4 PEG (15:54)
[2017-01-18] MEDS ORDERED: FURO-85 PEG (15:54)
[2017-01-18] MEDS ORDERED: ONDA4TAB9 PEG (15:54)
[2017-01-18] MEDS ORDERED: ASPI81TA28 PEG (15:54)
[2017-01-18 16:02] LABS: URINE APPEARANCE CLOUDY (CLEAR); URINE BILIRUBIN NEG (NEG); URINE COLOR DK YELLOW; URINE EPITHELIAL CELL AUTO 0-5 /lpf (0-5); URINE NITRITE NEG (NEG); URINE SPECIFIC GRAVITY 1.024 (1.000-1.030); UROBILINOGEN NEG (NEG)
[2017-01-18 16:16] LABS: VEN BLD GAS O2 SATURATION 78.3 %; VEN BLOOD GAS BASE EXCESS 8.8 mEq/L
[2017-01-18 16:16] LABS: MANUAL MICROSCOPIC REQUIRED? NO; REVIEW REQ? YES
[2017-01-18 16:21] LABS: ZZURINE CULT IF INDIC CATH YES
[2017-01-18 16:22] LABS: INR 2.2 (0.9-1.1); PARTIAL THROMBOPLASTIN RATIO 1.4; PROTHROMBIN TIME (PATIENT) 23.9 SECONDS (9.0-12.0)
[2017-01-18 16:29] LABS: BUN/CREATININE RATIO 23.7 (10-20); CALCIUM 9.5 mg/dl (8.5-10.1); CREATININE 1.13 mg/dl (0.60-1.40); MAGNESIUM 2.4 mg/dl (1.8-2.4); POTASSIUM 3.8 mmol/L (3.5-5.1)
[2017-01-18 16:32] LABS: ALB/GLOB RATIO 0.5 (0.9-2); C-REACTIVE PROTEIN 3.6 mg/dl (0-0.29); PHOSPHORUS 1.6 mg/dl (2.5-4.9)
[2017-01-18] MEDS ORDERED: LEVAQUIN 750MG / 150ML D5W IV STA (16:54)
[2017-01-18 17:04] LABS: HEMATOCRIT 43.4 % (42-52); MEAN CELL VOLUME 94.6 fL (80-100); MEAN CORPUSCULAR HEMOGLOBIN 31.8 pg (25-34); MEAN CORPUSCULAR HGB CONC 33.6 g/dl (32-36); MEAN PLATELET VOLUME 11.4 fL (7.4-10.4); PLATELET COUNT 374 K/uL (130-400); RED BLOOD COUNT 4.59 M/uL (4.7-6.1); WHITE BLOOD COUNT 28.48 K/uL (4.8-10.8)
[2017-01-18 17:07] LABS: BASO ABS # 0.01 K/uL (0-0.2); COMPLETE YES; IG% 0.4 %; LYMPH ABS # 0.58 K/uL (1.2-3.4); MONO % 1.9 %; NEUT % 95.7 %; PLT ESTIMATE NORMAL
--- NOTE | 2017-01-18 17:08 | DIAGNOSTIC IMAGING REPORT ---
ABD/PELVIS NO IV OR ORAL CONT HISTORY: 76 years-old Male vomiting acute vomiting. Initial exam COMPARISON: CTA chest 12/20/2016, renal ultrasound 12/20/2016 TECHNIQUE: Multiple axial CT images of the abdomen and pelvis were obtained without contrast. A dose lowering technique was used consistent with the principals of GEORGINA. FINDINGS: Small bilateral pleural effusions with subsegmental bibasilar consolidation and bronchial wall thickening, similar from prior. Sternotomy wires partially imaged. No pneumoperitoneum identified. The exam however is mildly limited secondary to motion artifact. Inferior cardiac chambers are mildly enlarged. Coronary arterial disease. Evaluation of the solid abdominal organs is limited without the use of IV contrast. Within the limitations of the study, the liver, spleen, adrenal glands and gallbladder are unremarkable. Moderate diffuse pancreatic atrophy. Exophytic 11 x 9 mm lesion of the posterior superior pole right kidney is again seen which appears soft tissue attenuating. Kidneys and ureters are otherwise unremarkable. Prostate is enlarged with central coarse calcifications. Ji catheter is in place within a collapsed urinary bladder lumen. Wall thickening and stranding stranding is noted about the bladder. Focus of nondependent intraluminal urinary bladder air is likely secondary to instrumentation. Postoperative changes about the left scrotum with apparent left testicle or hydrocele noted within the left upper scrotum. Fusiform aneurysmal dilation of the infrarenal abdominal aorta measures up to 3.1 x 2.8 cm. Additional areas of aneurysm are seen more proximally just below the abdominal aorta, 3.1 cm. Extensive atherosclerotic plaquing extends into the iliac vasculature. No bulky adenopathy. 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 Gastrostomy tube is noted within the gastric lumen which appears to be in satisfactory position. There is no bowel obstruction, pneumatosis or pneumoperitoneum. Large stool ball in the rectal vault measures 7.8 cm transversely. The majority of the descending and sigmoid colon is collapsed. The appendix appears normal. Soft tissues are unremarkable. Bones are mildly demineralized. Multilevel endplate spurring, spondylitic changes and facet arthropathy. Schmorl's nodes are also seen. No acute fracture identified. IMPRESSION: 1. No acute intra-abdominal or intrapelvic abnormality identified. 2. Gastrostomy tube in satisfactory position within the mid gastric lumen. No bowel obstruction. 3. Persistent small bilateral pleural effusions with bibasilar subsegmental consolidative opacities suggesting atelectasis and/or pneumonitis, stable from comparison chest CT 12/20/2016. 4. Prostamegaly with Ji catheter within a collapsed urinary bladder lumen. Small focus of air within the bladder is likely secondary to instrumentation. Correlate with urinalysis. 5. Large stool ball within the rectal vault. The above report was generated using voice recognition software. It may contain grammatical, syntax or spelling errors. Electronically signed by: Bihsop Horvath M.D. 01/18/2017 4:43 PM Dictated Date/Time: 01/18/2017 4:33 PM
--- NOTE | 2017-01-18 17:33 | EMERGENCY ROOM VISIT NOTE ---
History Report prepared by Dong: Vivian Whitt Under the Supervision of: Dr. Mil Layne D.O. First contact with patient: 14:54 Stated Complaint: AMS/SOB/LETHARGIC History of Present Illness The patient is a 76 year old male who presents to the Emergency Room with complaints of intermittent vomiting beginning earlier today. The patient is nonverbal at baseline due to a previous stroke. The history is obtained with the help of , EMS, and nursing staff. The patient was discharged from [facility] yesterday. He was there for 7 weeks being treated for pneumonia. Today he developed shortness of breath, abdominal pain, nausea, vomiting, and diarrhea. states that he has been suctioning himself a lot more than usual today. He received a DuoNeb treatment and Zofran en route to the ED. He does not wear oxygen at home. The patient denies headaches. Source of History: patient, spouse/significant other, EMS, nursing staff Onset: earlier today Position: abdomen Quality: other (vomiting) Timing: intermittent Modifying Factors (Relieving): anti-emetics, other (DuoNeb) Associated Symptoms: + SOB, + nausea, + abdominal pain, + diarrhea, No headache Review of Systems See HPI for pertinent positives & negatives. A total of 10 systems reviewed and were otherwise negative. Past Medical & Surgical Medical Problems: (1) Chest pain (2) Coronary artery disease (3) Dehydration (4) Dyslipidemia (5) Hypertension (6) Ischemic cardiomyopathy (7) Myocardial infarct (8) Pneumonia (9) Stroke (10) Uses feeding tube (11) Vomiting and diarrhea Surgical Problems: (1) H/O hernia repair (2) History of partial gastrectomy (3) Stomach cancer Family History Cancer Diabetes mellitus Heart disease Kidney disease Social History Smoking Status: Unknown if Ever Smoked Alcohol Use: none Marital Status: Housing Status: lives with significant other Current/Historical Medications Scheduled Amiodarone HCl (Amiodarone HCl), 200 MG PEG HS Aspirin (Aspirin Ec), 81 MG PEG DAILY Atorvastatin (Lipitor), 80 MG PEG HS Digoxin (Digoxin), 0.125 MG PEG 3XWK Ferrous Sulfate (Ferrous Sulfate), 300 MG PEG DAILY Furosemide (Lasix), 3 TAB PEG DAILY Guaifenesin La (Guaifenesin Er), 200 MG PEG Q6 Lactobacillus (Floranex), 4 TAB PEG TIDM Metoprolol Tartrate (Lopressor) (Lopressor), 12.5 MG PEG BID Nutritional Supplements (Vital 1.5 Duncan), 60 ML PEG hourly Nystatin (Topical) (Nystatin), 1 APPL TOP BID Warfarin Sod (Coumadin), 1 MG PEG EVENDAYS Warfarin Sodium (Coumadin), 2 MG PO ODD-DAYS Scheduled PRN Ipratropium-Albuterol (Duoneb), 1 TREATMENT INH Q4H PRN for SOB/Wheezing Ondansetron (Ondansetron HCl), 1 TAB PEG Q4H PRN for Nausea or Vomiting Allergies Coded Allergies: [place] (Verified Allergy, Intermediate, hives, 01/18/17) Unclassified Drugs (Verified Allergy, Intermediate, Mack needles- immediate swelling, 01/18/17) Penicillins (Verified Allergy, Unknown, hives, 01/18/17) Physical Exam Vital Signs Date Time Temp Pulse Resp B/P (MAP) Pulse Ox O2 Delivery O2 Flow Rate FiO2 01/18/17 17:37 84 20 112/64 98 Room Air 01/18/17 16:59 80 18 106/62 97 01/18/17 15:47 81 19 112/64 95 Nasal Cannula 2.0 01/18/17 15:22 82 01/18/17 15:15 97 2.0 01/18/17 15:13 37.2 78 20 115/68 88 Room Air Physical Exam GENERAL: Patient is awake, alert, mildly anxious appearing but comfortable. EYES: The conjunctivae are clear. The pupils are round and reactive. EARS, NOSE, MOUTH AND THROAT: The nose is without any evidence of any deformity. Mucous membranes are moist tongue is midline Vomit noted around the mouth. NECK: The neck is nontender and supple. RESPIRATORY: Diminished throughout, significant tachypnea noted, poor air movement. CARDIOVASCULAR: Regular rate and rhythm noted there no murmurs rubs or gallops normal S1 normal S2 GASTROINTESTINAL: The abdomen is moderately distended but soft, diffuse tenderness to palpation. MUSCULOSKELETAL/EXTREMITIES: There is no evidence of gross deformity full range of motion is noted in the hips and shoulders SKIN: Trace pedal edema bilaterally. There is no obvious evidence of any rash. There are no petechiae, pallor or cyanosis noted. NEUROLOGIC: Patient is awake alert, appears to be at baseline, strength is symmetric, no facial droop was noted. Medical Decision & Procedures ER Provider Diagnostic Interpretation: Radiology results as stated below per my review and radiologist interpretation: CHEST ONE VIEW PORTABLE HISTORY: Sepsis COMPARISON: Chest 12/28/2016. FINDINGS: No pneumothorax. Trace bilateral pleural effusions have improved. Improved aeration within the left mid to lower lung zone. Diffuse interstitial thickening persists. The heart remains borderline enlarged. There are poststernotomy changes present. IMPRESSION: 1. Mild interstitial pulmonary edema and trace bilateral pleural effusions. 2. Improved aeration within the left mid to lower lung zone. Electronically signed by: Leroy Alegre M.D. 01/18/2017 3:29 PM Dictated Date/Time: 01/18/2017 3:28 PM ABD/PELVIS NO IV OR ORAL CONT HISTORY: 76 years-old Male vomiting acute vomiting. Initial exam COMPARISON: CTA chest 12/20/2016, renal ultrasound 12/20/2016 TECHNIQUE: Multiple axial CT images of the abdomen and pelvis were obtained without contrast. A dose lowering technique was used consistent with the principals of GEORGINA. FINDINGS: Small bilateral pleural effusions with subsegmental bibasilar consolidation and bronchial wall thickening, similar from prior. Sternotomy wires partially imaged. No pneumoperitoneum identified. The exam however is mildly limited secondary to motion artifact. Inferior cardiac chambers are mildly enlarged. Coronary arterial disease. Evaluation of the solid abdominal organs is limited without the use of IV contrast. Within the limitations of the study, the liver, spleen, adrenal glands and gallbladder are unremarkable. Moderate diffuse pancreatic atrophy. Exophytic 11 x 9 mm lesion of the posterior superior pole right kidney is again seen which appears soft tissue attenuating. Kidneys and ureters are otherwise unremarkable. Prostate is enlarged with central coarse calcifications. Ji catheter is in place within a collapsed urinary bladder lumen. Wall thickening and stranding stranding is noted about the bladder. Focus of nondependent intraluminal urinary bladder air is likely secondary to instrumentation. Postoperative changes about the left scrotum with apparent left testicle or hydrocele noted within the left upper scrotum. Fusiform aneurysmal dilation of the infrarenal abdominal aorta measures up to 3.1 x 2.8 cm. Additional areas of aneurysm are seen more proximally just below the abdominal aorta, 3.1 cm. Extensive atherosclerotic plaquing extends into the iliac vasculature. No bulky adenopathy. 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 Gastrostomy tube is noted within the gastric lumen which appears to be in satisfactory position. There is no bowel obstruction, pneumatosis or pneumoperitoneum. Large stool ball in the rectal vault measures 7.8 cm transversely. The majority of the descending and sigmoid colon is collapsed. The appendix appears normal. Soft tissues are unremarkable. Bones are mildly demineralized. Multilevel endplate spurring, spondylitic changes and facet arthropathy. Schmorl's nodes are also seen. No acute fracture identified. IMPRESSION: 1. No acute intra-abdominal or intrapelvic abnormality identified. 2. Gastrostomy tube in satisfactory position within the mid gastric lumen. No bowel obstruction. 3. Persistent small bilateral pleural effusions with bibasilar subsegmental consolidative opacities suggesting atelectasis and/or pneumonitis, stable from comparison chest CT 12/20/2016. 4. Prostamegaly with Ji catheter within a collapsed urinary bladder lumen. Small focus of air within the bladder is likely secondary to instrumentation. Correlate with urinalysis. 5. Large stool ball within the rectal vault. The above report was generated using voice recognition software. It may contain grammatical, syntax or spelling errors. Electronically signed by: Bishop Horvath M.D. 01/18/2017 4:43 PM Dictated Date/Time: 01/18/2017 4:33 PM Laboratory Results 01/18/17 14:36 Red Blood Count 4.59, Mean Corpuscular Volume 94.6, Mean Corpuscular Hemoglobin 31.8, Mean Corpuscular Hemoglobin Concent 33.6, Mean Platelet Volume 11.4, Neutrophils (%) (Auto) 95.7, Lymphocytes (%) (Auto) 2.0, Monocytes (%) (Auto) 1.9, Eosinophils (%) (Auto) 0.0, Basophils (%) (Auto) 0.0, Neutrophils # (Auto) 27.23, Lymphocytes # (Auto) 0.58, Monocytes # (Auto) 0.55, Eosinophils # (Auto) 0.00, Basophils # (Auto) 0.01 01/18/17 16:04 Test 01/18/17 14:36 01/18/17 15:45 01/18/17 16:04 01/18/17 16:06 White Blood Count 28.48 K/uL (4.8-10.8) Red Blood Count 4.59 M/uL (4.7-6.1) Hemoglobin 14.6 g/dL (14.0-18.0) Hematocrit 43.4 % (42-52) Mean Corpuscular Volume 94.6 fL (80-100) Mean Corpuscular Hemoglobin 31.8 pg (25-34) Mean Corpuscular Hemoglobin Concent 33.6 g/dl (32-36) Platelet Count 374 K/uL (130-400) Mean Platelet Volume 11.4 fL (7.4-10.4) Neutrophils (%) (Auto) 95.7 % Lymphocytes (%) (Auto) 2.0 % Monocytes (%) (Auto) 1.9 % Eosinophils (%) (Auto) 0.0 % Basophils (%) (Auto) 0.0 % Neutrophils # (Auto) 27.23 K/uL (1.4-6.5) Lymphocytes # (Auto) 0.58 K/uL (1.2-3.4) Monocytes # (Auto) 0.55 K/uL (0.11-0.59) Eosinophils # (Auto) 0.00 K/uL (0-0.5) Basophils # (Auto) 0.01 K/uL (0-0.2) RDW Standard Deviation 56.0 fL (36.4-46.3) RDW Coefficient of Variation 16.3 % (11.5-14.5) Immature Granulocyte % (Auto) 0.4 % Immature Granulocyte # (Auto) 0.11 K/uL (0.00-0.02) Platelet Estimate NORMAL Digoxin Level 0.7 ng/ml (0.8-2.0) Urine Color DK YELLOW Urine Appearance CLOUDY (CLEAR) Urine pH 5.0 (4.5-7.5) Urine Specific [place] 1.024 (1.000-1.030) Urine Protein 1+ (NEG) Urine Glucose (UA) NEG (NEG) Urine Ketones TRACE (NEG) Urine Occult Blood 3+ (NEG) Urine Nitrite NEG (NEG) Urine Bilirubin NEG (NEG) Urine Urobilinogen NEG (NEG) Urine Leukocyte Esterase MODERATE (NEG) Urine WBC (Auto) >30 /hpf (0-5) Urine RBC (Auto) >30 /hpf (0-4) Urine Hyaline Casts (Auto) 5-10 /lpf (0-5) Urine Epithelial Cells (Auto) 0-5 /lpf (0-5) Urine Bacteria (Auto) 3+ (NEG) Urine Crystals CALCIUM OXALATE (NONE Urine Yeast (Auto) BUDDING (NONE PRSENT) Erythrocyte Sedimentation Rate 75 mm/hr (0-14) Prothrombin Time 23.9 SECONDS (9.0-12.0) Prothromb Time International Ratio 2.2 (0.9-1.1) Activated Partial Thromboplast Time 36.8 SECONDS (21.0-31.0) Partial Thromboplastin Ratio 1.4 Anion Gap 6.0 mmol/L (3-11) Est Creatinine Clear Calc Drug Dose 42.3 ml/min Estimated GFR () 72.3 Estimated GFR (Non- 62.4 BUN/Creatinine Ratio 23.7 (10-20) Calcium Level 9.5 mg/dl (8.5-10.1) Phosphorus Level 1.6 mg/dl (2.5-4.9) Magnesium Level 2.4 mg/dl (1.8-2.4) Total Bilirubin 0.4 mg/dl (0.2-1) Aspartate Amino Transf (AST/SGOT) 25 U/L (15-37) Alanine Aminotransferase (ALT/SGPT) 29 U/L (12-78) Alkaline Phosphatase 145 U/L (45-117) Total Creatine Kinase 44 U/L (39-308) Creatine Kinase MB 1.3 ng/ml (0.5-3.6) Creatine Kinase MB Ratio 3.0 (0-3.0) Troponin I 0.035 ng/ml (0-0.045) C-Reactive Protein 3.60 mg/dl (0-0.29) Pro-B-Type Natriuretic Peptide 1214 pg/ml (0-1800) Total Protein 8.6 gm/dl (6.4-8.2) Albumin 2.7 gm/dl (3.4-5.0) Globulin 5.9 gm/dl (2.5-4.0) Albumin/Globulin Ratio 0.5 (0.9-2) Lipase 130 U/L (73-393) Venous Blood pH 7.44 (7.36-7.41) Venous Blood Partial Pressure CO2 52 mmHg (38.0-50.0) Venous Blood Partial Pressure O2 45 mmHg Venous Blood HCO3 35 mmol/L Venous Blood Oxygen Saturation 78.3 % Venous Blood Base Excess 8.8 mEq/L Test 01/18/17 16:12 Bedside Lactic Acid Venous 2.51 mmol/L (0.90-1.70) Laboratory results per my review. Medications Administered Medications (Trade) Dose Ordered Sig/Kelle Route Start Time Stop Time Status Last Admin Dose Admin Levofloxacin (Levaquin / D5W) 750 mg NOW STAT IV 01/18/17 16:54 01/18/17 16:55 DC 01/18/17 17:03 750 MG ECG Indication: vomiting Rate (beats per minute): 80 Rhythm: normal sinus Findings: ST depression (Lateral), no ectopy Comparison ECG Date: 12/22/16 Change: no significant change ED Course 1454: The patient was evaluated in room B2. A complete history and physical examination were performed. 1654: Levofloxacin 750 mg IV 1658: I reassessed the patient at this time. He is feeling better and resting comfortably. I discussed the results and treatment plan with the patient and his at the bedside. I answered all pertaining questions that they had. They expressed understanding and verbalized agreement. 1705: I spoke with Shi Burch PA-C. We discussed the patients case. [facility] Medical Decision Differential diagnosis: Etiologies such as infections, reactive airway disease, pneumonia, pneumothorax , COPD, CHF, cardiac ischemia, pulmonary embolism, musculoskeletal, gastrointestinal, as well as others were entertained. Nursing notes reviewed. Additional history is obtained from the prehospital personnel. Additional history is obtained from the patient's significant other. The patient is a 76-year-old male who presented to the emergency department for an evaluation after having multiple episodes of emesis. The patient has a history of stroke in a history of aspiration pneumonia. He does have a feeding tube but continues to have aspiration symptoms. The patient was found have significant hypoxia and respiratory distress initially but this seemed to improve after a nebulizer treatment by the prehospital personnel as well as supplemental ox them. The patient was found have an elevated white blood cell count. He was given IV antibiotics. I discussed the patient's laboratory and radiographic studies with the patient and his significant other. I also discussed his case with the on-call [facility] hospitalist group. They've agreed to evaluate the patient in the emergency department for further management and disposition. Medication Reconcilliation Current Medication List: was personally reviewed by me Blood Pressure Screening Patient's blood pressure: Normal blood pressure Consults Time Called: 1702 Consulting Physician: Franky Burch PA-C Returned Call: 1705 I spoke with Shi Burch PA-C. We discussed the patients case. The patient will be evaluated by the [facility] Group for further evaluation. Impression Primary Impression: Aspiration pneumonia Additional Impressions: Hypoxia Respiratory distress Nausea & vomiting Scribe Attestation The scribe's documentation has been prepared under my direction and personally reviewed by me in its entirety. I confirm that the note above accurately reflects all work, treatment, procedures, and medical decision making performed by me. Departure Information Dispostion Being Evaluated By Hospitalist Referrals Gorge Brown D.O. (PCP) Problem Qualifiers Primary Impression: Aspiration pneumonia Aspiration pneumonia type: unspecified Laterality: unspecified laterality Lung location: unspecified part of lung Qualified Codes: J69.0 - Pneumonitis due to inhalation of food and vomit Additional Impressions: Nausea & vomiting Vomiting type: unspecified Vomiting Intractability: non-intractable Qualified Codes: R11.2 - Nausea with vomiting, unspecified
[2017-01-18] MEDS ORDERED: ACETAMINOPHEN 325 MG TAB PO PRN (18:30)
[2017-01-18] MEDS ORDERED: RBTUDL10 PEG (18:41)
[2017-01-18] MEDS ORDERED: POTASSIUM PHOS 3 MMOL/1 ML INFUSION IV SCH (19:00)
[2017-01-18] MEDS ORDERED: SODIUM CHLORIDE 0.9% 1000ML 1,000 ML IV SCH ×2 (19:15→19:45)
[2017-01-18] MEDS ORDERED: ALBUT/IPRATROP 3MG/0.5MG NEB 3 ML VIAL INH PRN (19:30)
[2017-01-18 20:18] VITALS: BP 108/63; PULSE 78; TEMP 36.9; O2SAT 93; Ht 157.5 cm; Wt 58.1 kg
--- NOTE | 2017-01-18 20:22 | History and Physical ---
History & Physical Date & Time of Service: Jan 18, 2017 at 17:51 Chief Complaint: Ams/Sob/Lethargic Primary Care Physician: Gorge Brown D.O. History of Present Illness Pt is 76y/o M with PMHx stroke (pt non-verbal, but does answer yes/no with nodding head), hx [place], s/p CABG, a-fib, has feeding tube, hx aspiration pneumonia , hx CHF, hx gastric CA s/p resection. Hx obtained from primarily. Pt presents from home with c/o emesis, diarrhea. Pt was d/c from [facility] yesterday as insurance ran out. Pt's states [facility] had been reporting pt with intermittent vomiting episodes and diarrhea. reports told pt had negative c-diff study last week. states pt had large diarrhea BM today. States today pt had approx 6 episodes of vomiting. Pt self suctions mouth and after had increased coughing and SOB. reports pt more sleepy and weak today. States having trouble moving him to wheelchair as he is so weak and he typically can sit himself up to assist in transfer. Hasn't noticed any fever and denies any reported fever at [facility]. reports pt tube feeds, as in past tried thickening nectar but didn't like the taste. Pt with saavedra x 3 weeks. states some blood clots noted to saavedra bag past week. reports some redness to groin and she has been applying nystatin powder to area. Was hospitalized 11/30/16 for sepsis pneumonia then d/c [facility], and then re- hospitalized 12/20 pneumonia/CHF discharge to [facility]. no new meds. Pt was on O2 NC at [facility] and d/c home yesterday without O2. Pt has been on O2 since hospital admissions recently. Pt had ECHO 12/21/16 EF 40-45%. Denies melena , hematochezia, hematemesis, diaphoresis, rhinorrhea, abdominal pain. Pt presented to ER today. WBC: 28, urine with mod leuk, >30 WBC, >30 RBC, 3+ bacteria, negative troponin. INR: 2.2. Digoxin: 0.7. POC lactic acid 2.5. phosphorus 1.6. normal mag 2.4.pending blood cultures, pending urine culture. EKG: prolonged QTc 560. CXR: mild interstitial pulmonary edema, trace bilateral pleural effusions. CT abd/pelvis: no bowel obstruction, g-tube in place. Temp: 37.2C, Pulse:78, Resp: 20, BP: 106/62. Pulse ox:88% on RA, 95% on 2L NC. Pt was given Levaquin IV. Past Medical/Surgical History Medical Problems: (1) Coronary artery disease Permanent Comment: OK - 1980, 2011 STEMI 11/2015 s/p CABG x 4 Status: Chronic (2) Dyslipidemia Status: Chronic (3) Hypertension Status: Chronic (4) Ischemic cardiomyopathy Permanent Comment: hx of EF 20% echo 07/2016 - EF 47%, grade I diastolic dysfunction, mitral regurgitation Status: Chronic (5) Myocardial infarct Status: Resolved (6) Stroke Permanent Comment: ischemic stroke left lentiform nucleus + post internal capsule 11/07/15 Status: Chronic (7) Uses feeding tube Status: Chronic Surgical Problems: (1) H/O hernia repair Status: Resolved (2) History of partial gastrectomy Status: Chronic (3) Stomach cancer Permanent Comment: s/p surgery Status: Resolved Family History Cancer Diabetes mellitus Heart disease Kidney disease Social History Smoking Status: Unknown if Ever Smoked Marital Status: Multi-Drug Resistant Organisms History of MDRO: No Allergies Coded Allergies: [place] (Verified Allergy, Intermediate, hives, 01/18/17) Unclassified Drugs (Verified Allergy, Intermediate, Mack needles- immediate swelling, 01/18/17) Penicillins (Verified Allergy, Unknown, hives, 01/18/17) Home Medications Scheduled Amiodarone HCl (Amiodarone HCl), 200 MG PEG HS Aspirin (Aspirin Ec), 81 MG PEG DAILY Atorvastatin (Lipitor), 80 MG PEG HS Digoxin (Digoxin), 0.125 MG PEG 3XWK Ferrous Sulfate (Ferrous Sulfate), 300 MG PEG DAILY Furosemide (Lasix), 3 TAB PEG DAILY Guaifenesin (Guaifenesin), 10 ML PEG Q6H Lactobacillus (Floranex), 4 TAB PEG TIDM Metoprolol Tartrate (Lopressor) (Lopressor), 12.5 MG PEG BID Nutritional Supplements (Vital 1.5 Duncan), 60 ML PEG hourly Nystatin (Topical) (Nystatin), 1 APPL TOP BID Warfarin Sod (Coumadin), 1 MG PEG EVENDAYS Warfarin Sodium (Coumadin), 2 MG PO ODD-DAYS Scheduled PRN Ipratropium-Albuterol (Duoneb), 1 TREATMENT INH Q4H PRN for SOB/Wheezing Ondansetron (Ondansetron HCl), 1 TAB PEG Q4H PRN for Nausea or Vomiting Review of Systems See HPI for pertinent positives & negatives. All other systems reviewed and were otherwise negative that can be obtained from pt being non-verbal Physical Exam Vital Signs Date Time Temp Pulse Resp B/P (MAP) Pulse Ox O2 Delivery O2 Flow Rate FiO2 01/18/17 17:37 84 20 112/64 98 Room Air 01/18/17 16:59 80 18 106/62 97 01/18/17 15:47 81 19 112/64 95 Nasal Cannula 2.0 01/18/17 15:22 82 01/18/17 15:15 97 2.0 01/18/17 15:13 37.2 78 20 115/68 88 Room Air General Appearance: no apparent distress (chronically ill appearing, somnolent , pt does arouse with speaking and gentle touch), + pertinent finding Head: normocephalic, atraumatic Eyes: normal inspection, PERRL, sclerae normal ENT: pharynx normal (dry mucous membranes), + pertinent finding Neck: supple, no adenopathy, no JVD, trachea midline Respiratory/Chest: chest non-tender, no respiratory distress, no accessory muscle use, + rhonchi (bases) Cardiovascular: regular rate, rhythm, no edema, no murmur Abdomen/GI: normal bowel sounds, non tender, soft, + pertinent finding (g tube in place, no surrounding erythema or edema) Extremities/Musculoskelatal: normal capillary refill, no pedal edema, + pertinent finding (decreased strength throughout) Neurologic/Psych: + pertinent finding (pt non-verbal. does shake head yes and no when asked about pain) Skin: normal color, warm/dry, + pertinent finding (+well healed scar to sternal chest, groin erythema) Diagnostics Laboratory Results Results Past 24 Hours Test 01/18/17 14:36 01/18/17 15:45 01/18/17 16:04 01/18/17 16:06 Range/Units White Blood Count 28.48 4.8-10.8 K/uL Red Blood Count 4.59 4.7-6.1 M/uL Hemoglobin 14.6 14.0-18.0 g/dL Hematocrit 43.4 42-52 % Mean Corpuscular Volume 94.6 80-100 fL Mean Corpuscular Hemoglobin 31.8 25-34 pg Mean Corpuscular Hemoglobin Concent 33.6 32-36 g/dl Platelet Count 374 130-400 K/uL Mean Platelet Volume 11.4 7.4-10.4 fL Neutrophils (%) (Auto) 95.7 % Lymphocytes (%) (Auto) 2.0 % Monocytes (%) (Auto) 1.9 % Eosinophils (%) (Auto) 0.0 % Basophils (%) (Auto) 0.0 % Neutrophils # (Auto) 27.23 1.4-6.5 K/uL Lymphocytes # (Auto) 0.58 1.2-3.4 K/uL Monocytes # (Auto) 0.55 0.11-0.59 K/uL Eosinophils # (Auto) 0.00 0-0.5 K/uL Basophils # (Auto) 0.01 0-0.2 K/uL RDW Standard Deviation 56.0 36.4-46.3 fL RDW Coefficient of Variation 16.3 11.5-14.5 % Immature Granulocyte % (Auto) 0.4 % Immature Granulocyte # (Auto) 0.11 0.00-0.02 K/uL Platelet Estimate NORMAL Digoxin Level 0.7 0.8-2.0 ng/ml Urine Color DK YELLOW Urine Appearance CLOUDY CLEAR Urine pH 5.0 4.5-7.5 Urine Specific [place] 1.024 1.000-1.030 Urine Protein 1+ NEG Urine Glucose (UA) NEG NEG Urine Ketones TRACE NEG Urine Occult Blood 3+ NEG Urine Nitrite NEG NEG Urine Bilirubin NEG NEG Urine Urobilinogen NEG NEG Urine Leukocyte Esterase MODERATE NEG Urine WBC (Auto) >30 0-5 /hpf Urine RBC (Auto) >30 0-4 /hpf Urine Hyaline Casts (Auto) 5-10 0-5 /lpf Urine Epithelial Cells (Auto) 0-5 0-5 /lpf Urine Bacteria (Auto) 3+ NEG Urine Crystals CALCIUM OXALATE NONE PRSENT Urine Yeast (Auto) BUDDING NONE PRSENT Erythrocyte Sedimentation Rate 75 0-14 mm/hr Prothrombin Time 23.9 9.0-12.0 SECONDS Prothromb Time International Ratio 2.2 0.9-1.1 Activated Partial Thromboplast Time 36.8 21.0-31.0 SECONDS Partial Thromboplastin Ratio 1.4 Sodium Level 136 136-145 mmol/L Potassium Level 3.8 3.5-5.1 mmol/L Chloride Level 96 98-107 mmol/L Carbon Dioxide Level 34 21-32 mmol/L Anion Gap 6.0 3-11 mmol/L Blood Urea Nitrogen 27 7-18 mg/dl Creatinine 1.13 0.60-1.40 mg/dl Est Creatinine Clear Calc Drug Dose 42.3 ml/min Estimated GFR () 72.3 Estimated GFR (Non- 62.4 BUN/Creatinine Ratio 23.7 10-20 Random Glucose 187 70-99 mg/dl Calcium Level 9.5 8.5-10.1 mg/dl Phosphorus Level 1.6 2.5-4.9 mg/dl Magnesium Level 2.4 1.8-2.4 mg/dl Total Bilirubin 0.4 0.2-1 mg/dl Aspartate Amino Transf (AST/SGOT) 25 15-37 U/L Alanine Aminotransferase (ALT/SGPT) 29 12-78 U/L Alkaline Phosphatase 145 45-117 U/L Total Creatine Kinase 44 39-308 U/L Creatine Kinase MB 1.3 0.5-3.6 ng/ml Creatine Kinase MB Ratio 3.0 0-3.0 Troponin I 0.035 0-0.045 ng/ml C-Reactive Protein 3.60 0-0.29 mg/dl Pro-B-Type Natriuretic Peptide 1214 0-1800 pg/ml Total Protein 8.6 6.4-8.2 gm/dl Albumin 2.7 3.4-5.0 gm/dl Globulin 5.9 2.5-4.0 gm/dl Albumin/Globulin Ratio 0.5 0.9-2 Lipase 130 73-393 U/L Venous Blood pH 7.44 7.36-7.41 Venous Blood Partial Pressure CO2 52 38.0-50.0 mmHg Venous Blood Partial Pressure O2 45 mmHg Venous Blood HCO3 35 mmol/L Venous Blood Oxygen Saturation 78.3 % Venous Blood Base Excess 8.8 mEq/L Test 01/18/17 16:12 Range/Units Bedside Lactic Acid Venous 2.51 0.90-1.70 mmol/L Microbiology Results 01/18/17 Blood Culture, Received Pending 01/18/17 Blood Culture, Received Pending 01/18/17 Urine Culture, Received Pending Diagnostic Radiology CXR: IMPRESSION: 1. Mild interstitial pulmonary edema and trace bilateral pleural effusions. 2. Improved aeration within the left mid to lower lung zone. CT ABD/PELVIS: IMPRESSION: 1. No acute intra-abdominal or intrapelvic abnormality identified. 2. Gastrostomy tube in satisfactory position within the mid gastric lumen. No bowel obstruction. 3. Persistent small bilateral pleural effusions with bibasilar subsegmental consolidative opacities suggesting atelectasis and/or pneumonitis, stable from comparison chest CT 12/20/2016. 4. Prostamegaly with Saavedra catheter within a collapsed urinary bladder lumen. Small focus of air within the bladder is likely secondary to instrumentation. Correlate with urinalysis. 5. Large stool ball within the rectal vault. EKG EKG: NSR, rate 80, no ST elevations noted prolonged QTc 560. Impression Assessment and Plan UTI: WBC: 28, U/A: mod leuk, >30WBC, >30RBC, 3+bacteria. blood clots noted in saavedra bag and dark urine. Pt's vital stable -serum lactic acid ordered as POC lactic acid 2.5. -Rocephin 1GM IV -pending urine culture -pending blood cultures -urology consult with pt requiring saavedra past 3 weeks with blood clots noted -repeat cbc in am -will repeat ESR/CRP in am to trend as elevated in ER DEHYDRATION: secondary to vomiting, diarrhea. question acute gastroenteritis. GFR: 42, previous was 56. BUN/CR ratio >20. Holding zofran currently until repeat EKG to reassess QTc. -nss 500 bolus over 2 hours, followed by 100ml/hr -will hold pt's tube feeding for now and reassess tomorrow -stool cultures -C-diff -continue to monitor I&O's -continue lactobacillus -repeat prp in am HYPOXIA - POSSIBLE ASPIRATION PNEUMONIA: Risk with pt vomiting and suctioning and cough. Pt hx hypoxia since previous admissions and was on O2 via NC until d/c [facility] to home yesterday. CXR no significant change from previous admission. Will hydrate pt and repeat CXR tomorrow -Rocephin IV and Flagyl IV -O2 @2L NC -Duonebs Q4hrs prn SOB/wheezing -continue guaifenesin Q6h prn cough HYPOPHOSPHATEMIA Phosphorus: 1.6 -Potassium phosphorus 30mmol IV -repeat phosphorus and magnesium labs in am A-FIB NSR currently, rate 80. INR: 2.2. Prolonged QTc. Will repeat EKG now and hold on zofran until repeat EKG -will hold ASA and hold Coumadin dose currently until recheck INR tomorrow as pt receiving antibiotics which may increase INR and with pt having blood clots in saavedra bag -continue amiodarone -continue metoprolol -continue digoxin HTN -continue metoprolol HYPERLIPIDEMIA: -continue lipitor Consider case management consult with pt's recurrent admissions and d/c to [facility] DVT PROPHYLAXIS -SCD's -pt on coumadin, currently therapeutic, however holding today with blood clots to saavedra DISPOSITION -admit tele -DNR as per discussion with pt and . Pt was seen with Dr Vela ADDENDUM: Pt seen and examined and agree with assessment and plan above. The patient was discharged from [facility] 2/2 lack of remaining insurance per despite clinical decline overall and recent vomiting and diarrhea for the past week. He was home one day but states he is too weak to care for and she is afraid. Acute issues including weakness and fatigue appear to be linked to this gastroenteritis. Holding tube feeds until this improves. Giving IVF and holding diuretics in setting of clinical dehydration. Also pt with gross hematuria over the past day with 3 week h/o saavedra placed 2/2 him being too weak to get up and urinate on his own...? Covering CAUTI with Rocephin empirically and appreciate Urology input regarding gross hematuria. Coumadin held but ASA continued in setting of grafts (CABG). Added Flagyl for poss aspiration although lungs are clear and imaging is stable. Interestingly, he never was able to come off oxygen since prior discharge on 12/29. He was never on home oxygen prior that admisison and in Oct was ambulating with a walker and doing quite well prior to going back and forth from hospital to rehab two times each. PT/OT for re-evaluation for repeat rehab when acute issues are addressed. Bringing pulmonary on board to assist with chronic hypoxia. Speech path re- evaluation to see if things have declined and evaluate potential for rehab from their standpoint. From a somnolence standpoint, he awakens to verbal stimuli easily and is able to follow instructions. He is nonverbal at baseline. Dane , DO Level of Care Telemetry Resuscitation Status DO NOT RESUSCITATE VTE Prophylaxis VTE Risk Assessment Done? Y/N: Yes Risk Level: Moderate Given or contraindicated: SCD's Additional Copies To Gorge Brown D.O.
[2017-01-18] MEDS ORDERED: CEFTRIAXONE SOD INJ 1 GM in DEXTROSE 5% ADD-VANTAGE 50ML 50 ML IV SCH (21:00)
[2017-01-18] MEDS ORDERED: POTASSIUM PHOSPHATE INJ 30 MMOL in SODIUM CHLORIDE 0.9% 500ML 500 ML IV ONE (21:00)
[2017-01-18] MEDS: METRONIDAZOLE / NSS 500 MG in PREMIXED NSS 100 ML IV SCH (21:06)
[2017-01-18] MEDS ORDERED: INFLUENZA ADMINISTRATION CHARGE ONE (21:30)
[2017-01-18] MEDS ORDERED: PNEUMOCOCCAL ADMINISTRATION CHARGE ONE (21:30)
[2017-01-18] MEDS ORDERED: PNEUMOCOCCAL POLYSACCHARIDES 25 MCG/0.5 ML VIAL/SYR IM. ONE (21:30)
[2017-01-18] MEDS ORDERED: INFLUENZA VACCINE HIGH DOSE 65+ 0.5 ML SYR IM. ONE (21:30)
[2017-01-18] MEDS: NYSTATIN POWDER 15GM BTL EXT SCH (21:58)
[2017-01-18] MEDS: ATORVASTATIN 40 MG TAB PEG SCH (22:00)
[2017-01-18] MEDS: METOPROLOL TARTRATE 25 MG TAB PEG SCH (22:01)
[2017-01-18 23:16] VITALS: BP 114/68; PULSE 69; TEMP 36.8; O2SAT 98
[2017-01-18] MEDS: AMIODARONE 200 MG TAB PEG SCH (23:28)
[2017-01-18] MEDS: GUAIFENESIN SUGAR FREE 200 MG/10 ML UDC PEG SCH (23:29)
[2017-01-19] VITALS (7 sets, daily range): BP systolic 106–120; BP diastolic 48–63; PULSE 69–74; TEMP 36.3–37; O2SAT 90–98
[2017-01-19] MEDS: METRONIDAZOLE / NSS 500 MG in PREMIXED NSS 100 ML IV SCH ×3 (05:35→21:57)
[2017-01-19] MEDS: GUAIFENESIN SUGAR FREE 200 MG/10 ML UDC PEG SCH ×3 (05:55→17:54)
[2017-01-19 06:58] LABS: INR 2.5 (0.9-1.1); PROTHROMBIN TIME (PATIENT) 28.2 SECONDS (9.0-12.0)
[2017-01-19 07:33] LABS: BUN/CREATININE RATIO 32.3 (10-20); C-REACTIVE PROTEIN 8.85 mg/dl (0-0.29); CALCIUM 8.5 mg/dl (8.5-10.1); CREATININE 0.8 mg/dl (0.60-1.40); MAGNESIUM 2.3 mg/dl (1.8-2.4); PHOSPHORUS 4.3 mg/dl (2.5-4.9); POTASSIUM 3.9 mmol/L (3.5-5.1)
[2017-01-19] MEDS: LACTOBACILLUS ACIDOPHILUS (FLORANEX) TAB PEG SCH ×3 (07:37→15:57)
[2017-01-19] MEDS: NYSTATIN POWDER 15GM BTL EXT SCH ×2 (07:37→20:45)
[2017-01-19] MEDS: METOPROLOL TARTRATE 25 MG TAB PEG SCH ×2 (07:38→20:46)
[2017-01-19] MEDS: FERROUS SULFATE ELIX 220MG/5ML PEG SCH (07:38)
[2017-01-19 07:44] LABS: BASO % 0.1 %; BASO ABS # 0.01 K/uL (0-0.2); COMPLETE YES; EOS % 0.3 %; IG% 0.3 %; LYMPH % 5.6 %; LYMPH ABS # 0.78 K/uL (1.2-3.4); MEAN CELL VOLUME 95.5 fL (80-100); MEAN CORPUSCULAR HEMOGLOBIN 30.9 pg (25-34); MEAN CORPUSCULAR HGB CONC 32.4 g/dl (32-36); MEAN PLATELET VOLUME 10.8 fL (7.4-10.4); MONO % 5.7 %; PLATELET COUNT 283 K/uL (130-400); RED BLOOD COUNT 3.56 M/uL (4.7-6.1); WHITE BLOOD COUNT 13.96 K/uL (4.8-10.8)
[2017-01-19] MEDS ORDERED: PNEUMOCOCCAL ADMINISTRATION CHARGE ONE (08:00)
[2017-01-19] MEDS ORDERED: PNEUMOCOCCAL POLYSACCHARIDES 25 MCG/0.5 ML VIAL/SYR IM. ONE (08:00)
[2017-01-19] MEDS ORDERED: INFLUENZA ADMINISTRATION CHARGE ONE (08:00)
[2017-01-19] MEDS ORDERED: INFLUENZA VACCINE HIGH DOSE 65+ 0.5 ML SYR IM. ONE (08:00)
--- NOTE | 2017-01-19 08:44 | DIAGNOSTIC IMAGING REPORT ---
CHEST ONE VIEW PORTABLE CLINICAL HISTORY: SOB, cough dyspnea COMPARISON STUDY: 01/18/2017 FINDINGS: The bones soft tissues and hemidiaphragms are normal. The cardiomediastinal silhouette is normal. The lungs are clear. The pulmonary vasculature is normal. Components of congestive heart failure present. IMPRESSION: Developing congestive heart failure The above report was generated using voice recognition software. It may contain grammatical, syntax or spelling errors. Electronically signed by: Surya Pham M.D. 01/19/2017 8:43 AM Dictated Date/Time: 01/19/2017 8:41 AM
[2017-01-19] MEDS ORDERED: ASPIRIN 81 MG CHEW PEG SCH (09:00)
[2017-01-19] MEDS: FINASTERIDE 5 MG TAB PO SCH (09:28)
[2017-01-19] MEDS ORDERED: FUROSEMIDE 40 MG TAB NG ONE (12:00)
--- NOTE | 2017-01-19 12:09 | Hospitalist Progress Note ---
Hospitalist Progress Note Date of Service Jan 19, 2017. Subjective Pt seen and examined. Pt is 76y/o M with PMHx stroke (pt non-verbal, but does answer yes/no with nodding head), hx [place], s/p CABG, a-fib, has feeding tube, hx aspiration pneumonia, hx CHF, hx gastric CA s/p resection is admitted secondary to vomiting, diarrhea, increased weakness and possible aspiration pneumonia. is not at bedside this am. Pt is awake and alert and is reading newspaper. Pt shakes head no when asked if any CP, extremity pain, nausea, abdominal pain overnight or today. Pt shakes head yes when asked if feels SOB. Pt on O2 at 2L via NC and sats 96-98%, resp:18. Afebrile. Objective Vital Signs Date Time Temp Pulse Resp B/P (MAP) Pulse Ox O2 Delivery O2 Flow Rate FiO2 01/19/17 08:05 36.5 72 19 115/63 (80) 96 Nasal Cannula 2.0 01/19/17 08:00 98 Room Air 2.0 Nasal Cannula 01/19/17 04:08 36.3 72 18 120/58 (78) 98 Nasal Cannula 2.0 01/19/17 04:00 Nasal Cannula 3.0 01/19/17 00:00 Nasal Cannula 3.0 01/18/17 23:16 36.8 69 14 114/68 (83) 98 Room Air 01/18/17 20:20 Nasal Cannula 3.0 01/18/17 20:18 36.9 78 17 108/63 93 Nasal Cannula 2.0 01/18/17 19:46 79 16 96 Nasal Cannula 2.0 01/18/17 19:31 81 17 106/62 01/18/17 19:16 93 17 81 01/18/17 19:01 86 18 124/69 01/18/17 18:46 83 17 01/18/17 18:31 85 21 102/61 01/18/17 18:16 82 16 01/18/17 18:01 82 17 110/63 01/18/17 17:46 105 18 01/18/17 17:37 84 20 112/64 98 Room Air 01/18/17 17:31 85 17 112/64 97 01/18/17 17:16 81 16 97 01/18/17 17:01 80 17 106/62 97 01/18/17 16:59 80 18 106/62 97 01/18/17 16:46 83 20 94 01/18/17 16:31 84 26 138/76 92 01/18/17 16:01 82 19 109/63 01/18/17 15:47 81 19 112/64 95 Nasal Cannula 2.0 01/18/17 15:46 81 19 87 01/18/17 15:31 83 21 112/64 95 01/18/17 15:22 82 01/18/17 15:16 82 20 96 01/18/17 15:15 97 2.0 01/18/17 15:13 37.2 78 20 115/68 88 Room Air 01/18/17 15:01 115/68 Physical Exam General Appearance: no apparent distress Eyes: normal inspection, PERRL, EOMI ENT: hearing grossly normal, pharynx normal Neck: supple, no JVD, trachea midline Respiratory/Chest: no respiratory distress, no accessory muscle use, + rhonchi Cardiovascular: regular rate, rhythm Abdomen: normal bowel sounds, non tender, soft (gtube in place) Extremities: non-tender, no pedal edema (distal pulses intact), normal capillary refill Neurologic/Psychiatric: alert (awake) Skin: warm/dry, + rash (erythema to groin) Laboratory Results Last 24 Hours Test 01/18/17 14:36 01/18/17 15:45 01/18/17 16:04 01/18/17 16:06 White Blood Count 28.48 K/uL Red Blood Count 4.59 M/uL Hemoglobin 14.6 g/dL Hematocrit 43.4 % Mean Corpuscular Volume 94.6 fL Mean Corpuscular Hemoglobin 31.8 pg Mean Corpuscular Hemoglobin Concent 33.6 g/dl Platelet Count 374 K/uL Mean Platelet Volume 11.4 fL Neutrophils (%) (Auto) 95.7 % Lymphocytes (%) (Auto) 2.0 % Monocytes (%) (Auto) 1.9 % Eosinophils (%) (Auto) 0.0 % Basophils (%) (Auto) 0.0 % Neutrophils # (Auto) 27.23 K/uL Lymphocytes # (Auto) 0.58 K/uL Monocytes # (Auto) 0.55 K/uL Eosinophils # (Auto) 0.00 K/uL Basophils # (Auto) 0.01 K/uL RDW Standard Deviation 56.0 fL RDW Coefficient of Variation 16.3 % Immature Granulocyte % (Auto) 0.4 % Immature Granulocyte # (Auto) 0.11 K/uL Platelet Estimate NORMAL Digoxin Level 0.7 ng/ml Urine Color DK YELLOW Urine Appearance CLOUDY Urine pH 5.0 Urine Specific [place] 1.024 Urine Protein 1+ Urine Glucose (UA) NEG Urine Ketones TRACE Urine Occult Blood 3+ Urine Nitrite NEG Urine Bilirubin NEG Urine Urobilinogen NEG Urine Leukocyte Esterase MODERATE Urine WBC (Auto) >30 /hpf Urine RBC (Auto) >30 /hpf Urine Hyaline Casts (Auto) 5-10 /lpf Urine Epithelial Cells (Auto) 0-5 /lpf Urine Bacteria (Auto) 3+ Urine Crystals CALCIUM OXALATE Urine Yeast (Auto) BUDDING Erythrocyte Sedimentation Rate 75 mm/hr Prothrombin Time 23.9 SECONDS Prothromb Time International Ratio 2.2 Activated Partial Thromboplast Time 36.8 SECONDS Partial Thromboplastin Ratio 1.4 Sodium Level 136 mmol/L Potassium Level 3.8 mmol/L Chloride Level 96 mmol/L Carbon Dioxide Level 34 mmol/L Anion Gap 6.0 mmol/L Blood Urea Nitrogen 27 mg/dl Creatinine 1.13 mg/dl Est Creatinine Clear Calc Drug Dose 42.3 ml/min Estimated GFR () 72.3 Estimated GFR (Non- 62.4 BUN/Creatinine Ratio 23.7 Random Glucose 187 mg/dl Calcium Level 9.5 mg/dl Phosphorus Level 1.6 mg/dl Magnesium Level 2.4 mg/dl Total Bilirubin 0.4 mg/dl Aspartate Amino Transf (AST/SGOT) 25 U/L Alanine Aminotransferase (ALT/SGPT) 29 U/L Alkaline Phosphatase 145 U/L Total Creatine Kinase 44 U/L Creatine Kinase MB 1.3 ng/ml Creatine Kinase MB Ratio 3.0 Troponin I 0.035 ng/ml C-Reactive Protein 3.60 mg/dl Pro-B-Type Natriuretic Peptide 1214 pg/ml Total Protein 8.6 gm/dl Albumin 2.7 gm/dl Globulin 5.9 gm/dl Albumin/Globulin Ratio 0.5 Lipase 130 U/L Venous Blood pH 7.44 Venous Blood Partial Pressure CO2 52 mmHg Venous Blood Partial Pressure O2 45 mmHg Venous Blood HCO3 35 mmol/L Venous Blood Oxygen Saturation 78.3 % Venous Blood Base Excess 8.8 mEq/L Test 01/18/17 16:12 01/18/17 20:55 01/19/17 06:23 Bedside Lactic Acid Venous 2.51 mmol/L Lactic Acid Level 1.3 mmol/L White Blood Count 13.96 K/uL Red Blood Count 3.56 M/uL Hemoglobin 11.0 g/dL Hematocrit 34.0 % Mean Corpuscular Volume 95.5 fL Mean Corpuscular Hemoglobin 30.9 pg Mean Corpuscular Hemoglobin Concent 32.4 g/dl Platelet Count 283 K/uL Mean Platelet Volume 10.8 fL Neutrophils (%) (Auto) 88.0 % Lymphocytes (%) (Auto) 5.6 % Monocytes (%) (Auto) 5.7 % Eosinophils (%) (Auto) 0.3 % Basophils (%) (Auto) 0.1 % Neutrophils # (Auto) 12.30 K/uL Lymphocytes # (Auto) 0.78 K/uL Monocytes # (Auto) 0.79 K/uL Eosinophils # (Auto) 0.04 K/uL Basophils # (Auto) 0.01 K/uL RDW Standard Deviation 56.2 fL RDW Coefficient of Variation 16.3 % Immature Granulocyte % (Auto) 0.3 % Immature Granulocyte # (Auto) 0.04 K/uL Prothrombin Time 28.2 SECONDS Prothromb Time International Ratio 2.5 Sodium Level 139 mmol/L Potassium Level 3.9 mmol/L Chloride Level 103 mmol/L Carbon Dioxide Level 31 mmol/L Anion Gap 5.0 mmol/L Blood Urea Nitrogen 26 mg/dl Creatinine 0.80 mg/dl Est Creatinine Clear Calc Drug Dose 59.7 ml/min Estimated GFR () 99.9 Estimated GFR (Non- 86.2 BUN/Creatinine Ratio 32.3 Random Glucose 102 mg/dl Calcium Level 8.5 mg/dl Phosphorus Level 4.3 mg/dl Magnesium Level 2.3 mg/dl C-Reactive Protein 8.85 mg/dl Assessment and Plan UTI: WBC: down to 13.9 today from 28, BUN 26 (27 yesterday), CR 0.8 (1.1 yesterday), GFR 59 (was 42 yesterday) -serum lactic acid was 1.3 -urine culture preliminary streptococcus species >100,000 -Rocephin 1GM IV and flagyl IV continued until results of urine culture and may need to alter -pending blood cultures -urology consult -cbc in am VOMITING/DIARRHEA no vomiting. one loose BM this am. Negative c-diff. stool cultures pending. hold tube feed at this time -prp, magensium labs in am HYPOXIA - POSSIBLE ASPIRATION PNEUMONIA: Risk with pt vomiting and suctioning and cough. Pt hx hypoxia since previous admissions and was on O2 via NC until d/c [facility] CXR portable this am developing CHF Rocephin IV and Flagyl IV O2 @2L NC Duonebs Q4hrs prn SOB/wheezing continue guaifenesin Q6h prn cough CHF will restart Lasix at 40mg peg tube today, back to home dose Lasix 60mg tomorrow HYPOPHOSPHATEMIA Previous phosphorus: 1.6, pt was given Potassium phosphorus 30mmol IV repeat phosphorus this am 4.3 and magnesium 2.3 A-FIB NSR currently, rate 72 QTc 424. INR: 2.5 Will hold coumadin and recheck tomorrow. continue ASA continue amiodarone continue metoprolol continue digoxin HTN -continue metoprolol HYPERLIPIDEMIA: -continue lipitor PT/OT consult Speech consult Pulm consult
--- NOTE | 2017-01-19 12:23 | Progress Note ---
Internal Med Progress Note Date of Service: Jan 19, 2017. 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 Nods yes to SOB and chest congestion Denies abd pain, nausea, diarrhea resolved Urine clear, hematuria seemed to be improving Family at bedside Leukocytosis improving OBJECTIVE: Vital Signs-as noted below Physical Exam: General Appearance:Chronic ill appearing, no apparent distress Head: normocephalic, Atraumatic Eyes: normal inspection, EOMI, PERRL Neck: supple, Trachea midline Respiratory/Chest: Decreased breath sounds, B/L rales and rhonchi Cardiovascular: S1, S2, No murmur Abdomen/GI:Soft, Non tender, +Peg tube, Bowel sounds present Extremities/Musculoskelatal:normal inspection, no edema Neurologic/Psych:alert, awake, Non verbal, moves all extremities Skin: normal color, warm Lab data as noted below. ASSESSMENT & PLAN: UTI: Leukocytosis improving Normal lactate levels Will change Ji Urine culture:Strep species Will change Ceftriaxone to Levaquin Day # 2 Blood cultures pending Hematuria: Hb at baseline Hold coumadin for now Urology consulted Monitor Hb Acute on Chronic systolic CHF: Likely secondary to IV fluids Restart PO Lasix (BP relatively low, avoid IV lasix) Last ECHO: nov 2016: * There is moderate to severe hypokinesis of the inferior/posterior dumas, associated wall thinning at the base * There is borderline global hypokinesis of the left ventricle. * Ejection Fraction = 40-45%. Daily weight, I/Os Oxygen support PRN Dehydration/Diarrhea: S/P IV fluids Stool for C.diff: Negative Stool studies pending Continue vernell Reid for now Hypoxia: Possible chronic Aspiration from tube feeds: On chronic tube feeds Speech therapy consulted Oxygen support Pulmonology consulted On Abx, Duonebs Hypophosphatemia: Resolved Paroxysmal Afib: Currently in sinus Rate controlled continue digoxin, metoprolol, amiodarone Coumadin on hold for now Monitor INR:2.5 today HTN Relatively low monitor Hyperlipidemia: continue lipitor DVT Px: SCD's coumadin on hold Code Status: DNR Disposition: Monitor in Tele Needs rehab placement dining services manager Vital Signs: Date Time Temp Pulse Resp B/P (MAP) Pulse Ox O2 Delivery O2 Flow Rate FiO2 01/19/17 16:00 Nasal Cannula 3.0 01/19/17 15:08 36.4 74 18 107/61 (76) 90 Nasal Cannula 3.0 01/19/17 12:00 98 Room Air 2.0 Nasal Cannula 01/19/17 12:00 36.5 69 18 106/56 (73) 95 Nasal Cannula 2.0 01/19/17 08:05 36.5 72 19 115/63 (80) 96 Nasal Cannula 2.0 01/19/17 08:00 98 Room Air 2.0 Nasal Cannula 01/19/17 04:08 36.3 72 18 120/58 (78) 98 Nasal Cannula 2.0 01/19/17 04:00 Nasal Cannula 3.0 01/19/17 00:00 Nasal Cannula 3.0 01/18/17 23:16 36.8 69 14 114/68 (83) 98 Room Air 01/18/17 20:20 Nasal Cannula 3.0 01/18/17 20:18 36.9 78 17 108/63 93 Nasal Cannula 2.0 01/18/17 19:46 79 16 96 Nasal Cannula 2.0 01/18/17 19:31 81 17 106/62 01/18/17 19:16 93 17 81 01/18/17 19:01 86 18 124/69 01/18/17 18:46 83 17 01/18/17 18:31 85 21 102/61 01/18/17 18:16 82 16 01/18/17 18:01 82 17 110/63 01/18/17 17:46 105 18 01/18/17 17:37 84 20 112/64 98 Room Air Lab Results: Results Past 24 Hours Test 01/18/17 20:55 01/19/17 06:23 Range/Units Lactic Acid Level 1.3 0.4-2.0 mmol/L White Blood Count 13.96 4.8-10.8 K/uL Red Blood Count 3.56 4.7-6.1 M/uL Hemoglobin 11.0 14.0-18.0 g/dL Hematocrit 34.0 42-52 % Mean Corpuscular Volume 95.5 80-100 fL Mean Corpuscular Hemoglobin 30.9 25-34 pg Mean Corpuscular Hemoglobin Concent 32.4 32-36 g/dl Platelet Count 283 130-400 K/uL Mean Platelet Volume 10.8 7.4-10.4 fL Neutrophils (%) (Auto) 88.0 % Lymphocytes (%) (Auto) 5.6 % Monocytes (%) (Auto) 5.7 % Eosinophils (%) (Auto) 0.3 % Basophils (%) (Auto) 0.1 % Neutrophils # (Auto) 12.30 1.4-6.5 K/uL Lymphocytes # (Auto) 0.78 1.2-3.4 K/uL Monocytes # (Auto) 0.79 0.11-0.59 K/uL Eosinophils # (Auto) 0.04 0-0.5 K/uL Basophils # (Auto) 0.01 0-0.2 K/uL RDW Standard Deviation 56.2 36.4-46.3 fL RDW Coefficient of Variation 16.3 11.5-14.5 % Immature Granulocyte % (Auto) 0.3 % Immature Granulocyte # (Auto) 0.04 0.00-0.02 K/uL Erythrocyte Sedimentation Rate 39 0-14 mm/hr Prothrombin Time 28.2 9.0-12.0 SECONDS Prothromb Time International Ratio 2.5 0.9-1.1 Sodium Level 139 136-145 mmol/L Potassium Level 3.9 3.5-5.1 mmol/L Chloride Level 103 98-107 mmol/L Carbon Dioxide Level 31 21-32 mmol/L Anion Gap 5.0 3-11 mmol/L Blood Urea Nitrogen 26 7-18 mg/dl Creatinine 0.80 0.60-1.40 mg/dl Est Creatinine Clear Calc Drug Dose 59.7 ml/min Estimated GFR () 99.9 Estimated GFR (Non- 86.2 BUN/Creatinine Ratio 32.3 10-20 Random Glucose 102 70-99 mg/dl Calcium Level 8.5 8.5-10.1 mg/dl Phosphorus Level 4.3 2.5-4.9 mg/dl Magnesium Level 2.3 1.8-2.4 mg/dl C-Reactive Protein 8.85 0-0.29 mg/dl Microbiology Results 01/19/17 C.difficile Toxin B Gene (PCR) - Final, Complete No C. difficile toxin B gene detected 01/19/17 Shiga Toxin Test, Received Pending 01/19/17 Stool Culture, Received Pending
--- NOTE | 2017-01-19 16:00 | Pulmonary Consultation ---
History General Date of Service: Jan 19, 2017. Stated Complaint: Dehydration, Pneumonia, Vomiting And Diarrhea HPI The patient is a 76 year old male who presents to [facility] with complaints of Dehydration, Pneumonia, Vomiting And Diarrhea. The patient's primary care provider is Gorge Brown D.O.. Mr. Vaughn is a 76-year-old nonverbal male secondary to CVA, atrial fibrillation on Coumadin who presents with one day history of vomiting. He was recently discharged from [facility] after recent hospitalization earlier this month. Per who was at bedside, patient complained of abdominal pain which was associated with nausea, nonbilious nonbloody vomitus and had nonbloody diarrhea. She states that he did not have any fevers, chills, chest pain, shortness of breath. She also notes that he had increased suctioning of oral secretions and mucus. She states that his chest sounds have been as "rattling" than normal. She states that over the last two hospitalizations patient has been more weak than usual. He used to ambulate independently with walker, but now requiring more assistance. En route to the ER he was given nebulizer treatment as well as Zofran. Initial vital signs in the ER showed a temperature 37.2, pulse 78, respiratory rate of 20, blood pressure 115/68, pulse oximetry 88% on room air. He was placed on 2 L nasal cannula and his SaO2 increased to 97%. His initial laboratory data showed a white blood cell count of 25, hemoglobin of 14.6 and platelet count of 374. Chemistry showed sodium of 136, potassium 3.8, chloride 96, carbon dioxide 34, BUN 27, creatinine 1.13 and glucose 187. Lactate 2.51, phosphorus 1.6, alkaline phosphatase 145. Total protein is 8.6 and albumin 2.7. BNP 1214, troponin 0.035. VBG was 7.44/52/45/35/78% on room air. UA showed moderate leukocyte esterase, trace ketones, 3+ occult blood, greater than 30 urine white blood cells, greater than 30 urine red blood cells, 3+ bacteria, calcium oxalate crystals, budding hyphae. Cultures grew Streptococcus species. Blood cultures and Shiga toxin still pending. C. difficile B PCR negative. Chest x-ray from 1025 showed mild interstitial edema, trace bilateral pleural effusions. Improved aeration in the left mid to lower lung zone compared to previous examination. He also had an abdominal CT done which showed small bilateral pleural effusions with bibasilar subsegmental atelectasis and bronchial wall thickening. He was admitted for hypoxia secondary to possible aspiration pneumonia, gastroenteritis and UTI. For respiratory standpoint he is on Lasix, guaifenesin, metronidazole and ceftriaxone as well as DuoNeb when necessary. At the time of my evaluation, MAXIMUM TEMPERATURE was 36.5, pulse 69, respiratory rate 18, blood pressure 106/65 and saturating mid 90s on room air. Currently about 1100 mL positive balance since admission. He is out of bed to chair reading. He denies any respiratory complaints. White blood cell count decreased to 13. Lactic acid now 1.3. Historian: patient, spouse Onset: just prior to arrival Severity: mild, moderate Complaint Status: improved Review of Systems Constitutional: reports: as stated in HPI Eyes: reports: as stated in HPI ENT: reports: as stated in HPI Cardiovascular: reports: as stated in HPI Respiratory: reports: as stated in HPI Gastrointestinal: reports: as stated in HPI Genitourinary - Male: reports: as stated in HPI Musculoskeletal: reports: as stated in HPI Neurologic: reports: as stated in HPI Psychiatric: reports: as stated in HPI Endocrine: as stated in HPI Hematologic / Lymphatic: as stated in HPI Allergic / Immunologic: as stated in HPI All Other Symptoms All Other Systems: Reviewed and Negative Past Medical History Past Medical History: CVA Myocardial infarction status post CABG Atrial fibrillation on Coumadin History of aspiration pneumonia History of CHF History of gastric cancer status post resection Past Surgical History: Gastrectomy H Gastrostomy tube placement Family History Cancer Diabetes mellitus Heart disease Kidney disease Social History Hx Tobacco Use In Past Year?: No Smoking Status: Unknown if Ever Smoked Marital status: History of MDRO History of MDRO: No Allergies Coded Allergies: Jennings (Verified Allergy, Intermediate, hives, 01/18/17) Unclassified Drugs (Verified Allergy, Intermediate, Mack needles- immediate swelling, 01/18/17) Penicillins (Verified Allergy, Unknown, hives, 01/18/17) Current Medications Reported Home Medications Medications Dose Route/Sig Max Daily Dose Days Date Category Dose Instructions Guaifenesin 200 Mg/10 Ml Syrp 10 Ml PEG Q6H 01/18/17 Reported Ondansetron HCl (Ondansetron) 4 Mg Tab 1 Tab PEG Q4H PRN 01/18/17 Reported Coumadin (Warfarin Sodium) 2 Mg Tab 2 Mg PO ODD-DAYS 01/18/17 Reported Lasix (Furosemide) 20 Mg Tab 3 Tab PEG DAILY 01/18/17 Reported Floranex (Lactobacillus) 1 Tab Tab 4 Tab PEG TIDM 01/18/17 Reported Aspirin Ec (Aspirin) 81 Mg Tab 81 Mg PEG DAILY 01/18/17 Reported Vital 1.5 Duncan (Nutritional Supplements) 1 Liq Liq 60 Ml PEG HOURLY 12/20/16 Reported Coumadin (Warfarin Sod) 1 Mg Tab 1 Mg PEG EVENDAYS 12/20/16 Reported Ferrous Sulfate 300 Mg/5 Ml Syp 300 Mg PEG DAILY 12/20/16 Reported Duoneb (Ipratropium-Albuterol) 3 Ml Nebu 1 Treatment INH Q4H PRN 12/20/16 Reported Nystatin (Nystatin (Topical)) 1 Pow Pow 1 Appl TOP BID 12/20/16 Reported Lopressor (Metoprolol Tartrate) 25 Mg Tab 12.5 Mg PEG BID 11/08/16 Reported Digoxin 0.125 Mg Tab 0.125 Mg PEG 3XWK 11/08/16 Reported fariba monday and monday Amiodarone HCl 200 Mg Tab 200 Mg PEG HS 11/08/16 Reported Lipitor (Atorvastatin Calcium) 80 Mg Tab 80 Mg PEG HS 11/08/16 Reported Physical Physical Exam Vital Signs: Date Time Temp Pulse Resp B/P (MAP) Pulse Ox O2 Delivery O2 Flow Rate FiO2 01/19/17 12:00 98 Room Air 2.0 Nasal Cannula 01/19/17 12:00 36.5 69 18 106/56 (73) 95 Nasal Cannula 2.0 01/19/17 08:05 36.5 72 19 115/63 (80) 96 Nasal Cannula 2.0 01/19/17 08:00 98 Room Air 2.0 Nasal Cannula 01/19/17 04:08 36.3 72 18 120/58 (78) 98 Nasal Cannula 2.0 01/19/17 04:00 Nasal Cannula 3.0 01/19/17 00:00 Nasal Cannula 3.0 01/18/17 23:16 36.8 69 14 114/68 (83) 98 Room Air 01/18/17 20:20 Nasal Cannula 3.0 01/18/17 20:18 36.9 78 17 108/63 93 Nasal Cannula 2.0 01/18/17 19:46 79 16 96 Nasal Cannula 2.0 01/18/17 19:31 81 17 106/62 01/18/17 19:16 93 17 81 01/18/17 19:01 86 18 124/69 01/18/17 18:46 83 17 01/18/17 18:31 85 21 102/61 01/18/17 18:16 82 16 01/18/17 18:01 82 17 110/63 01/18/17 17:46 105 18 01/18/17 17:37 84 20 112/64 98 Room Air 01/18/17 17:31 85 17 112/64 97 01/18/17 17:16 81 16 97 01/18/17 17:01 80 17 106/62 97 01/18/17 16:59 80 18 106/62 97 01/18/17 16:46 83 20 94 01/18/17 16:31 84 26 138/76 92 01/18/17 16:01 82 19 109/63 General Appearance: WD/WN, NO APPARENT DISTRESS Head: NORMOCEPHALIC, ATRAUMATIC Eyes: PERRLA, NO DISCHARGE, EOMI, SCLERAE NORMAL ENT: NORMAL MOUTH EXAM, NORMAL THROAT EXAM Neck: NORMAL RANGE OF MOTION, NO TENDERNESS, TRACHEA MIDLINE, NO STRIDOR Respiratory: NO RESPIRATORY DISTRESS, NO TENDERNESS, rhonchi Cardiovasular: REGULAR RATE/RHYTHM, NORMAL PERIPHERAL PULSES, irregular rate Abdomen: NON TENDER, NORMAL BOWEL SOUNDS, NO REBOUND, other (gastrostomy tube in place) Back: NORMAL INSPECTION, NO MIDLINE TENDERNESS, NO CVA TENDERNESS Upper Extremities: NO EDEMA, NO DEFORMITY, NORMAL ROM, other (no cyanosis no clubbing) Lower Extremities: NO EDEMA, NO DEFORMITY, NORMAL ROM Pulses: dorsalis pedis (R) (2+), dorsalis pedis (L) (2+) Neuro: ALERT, ORIENTED x 3, other (nonverbal, but responds appropriately with head nodding) Psychiatric: NORMAL AFFECT, NO SUICIDAL IDEATION, CONTRACTS FOR SAFETY, other Diagnostics Labs Results Past 24 Hours Test 01/18/17 16:04 01/18/17 16:06 01/18/17 16:12 01/18/17 20:55 Range/Units Erythrocyte Sedimentation Rate 75 0-14 mm/hr Prothrombin Time 23.9 9.0-12.0 SECONDS Prothromb Time International Ratio 2.2 0.9-1.1 Activated Partial Thromboplast Time 36.8 21.0-31.0 SECONDS Partial Thromboplastin Ratio 1.4 Sodium Level 136 136-145 mmol/L Potassium Level 3.8 3.5-5.1 mmol/L Chloride Level 96 98-107 mmol/L Carbon Dioxide Level 34 21-32 mmol/L Anion Gap 6.0 3-11 mmol/L Blood Urea Nitrogen 27 7-18 mg/dl Creatinine 1.13 0.60-1.40 mg/dl Est Creatinine Clear Calc Drug Dose 42.3 ml/min Estimated GFR () 72.3 Estimated GFR (Non- 62.4 BUN/Creatinine Ratio 23.7 10-20 Random Glucose 187 70-99 mg/dl Calcium Level 9.5 8.5-10.1 mg/dl Phosphorus Level 1.6 2.5-4.9 mg/dl Magnesium Level 2.4 1.8-2.4 mg/dl Total Bilirubin 0.4 0.2-1 mg/dl Aspartate Amino Transf (AST/SGOT) 25 15-37 U/L Alanine Aminotransferase (ALT/SGPT) 29 12-78 U/L Alkaline Phosphatase 145 45-117 U/L Total Creatine Kinase 44 39-308 U/L Creatine Kinase MB 1.3 0.5-3.6 ng/ml Creatine Kinase MB Ratio 3.0 0-3.0 Troponin I 0.035 0-0.045 ng/ml C-Reactive Protein 3.60 0-0.29 mg/dl Pro-B-Type Natriuretic Peptide 1214 0-1800 pg/ml Total Protein 8.6 6.4-8.2 gm/dl Albumin 2.7 3.4-5.0 gm/dl Globulin 5.9 2.5-4.0 gm/dl Albumin/Globulin Ratio 0.5 0.9-2 Lipase 130 73-393 U/L Venous Blood pH 7.44 7.36-7.41 Venous Blood Partial Pressure CO2 52 38.0-50.0 mmHg Venous Blood Partial Pressure O2 45 mmHg Venous Blood HCO3 35 mmol/L Venous Blood Oxygen Saturation 78.3 % Venous Blood Base Excess 8.8 mEq/L Bedside Lactic Acid Venous 2.51 0.90-1.70 mmol/L Lactic Acid Level 1.3 0.4-2.0 mmol/L Test 01/19/17 06:23 Range/Units White Blood Count 13.96 4.8-10.8 K/uL Red Blood Count 3.56 4.7-6.1 M/uL Hemoglobin 11.0 14.0-18.0 g/dL Hematocrit 34.0 42-52 % Mean Corpuscular Volume 95.5 80-100 fL Mean Corpuscular Hemoglobin 30.9 25-34 pg Mean Corpuscular Hemoglobin Concent 32.4 32-36 g/dl Platelet Count 283 130-400 K/uL Mean Platelet Volume 10.8 7.4-10.4 fL Neutrophils (%) (Auto) 88.0 % Lymphocytes (%) (Auto) 5.6 % Monocytes (%) (Auto) 5.7 % Eosinophils (%) (Auto) 0.3 % Basophils (%) (Auto) 0.1 % Neutrophils # (Auto) 12.30 1.4-6.5 K/uL Lymphocytes # (Auto) 0.78 1.2-3.4 K/uL Monocytes # (Auto) 0.79 0.11-0.59 K/uL Eosinophils # (Auto) 0.04 0-0.5 K/uL Basophils # (Auto) 0.01 0-0.2 K/uL RDW Standard Deviation 56.2 36.4-46.3 fL RDW Coefficient of Variation 16.3 11.5-14.5 % Immature Granulocyte % (Auto) 0.3 % Immature Granulocyte # (Auto) 0.04 0.00-0.02 K/uL Erythrocyte Sedimentation Rate 39 0-14 mm/hr Prothrombin Time 28.2 9.0-12.0 SECONDS Prothromb Time International Ratio 2.5 0.9-1.1 Sodium Level 139 136-145 mmol/L Potassium Level 3.9 3.5-5.1 mmol/L Chloride Level 103 98-107 mmol/L Carbon Dioxide Level 31 21-32 mmol/L Anion Gap 5.0 3-11 mmol/L Blood Urea Nitrogen 26 7-18 mg/dl Creatinine 0.80 0.60-1.40 mg/dl Est Creatinine Clear Calc Drug Dose 59.7 ml/min Estimated GFR () 99.9 Estimated GFR (Non- 86.2 BUN/Creatinine Ratio 32.3 10-20 Random Glucose 102 70-99 mg/dl Calcium Level 8.5 8.5-10.1 mg/dl Phosphorus Level 4.3 2.5-4.9 mg/dl Magnesium Level 2.3 1.8-2.4 mg/dl C-Reactive Protein 8.85 0-0.29 mg/dl Microbiology Results 01/18/17 Blood Culture, Received Pending 01/18/17 Blood Culture, Received Pending 01/19/17 C.difficile Toxin B Gene (PCR) - Final, Complete No C. difficile toxin B gene detected 01/19/17 Shiga Toxin Test, Received Pending 01/19/17 Stool Culture, Received Pending Diagnostic Radiology CHEST ONE VIEW PORTABLE HISTORY: Sepsis COMPARISON: Chest 12/28/2016. FINDINGS: No pneumothorax. Trace bilateral pleural effusions have improved. Improved aeration within the left mid to lower lung zone. Diffuse interstitial thickening persists. The heart remains borderline enlarged. There are poststernotomy changes present. IMPRESSION: 1. Mild interstitial pulmonary edema and trace bilateral pleural effusions. 2. Improved aeration within the left mid to lower lung zone. ABD/PELVIS NO IV OR ORAL CONT HISTORY: 76 years-old Male vomiting acute vomiting. Initial exam COMPARISON: CTA chest 12/20/2016, renal ultrasound 12/20/2016 TECHNIQUE: Multiple axial CT images of the abdomen and pelvis were obtained without contrast. A dose lowering technique was used consistent with the principals of WILLIAMRA. FINDINGS: Small bilateral pleural effusions with subsegmental bibasilar consolidation and bronchial wall thickening, similar from prior. Sternotomy wires partially imaged. No pneumoperitoneum identified. The exam however is mildly limited secondary to motion artifact. Inferior cardiac chambers are mildly enlarged. Coronary arterial disease. Evaluation of the solid abdominal organs is limited without the use of IV contrast. Within the limitations of the study, the liver, spleen, adrenal glands and gallbladder are unremarkable. Moderate diffuse pancreatic atrophy. Exophytic 11 x 9 mm lesion of the posterior superior pole right kidney is again seen which appears soft tissue attenuating. Kidneys and ureters are otherwise unremarkable. Prostate is enlarged with central coarse calcifications. Ji catheter is in place within a collapsed urinary bladder lumen. Wall thickening and stranding stranding is noted about the bladder. Focus of nondependent intraluminal urinary bladder air is likely secondary to instrumentation. Postoperative changes about the left scrotum with apparent left testicle or hydrocele noted within the left upper scrotum. Fusiform aneurysmal dilation of the infrarenal abdominal aorta measures up to 3.1 x 2.8 cm. Additional areas of aneurysm are seen more proximally just below the abdominal aorta, 3.1 cm. Extensive atherosclerotic plaquing extends into the iliac vasculature. No bulky adenopathy. 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 Gastrostomy tube is noted within the gastric lumen which appears to be in satisfactory position. There is no bowel obstruction, pneumatosis or pneumoperitoneum. Large stool ball in the rectal vault measures 7.8 cm transversely. The majority of the descending and sigmoid colon is collapsed. The appendix appears normal. Soft tissues are unremarkable. Bones are mildly demineralized. Multilevel endplate spurring, spondylitic changes and facet arthropathy. Schmorl's nodes are also seen. No acute fracture identified. IMPRESSION: 1. No acute intra-abdominal or intrapelvic abnormality identified. 2. Gastrostomy tube in satisfactory position within the mid gastric lumen. No bowel obstruction. 3. Persistent small bilateral pleural effusions with bibasilar subsegmental consolidative opacities suggesting atelectasis and/or pneumonitis, stable from comparison chest CT 12/20/2016. 4. Prostamegaly with Ji catheter within a collapsed urinary bladder lumen. Small focus of air within the bladder is likely secondary to instrumentation. Correlate with urinalysis. 5. Large stool ball within the rectal vault. The above report was generated using voice recognition software. It may contain grammatical, syntax or spelling errors. CHEST ONE VIEW PORTABLE CLINICAL HISTORY: SOB, cough dyspnea COMPARISON STUDY: 01/18/2017 FINDINGS: The bones soft tissues and hemidiaphragms are normal. The cardiomediastinal silhouette is normal. The lungs are clear. The pulmonary vasculature is normal. Components of congestive heart failure present. IMPRESSION: Developing congestive heart failure TTE 12/21/2016 * The left ventricle is normal in size. * There is mild concentric left ventricular hypertrophy. * There is moderate to severe hypokinesis of the inferior/posterior dumas, associated wall thinning at the base * There is borderline global hypokinesis of the left ventricle. * Ejection Fraction = 40-45%. * The aortic valve leaflets are moderately calcified. * No hemodynamically significant valvular aortic stenosis. * There is mild to moderate mitral regurgitation. * In comparison to prior study, overall LV function is less dynamic without new wall motion changes EKG EKG from 01/19/2017 Normal sinus rhythm, ventricular rate of [address] and T-wave abnormalities. Impression Assessment and Plan Acute on chronic hypoxic respiratory failure Sepsis-resolving Aspiration pneumonia Gastroenteritis Systolic CHF Atrial fibrillation Possible diaphragmatic weakness secondary to stroke Small pleural effusion Atelectasis I agree with empiric treatment for UTI, gastroenteritis, which also will cover for aspiration pneumonia. His chest x-ray does show some congestion suggestive of some fluid overload. Continue with Lasix as his kidney tolerates He does sound quite rhonchorous at this time. Continue flutter valve, aggressive suctioning. Patient is to do this well but he doesn't at home. Continue duo nebs every 4-6 hours when necessary, would add Mucomyst twice a day as well as chest PT Send sputum culture. Continue with nasal cannula to keep SaO2 between 88-92% Use BiPAP when necessary. Patient looks quite comfortable at this time. Continue with DVT prophylaxis and GI prophylaxis. I appreciate the consult. Please contact me immediately further questions or concerns.
--- NOTE | 2017-01-19 16:50 | Urology Consultation ---
History General Date of Service: Jan 19, 2017. Chief Complaint: saavedra and uti Primary Care Physician: Gorge Brown D.O. Pt seen a urologist before?: No History of Present Illness I am asked by Dr Paredes to evaluate and treat patient for saavedra and possible UTI. He presented to ER with fever and emesis. He had a saavedra placed in the halfway for unclear reasons about 3 weeks ago. Saavedra drainage has been occasionally bloody last week. His ct at admission showed a collapsed bladder, other findings equivocal. His urine is growing bacteria but specimen was sent from the old Saavedra so its reliability is uncertain. He cannot speak but seems alert and answers questions with head nods and gestures. He had a high white count at admission which improved dramatically overnight. Imaging Imaging: CT Laboratory Results Past 24 Hours Test 01/18/17 20:55 01/19/17 06:23 Range/Units Lactic Acid Level 1.3 0.4-2.0 mmol/L White Blood Count 13.96 4.8-10.8 K/uL Red Blood Count 3.56 4.7-6.1 M/uL Hemoglobin 11.0 14.0-18.0 g/dL Hematocrit 34.0 42-52 % Mean Corpuscular Volume 95.5 80-100 fL Mean Corpuscular Hemoglobin 30.9 25-34 pg Mean Corpuscular Hemoglobin Concent 32.4 32-36 g/dl Platelet Count 283 130-400 K/uL Mean Platelet Volume 10.8 7.4-10.4 fL Neutrophils (%) (Auto) 88.0 % Lymphocytes (%) (Auto) 5.6 % Monocytes (%) (Auto) 5.7 % Eosinophils (%) (Auto) 0.3 % Basophils (%) (Auto) 0.1 % Neutrophils # (Auto) 12.30 1.4-6.5 K/uL Lymphocytes # (Auto) 0.78 1.2-3.4 K/uL Monocytes # (Auto) 0.79 0.11-0.59 K/uL Eosinophils # (Auto) 0.04 0-0.5 K/uL Basophils # (Auto) 0.01 0-0.2 K/uL RDW Standard Deviation 56.2 36.4-46.3 fL RDW Coefficient of Variation 16.3 11.5-14.5 % Immature Granulocyte % (Auto) 0.3 % Immature Granulocyte # (Auto) 0.04 0.00-0.02 K/uL Erythrocyte Sedimentation Rate 39 0-14 mm/hr Prothrombin Time 28.2 9.0-12.0 SECONDS Prothromb Time International Ratio 2.5 0.9-1.1 Sodium Level 139 136-145 mmol/L Potassium Level 3.9 3.5-5.1 mmol/L Chloride Level 103 98-107 mmol/L Carbon Dioxide Level 31 21-32 mmol/L Anion Gap 5.0 3-11 mmol/L Blood Urea Nitrogen 26 7-18 mg/dl Creatinine 0.80 0.60-1.40 mg/dl Est Creatinine Clear Calc Drug Dose 59.7 ml/min Estimated GFR () 99.9 Estimated GFR (Non- 86.2 BUN/Creatinine Ratio 32.3 10-20 Random Glucose 102 70-99 mg/dl Calcium Level 8.5 8.5-10.1 mg/dl Phosphorus Level 4.3 2.5-4.9 mg/dl Magnesium Level 2.3 1.8-2.4 mg/dl C-Reactive Protein 8.85 0-0.29 mg/dl Microbiology Results 01/19/17 C.difficile Toxin B Gene (PCR) - Final, Complete No C. difficile toxin B gene detected 01/19/17 Shiga Toxin Test, Received Pending 01/19/17 Stool Culture, Received Pending Labs were reviewed and are within normal limits unless listed below. Labs are available in the chart and at [facility] Problem List Medical Problems: (1) Aphasia Status: Acute (2) Aspiration pneumonia Status: Acute (3) Bilateral pneumonia Status: Acute (4) Facial droop Status: Acute (5) Hematoma of right thigh Status: Acute (6) Hypoxia Status: Acute (7) Hypoxia Status: Acute (8) Leukocytosis Status: Acute (9) Muscle spasms of neck Status: Acute (10) Nausea & vomiting Status: Acute (11) Respiratory distress Status: Acute (12) Right sided weakness Status: Acute (13) Sepsis Status: Acute (14) STEMI (ST elevation myocardial infarction) Status: Acute Past History cancer (stomach s/p partial gastrectomy), lung disease, myocardial infarction Family History Cancer Diabetes mellitus Heart disease Kidney disease Social History Hx Tobacco Use In Past Year?: No Smoking: quit greater than 1 year Marital status: Housing status: lives with family Occupation status: retired History of MDRO No Allergies Coded Allergies: [place] (Verified Allergy, Intermediate, hives, 01/18/17) Unclassified Drugs (Verified Allergy, Intermediate, Mack needles- immediate swelling, 01/18/17) Penicillins (Verified Allergy, Unknown, hives, 01/18/17) Medications Home Medications: Home Meds and Scripts Medications Dose Route/Sig Max Daily Dose Days Date Category Dose Instructions Guaifenesin 200 Mg/10 Ml Syrp 10 Ml PEG Q6H 01/18/17 Reported Ondansetron HCl (Ondansetron) 4 Mg Tab 1 Tab PEG Q4H PRN 01/18/17 Reported Coumadin (Warfarin Sodium) 2 Mg Tab 2 Mg PO ODD-DAYS 01/18/17 Reported Lasix (Furosemide) 20 Mg Tab 3 Tab PEG DAILY 01/18/17 Reported Floranex (Lactobacillus) 1 Tab Tab 4 Tab PEG TIDM 01/18/17 Reported Aspirin Ec (Aspirin) 81 Mg Tab 81 Mg PEG DAILY 01/18/17 Reported Vital 1.5 Duncan (Nutritional Supplements) 1 Liq Liq 60 Ml PEG HOURLY 12/20/16 Reported Coumadin (Warfarin Sod) 1 Mg Tab 1 Mg PEG EVENDAYS 12/20/16 Reported Ferrous Sulfate 300 Mg/5 Ml Syp 300 Mg PEG DAILY 12/20/16 Reported Duoneb (Ipratropium-Albuterol) 3 Ml Nebu 1 Treatment INH Q4H PRN 12/20/16 Reported Nystatin (Nystatin (Topical)) 1 Pow Pow 1 Appl TOP BID 12/20/16 Reported Lopressor (Metoprolol Tartrate) 25 Mg Tab 12.5 Mg PEG BID 11/08/16 Reported Digoxin 0.125 Mg Tab 0.125 Mg PEG 3XWK 11/08/16 Reported monday and monday Amiodarone HCl 200 Mg Tab 200 Mg PEG HS 11/08/16 Reported Lipitor (Atorvastatin Calcium) 80 Mg Tab 80 Mg PEG HS 11/08/16 Reported Inpatient Medications: Current Inpatient Medications Medications (Trade) Dose Ordered Sig/Kelle Route Start Time Stop Time Status Last Admin Dose Admin Acetaminophen (Tylenol Tab) 650 mg Q4H PRN PO 01/18/17 18:30 02/17/17 18:29 Amiodarone HCl (Cordarone Tab) 200 mg HS PEG 01/18/17 21:00 02/17/17 20:59 01/18/17 23:28 200 MG Atorvastatin Calcium (Lipitor Tab) 80 mg HS PEG 01/18/17 21:00 02/17/17 20:59 01/18/17 22:00 80 MG Digoxin (Lanoxin Tab) 0.125 mg MoWeFr@1600 PEG 01/20/17 16:00 02/19/17 15:59 Guaifenesin (Robitussin Sugar Free Syrup) 200 mg Q6 PEG 01/19/17 00:00 02/18/17 00:00 01/19/17 12:44 200 MG Albuterol/ Ipratropium (Duoneb) 1 ml Q4R PRN INH 01/18/17 19:30 02/17/17 19:29 Lactobacillus Acidophilus (Floranex Tab) 4 tab TIDM PEG 01/19/17 07:30 02/18/17 07:59 01/19/17 15:57 4 TAB Metoprolol Tartrate (Lopressor Tab) 12.5 mg BID PEG 01/18/17 21:00 02/17/17 20:59 01/19/17 07:38 12.5 MG Ferrous Sulfate (Feosol Elix) 300 mg DAILY PEG 01/19/17 09:00 02/18/17 08:59 01/19/17 07:38 300 MG Nystatin (Mycostatin Powder) 1 appln BID EXT 01/18/17 21:00 02/17/17 20:59 01/19/17 07:37 1 APPLN Finasteride (Proscar Tab) 5 mg QAM PO 01/19/17 09:15 02/18/17 09:14 01/19/17 09:28 5 MG Furosemide (Lasix Tab) 60 mg DAILY PEG 01/20/17 09:00 02/19/17 08:59 Aspirin (Aspirin Chew) 81 mg DAILY PEG 01/20/17 09:00 02/19/17 08:59 Levofloxacin 500 mg/Prmx 100 ml @ 100 mls/hr DAILY@1800 IV 01/19/17 18:00 01/28/17 17:59 Review of Systems Review of Systems Constitutional: + fever, + weight loss, No chills Endocrine: + tired/sluggish, + problem reported (weak) Gastrointestinal: + abdominal pain, + nausea, + vomiting Respiratory: + shortness of breath, + chronic cough, + problem reported ( productive cough and excess secretions) Male : + urinary retention, + blood in urine Physical Exam Vital Signs: Vital Signs Past 12 Hours Date Time Temp Pulse Resp B/P (MAP) Pulse Ox O2 Delivery O2 Flow Rate FiO2 01/19/17 16:00 Nasal Cannula 3.0 01/19/17 15:08 36.4 74 18 107/61 (76) 90 Nasal Cannula 3.0 01/19/17 12:00 98 Room Air 2.0 Nasal Cannula 01/19/17 12:00 36.5 69 18 106/56 (73) 95 Nasal Cannula 2.0 01/19/17 08:05 36.5 72 19 115/63 (80) 96 Nasal Cannula 2.0 01/19/17 08:00 98 Room Air 2.0 Nasal Cannula Physical Exam: General Appearance: WD/WN, no apparent distress, + thin Eyes: bilateral eyes normal inspection ENT: hearing grossly normal Neck: supple, no adenopathy, no JVD, trachea midline Respiratory/Chest: + pertinent finding (very wet breath sounds from moist upper airway secretions) Gastrointestinal: Abdomen: normal abdomen Bladder: normal bladder Renal: normal renal Hernia: absent hernia Liver: normal liver Genitourinary - Male: Penis: normal penis Urethral Meatus: normal urethral meatus Testes: normal testes Epididymides: normal epididymides Anus / Perineum: normal anus/perineum Sphincter Tone: normal sphincter tone Prostate: normal prostate, pertinent finding (30 gram small gland) Extremities: non-tender, normal inspection, no pedal edema, no calf tenderness Neurologic/Psychiatric: alert, normal mood/affect, oriented x 3 Skin: normal color, warm/dry, no rash Lymphatic: no adenopathy Assessment & Plan Assessment & Plan saavedra for unclear reasons We are doing a void trial while he is in hospital He indicates he thinks he can void on his own. He voided about 60mL in a urinary at my visit. His bladder dose not seem distended on the exam 5 hours after saavedra was removed. will see possible UTI- I question the validity of a urine culture sent from a 3 week old saavedra. If going to treat then keep duration to 3-5 days.
[2017-01-19] MEDS ORDERED: LEVOFLOXACIN 500MG / D5W IV SCH (18:00)
[2017-01-19] MEDS: AMIODARONE 200 MG TAB PEG SCH (20:46)
[2017-01-19] MEDS: ATORVASTATIN 40 MG TAB PEG SCH (20:46)
[2017-01-20] VITALS (7 sets, daily range): BP systolic 103–131; BP diastolic 53–72; PULSE 63–79; TEMP 36.3–36.7; O2SAT 90–98
[2017-01-20] MEDS: GUAIFENESIN SUGAR FREE 200 MG/10 ML UDC PEG SCH ×5 (05:53→23:48)
[2017-01-20] MEDS: METRONIDAZOLE / NSS 500 MG in PREMIXED NSS 100 ML IV SCH (05:53)
[2017-01-20 07:56] LABS: BASO % 0.3 %; BASO ABS # 0.03 K/uL (0-0.2); COMPLETE YES; EOS % 0.6 %; HEMATOCRIT 33.8 % (42-52); IG% 0.3 %; LYMPH % 5.2 %; LYMPH ABS # 0.58 K/uL (1.2-3.4); MEAN CELL VOLUME 96.6 fL (80-100); MEAN CORPUSCULAR HEMOGLOBIN 31.7 pg (25-34); MEAN CORPUSCULAR HGB CONC 32.8 g/dl (32-36); MEAN PLATELET VOLUME 10.6 fL (7.4-10.4); MONO % 7.4 %; NEUT % 86.2 %; PLATELET COUNT 270 K/uL (130-400); WHITE BLOOD COUNT 11.08 K/uL (4.8-10.8)
[2017-01-20 08:02] LABS: INR 2.4 (0.9-1.1); PROTHROMBIN TIME (PATIENT) 26.5 SECONDS (9.0-12.0)
[2017-01-20 08:28] LABS: BUN/CREATININE RATIO 35.4 (10-20); CALCIUM 9.3 mg/dl (8.5-10.1); CREATININE 0.81 mg/dl (0.60-1.40); MAGNESIUM 2.2 mg/dl (1.8-2.4); POTASSIUM 3.9 mmol/L (3.5-5.1)
[2017-01-20] MEDS: NYSTATIN POWDER 15GM BTL EXT SCH ×2 (08:39→19:48)
[2017-01-20] MEDS: LACTOBACILLUS ACIDOPHILUS (FLORANEX) TAB PEG SCH ×3 (08:39→16:29)
[2017-01-20] MEDS: ASPIRIN 81 MG CHEW PEG SCH (08:40)
[2017-01-20] MEDS: FERROUS SULFATE ELIX 220MG/5ML PEG SCH (08:40)
[2017-01-20] MEDS: FUROSEMIDE 20 MG TAB PEG SCH (08:40)
[2017-01-20] MEDS: FINASTERIDE 5 MG TAB PO SCH (08:41)
[2017-01-20] MEDS: METOPROLOL TARTRATE 25 MG TAB PEG SCH ×2 (08:41→19:31)
--- NOTE | 2017-01-20 10:23 | Hospitalist Progress Note ---
Hospitalist Progress Note Date of Service Jan 20, 2017. Subjective Pt seen and evaluated. Pt answers no when asked if feels SOB today, No to any vomiting, abdominal pain, CP. Pt had BM during night. Pt s/p saavedra removal and has been voiding on own. Objective Vital Signs Date Time Temp Pulse Resp B/P (MAP) Pulse Ox O2 Delivery O2 Flow Rate FiO2 01/20/17 07:58 36.3 68 16 124/65 (84) 96 Room Air 01/20/17 04:04 36.5 68 18 110/63 (79) 90 Nasal Cannula 3.0 01/20/17 04:00 Nasal Cannula 3.0 01/20/17 00:00 Nasal Cannula 3.0 01/19/17 23:27 37.0 69 16 108/48 (68) 94 Nasal Cannula 3.0 01/19/17 20:00 Nasal Cannula 3.0 01/19/17 18:45 36.7 74 18 107/59 (75) 97 Nasal Cannula 3.0 01/19/17 16:00 Nasal Cannula 3.0 01/19/17 15:08 36.4 74 18 107/61 (76) 90 Nasal Cannula 3.0 01/19/17 12:00 98 Room Air 2.0 Nasal Cannula 01/19/17 12:00 36.5 69 18 106/56 (73) 95 Nasal Cannula 2.0 Physical Exam General Appearance: WD/WN (Pt alert, cooperative. repsonding yes or no to questions), no apparent distress Eyes: normal inspection Neck: supple, no JVD, trachea midline Respiratory/Chest: chest non-tender, no respiratory distress, no accessory muscle use, + rhonchi (scattered throughout) Cardiovascular: regular rate, rhythm, no edema, no murmur Abdomen: normal bowel sounds, non tender, soft (peg tube in place without surrounding erythema or edema) Extremities: non-tender, no pedal edema, normal capillary refill (distal pulses intact) Skin: normal color, warm/dry Laboratory Results Last 24 Hours Test 01/20/17 07:32 White Blood Count 11.08 K/uL Red Blood Count 3.50 M/uL Hemoglobin 11.1 g/dL Hematocrit 33.8 % Mean Corpuscular Volume 96.6 fL Mean Corpuscular Hemoglobin 31.7 pg Mean Corpuscular Hemoglobin Concent 32.8 g/dl Platelet Count 270 K/uL Mean Platelet Volume 10.6 fL Neutrophils (%) (Auto) 86.2 % Lymphocytes (%) (Auto) 5.2 % Monocytes (%) (Auto) 7.4 % Eosinophils (%) (Auto) 0.6 % Basophils (%) (Auto) 0.3 % Neutrophils # (Auto) 9.55 K/uL Lymphocytes # (Auto) 0.58 K/uL Monocytes # (Auto) 0.82 K/uL Eosinophils # (Auto) 0.07 K/uL Basophils # (Auto) 0.03 K/uL RDW Standard Deviation 57.7 fL RDW Coefficient of Variation 16.4 % Immature Granulocyte % (Auto) 0.3 % Immature Granulocyte # (Auto) 0.03 K/uL Prothrombin Time 26.5 SECONDS Prothromb Time International Ratio 2.4 Sodium Level 139 mmol/L Potassium Level 3.9 mmol/L Chloride Level 102 mmol/L Carbon Dioxide Level 29 mmol/L Anion Gap 8.0 mmol/L Blood Urea Nitrogen 29 mg/dl Creatinine 0.81 mg/dl Est Creatinine Clear Calc Drug Dose 59.0 ml/min Estimated GFR () 99.4 Estimated GFR (Non- 85.7 BUN/Creatinine Ratio 35.4 Random Glucose 79 mg/dl Calcium Level 9.3 mg/dl Magnesium Level 2.2 mg/dl Assessment and Plan PROBABLE ASPIRATION PNEUMONIA: WBC down to 11 today. Pt afebrile. pending blood cultures -Pt switched from IV Flagyl and IV Levaquin to oral doses today -O2 @2L NC -Duonebs Q4hrs prn SOB/wheezing -continue guaifenesin Q6h prn cough -added Mucomyst and chest PT as per pulmonology recommendation -repeat cbc, prp, magnesium in am UTI: -urine culture preliminary streptococcus species >100,000, pending sensitivities -levaquin to cover possible urine etiology -urology removed pt's saavedra and pt now urinating on own -ordered post void residual bladder scan PEG TUBE Tube feedings were held. No vomiting or diarrhea since admission. -Spoke to Raf -artificial log machine operator. Pt's home tube feed formula not available at hospital. He reports in past pt has done well with Impact. Suggests starting tube feed at 10ml/hr increase by 10ml/hr every shift to goal of 60ml/hr -pt hasn't seen GI nutrition since time of insertion of peg tube in [place] one year ago. Pt's reports that pt did not do well with bolus feeds in past and she is ok with f/u at [facility]. anticipate scheduling out pt follow with Dr Umaña. To schedule appt please call [phone] CHF home dose Lasix 60mg daily A-FIB INR: 2.4 today. no hematuria so will add back pt's Coumadin home regimen and repeat INR tomorrow am continue ASA continue amiodarone continue metoprolol continue digoxin HTN -continue metoprolol HYPERLIPIDEMIA: -continue lipitor PT/OT consult Speech consult
--- NOTE | 2017-01-20 11:08 | Progress Note ---
Internal Med Progress Note Date of Service: Jan 20, 2017. 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 Very difficult to obtain history No family at bedside Seemed to be less SOB, cough Denies chest pain, abd pain, nausea Voiding urine Leukocytosis improving, afebrile OBJECTIVE: Vital Signs-as noted below Physical Exam: General Appearance:Chronic ill appearing, no apparent distress Head: normocephalic, Atraumatic Eyes: normal inspection, EOMI, PERRL Neck: supple, Trachea midline Respiratory/Chest: Decreased breath sounds, scattered rhonchi Cardiovascular: S1, S2, No murmur Abdomen/GI:Soft, Non tender, +Peg tube, Bowel sounds present Extremities/Musculoskelatal:normal inspection, no edema Neurologic/Psych:alert, awake, Non verbal, moves all extremities Skin: normal color, warm Lab data as noted below. ASSESSMENT & PLAN: Acute on chronic hypoxic respiratory failure with Hypoxia Sepsis/Aspiration pneumonia Possible chronic Aspiration from tube feeds Speech therapy/Vice President Of Academic Affairs consulted Oxygen support Pulmonology consulted Continue Abx, DuoNeb, Mucomyst Clinically Improving: Afebrile, Leukocytosis improving Blood cultures: No growth to date Continue Lasix to minimize fluid overload UTI: Ji Discontinued Leukocytosis improving Normal lactate levels Urine culture:Enterococcus faecalis Received Ceftriaxone, Levaquin Blood cultures: no growth Will repeat Urine culture. Plan to start on Vancomycin if repeat culture positive (Given Penicillin allergy ) Will hold off on Vanco for now as he is clinically Improving Hematuria: Likely traumatic from Ji Hb at baseline Appreciate Urology Input Monitor Hb Acute on Chronic systolic CHF: Likely secondary to IV fluids Restart PO Lasix (BP relatively low, avoid IV lasix) Last ECHO: nov 2016: * There is moderate to severe hypokinesis of the inferior/posterior dumas, associated wall thinning at the base * There is borderline global hypokinesis of the left ventricle. * Ejection Fraction = 40-45%. Daily weight, I/Os Oxygen support PRN Continue PO lasix Dehydration/Diarrhea: S/P IV fluids Stool for C.diff: Negative Stool studies pending Improving Hypophosphatemia: Resolved Paroxysmal Afib: Currently in sinus Rate controlled continue digoxin, metoprolol, amiodarone Continue Coumadin Monitor INR:2.4 today HTN Relatively low monitor Hyperlipidemia: continue lipitor Tube Feeds: Vice President Of Academic Affairs consulted Starting tube feed at 10ml/hr increase by 10ml/hr every shift to goal of 60ml/hr Plan to follow up with GI nutrition: Dr Umaña upon discharge. To schedule appt please call [phone] DVT Px: SCD's On coumadin Code Status: DNR Disposition: Monitor in Tele Needs rehab placement youth services specialist Vital Signs: Date Time Temp Pulse Resp B/P (MAP) Pulse Ox O2 Delivery O2 Flow Rate FiO2 01/20/17 08:00 Nasal Cannula 3.0 01/20/17 07:58 36.3 68 16 124/65 (84) 96 Room Air 01/20/17 04:04 36.5 68 18 110/63 (79) 90 Nasal Cannula 3.0 01/20/17 04:00 Nasal Cannula 3.0 01/20/17 00:00 Nasal Cannula 3.0 01/19/17 23:27 37.0 69 16 108/48 (68) 94 Nasal Cannula 3.0 01/19/17 20:00 Nasal Cannula 3.0 01/19/17 18:45 36.7 74 18 107/59 (75) 97 Nasal Cannula 3.0 01/19/17 16:00 Nasal Cannula 3.0 01/19/17 15:08 36.4 74 18 107/61 (76) 90 Nasal Cannula 3.0 01/19/17 12:00 98 Room Air 2.0 Nasal Cannula 01/19/17 12:00 36.5 69 18 106/56 (73) 95 Nasal Cannula 2.0 Lab Results: Results Past 24 Hours Test 01/20/17 07:32 Range/Units White Blood Count 11.08 4.8-10.8 K/uL Red Blood Count 3.50 4.7-6.1 M/uL Hemoglobin 11.1 14.0-18.0 g/dL Hematocrit 33.8 42-52 % Mean Corpuscular Volume 96.6 80-100 fL Mean Corpuscular Hemoglobin 31.7 25-34 pg Mean Corpuscular Hemoglobin Concent 32.8 32-36 g/dl Platelet Count 270 130-400 K/uL Mean Platelet Volume 10.6 7.4-10.4 fL Neutrophils (%) (Auto) 86.2 % Lymphocytes (%) (Auto) 5.2 % Monocytes (%) (Auto) 7.4 % Eosinophils (%) (Auto) 0.6 % Basophils (%) (Auto) 0.3 % Neutrophils # (Auto) 9.55 1.4-6.5 K/uL Lymphocytes # (Auto) 0.58 1.2-3.4 K/uL Monocytes # (Auto) 0.82 0.11-0.59 K/uL Eosinophils # (Auto) 0.07 0-0.5 K/uL Basophils # (Auto) 0.03 0-0.2 K/uL RDW Standard Deviation 57.7 36.4-46.3 fL RDW Coefficient of Variation 16.4 11.5-14.5 % Immature Granulocyte % (Auto) 0.3 % Immature Granulocyte # (Auto) 0.03 0.00-0.02 K/uL Prothrombin Time 26.5 9.0-12.0 SECONDS Prothromb Time International Ratio 2.4 0.9-1.1 Sodium Level 139 136-145 mmol/L Potassium Level 3.9 3.5-5.1 mmol/L Chloride Level 102 98-107 mmol/L Carbon Dioxide Level 29 21-32 mmol/L Anion Gap 8.0 3-11 mmol/L Blood Urea Nitrogen 29 7-18 mg/dl Creatinine 0.81 0.60-1.40 mg/dl Est Creatinine Clear Calc Drug Dose 59.0 ml/min Estimated GFR () 99.4 Estimated GFR (Non- 85.7 BUN/Creatinine Ratio 35.4 10-20 Random Glucose 79 70-99 mg/dl Calcium Level 9.3 8.5-10.1 mg/dl Magnesium Level 2.2 1.8-2.4 mg/dl Microbiology Results 01/20/17 Gram Stain, Vivek Batch Pending 01/20/17 Sputum Culture, Vivek Batch Pending 01/20/17 Urine Culture, Received Pending
[2017-01-20] MEDS: METRONIDAZOLE 500 MG TAB PEG SCH ×2 (12:19→19:32)
[2017-01-20] MEDS: IMPACT LIQ 1000 ML BAG PEG SCH (12:23)
[2017-01-20] MEDS ORDERED: WARFARIN SOD 2 MG TAB PEG SCH (16:00)
[2017-01-20] MEDS: LEVOFLOXACIN 500 MG TAB PEG SCH (16:30)
[2017-01-20] MEDS: DIGOXIN 0.125 MG TAB PEG SCH (16:31)
--- NOTE | 2017-01-20 17:02 | Progress Note ---
Subjective Date of Service: Jan 20, 2017. Subjective Pt evaluation today including: conversation w/ patient, chart review Voiding: no voiding problems Patient looks clinically improved. Better color, less wet with breathing. He continues to void spontaneously small volumes. His resiudal bladder scans have been norla and low under 100mL. Thus he is passing trial of void without Saavedra. He offers no complaint. Problem List Medical Problems: (1) Aphasia Status: Acute (2) Aspiration pneumonia Status: Acute (3) Bilateral pneumonia Status: Acute (4) Facial droop Status: Acute (5) Hematoma of right thigh Status: Acute (6) Hypoxia Status: Acute (7) Hypoxia Status: Acute (8) Leukocytosis Status: Acute (9) Muscle spasms of neck Status: Acute (10) Nausea & vomiting Status: Acute (11) Respiratory distress Status: Acute (12) Right sided weakness Status: Acute (13) Sepsis Status: Acute (14) STEMI (ST elevation myocardial infarction) Status: Acute Review of Systems Constitutional: No fever, No chills Respiratory: + cough, + wheezing, No shortness of breath Abdomen: No nausea, No vomiting Male : + urinary frequency, + incontinence Objective Vital Signs Date Time Temp Pulse Resp B/P (MAP) Pulse Ox O2 Delivery O2 Flow Rate FiO2 01/20/17 16:31 72 01/20/17 16:00 Nasal Cannula 3.0 01/20/17 15:14 36.7 66 18 109/63 (78) 98 Room Air 3.0 01/20/17 12:01 63 16 115/69 (84) 98 Mask 01/20/17 12:00 Nasal Cannula 3.0 01/20/17 08:00 Nasal Cannula 3.0 01/20/17 07:58 36.3 68 16 124/65 (84) 96 Room Air 01/20/17 04:04 36.5 68 18 110/63 (79) 90 Nasal Cannula 3.0 01/20/17 04:00 Nasal Cannula 3.0 01/20/17 00:00 Nasal Cannula 3.0 01/19/17 23:27 37.0 69 16 108/48 (68) 94 Nasal Cannula 3.0 01/19/17 20:00 Nasal Cannula 3.0 01/19/17 18:45 36.7 74 18 107/59 (75) 97 Nasal Cannula 3.0 Physical Exam General Appearance: WD/WN, no apparent distress, + thin ENT: hearing grossly normal Respiratory/Chest: no respiratory distress, no accessory muscle use Neurologic/Psychiatric: alert, normal mood/affect Laboratory Results Last 24 Hours Test 01/20/17 07:32 White Blood Count 11.08 K/uL Red Blood Count 3.50 M/uL Hemoglobin 11.1 g/dL Hematocrit 33.8 % Mean Corpuscular Volume 96.6 fL Mean Corpuscular Hemoglobin 31.7 pg Mean Corpuscular Hemoglobin Concent 32.8 g/dl Platelet Count 270 K/uL Mean Platelet Volume 10.6 fL Neutrophils (%) (Auto) 86.2 % Lymphocytes (%) (Auto) 5.2 % Monocytes (%) (Auto) 7.4 % Eosinophils (%) (Auto) 0.6 % Basophils (%) (Auto) 0.3 % Neutrophils # (Auto) 9.55 K/uL Lymphocytes # (Auto) 0.58 K/uL Monocytes # (Auto) 0.82 K/uL Eosinophils # (Auto) 0.07 K/uL Basophils # (Auto) 0.03 K/uL RDW Standard Deviation 57.7 fL RDW Coefficient of Variation 16.4 % Immature Granulocyte % (Auto) 0.3 % Immature Granulocyte # (Auto) 0.03 K/uL Prothrombin Time 26.5 SECONDS Prothromb Time International Ratio 2.4 Sodium Level 139 mmol/L Potassium Level 3.9 mmol/L Chloride Level 102 mmol/L Carbon Dioxide Level 29 mmol/L Anion Gap 8.0 mmol/L Blood Urea Nitrogen 29 mg/dl Creatinine 0.81 mg/dl Est Creatinine Clear Calc Drug Dose 59.0 ml/min Estimated GFR () 99.4 Estimated GFR (Non- 85.7 BUN/Creatinine Ratio 35.4 Random Glucose 79 mg/dl Calcium Level 9.3 mg/dl Magnesium Level 2.2 mg/dl Assessment and Plan saavedra catheter upon admission tolerating trial without catheter White count improving Multidisciplinary team favoring a pneumonia over uti. I agree
[2017-01-20] MEDS: ACETYLCYSTEINE 20% INHAL SOLN ***DISPENSED BY RESP. INH SCH (19:21)
[2017-01-20] MEDS: ALBUTEROL 0.083% NEBU SOLN 3 ML VIAL INH SCH (19:21)
[2017-01-20] MEDS: AMIODARONE 200 MG TAB PEG SCH (19:30)
[2017-01-20] MEDS: ATORVASTATIN 40 MG TAB PEG SCH (19:30)
[2017-01-20] MEDS ORDERED: ACETYLCYSTEINE 200MG/ML 30ML VIAL PO SCH (21:00)
[2017-01-21] VITALS (10 sets, daily range): BP systolic 105–141; BP diastolic 58–72; PULSE 72–84; TEMP 36.3–37; O2SAT 90–95
[2017-01-21] MEDS: GUAIFENESIN SUGAR FREE 200 MG/10 ML UDC PEG SCH ×3 (05:56→18:37)
[2017-01-21 06:32] LABS: BASO % 0.2 %; BASO ABS # 0.02 K/uL (0-0.2); COMPLETE YES; EOS % 0.5 %; HEMATOCRIT 32.5 % (42-52); IG% 0.2 %; LYMPH % 6.3 %; LYMPH ABS # 0.55 K/uL (1.2-3.4); MEAN CELL VOLUME 95.6 fL (80-100); MEAN CORPUSCULAR HEMOGLOBIN 30.6 pg (25-34); MONO % 9.2 %; NEUT % 83.6 %; PLATELET COUNT 280 K/uL (130-400); WHITE BLOOD COUNT 8.76 K/uL (4.8-10.8)
[2017-01-21 06:42] LABS: INR 2.8 (0.9-1.1)
[2017-01-21 07:03] LABS: CALCIUM 8.6 mg/dl (8.5-10.1); CREATININE 0.87 mg/dl (0.60-1.40); MAGNESIUM 2.1 mg/dl (1.8-2.4); POTASSIUM 3.5 mmol/L (3.5-5.1)
[2017-01-21] MEDS: ALBUTEROL 0.083% NEBU SOLN 3 ML VIAL INH SCH (07:03)
[2017-01-21] MEDS: ACETYLCYSTEINE 20% INHAL SOLN ***DISPENSED BY RESP. INH SCH (07:03)
[2017-01-21] MEDS: FINASTERIDE 5 MG TAB PO SCH (07:43)
[2017-01-21] MEDS: LACTOBACILLUS ACIDOPHILUS (FLORANEX) TAB PEG SCH ×3 (07:44→18:36)
[2017-01-21] MEDS: ASPIRIN 81 MG CHEW PEG SCH (07:45)
[2017-01-21] MEDS: METRONIDAZOLE 500 MG TAB PEG SCH ×3 (07:45→20:39)
[2017-01-21] MEDS: METOPROLOL TARTRATE 25 MG TAB PEG SCH ×2 (07:45→20:47)
[2017-01-21] MEDS: FERROUS SULFATE ELIX 220MG/5ML PEG SCH (07:46)
[2017-01-21] MEDS: FUROSEMIDE 20 MG TAB PEG SCH (07:46)
[2017-01-21] MEDS: NYSTATIN POWDER 15GM BTL EXT SCH ×2 (07:46→20:38)
--- NOTE | 2017-01-21 10:53 | Progress Note ---
Internal Med Progress Note Date of Service: Jan 21, 2017. Provider Documentation: SUBJECTIVE: Seen and examined at bedside Doing well today Patient nonverbal at baseline secondary to CVA Family at bedside less cough Denies chest pain, SOB, abd pain, nausea Leukocytosis resolved, afebrile Plan to titrate off oxygen as able OBJECTIVE: Vital Signs-as noted below Physical Exam: General Appearance:Chronic ill appearing, no apparent distress Head: normocephalic, Atraumatic Eyes: normal inspection, EOMI, PERRL Neck: supple, Trachea midline Respiratory/Chest: Decreased breath sounds, scattered rhonchi Cardiovascular: S1, S2, No murmur Abdomen/GI:Soft, Non tender, +Peg tube, Bowel sounds present Extremities/Musculoskelatal:normal inspection, no edema Neurologic/Psych:alert, awake, Non verbal, moves all extremities Skin: normal color, warm Lab data as noted below. ASSESSMENT & PLAN: Acute on chronic hypoxic respiratory failure with Hypoxia On chronic oxygen 2L NC QHS Sepsis/Aspiration pneumonia Possible chronic Aspiration from tube feeds Speech therapy/Churner consulted Oxygen support PRN, titrate to room air Appreciate Pulmonology Input Continue Abx, DuoNeb, Mucomyst (Levaquin+Flagyl Day 4/7) Clinically Improving: Afebrile, Leukocytosis resolved Blood cultures: No growth to date Continue Lasix to minimize fluid overload Sputum culture pending UTI: Ji Discontinued Leukocytosis resolved Normal lactate levels Urine culture:Enterococcus faecalis Received Ceftriaxone, Levaquin Blood cultures: no growth repeat Urine culture pending Plan to start on Vancomycin if repeat culture positive (Given Penicillin allergy ) Will hold off on Vanco for now as he is clinically Improving Hematuria: Likely traumatic from Ji Hb at baseline Appreciate Urology Input Monitor Hb Acute on Chronic systolic CHF: Likely secondary to IV fluids Restart PO Lasix (BP relatively low, avoid IV lasix) Last ECHO: nov 2016: * There is moderate to severe hypokinesis of the inferior/posterior dumas, associated wall thinning at the base * There is borderline global hypokinesis of the left ventricle. * Ejection Fraction = 40-45%. Daily weight, I/Os Oxygen support PRN Continue PO lasix Dehydration/Diarrhea: S/P IV fluids Stool for C.diff: Negative Stool studies: Negative Hypophosphatemia: Resolved Paroxysmal Afib: Currently in sinus Rate controlled continue digoxin, metoprolol, amiodarone Hold Coumadin today Monitor INR:2.8 today Plan to resume Coumadin when appropriate HTN Stable monitor Hyperlipidemia: continue lipitor Tube Feeds: Churner consulted Starting tube feed at 10ml/hr increase by 10ml/hr every shift to goal of 60ml/hr Plan to follow up with GI nutrition: Dr Umaña upon discharge. To schedule appt please call [phone] DVT Px: SCD's On coumadin, INR: therapeutic Code Status: DNR Disposition: Needs rehab placement therapeutic activities services worker consulted Vital Signs: Date Time Temp Pulse Resp B/P (MAP) Pulse Ox O2 Delivery O2 Flow Rate FiO2 01/21/17 08:00 Nasal Cannula 2.0 01/21/17 07:44 36.7 82 19 125/61 (82) 90 Nasal Cannula 2.0 01/21/17 07:04 74 15 94 Nasal Cannula 2.0 01/21/17 04:00 Nasal Cannula 2.0 01/21/17 03:17 36.8 72 18 114/62 (79) 95 Nasal Cannula 2.0 01/21/17 00:01 Nasal Cannula 2.0 01/20/17 23:32 36.6 72 18 103/53 (70) 93 Nasal Cannula 2.0 01/20/17 22:00 Nasal Cannula 3.0 01/20/17 19:30 36.6 79 18 131/72 (91) 96 Nasal Cannula 3.0 01/20/17 19:26 68 16 96 Nasal Cannula 3.0 01/20/17 16:31 72 01/20/17 16:00 Nasal Cannula 3.0 01/20/17 15:14 36.7 66 18 109/63 (78) 98 Room Air 3.0 01/20/17 12:01 63 16 115/69 (84) 98 Mask 01/20/17 12:00 Nasal Cannula 3.0 Lab Results: Results Past 24 Hours Test 01/20/17 18:31 01/21/17 05:30 Range/Units Bedside Glucose 90 70-99 mg/dl White Blood Count 8.76 4.8-10.8 K/uL Red Blood Count 3.40 4.7-6.1 M/uL Hemoglobin 10.4 14.0-18.0 g/dL Hematocrit 32.5 42-52 % Mean Corpuscular Volume 95.6 80-100 fL Mean Corpuscular Hemoglobin 30.6 25-34 pg Mean Corpuscular Hemoglobin Concent 32.0 32-36 g/dl Platelet Count 280 130-400 K/uL Mean Platelet Volume 11.0 7.4-10.4 fL Neutrophils (%) (Auto) 83.6 % Lymphocytes (%) (Auto) 6.3 % Monocytes (%) (Auto) 9.2 % Eosinophils (%) (Auto) 0.5 % Basophils (%) (Auto) 0.2 % Neutrophils # (Auto) 7.32 1.4-6.5 K/uL Lymphocytes # (Auto) 0.55 1.2-3.4 K/uL Monocytes # (Auto) 0.81 0.11-0.59 K/uL Eosinophils # (Auto) 0.04 0-0.5 K/uL Basophils # (Auto) 0.02 0-0.2 K/uL RDW Standard Deviation 57.4 36.4-46.3 fL RDW Coefficient of Variation 16.3 11.5-14.5 % Immature Granulocyte % (Auto) 0.2 % Immature Granulocyte # (Auto) 0.02 0.00-0.02 K/uL Prothrombin Time 31.0 9.0-12.0 SECONDS Prothromb Time International Ratio 2.8 0.9-1.1 Sodium Level 136 136-145 mmol/L Potassium Level 3.5 3.5-5.1 mmol/L Chloride Level 99 98-107 mmol/L Carbon Dioxide Level 33 21-32 mmol/L Anion Gap 4.0 3-11 mmol/L Blood Urea Nitrogen 29 7-18 mg/dl Creatinine 0.87 0.60-1.40 mg/dl Est Creatinine Clear Calc Drug Dose 54.9 ml/min Estimated GFR () 96.5 Estimated GFR (Non- 83.2 BUN/Creatinine Ratio 33.0 10-20 Random Glucose 141 70-99 mg/dl Calcium Level 8.6 8.5-10.1 mg/dl Magnesium Level 2.1 1.8-2.4 mg/dl Microbiology Results 01/20/17 Gram Stain - Final, Resulted 01/20/17 Sputum Culture, Resulted Pending 01/20/17 Urine Culture, Received Pending
[2017-01-21] MEDS ORDERED: WARFARIN SOD 1 MG TAB PEG SCH (16:00)
[2017-01-21] MEDS: LEVOFLOXACIN 500 MG TAB PEG SCH (18:37)
[2017-01-21] MEDS: AMIODARONE 200 MG TAB PEG SCH (22:25)
[2017-01-21] MEDS: ATORVASTATIN 40 MG TAB PEG SCH (22:26)
[2017-01-22] VITALS: BP 104/64; PULSE 71; TEMP 36.5; O2SAT 91
[2017-01-22] MEDS ORDERED: PROMETHAZINE HCL INJ 12.5 MG in SODIUM CHLORIDE 0.9% 50ML 50 ML IV PRN (01:00)
[2017-01-22] MEDS: GUAIFENESIN SUGAR FREE 200 MG/10 ML UDC PEG SCH ×5 (01:27→23:32)
[2017-01-22] MEDS: IMPACT LIQ 1000 ML BAG PEG SCH (04:51)
[2017-01-22 07:04] LABS: BASO % 0.1 %; BASO ABS # 0.01 K/uL (0-0.2); COMPLETE YES; EOS % 0.5 %; HEMATOCRIT 34.3 % (42-52); IG% 0.4 %; LYMPH % 7.6 %; LYMPH ABS # 0.64 K/uL (1.2-3.4); MEAN CORPUSCULAR HGB CONC 32.7 g/dl (32-36); MEAN PLATELET VOLUME 10.2 fL (7.4-10.4); MONO % 8.7 %; NEUT % 82.7 %; PLATELET COUNT 263 K/uL (130-400); RED BLOOD COUNT 3.61 M/uL (4.7-6.1); WHITE BLOOD COUNT 8.41 K/uL (4.8-10.8)
[2017-01-22 07:08] VITALS: PULSE 68; O2SAT 97
[2017-01-22] MEDS: ALBUTEROL 0.083% NEBU SOLN 3 ML VIAL INH SCH ×2 (07:08→19:54)
[2017-01-22] MEDS: ACETYLCYSTEINE 20% INHAL SOLN ***DISPENSED BY RESP. INH SCH ×2 (07:08→19:54)
[2017-01-22 07:15] LABS: INR 2.5 (0.9-1.1); PROTHROMBIN TIME (PATIENT) 27.5 SECONDS (9.0-12.0)
[2017-01-22 07:26] VITALS: BP 135/73; PULSE 70; TEMP 36.2; O2SAT 99
[2017-01-22 07:33] LABS: CALCIUM 8.8 mg/dl (8.5-10.1); CREATININE 0.82 mg/dl (0.60-1.40); POTASSIUM 3.4 mmol/L (3.5-5.1)
[2017-01-22] MEDS: METOPROLOL TARTRATE 25 MG TAB PEG SCH ×2 (08:04→20:43)
[2017-01-22] MEDS: FUROSEMIDE 20 MG TAB PEG SCH (08:05)
[2017-01-22] MEDS: FINASTERIDE 5 MG TAB PO SCH (08:05)
[2017-01-22] MEDS: ASPIRIN 81 MG CHEW PEG SCH (08:05)
[2017-01-22] MEDS: LACTOBACILLUS ACIDOPHILUS (FLORANEX) TAB PEG SCH ×3 (08:06→17:36)
[2017-01-22] MEDS: METRONIDAZOLE 500 MG TAB PEG SCH ×3 (08:06→20:44)
[2017-01-22] MEDS: NYSTATIN POWDER 15GM BTL EXT SCH ×2 (08:08→20:42)
[2017-01-22] MEDS: FERROUS SULFATE ELIX 220MG/5ML PEG SCH (08:08)
--- NOTE | 2017-01-22 12:58 | Progress Note ---
Internal Med Progress Note Date of Service: Jan 22, 2017. Provider Documentation: SUBJECTIVE: Seen and examined at bedside Feels well No new complaints Patient nonverbal at baseline secondary to CVA No family at bedside Denies chest pain, cough, SOB, abd pain, nausea Leukocytosis resolved, afebrile OBJECTIVE: Vital Signs-as noted below Physical Exam: General Appearance:Chronic ill appearing, no apparent distress Head: normocephalic, Atraumatic Eyes: normal inspection, EOMI, PERRL Neck: supple, Trachea midline Respiratory/Chest: Decreased breath sounds, scattered rhonchi Cardiovascular: S1, S2, No murmur Abdomen/GI:Soft, Non tender, +Peg tube, Bowel sounds present Extremities/Musculoskelatal:normal inspection, no edema Neurologic/Psych:alert, awake, Non verbal, moves all extremities Skin: normal color, warm Lab data as noted below. ASSESSMENT & PLAN: Acute on chronic hypoxic respiratory failure with Hypoxia On chronic oxygen 2L NC QHS Sepsis/Aspiration pneumonia Possible chronic Aspiration from tube feeds Speech therapy/Hogshead Head Matcher consulted Oxygen support PRN, titrate to room air Appreciate Pulmonology Input Continue Abx, DuoNeb, Mucomyst (Levaquin+Flagyl # Day 5/) Clinically Improving: Afebrile, Leukocytosis resolved Blood cultures: No growth to date Continue Lasix to minimize fluid overload Sputum culture: Normal kendra UTI: Ji Discontinued Leukocytosis resolved Normal lactate levels Urine culture:Enterococcus faecalis Received Ceftriaxone, Levaquin Blood cultures: no growth repeat Urine culture pending Plan to start on Vancomycin if repeat culture positive (Given Penicillin allergy ) Will hold off on Vanco as patient clinically Improved after discontinuing Ji Hematuria: Likely traumatic from Ji Hb at baseline Appreciate Urology Input Monitor Hb Acute on Chronic systolic CHF: Likely secondary to IV fluids Restart PO Lasix (BP relatively low, avoid IV lasix) Last ECHO: nov 2016: * There is moderate to severe hypokinesis of the inferior/posterior dumas, associated wall thinning at the base * There is borderline global hypokinesis of the left ventricle. * Ejection Fraction = 40-45%. Daily weight, I/Os Oxygen support PRN Continue PO lasix Dehydration/Diarrhea: S/P IV fluids Stool for C.diff: Negative Stool studies: Negative Hypophosphatemia: Resolved Paroxysmal Afib: Currently in sinus Rate controlled continue digoxin, metoprolol, amiodarone Hold Coumadin today Monitor INR:2.5 today Plan to resume Coumadin when appropriate HTN Stable monitor Hyperlipidemia: continue lipitor Tube Feeds: Hogshead Head Matcher consulted Starting tube feed at 10ml/hr increase by 10ml/hr every shift to goal of 60ml/hr Plan to follow up with GI nutrition: Dr Umaña upon discharge. To schedule appt please call [phone] DVT Px: SCD's On coumadin, INR: therapeutic Code Status: DNR Disposition: Needs rehab placement managed services sales consultant consulted Vital Signs: Date Time Temp Pulse Resp B/P (MAP) Pulse Ox O2 Delivery O2 Flow Rate FiO2 01/22/17 08:00 Nasal Cannula 2.0 01/22/17 07:26 36.2 70 16 135/73 (93) 99 Room Air 01/22/17 07:08 68 18 97 Room Air 01/22/17 00:00 Room Air 01/22/17 00:00 36.5 71 17 104/64 (77) 91 Room Air 01/21/17 20:30 37.0 84 20 105/58 (74) 91 Room Air 01/21/17 20:00 Room Air 01/21/17 16:21 90 Room Air 01/21/17 14:57 36.8 79 20 141/72 (95) 91 01/21/17 13:05 90 Room Air Lab Results: Results Past 24 Hours Test 01/22/17 00:29 01/22/17 06:04 01/22/17 06:52 01/22/17 11:44 Range/Units Bedside Glucose 135 147 113 70-99 mg/dl White Blood Count 8.41 4.8-10.8 K/uL Red Blood Count 3.61 4.7-6.1 M/uL Hemoglobin 11.2 14.0-18.0 g/dL Hematocrit 34.3 42-52 % Mean Corpuscular Volume 95.0 80-100 fL Mean Corpuscular Hemoglobin 31.0 25-34 pg Mean Corpuscular Hemoglobin Concent 32.7 32-36 g/dl Platelet Count 263 130-400 K/uL Mean Platelet Volume 10.2 7.4-10.4 fL Neutrophils (%) (Auto) 82.7 % Lymphocytes (%) (Auto) 7.6 % Monocytes (%) (Auto) 8.7 % Eosinophils (%) (Auto) 0.5 % Basophils (%) (Auto) 0.1 % Neutrophils # (Auto) 6.96 1.4-6.5 K/uL Lymphocytes # (Auto) 0.64 1.2-3.4 K/uL Monocytes # (Auto) 0.73 0.11-0.59 K/uL Eosinophils # (Auto) 0.04 0-0.5 K/uL Basophils # (Auto) 0.01 0-0.2 K/uL RDW Standard Deviation 57.2 36.4-46.3 fL RDW Coefficient of Variation 16.4 11.5-14.5 % Immature Granulocyte % (Auto) 0.4 % Immature Granulocyte # (Auto) 0.03 0.00-0.02 K/uL Prothrombin Time 27.5 9.0-12.0 SECONDS Prothromb Time International Ratio 2.5 0.9-1.1 Sodium Level 138 136-145 mmol/L Potassium Level 3.4 3.5-5.1 mmol/L Chloride Level 100 98-107 mmol/L Carbon Dioxide Level 33 21-32 mmol/L Anion Gap 4.0 3-11 mmol/L Blood Urea Nitrogen 22 7-18 mg/dl Creatinine 0.82 0.60-1.40 mg/dl Est Creatinine Clear Calc Drug Dose 58.3 ml/min Estimated GFR () 98.9 Estimated GFR (Non- 85.3 BUN/Creatinine Ratio 27.0 10-20 Random Glucose 146 70-99 mg/dl Calcium Level 8.8 8.5-10.1 mg/dl Magnesium Level 2.0 1.8-2.4 mg/dl
[2017-01-22] MEDS ORDERED: POTASSIUM CHLORIDE 20 MEQ/15 ML UDC PEG ONE (13:15)
[2017-01-22 15:46] VITALS: BP 120/64; PULSE 72; TEMP 36.8; O2SAT 93
[2017-01-22] MEDS: LEVOFLOXACIN 500 MG TAB PEG SCH (17:36)
[2017-01-22 20:04] VITALS: PULSE 75; O2SAT 91
[2017-01-22 20:41] VITALS: BP 112/66; PULSE 80
[2017-01-22] MEDS: ATORVASTATIN 40 MG TAB PEG SCH (20:44)
[2017-01-22] MEDS: AMIODARONE 200 MG TAB PEG SCH (20:44)
[2017-01-23 00:23] VITALS: BP 105/66; PULSE 72; TEMP 36.6; O2SAT 93
[2017-01-23] MEDS: IMPACT LIQ 1000 ML BAG PEG SCH (04:37)
[2017-01-23] MEDS: GUAIFENESIN SUGAR FREE 200 MG/10 ML UDC PEG SCH ×4 (05:45→23:40)
[2017-01-23 06:27] LABS: HEMATOCRIT 35.7 % (42-52)
[2017-01-23 06:33] LABS: INR 1.8 (0.9-1.1)
[2017-01-23 07:05] LABS: BUN/CREATININE RATIO 27.7 (10-20); CALCIUM 9.1 mg/dl (8.5-10.1); CREATININE 0.83 mg/dl (0.60-1.40)
[2017-01-23 07:12] VITALS: PULSE 84; O2SAT 95
[2017-01-23] MEDS: ALBUTEROL 0.083% NEBU SOLN 3 ML VIAL INH SCH ×2 (07:12→18:58)
[2017-01-23] MEDS: ACETYLCYSTEINE 20% INHAL SOLN ***DISPENSED BY RESP. INH SCH ×3 (07:12→18:57)
[2017-01-23 07:15] VITALS: BP 124/77; PULSE 73; TEMP 36.2; O2SAT 93
[2017-01-23] MEDS: METOPROLOL TARTRATE 25 MG TAB PEG SCH ×2 (09:01→20:48)
[2017-01-23] MEDS: LACTOBACILLUS ACIDOPHILUS (FLORANEX) TAB PEG SCH ×3 (09:02→17:49)
[2017-01-23] MEDS: METRONIDAZOLE 500 MG TAB PEG SCH ×3 (09:04→20:49)
[2017-01-23] MEDS: FINASTERIDE 5 MG TAB PO SCH (09:04)
[2017-01-23] MEDS: FUROSEMIDE 20 MG TAB PEG SCH (09:05)
[2017-01-23] MEDS: ASPIRIN 81 MG CHEW PEG SCH (09:07)
[2017-01-23] MEDS: FERROUS SULFATE ELIX 220MG/5ML PEG SCH (09:07)
[2017-01-23] MEDS: NYSTATIN POWDER 15GM BTL EXT SCH ×2 (09:07→20:49)
--- NOTE | 2017-01-23 14:07 | Progress Note ---
Internal Med Progress Note Date of Service: Jan 23, 2017. Provider Documentation: SUBJECTIVE: Seen and examined at bedside Doing well Saturating well on Room air No new complaints Patient nonverbal at baseline secondary to CVA No family at bedside Denies chest pain, cough, SOB, abd pain, nausea OBJECTIVE: Vital Signs-as noted below Physical Exam: General Appearance:Chronic ill appearing, no apparent distress Head: normocephalic, Atraumatic Eyes: normal inspection, EOMI, PERRL Neck: supple, Trachea midline Respiratory/Chest: Decreased breath sounds, scattered rhonchi Cardiovascular: S1, S2, No murmur Abdomen/GI:Soft, Non tender, +Peg tube, Bowel sounds present Extremities/Musculoskelatal:normal inspection, no edema Neurologic/Psych:alert, awake, Non verbal, moves all extremities Skin: normal color, warm Lab data as noted below. ASSESSMENT & PLAN: Acute on chronic hypoxic respiratory failure with Hypoxia Sepsis/Aspiration pneumonia Possible chronic Aspiration from tube feeds On chronic oxygen 2L NC QHS Speech therapy/Bottom Turning Lathe Tender consulted Oxygen support PRN, titrate to room air Appreciate Pulmonology Input Continue Abx, DuoNeb, Mucomyst (Levaquin+Flagyl # Day 6/) Clinically Improving: Afebrile, Leukocytosis resolved Blood cultures: No growth to date Continue Lasix to minimize fluid overload Sputum culture: Normal kendra UTI: Ji Discontinued Leukocytosis resolved Normal lactate levels Urine culture:Enterococcus faecalis Received Ceftriaxone, Levaquin Blood cultures: no growth repeat Urine culture: pending Plan to start on Vancomycin if repeat culture positive (Given Penicillin allergy ) Will hold off on Vanco as patient clinically Improved after discontinuing Ji Hematuria: Likely traumatic from Ji Hb at baseline Appreciate Urology Input Monitor Hb Acute on Chronic systolic CHF: Likely secondary to IV fluids Restart PO Lasix (BP relatively low, avoid IV lasix) Last ECHO: nov 2016: * There is moderate to severe hypokinesis of the inferior/posterior dumas, associated wall thinning at the base * There is borderline global hypokinesis of the left ventricle. * Ejection Fraction = 40-45%. Daily weight, I/Os Oxygen support PRN Continue PO lasix Dehydration/Diarrhea: S/P IV fluids Stool for C.diff: Negative Stool studies: Negative Hypophosphatemia: Resolved Paroxysmal Afib: Currently in sinus Rate controlled continue digoxin, metoprolol, amiodarone Resume Coumadin today Monitor INR:1.8 today HTN Stable monitor Hyperlipidemia: continue lipitor Tube Feeds: Bottom Turning Lathe Tender consulted Starting tube feed at 10ml/hr increase by 10ml/hr every shift to goal of 60ml/hr Plan to follow up with GI nutrition: Dr Umaña upon discharge. To schedule appt please call [phone] DVT Px: SCD's On coumadin, INR: therapeutic Code Status: DNR Disposition: Needs rehab placement. Plan to discharge when placement available community services manager consulted Needs follow up with GI nutrition: Dr Umaña upon discharge. To schedule appt please call [phone] Vital Signs: Date Time Temp Pulse Resp B/P (MAP) Pulse Ox O2 Delivery O2 Flow Rate FiO2 01/23/17 08:00 Nasal Cannula 2.0 01/23/17 07:15 36.2 73 18 124/77 (93) 93 Room Air 01/23/17 07:12 84 20 95 Room Air 01/23/17 00:23 36.6 72 18 105/66 (79) 93 Room Air 01/22/17 23:30 Room Air 01/22/17 20:41 80 112/66 (81) 01/22/17 20:04 75 18 91 Room Air 01/22/17 16:00 Room Air 01/22/17 15:46 36.8 72 18 120/64 (82) 93 Room Air Lab Results: Results Past 24 Hours Test 01/22/17 18:50 01/22/17 23:59 01/23/17 06:05 01/23/17 06:13 Range/Units Bedside Glucose 120 167 151 70-99 mg/dl Hemoglobin 11.6 14.0-18.0 g/dL Hematocrit 35.7 42-52 % Prothrombin Time 20.0 9.0-12.0 SECONDS Prothromb Time International Ratio 1.8 0.9-1.1 Sodium Level 137 136-145 mmol/L Potassium Level 4.0 3.5-5.1 mmol/L Chloride Level 101 98-107 mmol/L Carbon Dioxide Level 30 21-32 mmol/L Anion Gap 6.0 3-11 mmol/L Blood Urea Nitrogen 23 7-18 mg/dl Creatinine 0.83 0.60-1.40 mg/dl Est Creatinine Clear Calc Drug Dose 57.6 ml/min Estimated GFR () 98.4 Estimated GFR (Non- 84.9 BUN/Creatinine Ratio 27.7 10-20 Random Glucose 157 70-99 mg/dl Calcium Level 9.1 8.5-10.1 mg/dl Magnesium Level 2.0 1.8-2.4 mg/dl
[2017-01-23 15:16] VITALS: BP 104/68; PULSE 78; TEMP 36.6; O2SAT 91
[2017-01-23] MEDS: DIGOXIN 0.125 MG TAB PEG SCH (15:51)
[2017-01-23] MEDS ORDERED: WARFARIN SOD 2 MG TAB PEG SCH (16:00)
[2017-01-23] MEDS: LEVOFLOXACIN 500 MG TAB PEG SCH (17:50)
[2017-01-23] MEDS: ATORVASTATIN 40 MG TAB PEG SCH (20:46)
[2017-01-23] MEDS: AMIODARONE 200 MG TAB PEG SCH (20:48)
[2017-01-23 23:35] VITALS: BP 106/66; PULSE 72; TEMP 36.6; O2SAT 89
[2017-01-24 00:08] VITALS: O2SAT 95
[2017-01-24] MEDS: IMPACT LIQ 1000 ML BAG PEG SCH (04:19)
[2017-01-24 05:27] LABS: INR 1.5 (0.9-1.1); PROTHROMBIN TIME (PATIENT) 16.5 SECONDS (9.0-12.0)
[2017-01-24] MEDS: GUAIFENESIN SUGAR FREE 200 MG/10 ML UDC PEG SCH ×3 (05:50→18:12)
[2017-01-24] MEDS: ALBUTEROL 0.083% NEBU SOLN 3 ML VIAL INH SCH ×2 (07:09→19:43)
[2017-01-24] MEDS: ACETYLCYSTEINE 20% INHAL SOLN ***DISPENSED BY RESP. INH SCH ×2 (07:09→19:43)
[2017-01-24 07:14] VITALS: BP 161/70; PULSE 88; TEMP 36.8; O2SAT 95
[2017-01-24] MEDS: FINASTERIDE 5 MG TAB PO SCH (07:30)
[2017-01-24] MEDS: METOPROLOL TARTRATE 25 MG TAB PEG SCH ×2 (07:32→19:48)
[2017-01-24] MEDS: METRONIDAZOLE 500 MG TAB PEG SCH ×3 (07:32→19:44)
[2017-01-24] MEDS: LACTOBACILLUS ACIDOPHILUS (FLORANEX) TAB PEG SCH ×3 (07:33→16:08)
[2017-01-24] MEDS: FUROSEMIDE 20 MG TAB PEG SCH (07:33)
[2017-01-24] MEDS: FERROUS SULFATE ELIX 220MG/5ML PEG SCH (07:37)
[2017-01-24] MEDS: NYSTATIN POWDER 15GM BTL EXT SCH ×2 (07:38→19:42)
[2017-01-24] MEDS: ASPIRIN 81 MG CHEW PEG SCH (07:39)
--- NOTE | 2017-01-24 12:53 | Progress Note ---
Medicine Progress Note Date & Time of Visit: Jan 24, 2017 at 12:48. Subjective 76 yo M s/p CVA and PEG placement 2/2 chronic aspiration presents with weakness , confusion and concerns for infection (aspiration PNA vs CAUTI) -pt is nonverbal, at bedside and assists with communication -pt has no control of his bowels and is having loose stools which is normal for him on tube feeds. -pt is much more alert and improved since admission and ready for rehab when bed available. -pt states he isn't ready to leave today, although cannot give a clear reason. -denies CP, SOB. Reports some back pain on the lower L side-reports this is new and likely related to the bed being uncomfortable. -reports some urinary urgency still, denies dysuria. Objective Last 8 Hrs Date Time Temp Pulse Resp B/P (MAP) Pulse Ox O2 Delivery O2 Flow Rate FiO2 01/24/17 07:25 Room Air 01/24/17 07:14 36.8 88 20 161/70 (100) 95 Room Air Physical Exam: GEN: WNWD, in no acute distress, alert and appropriate, nonverbal, sitting in bed reading newspaper. HEENT: NC/AT, PERRL, normal sclerae, MMM CARDIO: reg rate, S1/2 heard without m/g/r LUNGS: coarse rhonchi bilaterally ABD: soft, non-tender, non-distended, no rebound or guarding, +BS, PEG tubesite clean and dry without erythema EXTREMITY: RP and DP palpable 2+ bilat, no LE swelling or edema, extremities are warm and well-perfused SKIN: warm and dry Laboratory Results: 01/22/17 06:52 Red Blood Count 3.61, Mean Corpuscular Volume 95.0, Mean Corpuscular Hemoglobin 31.0, Mean Corpuscular Hemoglobin Concent 32.7, Mean Platelet Volume 10.2, Neutrophils (%) (Auto) 82.7, Lymphocytes (%) (Auto) 7.6, Monocytes (%) (Auto) 8.7, Eosinophils (%) (Auto) 0.5, Basophils (%) (Auto) 0.1, Neutrophils # (Auto) 6.96, Lymphocytes # (Auto) 0.64, Monocytes # (Auto) 0.73, Eosinophils # (Auto) 0.04, Basophils # (Auto) 0.01 01/23/17 06:05 01/23/17 06:05 Test 01/18/17 14:36 01/18/17 15:45 01/18/17 16:04 01/18/17 16:06 Platelet Estimate NORMAL Digoxin Level 0.7 ng/ml (0.8-2.0) Urine Color DK YELLOW Urine Appearance CLOUDY (CLEAR) Urine pH 5.0 (4.5-7.5) Urine Specific [place] 1.024 (1.000-1.030) Urine Protein 1+ (NEG) Urine Glucose (UA) NEG (NEG) Urine Ketones TRACE (NEG) Urine Occult Blood 3+ (NEG) Urine Nitrite NEG (NEG) Urine Bilirubin NEG (NEG) Urine Urobilinogen NEG (NEG) Urine Leukocyte Esterase MODERATE (NEG) Urine WBC (Auto) >30 /hpf (0-5) Urine RBC (Auto) >30 /hpf (0-4) Urine Hyaline Casts (Auto) 5-10 /lpf (0-5) Urine Epithelial Cells (Auto) 0-5 /lpf (0-5) Urine Bacteria (Auto) 3+ (NEG) Urine Crystals CALCIUM OXALATE (NONE Urine Yeast (Auto) BUDDING (NONE PRSENT) Activated Partial Thromboplast Time 36.8 SECONDS (21.0-31.0) Partial Thromboplastin Ratio 1.4 Total Bilirubin 0.4 mg/dl (0.2-1) Aspartate Amino Transf (AST/SGOT) 25 U/L (15-37) Alanine Aminotransferase (ALT/SGPT) 29 U/L (12-78) Alkaline Phosphatase 145 U/L (45-117) Total Creatine Kinase 44 U/L (39-308) Creatine Kinase MB 1.3 ng/ml (0.5-3.6) Creatine Kinase MB Ratio 3.0 (0-3.0) Troponin I 0.035 ng/ml (0-0.045) Pro-B-Type Natriuretic Peptide 1214 pg/ml (0-1800) Total Protein 8.6 gm/dl (6.4-8.2) Albumin 2.7 gm/dl (3.4-5.0) Globulin 5.9 gm/dl (2.5-4.0) Albumin/Globulin Ratio 0.5 (0.9-2) Lipase 130 U/L (73-393) Venous Blood pH 7.44 (7.36-7.41) Venous Blood Partial Pressure CO2 52 mmHg (38.0-50.0) Venous Blood Partial Pressure O2 45 mmHg Venous Blood HCO3 35 mmol/L Venous Blood Oxygen Saturation 78.3 % Venous Blood Base Excess 8.8 mEq/L Test 01/18/17 16:12 01/18/17 20:55 01/19/17 06:23 01/22/17 06:52 Bedside Lactic Acid Venous 2.51 mmol/L (0.90-1.70) Lactic Acid Level 1.3 mmol/L (0.4-2.0) Erythrocyte Sedimentation Rate 39 mm/hr (0-14) Phosphorus Level 4.3 mg/dl (2.5-4.9) C-Reactive Protein 8.85 mg/dl (0-0.29) White Blood Count 8.41 K/uL (4.8-10.8) Red Blood Count 3.61 M/uL (4.7-6.1) Hemoglobin 11.2 g/dL (14.0-18.0) Hematocrit 34.3 % (42-52) Mean Corpuscular Volume 95.0 fL (80-100) Mean Corpuscular Hemoglobin 31.0 pg (25-34) Mean Corpuscular Hemoglobin Concent 32.7 g/dl (32-36) Platelet Count 263 K/uL (130-400) Mean Platelet Volume 10.2 fL (7.4-10.4) Neutrophils (%) (Auto) 82.7 % Lymphocytes (%) (Auto) 7.6 % Monocytes (%) (Auto) 8.7 % Eosinophils (%) (Auto) 0.5 % Basophils (%) (Auto) 0.1 % Neutrophils # (Auto) 6.96 K/uL (1.4-6.5) Lymphocytes # (Auto) 0.64 K/uL (1.2-3.4) Monocytes # (Auto) 0.73 K/uL (0.11-0.59) Eosinophils # (Auto) 0.04 K/uL (0-0.5) Basophils # (Auto) 0.01 K/uL (0-0.2) RDW Standard Deviation 57.2 fL (36.4-46.3) RDW Coefficient of Variation 16.4 % (11.5-14.5) Immature Granulocyte % (Auto) 0.4 % Immature Granulocyte # (Auto) 0.03 K/uL (0.00-0.02) Test 01/23/17 06:05 01/24/17 04:53 01/24/17 17:46 Anion Gap 6.0 mmol/L (3-11) Est Creatinine Clear Calc Drug Dose 57.6 ml/min Estimated GFR () 98.4 Estimated GFR (Non- 84.9 BUN/Creatinine Ratio 27.7 (10-20) Calcium Level 9.1 mg/dl (8.5-10.1) Magnesium Level 2.0 mg/dl (1.8-2.4) Prothrombin Time 16.5 SECONDS (9.0-12.0) Prothromb Time International Ratio 1.5 (0.9-1.1) Bedside Glucose 141 mg/dl (70-99) Date/Time Source Procedure Growth Status 01/18/17 16:15 Blood Blood Culture - Final NO GROWTH Complete 01/19/17 00:00 Stool C.difficile Toxin B Gene (PCR) - Final No C. difficile toxin B gene detected Complete 01/20/17 11:34 Sputum Expectorated Sputum Gram Stain - Final Complete 01/20/17 11:34 Sputum Expectorated Sputum Sputum Culture - Final LIGHT NORMAL THERESA. Complete 01/20/17 11:00 Urine , Clean Catch Urine Culture - Final Coag Neg Staphylococcus Complete Last 24 Hours Test 01/23/17 17:51 01/24/17 04:53 Bedside Glucose 113 mg/dl Prothrombin Time 16.5 SECONDS Prothromb Time International Ratio 1.5 Assessment & Plan 76 yo M s/p CVA and PEG placement 2/2 chronic aspiration presents with weakness , confusion and concerns for infection (aspiration PNA vs CAUTI) 1. Acute on chronic resp failure-hypoxia is resolved and he is off oxygen. Thought 2/2 aspiration pneumonia, poss chronic aspiration from TFs. Receiving Levaquin/Flagyl for 7 days. Clinically improved with all cultures negative to date. 2. CAUTI-saavedra dc'd and patient passed trial of void. Urology evaluated him and doesn't think he had a CAUTI despite initial culture + for E faecalis. Repeat culture reveals 10K of S. aureus. Some urgency is still present. Pt denies fevers or chills at this time. Initially had some gross hematuria, thought 2/2/ Saavedra trauma on admission which is resolved. 3. Chronic systolic heart failure-compensated. Cont daily weights, strict I/Os , PO Lasix. 4. PAF-currently in sinus rhythm, rate and rhythm controlled. Cont digoxin, metoprolol, amiodarone. Coumadin restarted yesterday and not at goal yet. Trend INR daily. 5. HTN-controlled 6. CVA s/p PEG-chronic TFs running at goal. Plan to follow up with GI nutrition: Dr Umaña upon discharge. To schedule appt please call [phone] DVT Px: SCD's On coumadin, INR: therapeutic Code Status: DNR Disposition: Needs rehab placement. Plan to discharge when placement available director of student services consulted DO [facility] Current Inpatient Medications: Current Inpatient Medications Medications (Trade) Dose Ordered Sig/Kelle Route Start Time Stop Time Status Last Admin Dose Admin Acetaminophen (Tylenol Tab) 650 mg Q4H PRN PO 01/18/17 18:30 02/17/17 18:29 Amiodarone HCl (Cordarone Tab) 200 mg HS PEG 01/18/17 21:00 02/17/17 20:59 01/23/17 20:48 200 MG Atorvastatin Calcium (Lipitor Tab) 80 mg HS PEG 01/18/17 21:00 02/17/17 20:59 01/23/17 20:46 80 MG Digoxin (Lanoxin Tab) 0.125 mg MoWeFr@1600 PEG 01/20/17 16:00 02/19/17 15:59 01/23/17 15:51 0.125 MG Guaifenesin (Robitussin Sugar Free Syrup) 200 mg Q6 PEG 01/19/17 00:00 02/18/17 00:00 01/24/17 12:09 200 MG Albuterol/ Ipratropium (Duoneb) 1 ml Q4R PRN INH 01/18/17 19:30 02/17/17 19:29 Lactobacillus Acidophilus (Floranex Tab) 4 tab TIDM PEG 01/19/17 07:30 02/18/17 07:59 01/24/17 12:09 4 TAB Metoprolol Tartrate (Lopressor Tab) 12.5 mg BID PEG 01/18/17 21:00 02/17/17 20:59 01/24/17 07:32 12.5 MG Ferrous Sulfate (Feosol Elix) 300 mg DAILY PEG 01/19/17 09:00 02/18/17 08:59 01/24/17 07:37 300 MG Nystatin (Mycostatin Powder) 1 appln BID EXT 01/18/17 21:00 02/17/17 20:59 01/24/17 07:38 1 APPLN Finasteride (Proscar Tab) 5 mg QAM PO 01/19/17 09:15 02/18/17 09:14 01/22/17 08:05 5 MG Furosemide (Lasix Tab) 60 mg DAILY PEG 01/20/17 09:00 02/19/17 08:59 01/24/17 07:33 60 MG Aspirin (Aspirin Chew) 81 mg DAILY PEG 01/20/17 09:00 02/19/17 08:59 01/24/17 07:39 81 MG Metronidazole (Flagyl Tab) 500 mg TID PEG 01/20/17 14:00 01/25/17 20:59 01/24/17 07:32 500 MG Levofloxacin (Levaquin Tab) 500 mg DAILY@1800 PEG 01/20/17 18:00 01/24/17 18:01 01/23/17 17:50 500 MG Enteral Nutritional Formula (Impact 1.0 Duncan) 1,000 ml UD PEG 01/20/17 10:45 02/19/17 10:44 01/24/17 04:19 1,000 ML Acetylcysteine (Mucomyst 20% Inh Soln) 3 ml BIDR INH 01/20/17 20:00 02/19/17 19:59 01/22/17 19:54 3 ML Albuterol Sulfate (Ventolin 0.083% 2.5MG/3ML Neb) 2.5 mg BIDR INH 01/20/17 20:00 02/19/17 19:59 01/23/17 07:12 2.5 MG Promethazine HCl 12.5 mg/Sodium Chloride 50.5 ml @ 204 mls/hr Q6H PRN IV 01/22/17 01:00 02/21/17 00:59 01/22/17 01:27 204 MLS/HR Warfarin Sodium (Coumadin Tab) 2 mg Q2D@1600 PEG 01/23/17 16:00 02/22/17 15:59 01/23/17 15:52 2 MG Warfarin Sodium (Coumadin Tab) 1 mg Q2D@1600 PEG 01/24/17 16:00 02/23/17 15:59
[2017-01-24 14:46] VITALS: BP 135/88; PULSE 72; TEMP 36.6; O2SAT 93
[2017-01-24] MEDS ORDERED: WARFARIN SOD 1 MG TAB PEG SCH (16:00)
[2017-01-24] MEDS: LEVOFLOXACIN 500 MG TAB PEG SCH (18:12)
[2017-01-24 19:50] VITALS: BP 126/73; PULSE 76; TEMP 36.8; O2SAT 93
[2017-01-24] MEDS: AMIODARONE 200 MG TAB PEG SCH (22:10)
[2017-01-24] MEDS: ATORVASTATIN 40 MG TAB PEG SCH (22:10)
[2017-01-24 22:48] VITALS: BP 111/74; PULSE 77; TEMP 36.5; O2SAT 94
[2017-01-25] MEDS: GUAIFENESIN SUGAR FREE 200 MG/10 ML UDC PEG SCH ×3 (00:03→14:18)
[2017-01-25 06:44] VITALS: BP 105/66; PULSE 73; TEMP 36.3; O2SAT 95
[2017-01-25] MEDS: ACETYLCYSTEINE 20% INHAL SOLN ***DISPENSED BY RESP. INH SCH (07:03)
[2017-01-25 07:04] VITALS: PULSE 72; O2SAT 95
[2017-01-25] MEDS: ALBUTEROL 0.083% NEBU SOLN 3 ML VIAL INH SCH (07:04)
[2017-01-25] MEDS: NYSTATIN POWDER 15GM BTL EXT SCH (07:46)
[2017-01-25] MEDS: LACTOBACILLUS ACIDOPHILUS (FLORANEX) TAB PEG SCH ×3 (07:47→16:16)
[2017-01-25] MEDS: FERROUS SULFATE ELIX 220MG/5ML PEG SCH (07:47)
[2017-01-25] MEDS: FUROSEMIDE 20 MG TAB PEG SCH (07:47)
[2017-01-25] MEDS: METRONIDAZOLE 500 MG TAB PEG SCH ×2 (07:48→14:18)
[2017-01-25] MEDS: METOPROLOL TARTRATE 25 MG TAB PEG SCH (07:48)
[2017-01-25 07:56] LABS: INR 1.4 (0.9-1.1); PROTHROMBIN TIME (PATIENT) 15.4 SECONDS (9.0-12.0)
[2017-01-25] MEDS: ASPIRIN 81 MG CHEW PEG SCH (07:57)
[2017-01-25] MEDS: FINASTERIDE 5 MG TAB PO SCH (07:57)
[2017-01-25] MEDS ORDERED: WARF2TAB PO (14:49)
--- NOTE | 2017-01-25 14:57 | Discharge Instructions ---
Discharge Instructions Date of Service Jan 25, 2017. Admission Reason for Admission: Dehydration, Pneumonia, Vomiting And Diarrhea Discharge Discharge Diagnosis / Problem: Acute on chronic respiratory failure 2/2 pneumonia Discharge Goals Goal(s): Prevent Disease Progression Activity Recommendations Activity Limitations: per Instructions/Follow-up section . Instructions / Follow-Up Instructions / Follow-Up Please take all medications as instructed. Please note your coumadin level was increased to 2mg daily until your INR is at goal 2-3. It is currently subtherapeutic. The staff at the receiving facility will need to check your INR daily for a few days in order to get to the therapeutic goal range. Please follow-up with coumadin clinic on discharge from rehab facility. Please contact GI Nutrition office at [facility] to schedule outpatient follow -up with Dr Umaña. To schedule appt please call [phone]. Please follow-up with PCP within one week of discharge from rehab for follow-up from this hospitalization. It was a pleasure taking care of you! Call if you have any questions or problems. You can reach a [facility] hospitalist on duty at [facility] 24 hours a day by calling [phone]. Take care of yourself. Lizzeth Vela DO [facility] Hospitalist Current Hospital Diet Patient's current hospital diet: Discharge Diet Recommended Diet: N/A (strict NPO, PEG tube feedings only) Pending Studies Studies pending at discharge: no Medical Emergencies . Who to Call and When: Medical Emergencies: If at any time you feel your situation is an emergency, please call 911 immediately. . Non-Emergent Contact Non-Emergency issues call your: Primary Care Provider . . "Provider Documentation" section prepared by Lizzeth Vela. . VTE Core Measure Inpt VTE Proph given/why not?: Warfarin (Coumadin), SCD's
--- NOTE | 2017-01-25 15:01 | Discharge Summary ---
Discharge Summary Date of Service Jan 25, 2017. Discharge Summary Admission Date: Jan 18, 2017 at 18:20 Discharge Date: Jan 25, 2017 Discharge Disposition: detention facility Principal Diagnosis: Acute on chronic respiratory failure 2/2 pneumonia poss 2/2 aspiration CAUTI? Chronic systolic heart failure PAF on coumadin HTN Procedures: None. Vaccinations: Pneumovax 01/18 Consultations: Urology-Dr. Mandy Manzo Pulmonary-Dr. Katie Saavedra Pending Studies/Follow-Up: see instructions below. Medication Reconciliation Changed Medications: Warfarin Sodium (Coumadin) 2 Mg Tab 2 MG PO DAILY for 7 Days, #7 TAB (Changed from: ODD-DAYS) Please take warfarin 2mg PEG daily until INR increased to goal range 2-3. INR to be checked by SNF staff periodically. Continued Medications: Amiodarone HCl (Amiodarone HCl) 200 Mg Tab 200 MG PEG HS Aspirin (Aspirin Ec) 81 Mg Tab 81 MG PEG DAILY Atorvastatin (Lipitor) 80 Mg Tab 80 MG PEG HS Digoxin (Digoxin) 0.125 Mg Tab 0.125 MG PEG 3XWK monday and monday Ferrous Sulfate (Ferrous Sulfate) 300 Mg/5 Ml Syp 300 MG PEG DAILY Furosemide (Lasix) 20 Mg Tab 3 TAB PEG DAILY, TAB Guaifenesin (Guaifenesin) 200 Mg/10 Ml Syrp 10 ML PEG Q6H Ipratropium-Albuterol (Duoneb) 3 Ml Nebu 1 TREATMENT INH Q4H PRN for SOB/Wheezing, INHA Lactobacillus (Floranex) 1 Tab Tab 4 TAB PEG TIDM Metoprolol Tartrate (Lopressor) (Lopressor) 25 Mg Tab 12.5 MG PEG BID Nutritional Supplements (Vital 1.5 Duncan) 1 Liq Liq 60 ML PEG hourly Free water flush 60 ml every 4 hours. Nystatin (Topical) (Nystatin) 1 Pow Pow 1 APPL TOP BID Ondansetron (Ondansetron HCl) 4 Mg Tab 1 TAB PEG Q4H PRN for Nausea or Vomiting Discontinued Medications: Warfarin Sod (Coumadin) 1 Mg Tab 1 MG PEG EVENDAYS Admission Information HPI (per Admitting provider): Pt is 76y/o M with PMHx stroke (pt non-verbal, but does answer yes/no with nodding head), hx PR, s/p CABG, a-fib, has feeding tube, hx aspiration pneumonia , hx CHF, hx gastric CA s/p resection. Hx obtained from primarily. Pt presents from home with c/o emesis, diarrhea. Pt was d/c from [facility] yesterday as insurance ran out. Pt's states [facility] had been reporting pt with intermittent vomiting episodes and diarrhea. reports told pt had negative c-diff study last week. states pt had large diarrhea BM today. States today pt had approx 6 episodes of vomiting. Pt self suctions mouth and after had increased coughing and SOB. reports pt more sleepy and weak today. States having trouble moving him to wheelchair as he is so weak and he typically can sit himself up to assist in transfer. Hasn't noticed any fever and denies any reported fever at [facility]. reports pt tube feeds, as in past tried thickening nectar but didn't like the taste. Pt with saavedra x 3 weeks. states some blood clots noted to saavedra bag past week. reports some redness to groin and she has been applying nystatin powder to area. Was hospitalized 11/30/16 for sepsis pneumonia then d/c [facility], and then re- hospitalized 12/20 pneumonia/CHF discharge to [facility]. no new meds. Pt was on O2 NC at [facility] and d/c home yesterday without O2. Pt has been on O2 since hospital admissions recently. Pt had ECHO 12/21/16 EF 40-45%. Denies melena , hematochezia, hematemesis, diaphoresis, rhinorrhea, abdominal pain. Pt presented to ER today. WBC: 28, urine with mod leuk, >30 WBC, >30 RBC, 3+ bacteria, negative troponin. INR: 2.2. Digoxin: 0.7. POC lactic acid 2.5. phosphorus 1.6. normal mag 2.4.pending blood cultures, pending urine culture. EKG: prolonged QTc 560. CXR: mild interstitial pulmonary edema, trace bilateral pleural effusions. CT abd/pelvis: no bowel obstruction, g-tube in place. Temp: 37.2C, Pulse:78, Resp: 20, BP: 106/62. Pulse ox:88% on RA, 95% on 2L NC. Pt was given Levaquin IV. Physical Exam (per Admitting): General Appearance: no apparent distress (chronically ill appearing, somnolent, pt does arouse with speaking and gentle touch), + pertinent finding Head: normocephalic, atraumatic Eyes: normal inspection, PERRL, sclerae normal ENT: pharynx normal (dry mucous membranes), + pertinent finding Neck: supple, no adenopathy, no JVD, trachea midline Respiratory/Chest: chest non-tender, no respiratory distress, no accessory muscle use, + rhonchi (bases) Cardiovascular: regular rate, rhythm, no edema, no murmur Abdomen/GI: normal bowel sounds, non tender, soft, + pertinent finding (g tube in place, no surrounding erythema or edema) Extremities/Musculoskelatal: normal capillary refill, no pedal edema, + pertinent finding (decreased strength throughout) Neurologic/Psych: + pertinent finding (pt non-verbal. does shake head yes and no when asked about pain) Skin: normal color, warm/dry, + pertinent finding (+well healed scar to sternal chest, groin erythema) Hospital Course 76 yo M s/p CVA and PEG placement 2/2 chronic aspiration presents with weakness , admitted for confusion and concerns for infection (aspiration PNA vs CAUTI). He was empirically given Rocephin and Flagyl for coverage of a UTI and presumed aspiration pneumonia. Tube feeds were held in the setting of nausea and vomiting. IVF were started for dehydration. and he was admitted to telemetry. Blood cultures were drawn. As he was admitted with a chief complaint of weakness and had been discharged from rehab inappropriately because his insurance coverage had run out, PT and OT were consulted to evaluate. Pulmonary was consulted and agreed with the coverage for aspiration pneumonia. Urology was consulted for possible bladder retention to assist with Saavedra management which had been placed 3 weeks prior. They did not feel the patient had an active UTI because of the length of time the Saavedra had been placed. The initial urine culture revealed vancomycin-sensitive E. faecalis that was resistant to FQs (abx had been switched at this point to Levaquin and Flagyl), and there was a repeat a few days later that was unremarkable. The saavedra was removed and he passed his TOV without issue. Mucomyst and chest physiotherapy were ordered and eventually his vomiting and diarrhea slowed down and his hypoxia resolved. His tube feeds were restarted and were to goal of 60 mls/hr prior to discharge. At time of discharge he was oxygenating on room air, ambulating poorly but going to a SNF for assistance with this, tolerating tube feeds with some diarrhea that was at baseline per his (from the feeds), hemodynamically stable and afebrile. He was sent to SNF in good condition with recommended followup CXR in 4-6 weeks to ensure complete resolution of pneumonia and PCP followup recommended one week after discharge from SNF. Total time spent on discharge = 60 minutes This includes examination of the patient, discharge planning, medication reconciliation, and communication with other providers. Discharge Instructions [facility] [address] [place] [address] Discharge Medical Patient Name: Kvng Vaughn Unit Number: [id number] Date of : 1940 Patient Status: Admitted Inpatient Attending Doctor: Lizzeth Vela DO DI: Medical v4 Discharge Instructions Date of Service Jan 25, 2017. Admission Reason for Admission: Dehydration, Pneumonia, Vomiting And Diarrhea Discharge Discharge Diagnosis / Problem: Acute on chronic respiratory failure 2/2 pneumonia Discharge Goals Goal(s): Prevent Disease Progression Activity Recommendations Activity Limitations: per Instructions/Follow-up section . Instructions / Follow-Up Instructions / Follow-Up Please take all medications as instructed. Please note your coumadin level was increased to 2mg daily until your INR is at goal 2-3. It is currently subtherapeutic. The staff at the receiving facility will need to check your INR daily for a few days in order to get to the therapeutic goal range. Please follow-up with coumadin clinic on discharge from rehab facility. Please contact GI Nutrition office at [facility] to schedule outpatient follow -up with Dr Umaña. To schedule appt please call [phone]. Please follow-up with PCP within one week of discharge from rehab for follow-up from this hospitalization. It was a pleasure taking care of you! Call if you have any questions or problems. You can reach a [facility] hospitalist on duty at [facility] 24 hours a day by calling [phone]. Take care of yourself. DO [facility] Current Hospital Diet Patient's current hospital diet: Discharge Diet Recommended Diet: N/A (strict NPO, PEG tube feedings only) Pending Studies Studies pending at discharge: no Medical Emergencies . Who to Call and When: Medical Emergencies: If at any time you feel your situation is an emergency, please call 911 immediately. . Non-Emergent Contact Non-Emergency issues call your: Primary Care Provider . . "Provider Documentation" section prepared by Lizzeth Vela. . VTE Core Measure Inpt VTE Proph given/why not?: Warfarin (Coumadin), SCD's Additional Copies To Gorge Brown D.O.
[2017-01-25 15:15] VITALS: BP 100/63; PULSE 71; TEMP 36.4; O2SAT 97
[2017-01-25] MEDS ORDERED: WARFARIN SOD 2 MG TAB PEG SCH (16:00)
[2017-01-25] MEDS: DIGOXIN 0.125 MG TAB PEG SCH (16:15)
[2017-01-25 16:40] VITALS: BP 100/63; PULSE 66; TEMP 36.4; O2SAT 97
== END 2017-01-25 17:38 | DRG 177 ==
LOC: EDBD 14:46 → C.EDB 14:47 → C.2T 18:20 → ENRESERV 19:04 → EDBEDREQ 01-21 11:16 → ENRESERV 01-21 11:37 → C.MS4W 01-21 12:35
PROVIDERS: ADMIT Hospitalist; ATTEND Hospitalist
DX: J69.0 Pneumonitis due to inhalation of food and vomit (principal); J96.21 Acute and chronic respiratory failure with hypoxia; N39.0 Urinary tract infection, site not specified; T83.83XA Hemorrhage due to genitourinary prosthetic devices, implants and grafts, initial encounter; R06.03 Acute respiratory distress; I25.2 Old myocardial infarction; I48.0 Paroxysmal atrial fibrillation; E83.39 Other disorders of phosphorus metabolism; E78.5 Hyperlipidemia, unspecified; I10 Essential (primary) hypertension; R19.7 Diarrhea, unspecified; Z66 Do not resuscitate; Y84.6 Urinary catheterization as the cause of abnormal reaction of the patient, or of later complication, without mention of misadventure at the time of the procedure; Z83.3 Family history of diabetes mellitus; Z79.82 Long term (current) use of aspirin; Z79.01 Long term (current) use of anticoagulants; Z95.1 Presence of aortocoronary bypass graft; Z82.49 Family history of ischemic heart disease and other diseases of the circulatory system; Z93.1 Gastrostomy status